=== PATIENT | female | born 1940 | race Caucasian/White ===

== ENCOUNTER 2016-11-24 21:29 | Emergency (ER) | payer OTHER ==
[~2016-11-24] VITALS: Ht 157.5 cm; Wt 84.6 kg
[~2016-11-24 21:29] MED LIST: ACET-1311 PO; ALBU1AER9 INH; CALCTAB20 PO; INSDGI SC; WARF-283 PO
[2016-11-24 21:43] VITALS: O2SAT 96; Ht 157.5 cm; Wt 84.6 kg
--- NOTE | 2016-11-24 21:48 | EMERGENCY ROOM VISIT NOTE ---
History Report prepared by Violeta: Rl Raygoza Under the Supervision of: Dr. Anthony Ocampo D.O. First contact with patient: 21:32 Chief Complaint: FALL Stated Complaint: FALL/HYPOTENSIVE History of Present Illness The patient is a 76 year old female who presents to the Emergency Room after a falling episode that occurred shortly prior to arrival. Per emergency medical service personnel, the patient was walking across a concrete floor in her home when she became weak and fell. The patient fell forward and impacted her face during the fall. The patient does not remember if she lost consciousness at any time. She is currently complaining of pain in her neck and back. She is also currently experiencing a headache. EMS state that the patient's blood sugar level was 256 upon their arrival. The patient lives in a private home with her . She is on Coumadin. Source of History: patient, EMS Onset: Shortly RN VISITING Position: head (Face) Quality: other (Falling episode) Associated Symptoms: + back pain, + headache, + neck pain Review of Systems See HPI for pertinent positives and negatives. A total of ten systems were reviewed and were otherwise negative. 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 (11) H/O vertigo (12) Heterozygous MTHFR mutation C677T (13) History of CVA (cerebrovascular accident) (14) History of DVT (deep vein thrombosis) (15) History of hyperkalemia (16) History of TIA (transient ischemic attack) (17) HTN (hypertension) (18) Hypothyroidism (19) Idiopathic pulmonary fibrosis (20) Malignant neoplasm of corpus uteri (21) Migraine (22) Moderate COPD (chronic obstructive pulmonary disease) (23) Paroxysmal a-fib (24) Tobacco abuse (25) Valvular disease Surgical Problems: (1) H/o bile tract procedure (2) H/O cardiac catheterization (3) H/O excision of lamina of cervical vertebra for decompression of spinal cord (4) H/O hernia repair (5) H/O total hysterectomy with bilateral salpingo-oophorectomy (BSO) (6) History of cholecystectomy (7) History of total hip replacement (8) S/P CABG (coronary artery bypass graft) Family History Cardiac disorder FATHER MOTHER Diabetes mellitus FATHER MOTHER BROTHER GRANDMOTHER FH: cancer Social History Smoking Status: Current Every Day Smoker Alcohol Use: none Drug Use: none Marital Status: Housing Status: lives with family Occupation Status: retired Current/Historical Medications Scheduled Albuterol Sulfate (Proair Respiclick), 2 PUFFS INH Q6 Aspirin (Aspirin Chewable), 81 MG PO DAILY Calcium Carbonate (Calcium Carbonate), 1 TAB PO DAILY Docusate Sodium (Colace), 1 CAP PO BID Furosemide (Lasix), 20 MG PO DAILY Glipizide (Glucotrol), 10 MG PO QAM Glipizide (Glipizide), 5 MG PO QDD Insulin Glargine (Lantus), 28 UNITS SC QPM Isosorbide Mononitrate Ext Rel (Imdur Ext Rel), 30 MG PO QAM Levothyroxine Sodium (Levothyroxine Sodium), 137 MCG PO DAILY Magnesium Oxide (Magnesium), 400 MG PO DAILY Oxygen (Oxygen), 2 LITERS NA HS Ranitidine Hcl (Zantac), 150 MG PO BID Sertraline (Zoloft), 50 MG PO DAILY Sotalol Hcl (Sotalol Hcl), 1 TAB PO QAM Trazodone Hcl (Trazodone), 50 MG PO HS Warfarin Sod (Jantoven), 4 MG PO DAILY Warfarin Sodium (Warfarin Sodium), 2 MG PO DAILY Scheduled PRN Ipratropium-Albuterol (Combivent Respimat), 1 PUFFS INH QID PRN for SOB/Wheezing Nitroglycerin (Nitrostat), 0.4 MG UT UD PRN for Chest Pain Ondansetron Hcl (Zofran), 4 MG PO Q6H PRN for Nausea or Vomiting Tramadol (Ultram), 1 TAB PO DAILY PRN for Pain Allergies Coded Allergies: SY Inhibitors (Verified Allergy, Severe, HYPERKALEMIA, 11/24/16) Codeine (Verified Allergy, Severe, HIVES / DIFICULTY BREATHING; TAKES PERCOCET W/O PROBLEM, 11/24/16) Penicillins (Verified Allergy, Intermediate, RASH, 11/24/16) Physical Exam Vital Signs Date Time Temp Pulse Resp B/P Pulse Ox O2 Delivery O2 Flow Rate FiO2 11/25/16 00:10 119 16 166/140 96 Room Air 11/24/16 22:39 118 25 97 11/24/16 22:34 118 21 98 11/24/16 22:29 118 27 96 11/24/16 22:24 118 22 97 11/24/16 22:19 118 27 98 11/24/16 22:16 141/114 11/24/16 22:14 118 29 97 11/24/16 22:09 117 26 96 11/24/16 22:04 116 20 96 11/24/16 22:02 /93 11/24/16 21:59 118 16 91 11/24/16 21:54 117 26 105/81 97 11/24/16 21:53 116 11/24/16 21:43 36.7 117 20 114/100 96 Nasal Cannula 4.0 11/24/16 21:43 96 Nasal Cannula 4.0 Physical Exam GENERAL: Awake, alert, well-appearing, in no distress HENT: There is obvious ecchymosis about the face, nose, and eyes. There is also right upper eye lid edema. Oropharynx unremarkable. EYES: Normal conjunctiva. Sclera non-icteric. NECK: No tenderness over the midline neck. Supple. No nuchal rigidity. FROM. No JVD. RESPIRATORY: Clear to auscultation. CARDIAC: Tachycardiac rate, normal rhythm. Extremities warm and well perfused. Pulses equal. ABDOMEN: Soft, non-distended. No tenderness to palpation. No rebound or guarding. No masses. RECTAL: Deferred. MUSCULOSKELETAL: Chest examination reveals no tenderness. The back is symmetrical on inspection without obvious abnormality. There is no CVA tenderness to palpation. No joint edema. LOWER EXTREMITIES: There is no tenderness to the extremities. Abrasions to the bilateral upper extremities. Calves are equal size bilaterally and non-tender. No discoloration. Pitting edema to the bilateral lower extremities. NEURO: Normal sensorium. No sensory or motor deficits noted. SKIN: No rash or jaundice noted. Medical Decision & Procedures ER Provider Diagnostic Interpretation: X ray results as stated below per my interpretation and radiologist interpretation. Other radiology results as stated below per my review and radiologist interpretation CHEST ONE VIEW PORTABLE CLINICAL HISTORY: Syncope. COMPARISON STUDY: Chest radiograph February 01, 2016. FINDINGS: There is a dual lead left subclavian pacemaker and median sternotomy wires. No pneumothorax is present. There are suspected small bilateral pleural effusions. Interstitial thickening is similar to prior exams. Cardiomegaly is unchanged. There is no lobar consolidation. IMPRESSION: 1. No significant change in interstitial thickening which likely reflects interstitial lung disease although mild superimposed edema would be difficult to exclude. 2. Suspected small bilateral pleural effusions. No pneumothorax. Electronically signed by: Dylon Cunningham M.D. 11/24/2016 10:24 PM Dictated Date/Time: 11/24/2016 10:[address] HEAD: Comparison: CT dated 02/01/2016. No intracranial hemorrhage, skull fracture, or other acute intracranial abnormality. Stable atrophy and chronic small vessel ischemic disease. Stable small infarct in the right cerebellar hemisphere. CT FACIAL: Possible small fracture of the nasal tip. Correlate clinically. Otherwise no evidence of facial bone fracture. Suspect mild right eyelid swelling. Orbits appear intact. CT C SPINE: No acute fracture or traumatic subluxation of the cervical spine. Multilevel degenerative changes of the cervical spine. Radiologist: Disha Villatoro MD. Laboratory Results 11/24/16 22:35 Red Blood Count 5.21, Mean Corpuscular Volume 88.1, Mean Corpuscular Hemoglobin 29.2, Mean Corpuscular Hemoglobin Concent 33.1, Mean Platelet Volume 9.8, Neutrophils (%) (Auto) 67.6, Lymphocytes (%) (Auto) 22.6, Monocytes (%) (Auto) 7.5, Eosinophils (%) (Auto) 1.5, Basophils (%) (Auto) 0.3, Neutrophils # (Auto) 4.42, Lymphocytes # (Auto) 1.48, Monocytes # (Auto) 0.49, Eosinophils # (Auto) 0.10, Basophils # (Auto) 0.02 11/24/16 22:35 Test 11/24/16 22:35 11/24/16 22:39 11/24/16 22:42 White Blood Count 6.54 K/uL (4.8-10.8) Red Blood Count 5.21 M/uL (4.2-5.4) Hemoglobin 15.2 g/dL (12.0-16.0) Hematocrit 45.9 % (37-47) Mean Corpuscular Volume 88.1 fL (80-100) Mean Corpuscular Hemoglobin 29.2 pg (25-34) Mean Corpuscular Hemoglobin Concent 33.1 g/dl (32-36) Platelet Count 190 K/uL (130-400) Mean Platelet Volume 9.8 fL (7.4-10.4) Neutrophils (%) (Auto) 67.6 % Lymphocytes (%) (Auto) 22.6 % Monocytes (%) (Auto) 7.5 % Eosinophils (%) (Auto) 1.5 % Basophils (%) (Auto) 0.3 % Neutrophils # (Auto) 4.42 K/uL (1.4-6.5) Lymphocytes # (Auto) 1.48 K/uL (1.2-3.4) Monocytes # (Auto) 0.49 K/uL (0.11-0.59) Eosinophils # (Auto) 0.10 K/uL (0-0.5) Basophils # (Auto) 0.02 K/uL (0-0.2) RDW Standard Deviation 51.2 fL (36.4-46.3) RDW Coefficient of Variation 16.0 % (11.5-14.5) Immature Granulocyte % (Auto) 0.5 % Immature Granulocyte # (Auto) 0.03 K/uL (0.00-0.02) Prothrombin Time 15.2 SECONDS (9.0-12.0) Prothromb Time International Ratio 1.4 (0.9-1.1) Anion Gap 8.0 mmol/L (3-11) Est Creatinine Clear Calc Drug Dose 45.3 ml/min Estimated GFR () 57.3 Estimated GFR (Non- 49.4 BUN/Creatinine Ratio 11.7 (10-20) Calcium Level 8.8 mg/dl (8.5-10.1) Total Bilirubin 1.0 mg/dl (0.2-1) Direct Bilirubin 0.4 mg/dl (0-0.2) Aspartate Amino Transf (AST/SGOT) 18 U/L (15-37) Alanine Aminotransferase (ALT/SGPT) 20 U/L (12-78) Alkaline Phosphatase 137 U/L (45-117) Total Protein 7.4 gm/dl (6.4-8.2) Albumin 3.0 gm/dl (3.4-5.0) Bedside Glucose 245 mg/dl (70-90) Bedside Troponin I 0.000 ng/ml (0-0.045) Laboratory results reviewed by me ECG Indication: weakness Rate (beats per minute): 117 Rhythm: atrial fibrillation (rapid) Findings: other (No ST elevation or depression, RAD present) ED Course 2134: The patient was evaluated in room B7. A complete history and physical exam was performed. 0040: I checked on the patient at this time. Heart rate is 110, she is neurologically intact. GCS is 15. I spoke to the family at bedside. The patient will be discharged home. Medical Decision Differential Diagnosis include: Syncope, near syncope, closed head injury, cervical spine injury, facial fracture, and cardiac dysrhythmia. Repeat examination of patient at 0045 hours the patient is resting in no distress with family bedside she is mildly tachycardic at 110. She does have a history of A. fib with rapid ventricular response. Patient's family states that she was walking to the bathroom with her walker in her right leg gave out. There was no syncope. Patient complained of face pain. Patient was alert and conscious throughout the entire evaluation according to the patient's daughter who is at bedside currently and I am asking her the history. I discussed the workup with the patient and the patient's family they would like to take her home. Patient was offered pain medicine she states that she would like to take Tylenol Impression Primary Impression: Fall Additional Impressions: Contusion of multiple sites Atrial flutter with rapid ventricular response Head injury Facial contusion Scribe Attestation The scribe's documentation has been prepared under my direction and personally reviewed by me in its entirety. I confirm that the note above accurately reflects all work, treatment, procedures, and medical decision making performed by me. Departure Information Dispostion Home / Self-Care Referrals Gio Braun D.O. (PCP) Patient Instructions Bruises Contusions, ED Head Injury Closed, ED Mechanical Fall, [facility] Additional Instructions Follow-up with primary care physician. Return for increased pain alteration in mental status or any concerns. Continue to take her home medications. Take Tylenol for your pain. Problem Qualifiers Primary Impression: Fall Encounter type: initial encounter Qualified Codes: W19.XXXA - Unspecified fall, initial encounter Additional Impressions: Head injury Encounter type: initial encounter Qualified Codes: S09.90XA - Unspecified injury of head, initial encounter Facial contusion Encounter type: initial encounter Qualified Codes: S00.83XA - Contusion of other part of head, initial encounter
--- NOTE | 2016-11-24 22:25 | DIAGNOSTIC IMAGING REPORT ---
CHEST ONE VIEW PORTABLE CLINICAL HISTORY: Syncope. COMPARISON STUDY: Chest radiograph February 01, 2016. FINDINGS: There is a dual lead left subclavian pacemaker and median sternotomy wires. No pneumothorax is present. There are suspected small bilateral pleural effusions. Interstitial thickening is similar to prior exams. Cardiomegaly is unchanged. There is no lobar consolidation. IMPRESSION: 1. No significant change in interstitial thickening which likely reflects interstitial lung disease although mild superimposed edema would be difficult to exclude. 2. Suspected small bilateral pleural effusions. No pneumothorax. Electronically signed by: Dylon Cunningham M.D. 11/24/2016 10:24 PM Dictated Date/Time: 11/24/2016 10:22 PM
[2016-11-24 22:55] LABS: BASO % 0.3 %; BASO ABS # 0.02 K/uL (0-0.2); COMPLETE YES; EOS % 1.5 %; HEMATOCRIT 45.9 % (37-47); IG% 0.5 %; LYMPH % 22.6 %; LYMPH ABS # 1.48 K/uL (1.2-3.4); MEAN CELL VOLUME 88.1 fL (80-100); MEAN CORPUSCULAR HEMOGLOBIN 29.2 pg (25-34); MEAN CORPUSCULAR HGB CONC 33.1 g/dl (32-36); MEAN PLATELET VOLUME 9.8 fL (7.4-10.4); MONO % 7.5 %; NEUT % 67.6 %; PLATELET COUNT 190 K/uL (130-400); RED BLOOD COUNT 5.21 M/uL (4.2-5.4); WHITE BLOOD COUNT 6.54 K/uL (4.8-10.8)
[2016-11-24 23:04] LABS: INR 1.4 (0.9-1.1); PROTHROMBIN TIME (PATIENT) 15.2 SECONDS (9.0-12.0)
[2016-11-24 23:17] LABS: BUN/CREATININE RATIO 11.7 (10-20); CALCIUM 8.8 mg/dl (8.5-10.1); CREATININE 1.1 mg/dl (0.60-1.20)
[2016-11-24] MEDS ORDERED: ALBU18002 INH (23:56)
[2016-11-24] MEDS ORDERED: WARF4TAB8 PO (23:56)
[2016-11-24] MEDS ORDERED: SERT50TA PO (23:56)
[2016-11-25] MEDS ORDERED: ACETAMINOPHEN 500 MG TAB PO STA (00:43)
[2016-11-25 01:00] VITALS: BP 166/140; PULSE 119; TEMP 36.7; O2SAT 96
--- NOTE | 2016-11-25 06:35 | DIAGNOSTIC IMAGING REPORT ---
CT OF THE HEAD WITHOUT CONTRAST CLINICAL HISTORY: Trauma. COMPARISON STUDY: Head CT February 01, 2016. CT DOSE: 1252.14 mGy.cm TECHNIQUE: Helical axial images of the head were obtained without IV contrast. Automated exposure control was utilized for the study. FINDINGS: No acute intracranial hemorrhage, midline shift or mass effect is present. Ventricular system is stable. Basilar cisterns are patent. There are no extra-axial collections. White matter hypodensity suggests small vessel disease. There are no findings to suggest acute dural sinus thrombosis or acute territorial infarct. There is an old infarct within the right cerebellar hemisphere. There is no calvarial fracture. There are minimal secretions within the left maxillary sinus. Mastoid air cells are clear. IMPRESSION: 1. No acute intracranial findings. 2. No calvarial fracture. Electronically signed by: Dylon Cunningham M.D. 11/25/2016 6:34 AM Dictated Date/Time: 11/25/2016 6:32 AM
--- NOTE | 2016-11-25 06:37 | DIAGNOSTIC IMAGING REPORT ---
CT OF THE CERVICAL SPINE WITHOUT CONTRAST CLINICAL HISTORY: Trauma. COMPARISON STUDY: No previous studies for comparison. TECHNIQUE: Helical axial images of the cervical spine were obtained without IV contrast. Sagittal and coronal reconstructions were viewed. FINDINGS: Alignment of the cervical spine is anatomic. There is no acute fracture. Moderate disc space narrowing and osteophytosis at C5-C6 is present. The craniocervical junction is intact. There is no prevertebral edema. IMPRESSION: No acute cervical spine fracture or subluxation. Electronically signed by: Dylon Cunningham M.D. 11/25/2016 6:36 AM Dictated Date/Time: 11/25/2016 6:34 AM
--- NOTE | 2016-11-25 07:42 | DIAGNOSTIC IMAGING REPORT ---
CT SCAN OF THE FACIAL BONES WITHOUT IV CONTRAST CLINICAL HISTORY: Trauma. COMPARISON STUDY: CT of the brain dated 11/24/2016. TECHNIQUE: High-resolution CT scan of the facial bones is performed. Images are reviewed in the axial, sagittal, and coronal planes. IV contrast was not administered for this examination. FINDINGS: The skeletal structures are osteopenic. There is no evidence of facial bone fracture. The bony orbits are intact and the orbital contents are within normal limits. The zygomatic arches, nasal bones, and pterygoid plates are preserved. The maxilla and mandible are intact. Degenerative changes noted at the temporomandibular joints. There are no layering blood products within the paranasal sinuses. Secretions are present within the left maxillary antrum. The remaining paranasal sinuses are clear, in the mastoid air cells are well pneumatized. The visualized calvarium and upper cervical spine are maintained. Partially imaged brain parenchyma is within normal limits noting age-related involutional change. There is advanced atherosclerotic calcification of the cavernous carotid and vertebral arteries. The patient is edentulous. IMPRESSION: There is no evidence of facial bone fracture. Electronically signed by: Galdino Navarrete M.D. 11/25/2016 7:40 AM Dictated Date/Time: 11/25/2016 7:37 AM
[2017-03-09] MEDS ORDERED: ZNT/150 PO (13:10)
[2017-03-09] MEDS ORDERED: GLIP10TA9 PO (13:10)
[2017-03-09] MEDS ORDERED: NTRGSL/4 UT (13:10)
[2017-03-09] MEDS ORDERED: DOCU-94 PO (14:28)
[2017-03-09] MEDS ORDERED: OXGN (14:31)
[2017-03-09] MEDS ORDERED: IPRA1AER2 INH (16:29)
[2017-03-09] MEDS ORDERED: TRAM-10 PO (17:05)
[2017-03-12] MEDS ORDERED: ULT50X PO (08:45)
[2017-03-12] MEDS ORDERED: NUTR-7 PO (08:45)
[2017-03-12] MEDS ORDERED: TRAZ50TA35 PO (08:45)
[2017-03-12] MEDS ORDERED: ECRCR EXT (08:45)
[2017-03-12] MEDS ORDERED: CPC PO (08:45)
[2017-03-12] MEDS ORDERED: SNTO30 EXT (08:45)
[2017-03-12] MEDS ORDERED: LCTX PO (08:45)
[2017-03-12] MEDS ORDERED: DXY100 PO (18:23)
[2017-03-17] MEDS ORDERED: INSDGIPEN SC (16:06)
[2017-03-17] MEDS ORDERED: DXY100 PO (16:13)
[2017-03-17] MEDS ORDERED: FURO-85 PO (16:21)
[2017-03-17] MEDS ORDERED: MAGN1TAB19 PO (16:22)
[2017-04-08] MEDS ORDERED: BTP80 PO (09:32)
[2017-04-08] MEDS ORDERED: INSDGIPEN SC (09:32)
[2017-04-08] MEDS ORDERED: MRLP17X PO (09:32)
[2017-04-08] MEDS ORDERED: SERT50TA PO (09:37)
[2017-04-08] MEDS ORDERED: FURO-85 PO (10:47)
== END 2016-11-25 01:50 | disposition home or self-care (01) ==
LOC: EDBD 21:29 → C.EDB 21:30
DX: S09.90XA Unspecified injury of head, initial encounter (principal); S00.83XA Contusion of other part of head, initial encounter; T14.8 Other injury of unspecified body region; W19.XXXA Unspecified fall, initial encounter; Y92.019 Unspecified place in single-family (private) house as the place of occurrence of the external cause; M54.2 Cervicalgia; I48.92 Unspecified atrial flutter; I48.91 Unspecified atrial fibrillation; I12.9 Hypertensive chronic kidney disease with stage 1 through stage 4 chronic kidney disease, or unspecified chronic kidney disease; N18.3 Chronic kidney disease, stage 3 (moderate); I25.10 Atherosclerotic heart disease of native coronary artery without angina pectoris; E78.5 Hyperlipidemia, unspecified; I50.30 Unspecified diastolic (congestive) heart failure; E03.9 Hypothyroidism, unspecified; E11.9 Type 2 diabetes mellitus without complications; K21.9 Gastro-esophageal reflux disease without esophagitis; J44.9 Chronic obstructive pulmonary disease, unspecified; G89.29 Other chronic pain; J84.10 Pulmonary fibrosis, unspecified; F32.9 Major depressive disorder, single episode, unspecified; F17.200 Nicotine dependence, unspecified, uncomplicated; Z86.73 Personal history of transient ischemic attack (TIA), and cerebral infarction without residual deficits; Z85.42 Personal history of malignant neoplasm of other parts of uterus; Z86.718 Personal history of other venous thrombosis and embolism; Z95.1 Presence of aortocoronary bypass graft; Z90.710 Acquired absence of both cervix and uterus; Z90.49 Acquired absence of other specified parts of digestive tract; Z96.649 Presence of unspecified artificial hip joint; Z79.01 Long term (current) use of anticoagulants; Z79.82 Long term (current) use of aspirin; Z79.4 Long term (current) use of insulin; Z79.899 Other long term (current) drug therapy; Z88.0 Allergy status to penicillin; Z88.5 Allergy status to narcotic agent; Z88.8 Allergy status to other drugs, medicaments and biological substances; Z83.3 Family history of diabetes mellitus; Z82.49 Family history of ischemic heart disease and other diseases of the circulatory system; Z80.9 Family history of malignant neoplasm, unspecified

== ENCOUNTER 2017-03-09 17:36 | Inpatient (IN) | payer OTHER ==
[~2017-03-09] VITALS: Ht 157.5 cm; Wt 81.2 kg
[~2017-03-09 17:36] MED LIST changes: -ACET-1311 PO; +ALBU18002 INH; -ALBU1AER9 INH; -CALCTAB20 PO; +DOCU-94 PO; +GLIP10TA9 PO; -INSDGI SC; +IPRA1AER2 INH; +NTRGSL/4 UT; +OXGN; +SERT50TA PO; +TRAM-10 PO; +WARF4TAB8 PO; +ZNT/150 PO
[2017-03-09] MEDS ORDERED: SODIUM CHLORIDE 0.9% 1000ML 1,000 ML IV STA ×3 (18:01→18:50)
[2017-03-09] MEDS ORDERED: AZTREONAM IV 2,000 MG in DEXTROSE 5% 100ML 100 ML IV STA (18:06)
[2017-03-09] MEDS ORDERED: VANCOMYCIN INJ 1,600 MG in SODIUM CHLORIDE 0.9% 500ML 500 ML IV STA (18:07)
[2017-03-09 18:29] LABS: URINE APPEARANCE CLEAR (CLEAR); URINE BILIRUBIN NEG (NEG); URINE COLOR DK YELLOW; URINE EPITHELIAL CELL AUTO >30 /lpf (0-5); URINE NITRITE NEG (NEG); URINE PH 5.5 (4.5-7.5); URINE SPECIFIC GRAVITY 1.019 (1.000-1.030); UROBILINOGEN NEG (NEG)
--- NOTE | 2017-03-09 18:32 | DIAGNOSTIC IMAGING REPORT ---
CHEST ONE VIEW PORTABLE CLINICAL HISTORY: Weakness. Hypoglycemia. COMPARISON STUDY: Chest radiograph November 24, 2016. FINDINGS: A dual lead left pacemaker is noted. There are median sternotomy wires. There is no pneumothorax. There may be a small right pleural effusion. An opacity within the lateral right midlung is new since prior exam. This could reflect pleural fluid or mild airspace disease. Interstitial thickening has slightly increased. There is no lobar consolidation. Mild cardiomegaly is unchanged. IMPRESSION: 1. Increase in interstitial thickening. This may reflect mild pulmonary edema or an infectious process superimposed upon interstitial lung disease. 2. Interval development of mild opacity within the lateral right midlung may reflect pleural fluid or mild airspace opacity. PA and lateral chest radiograph in one month is recommended to ensure resolution. 3. Suspected small right pleural effusion. Electronically signed by: Dylon Cunningham M.D. 03/09/2017 6:31 PM Dictated Date/Time: 03/09/2017 6:28 PM
[2017-03-09 18:36] LABS: MANUAL MICROSCOPIC REQUIRED? NO; REVIEW REQ? NO
[2017-03-09] MEDS ORDERED: VNTHFA/IN INH (18:37)
[2017-03-09] MEDS ORDERED: ZLF/100 PO (18:37)
[2017-03-09 19:00] LABS: BASO % 0.2 %; BASO ABS # 0.02 K/uL (0-0.2); COMPLETE YES; EOS % 0.4 %; HEMATOCRIT 47.8 % (37-47); IG% 0.3 %; LYMPH % 15.2 %; LYMPH ABS # 1.41 K/uL (1.2-3.4); MEAN CELL VOLUME 89.3 fL (80-100); MEAN CORPUSCULAR HEMOGLOBIN 29.3 pg (25-34); MEAN CORPUSCULAR HGB CONC 32.8 g/dl (32-36); MEAN PLATELET VOLUME 9.2 fL (7.4-10.4); MONO % 9.8 %; NEUT % 74.1 %; PLATELET COUNT 185 K/uL (130-400); RED BLOOD COUNT 5.35 M/uL (4.2-5.4); WHITE BLOOD COUNT 9.26 K/uL (4.8-10.8)
[2017-03-09 19:04] LABS: INR 2.8 (0.9-1.1); PARTIAL THROMBOPLASTIN RATIO 1.5; PROTHROMBIN TIME (PATIENT) 31.4 SECONDS (9.0-12.0)
[2017-03-09 19:07] LABS: BUN/CREATININE RATIO 14.9 (10-20); CALCIUM 9.5 mg/dl (8.5-10.1); CREATININE 1.4 mg/dl (0.60-1.20); MAGNESIUM 1.9 mg/dl (1.8-2.4)
--- NOTE | 2017-03-09 19:08 | DIAGNOSTIC IMAGING REPORT ---
CT OF THE HEAD WITHOUT CONTRAST CLINICAL HISTORY: Weakness. Hypoglycemia. COMPARISON STUDY: Head CT November 24, 2016. CT DOSE: 1203.96 mGy.cm TECHNIQUE: Helical axial images of the head were obtained without IV contrast. Automated exposure control was utilized for the study. FINDINGS: No acute intracranial hemorrhage, midline shift or mass effect is present. Mild ventricular dilatation is unchanged and likely due to atrophy. The basilar cisterns are patent. There are no extra-axial collections. Old infarct within the right cerebellar hemisphere is noted. Moderate white matter hypodensities suggest small vessel disease. There are no findings to suggest acute dural sinus thrombosis or acute territorial infarct. There are no significant calvarial abnormalities. There is mild mucosal thickening of the sinuses. IMPRESSION: No acute intracranial findings. Electronically signed by: Dylon Cunningham M.D. 03/09/2017 7:07 PM Dictated Date/Time: 03/09/2017 7:02 PM
[2017-03-09 19:27] LABS: CKMB/CK RATIO 2.2 (0-3.0); THYROID STIMULATING HORMONE 1.93 uIu/ml (0.300-4.500)
[2017-03-09] MEDS ORDERED: FURO-85 PO (20:11)
[2017-03-09] MEDS ORDERED: SOTA80TA PO (20:11)
[2017-03-09] MEDS ORDERED: ISOS30TA35 PO (20:11)
[2017-03-09] MEDS ORDERED: GLC5 PO (20:11)
[2017-03-09] MEDS ORDERED: LEVAQUIN 750MG / 150ML D5W IV STA (20:27)
[2017-03-09] MEDS ORDERED: INSULIN ASPART 100 UNITS/ML 3 ML PEN SC ONE (21:49)
[2017-03-09] MEDS ORDERED: GLUCOSE 40% GEL 15 GM TUBE PO PRN (22:00)
[2017-03-09] MEDS ORDERED: NITROGLYCERIN 0.4 MG SL PER TAB CHARGE SL PRN (22:00)
[2017-03-09] MEDS ORDERED: DEXTROSE 50% 50 ML SYR IV PRN (22:00)
[2017-03-09] MEDS ORDERED: GLUCAGON FOR INJ 1 MG VIAL SQ PRN (22:00)
[2017-03-09] MEDS ORDERED: GLUCOSE 10 TABS/TUBE PO PRN (22:00)
[2017-03-09] MEDS ORDERED: ONDANSETRON INJ 2 MG/ML 2 ML VIAL IV PRN (22:00)
[2017-03-09] MEDS ORDERED: HYDROmorphone INJ 0.5 MG/0.5 ML SYR IV PRN (22:00)
[2017-03-09] MEDS ORDERED: LEVO137T3 PO (22:09)
[2017-03-09] MEDS ORDERED: ASPCH81X PO (22:10)
[2017-03-09 22:24] VITALS: BP 114/84; PULSE 120; TEMP 36.5; O2SAT 94; BMI 31.9
--- NOTE | 2017-03-09 22:24 | DIAGNOSTIC IMAGING REPORT ---
CT OF THE RIGHT LOWER LEG WITHOUT CONTRAST CT DOSE: 331.70 mGy.cm CLINICAL HISTORY: Right [id number] swelling. Evaluate for abscess TECHNIQUE: Axial images of the right lower leg were obtained without IV contrast. Sagittal and coronal reconstructions were viewed. COMPARISON STUDY: Right knee radiographs July 17, 2015. FINDINGS: There is no acute fracture the right tibia or fibula. Alignment of the right knee and ankle is anatomic. There is moderate arthritis of the right knee with chondrocalcinosis. There is no right knee joint effusion. There is no evidence of osteomyelitis within the right tibia or fibula by CT. There is moderate subcutaneous edema of the right lower leg, greater posteriorly. There is no fluid collection to suggest an abscess on this unenhanced study. IMPRESSION: 1. No acute fracture of the right tibia or fibula. 2. Moderate subcutaneous edema of the right lower leg. This could simply represent subcutaneous edema or cellulitis. No fluid collection to suggest abscess. No evidence of osteomyelitis by CT. Electronically signed by: Dylon Cunningham M.D. 03/09/2017 10:23 PM Dictated Date/Time: 03/09/2017 10:15 PM
[2017-03-09] MEDS ORDERED: CLINDAMYCIN CONSULT ACTIVE PRN ×2 (22:30)
[2017-03-09] MEDS ORDERED: CEFEPIME CONSULT ACTIVE PRN ×2 (22:30)
[2017-03-09] MEDS ORDERED: CLINDAMYCIN IV 600 MG in DEXTROSE 5% 50ML 50 ML IV ONE (22:45)
[2017-03-09] MEDS ORDERED: SOTALOL HCL 80 MG TAB PO ONE (23:13)
[2017-03-09 23:51] VITALS: BP 88/52; PULSE 120; TEMP 36.5; O2SAT 93
[2017-03-09] MEDS ORDERED: ONDA4TAB46 PO (23:56)
[2017-03-09] MEDS ORDERED: TRAZ50TA35 PO (23:56)
[2017-03-09] MEDS ORDERED: CALC600T48 PO (23:56)
[2017-03-09] MEDS ORDERED: INSDGI SC (23:56)
[2017-03-09] MEDS ORDERED: MAGN1TAB41 PO (23:56)
[2017-03-10] VITALS (11 sets, daily range): BP systolic 78–110; BP diastolic 60–80; PULSE 110–118; TEMP 36.5–36.9; O2SAT 92–98; BMI 32.7
[2017-03-10] MEDS: CEFEPIME IV 2000 MG in DEXTROSE 5% 100ML IV SCH (00:44)
--- NOTE | 2017-03-10 01:01 | EMERGENCY ROOM VISIT NOTE ---
History Report prepared by Violeta: Suresh Luong Under the Supervision of: Dr. Pan Patterson M.D. First contact with patient: 17:42 Chief Complaint: HYPOGLYCEMIA Stated Complaint: HYPOGLYCEMIA History of Present Illness The patient is a 76 year old female who presents to the Emergency Room with complaints of constant weakness beginning last night. The patient's family states that they called EMS because the patient was unresponsive to them the entire day, and she did not get out of bed. They report the patient can typically ambulate on her own, but today she could not. The family notes that the patient does not use her oxygen at home like she should, but she takes her medication when she is supposed to. They state the patient was at the doctors two days ago, and they could not find a pulse without a stethoscope. The family reports the patient has a history of smoking. Nursing staff reports the patient took a tramadol last night, and she has not been out of bed since. They state the patient was unresponsive to the family, but when EMS got there she was alert and oriented. The nurse notes that the patient's blood sugar was 47 when EMS found her. They report she was given a 500ml bolus of D10 IV en route, and her blood glucose pascual to the high 200s. The patient states that she has back pain and a cough. Pt denies LOC, headache, fevers, chills, diaphoresis, visual changes, neck pain, chest pain, nausea, vomiting, abdominal pain, melena, hematochezia, urinary symptoms, numbness, lymphadenopathy, rash, or other complaints. Source of History: patient, family, nursing staff Onset: last night Position: other (global) Quality: other (weakness) Timing: constant Associated Symptoms: + cough, + back pain Note: Associated symptoms: Altered mental status Review of Systems See HPI for pertinent positives and negatives. A total of ten systems were reviewed and were otherwise negative. 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 (11) H/O vertigo (12) Heterozygous MTHFR mutation C677T (13) History of CVA (cerebrovascular accident) (14) History of DVT (deep vein thrombosis) (15) History of hyperkalemia (16) History of TIA (transient ischemic attack) (17) HTN (hypertension) (18) Hypothyroidism (19) Idiopathic pulmonary fibrosis (20) Malignant neoplasm of corpus uteri (21) Migraine (22) Moderate COPD (chronic obstructive pulmonary disease) (23) Paroxysmal a-fib (24) Sepsis (25) Tobacco abuse (26) Valvular disease Surgical Problems: (1) H/o bile tract procedure (2) H/O cardiac catheterization (3) H/O excision of lamina of cervical vertebra for decompression of spinal cord (4) H/O hernia repair (5) H/O total hysterectomy with bilateral salpingo-oophorectomy (BSO) (6) History of cholecystectomy (7) History of total hip replacement (8) S/P CABG (coronary artery bypass graft) Family History Cardiac disorder FATHER MOTHER Diabetes mellitus FATHER MOTHER BROTHER GRANDMOTHER FH: cancer Social History Smoking Status: Heavy Tobacco Smoker Alcohol Use: none Drug Use: none Marital Status: Housing Status: lives with family Occupation Status: retired Current/Historical Medications Scheduled Aspirin (Aspirin Chewable), 81 MG PO DAILY Calcium Carbonate (Calcium Carbonate), 1 TAB PO DAILY Docusate Sodium (Colace), 1 CAP PO BID Glipizide (Glucotrol), 10 MG PO QAM Glipizide (Glipizide), 5 MG PO QPM Home O2 Therapy (Oxygen), 2 LITERS NA HS Insulin Glargine (Lantus), 28 UNITS SC QPM Ipratropium-Albuterol (Combivent Respimat), 1 PUFFS INH QID Isosorbide Mononitrate Ext Rel (Imdur Ext Rel), 30 MG PO QAM Levothyroxine Sodium (Levothyroxine Sodium), 137 MCG PO DAILY Magnesium Oxide (Magnesium), 400 MG PO DAILY Ranitidine Hcl (Zantac), 150 MG PO BID Sertraline HCl (Sertraline HCl), 100 MG PO DAILY Sotalol Hcl (Sotalol Hcl), 1 TAB PO QAM Trazodone Hcl (Trazodone), 50 MG PO HS Warfarin Sod (Jantoven), 4 MG PO UD Scheduled PRN Albuterol Hfa (Ventolin Hfa), 2 PUFF INH Q6 PRN for SOB/Wheezing Furosemide (Lasix), 20 MG PO DAILY PRN for SWELLING Nitroglycerin (Nitrostat), 0.4 MG UT UD PRN for Chest Pain Ondansetron Hcl (Zofran), 4 MG PO Q6H PRN for Nausea or Vomiting Tramadol (Ultram), 1 TAB PO DAILY PRN for Pain Allergies Coded Allergies: SY Inhibitors (Verified Allergy, Severe, HYPERKALEMIA, 11/24/16) Codeine (Verified Allergy, Severe, HIVES / DIFICULTY BREATHING; TAKES PERCOCET W/O PROBLEM, 11/24/16) Penicillins (Verified Allergy, Intermediate, RASH, 11/24/16) Physical Exam Vital Signs Date Time Temp Pulse Resp B/P (MAP) Pulse Ox O2 Delivery O2 Flow Rate FiO2 03/09/17 20:51 120 19 03/09/17 20:46 120 18 03/09/17 20:41 119 22 03/09/17 20:36 120 27 03/09/17 20:31 19 122/94 03/09/17 20:26 25 03/09/17 20:21 27 03/09/17 20:16 16 03/09/17 20:11 26 03/09/17 20:06 27 03/09/17 20:01 26 /126 03/09/17 19:56 119 19 03/09/17 19:51 27 03/09/17 19:46 109 20 03/09/17 19:41 118 23 03/09/17 19:36 118 25 03/09/17 19:34 124/94 94 Room Air 03/09/17 18:36 121 20 03/09/17 18:12 92 Room Air 03/09/17 18:06 121 30 94 Room Air 03/09/17 18:02 36.5 122 20 122/80 91 Room Air 03/09/17 18:01 124/93 Physical Exam GENERAL: Awake, alert, uncomfortable-appearing, in no distress HENT: Normocephalic, atraumatic. Oropharynx unremarkable. Dry mucus membranes. EYES: Normal conjunctiva. Sclera non-icteric. NECK: Supple. No nuchal rigidity. FROM. No JVD. RESPIRATORY: Scattered rhonchi. CARDIAC: Tachycardic rate, normal rhythm. Extremities warm and well perfused. Pulses equal. ABDOMEN: Soft, non-distended. No tenderness to palpation. No rebound or guarding. No masses. RECTAL: Deferred. MUSCULOSKELETAL: Chest examination reveals no tenderness. The back is symmetrical on inspection without obvious abnormality. There is no CVA tenderness to palpation. No joint edema. LOWER EXTREMITIES: Calves are equal size bilaterally. 2+ edema. Ulcer to the right posterior lower leg, erythema noted, and tender to palpation. NEURO: Normal sensorium. No sensory or motor deficits noted. SKIN: No rash or jaundice noted. Medical Decision & Procedures ER Provider Diagnostic Interpretation: Radiology results as stated below per my review and radiologist interpretation: CHEST ONE VIEW PORTABLE CLINICAL HISTORY: Weakness. Hypoglycemia. COMPARISON STUDY: Chest radiograph November 24, 2016. FINDINGS: A dual lead left pacemaker is noted. There are median sternotomy wires. There is no pneumothorax. There may be a small right pleural effusion. An opacity within the lateral right midlung is new since prior exam. This could reflect pleural fluid or mild airspace disease. Interstitial thickening has slightly increased. There is no lobar consolidation. Mild cardiomegaly is unchanged. IMPRESSION: 1. Increase in interstitial thickening. This may reflect mild pulmonary edema or an infectious process superimposed upon interstitial lung disease. 2. Interval development of mild opacity within the lateral right midlung may reflect pleural fluid or mild airspace opacity. PA and lateral chest radiograph in one month is recommended to ensure resolution. 3. Suspected small right pleural effusion. Electronically signed by: Dylon Cunningham M.D. 03/09/2017 6:31 PM Dictated Date/Time: 03/09/2017 6:[address] OF THE HEAD WITHOUT CONTRAST CLINICAL HISTORY: Weakness. Hypoglycemia. COMPARISON STUDY: Head CT November 24, 2016. CT DOSE: 1203.96 mGy.cm TECHNIQUE: Helical axial images of the head were obtained without IV contrast. Automated exposure control was utilized for the study. FINDINGS: No acute intracranial hemorrhage, midline shift or mass effect is present. Mild ventricular dilatation is unchanged and likely due to atrophy. The basilar cisterns are patent. There are no extra-axial collections. Old infarct within the right cerebellar hemisphere is noted. Moderate white matter hypodensities suggest small vessel disease. There are no findings to suggest acute dural sinus thrombosis or acute territorial infarct. There are no significant calvarial abnormalities. There is mild mucosal thickening of the sinuses. IMPRESSION: No acute intracranial findings. Electronically signed by: Dylon Cunningham M.D. 03/09/2017 7:07 PM Dictated Date/Time: 03/09/2017 7:02 PM Laboratory Results 03/09/17 18:28 Red Blood Count 5.35, Mean Corpuscular Volume 89.3, Mean Corpuscular Hemoglobin 29.3, Mean Corpuscular Hemoglobin Concent 32.8, Mean Platelet Volume 9.2, Neutrophils (%) (Auto) 74.1, Lymphocytes (%) (Auto) 15.2, Monocytes (%) (Auto) 9.8, Eosinophils (%) (Auto) 0.4, Basophils (%) (Auto) 0.2, Neutrophils # (Auto) 6.85, Lymphocytes # (Auto) 1.41, Monocytes # (Auto) 0.91, Eosinophils # (Auto) 0.04, Basophils # (Auto) 0.02 03/09/17 18:28 Test 03/09/17 18:10 03/09/17 18:28 03/09/17 18:30 Urine Color DK YELLOW Urine Appearance CLEAR (CLEAR) Urine pH 5.5 (4.5-7.5) Urine Specific [place] 1.019 (1.000-1.030) Urine Protein 1+ (NEG) Urine Glucose (UA) NEG (NEG) Urine Ketones NEG (NEG) Urine Occult Blood NEG (NEG) Urine Nitrite NEG (NEG) Urine Bilirubin NEG (NEG) Urine Urobilinogen NEG (NEG) Urine Leukocyte Esterase TRACE (NEG) Urine WBC (Auto) 1-5 /hpf (0-5) Urine RBC (Auto) 0-4 /hpf (0-4) Urine Hyaline Casts (Auto) 1-5 /lpf (0-5) Urine Epithelial Cells (Auto) >30 /lpf (0-5) Urine Bacteria (Auto) 2+ (NEG) White Blood Count 9.26 K/uL (4.8-10.8) Red Blood Count 5.35 M/uL (4.2-5.4) Hemoglobin 15.7 g/dL (12.0-16.0) Hematocrit 47.8 % (37-47) Mean Corpuscular Volume 89.3 fL (80-100) Mean Corpuscular Hemoglobin 29.3 pg (25-34) Mean Corpuscular Hemoglobin Concent 32.8 g/dl (32-36) Platelet Count 185 K/uL (130-400) Mean Platelet Volume 9.2 fL (7.4-10.4) Neutrophils (%) (Auto) 74.1 % Lymphocytes (%) (Auto) 15.2 % Monocytes (%) (Auto) 9.8 % Eosinophils (%) (Auto) 0.4 % Basophils (%) (Auto) 0.2 % Neutrophils # (Auto) 6.85 K/uL (1.4-6.5) Lymphocytes # (Auto) 1.41 K/uL (1.2-3.4) Monocytes # (Auto) 0.91 K/uL (0.11-0.59) Eosinophils # (Auto) 0.04 K/uL (0-0.5) Basophils # (Auto) 0.02 K/uL (0-0.2) RDW Standard Deviation 59.7 fL (36.4-46.3) RDW Coefficient of Variation 18.3 % (11.5-14.5) Immature Granulocyte % (Auto) 0.3 % Immature Granulocyte # (Auto) 0.03 K/uL (0.00-0.02) Prothrombin Time 31.4 SECONDS (9.0-12.0) Prothromb Time International Ratio 2.8 (0.9-1.1) Activated Partial Thromboplast Time 38.9 SECONDS (21.0-31.0) Partial Thromboplastin Ratio 1.5 Anion Gap 8.0 mmol/L (3-11) Est Creatinine Clear Calc Drug Dose 34.5 ml/min Estimated GFR () 42.8 Estimated GFR (Non- 36.9 BUN/Creatinine Ratio 14.9 (10-20) Calcium Level 9.5 mg/dl (8.5-10.1) Magnesium Level 1.9 mg/dl (1.8-2.4) Total Bilirubin 2.1 mg/dl (0.2-1) Direct Bilirubin 1.2 mg/dl (0-0.2) Aspartate Amino Transf (AST/SGOT) 33 U/L (15-37) Alanine Aminotransferase (ALT/SGPT) 17 U/L (12-78) Alkaline Phosphatase 194 U/L (45-117) Total Creatine Kinase 158 U/L (26-192) Creatine Kinase MB 3.4 ng/ml (0.5-3.6) Creatine Kinase MB Ratio 2.2 (0-3.0) Total Protein 7.7 gm/dl (6.4-8.2) Albumin 2.9 gm/dl (3.4-5.0) Lipase 34 U/L (73-393) Thyroid Stimulating Hormone (TSH) 1.930 uIu/ml (0.300-4.500) Bedside Lactic Acid Venous 2.54 mmol/L (0.90-1.70) Laboratory results reviewed by me Medications Administered Medications (Trade) Dose Ordered Sig/Mike Route Start Time Stop Time Status Last Admin Dose Admin Sodium Chloride 1,000 ml @ 125 mls/hr Q8H STAT IV 03/09/17 18:01 03/09/17 22:33 DC 03/09/17 18:30 125 MLS/HR Sodium Chloride 1,000 ml @ 999 mls/hr Q1H1M STAT IV 03/09/17 18:01 03/09/17 19:01 DC 03/09/17 18:30 999 MLS/HR Aztreonam 2000 mg/ Dextrose 110 ml @ 100 mls/hr NOW STAT IV 03/09/17 18:06 03/09/17 19:11 DC 03/09/17 18:31 100 MLS/HR Vancomycin HCl 1600 mg/Sodium Chloride 532 ml @ 200 mls/hr ONE STAT IV 03/09/17 18:07 03/09/17 20:46 DC 03/09/17 18:30 200 MLS/HR Sodium Chloride 1,000 ml @ 999 mls/hr Q1H1M STAT IV 03/09/17 18:50 03/09/17 19:50 DC 03/09/17 18:54 999 MLS/HR Levofloxacin (Levaquin / D5W) 750 mg NOW STAT IV 03/09/17 20:27 03/09/17 20:28 DC 03/09/17 21:28 750 MG ECG Indication: altered mental status Rate (beats per minute): 121 Rhythm: sinus tachycardia Findings: 1st degree AV block, PAC, Q waves (Septal), ST elevation (non- specific), no acute ischemic change ED Course 1753: The patient was evaluated in room A11B. A complete history and physical exam was performed. 1801: Ordered Sodium Chloride 1000 ml @ 999 mls/hr IV, Sodium Chloride 1000 ml @ 125 mls/hr IV 1806: Ordered Aztreonam 2,000mg/Dextrose 110ml @ 100 mls/hr IV 1807: Vancomycin HCl 1,600mg/Sodium Chloride 532ml @ 200 mls/hr 1850: Ordered Sodium Chloride 1000 ml @ 999 mls/hr IV 1937: Upon reexamination, the patient was resting. I discussed the test results and treatment plan with her. I discussed the patient's case with Mac Mazariegos. The patient will be evaluated for further management. Medical Decision Medication Reconciliation: I attest that I have personally reviewed the patient' s current medication list Blood pressure screening: Patient was found to have an elevated blood pressure and was referred to their primary doctor for recheck and further treatment. Triage Nursing notes reviewed. The patient's presentation and history were concerning for altered mental status. EtiolOgies such as metabolic, infection, hypo/hyperglycemia, electrolyte abnormalities, cardiac sources, intracerebral event, toxicologic, neurologic, as well as others were entertained. The patient was evaluated. She was tachycardic. Her leg was concerning for an infected ulcer. The patient was hydrated with normal saline. The patient had blood, urine, and wound cultures performed. She was started on vancomycin and aztreonam. The patient's lactate was elevated concerning for sepsis. She was given additional fluid. She had an unremarkable CBC and chemistry panel. Urinalysis was concerning for possible infection. She did have slight elevation of bilirubin but otherwise LFTs were unremarkable. The patient's INR was therapeutic at 2.8. Her troponin was elevated concerning for coronary ischemia. ECG did not reveal any significant ST elevation. Imaging performed as above. IV Levaquin was added secondary to possible pneumonia. Consultation was made with internal medicine. The patient was evaluated in the Emergency Room for further treatment. Consults Time Called: 1940 Consulting Physician: Mac Mazariegos Returned Call: 1942 I discussed the patient's case with Mac Mazariegos. The patient will be evaluated for further management. Impression Primary Impression: Cellulitis of right leg Additional Impressions: Sepsis PNA (pneumonia) Elevated troponin Scribe Attestation The scribe's documentation has been prepared under my direction and personally reviewed by me in its entirety. I confirm that the note above accurately reflects all work, treatment, procedures, and medical decision making performed by me. Departure Information Dispostion Being Evaluated By Hospitalist Referrals Gio Braun D.O. (PCP) Patient Instructions [facility] Problem Qualifiers
--- NOTE | 2017-03-10 03:44 | History and Physical ---
History & Physical Date & Time of Service: Mar 10, 2017 at 03:44 Chief Complaint: decreased responsiveness as per family My daughter told me to come to the hospital as per patient Primary Care Physician: Gio Braun D.O. History of Present Illness Source: patient, family, clinic records, hospital records 2 weeks history of cough symptoms junky. Patient family noted coughing with meals. Witnessed coughing episode when patient was asked to drink water at the doctor' s office. Last 2 days patient noted to be weaker than usual. Too weak to get up from the bed. Denies chest pain or shortness of breath. Decreased responsiveness at home today. Blood sugar 40s. Patient given dextrose by EMS. Family noted a nasty-looking wound on the right posterior calf today. At the emergency room patient given Levaquin and Azactam and Vanco for sepsis. Past Medical/Surgical History Medical Problems: (1) CAD (coronary artery disease) Permanent Comment: s/p CABG 12/2009 Status: Chronic (2) Chronic back pain Status: Chronic (3) CKD (chronic kidney disease) stage 3, GFR 30-59 ml/min Status: Chronic (4) Depression Status: Chronic (5) Diastolic CHF, chronic Permanent Comment: echo 07/21/15- EF 50-55%, grade II diastolic dysfunction Status: Chronic (6) DM type 2 (diabetes mellitus, type 2) Status: Chronic (7) Dyslipidemia Status: Chronic (8) GERD (gastroesophageal reflux disease) Status: Chronic (9) H/O diabetes insipidus Status: Chronic (10) H/O vertigo Status: Chronic (11) Heterozygous MTHFR mutation [id number] Status: Chronic (12) History of CVA (cerebrovascular accident) Status: Chronic (13) History of DVT (deep vein thrombosis) Status: Chronic (14) History of hyperkalemia Permanent Comment: SY/ARB intolerance Status: Chronic (15) History of TIA (transient ischemic attack) Status: Chronic (16) HTN (hypertension) Status: Chronic (17) Hypothyroidism Status: Chronic (18) Idiopathic pulmonary fibrosis Status: Chronic (19) Malignant neoplasm of corpus uteri Status: Chronic (20) Migraine Status: Chronic (21) Moderate COPD (chronic obstructive pulmonary disease) Status: Chronic (22) Paroxysmal a-fib Status: Chronic (23) Tobacco abuse Status: Chronic (24) Valvular disease Permanent Comment: echo 07/21/15 Bicuspid aortic valve with moderate aortic stenosis and mild mitral regurg Status: Chronic Surgical Problems: (1) H/o bile tract procedure Status: Chronic (2) H/O cardiac catheterization Permanent Comment: July 2010- left subclavian stenosis with atretic ROMAN graft. The LAD however most significant lesion was less than 50%. The circumflex and right coronary arteries were severely diseased though there were widely patent grafts. Status: Chronic (3) H/O excision of lamina of cervical vertebra for decompression of spinal cord Status: Resolved (4) H/O hernia repair Status: Resolved (5) H/O total hysterectomy with bilateral salpingo-oophorectomy (BSO) Permanent Comment: 1967 secondary to malignancy Status: Resolved (6) History of cholecystectomy Permanent Comment: 1969 Status: Resolved (7) History of total hip replacement Permanent Comment: L Hip performed by Dr. 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) Immunizations History of Influenza Vaccine: Unknown Influenza Vaccine Date: Jul 20, 2009 History of Tetanus Vaccine?: Unknown Tetanus Immunization Date: Sep 19, 2004 History of Pneumococcal: Unknown Pneumococcal Date: February 07, 2008 History of Hepatitis B Vaccine: Unknown Multi-Drug Resistant Organisms History of MDRO: No Allergies Coded Allergies: SY Inhibitors (Verified Allergy, Severe, HYPERKALEMIA, 11/24/16) Codeine (Verified Allergy, Severe, HIVES / DIFICULTY BREATHING; TAKES PERCOCET W/O PROBLEM, 11/24/16) Penicillins (Verified Allergy, Intermediate, RASH, 11/24/16) Home Medications Scheduled Aspirin (Aspirin Chewable), 81 MG PO DAILY Calcium Carbonate (Calcium Carbonate), 1 TAB PO DAILY Docusate Sodium (Colace), 1 CAP PO BID Glipizide (Glucotrol), 10 MG PO QAM Glipizide (Glipizide), 5 MG PO QPM Home O2 Therapy (Oxygen), 2 LITERS NA HS Insulin Glargine (Lantus), 28 UNITS SC QPM Ipratropium-Albuterol (Combivent Respimat), 1 PUFFS INH QID Isosorbide Mononitrate Ext Rel (Imdur Ext Rel), 30 MG PO QAM Levothyroxine Sodium (Levothyroxine Sodium), 137 MCG PO DAILY Magnesium Oxide (Magnesium), 400 MG PO DAILY Ranitidine Hcl (Zantac), 150 MG PO BID Sertraline HCl (Sertraline HCl), 100 MG PO DAILY Sotalol Hcl (Sotalol Hcl), 1 TAB PO QAM Trazodone Hcl (Trazodone), 50 MG PO HS Warfarin Sod (Jantoven), 4 MG PO UD Scheduled PRN Albuterol Hfa (Ventolin Hfa), 2 PUFF INH Q6 PRN for SOB/Wheezing Furosemide (Lasix), 20 MG PO DAILY PRN for SWELLING Nitroglycerin (Nitrostat), 0.4 MG UT UD PRN for Chest Pain Ondansetron Hcl (Zofran), 4 MG PO Q6H PRN for Nausea or Vomiting Tramadol (Ultram), 1 TAB PO DAILY PRN for Pain Review of Systems Could not be reliably obtained Physical Exam Vital Signs Date Time Temp Pulse Resp B/P (MAP) Pulse Ox O2 Delivery O2 Flow Rate FiO2 03/10/17 00:23 115 104/80 (88) 03/10/17 00:00 Nasal Cannula 2.0 03/09/17 23:51 36.5 120 20 88/52 (64) 93 Nasal Cannula 2.0 03/09/17 22:24 36.5 120 23 114/84 94 Nasal Cannula 2.0 03/09/17 21:35 36.5 119 17 126/91 92 03/09/17 21:26 119 17 92 Room Air 03/09/17 21:01 126/91 03/09/17 20:56 119 22 03/09/17 20:51 120 19 03/09/17 20:46 120 18 03/09/17 20:41 119 22 03/09/17 20:36 120 27 03/09/17 20:31 19 122/94 03/09/17 20:26 25 03/09/17 20:21 27 03/09/17 20:16 16 03/09/17 20:11 26 03/09/17 20:06 27 03/09/17 20:01 26 /126 6/29/17 19:56 119 19 03/09/17 19:51 27 03/09/17 19:46 109 20 03/09/17 19:41 118 23 03/09/17 19:36 118 25 03/09/17 19:34 124/94 94 Room Air 03/09/17 18:36 121 20 03/09/17 18:12 92 Room Air 03/09/17 18:06 121 30 94 Room Air 03/09/17 18:02 36.5 122 20 122/80 91 Room Air 03/09/17 18:01 124/93 General Appearance: + pertinent finding (Wane, unkempt, no resp distress) Head: normocephalic Eyes: normal inspection Neck: + pertinent finding (short) Respiratory/Chest: + decreased breath sounds Cardiovascular: + tachycardia Abdomen/GI: soft Extremities/Musculoskelatal: + pertinent finding (tender swelling right lower leg with ulcerated dirty wound posterior cough) Neurologic/Psych: + pertinent finding (some disorientation but coherent hard of hearing, gait and stance not assessed) Diagnostics Laboratory Results Results Past 24 Hours Test 03/09/17 18:10 03/09/17 18:28 03/09/17 18:30 03/09/17 21:14 Range/Units Urine Color DK YELLOW Urine Appearance CLEAR CLEAR Urine pH 5.5 4.5-7.5 Urine Specific [place] 1.019 1.000-1.030 Urine Protein 1+ NEG Urine Glucose (UA) NEG NEG Urine Ketones NEG NEG Urine Occult Blood NEG NEG Urine Nitrite NEG NEG Urine Bilirubin NEG NEG Urine Urobilinogen NEG NEG Urine Leukocyte Esterase TRACE NEG Urine WBC (Auto) 1-5 0-5 /hpf Urine RBC (Auto) 0-4 0-4 /hpf Urine Hyaline Casts (Auto) 1-5 0-5 /lpf Urine Epithelial Cells (Auto) >30 0-5 /lpf Urine Bacteria (Auto) 2+ NEG White Blood Count 9.26 4.8-10.8 K/uL Red Blood Count 5.35 4.2-5.4 M/uL Hemoglobin 15.7 12.0-16.0 g/dL Hematocrit 47.8 37-47 % Mean Corpuscular Volume 89.3 80-100 fL Mean Corpuscular Hemoglobin 29.3 25-34 pg Mean Corpuscular Hemoglobin Concent 32.8 32-36 g/dl Platelet Count 185 130-400 K/uL Mean Platelet Volume 9.2 7.4-10.4 fL Neutrophils (%) (Auto) 74.1 % Lymphocytes (%) (Auto) 15.2 % Monocytes (%) (Auto) 9.8 % Eosinophils (%) (Auto) 0.4 % Basophils (%) (Auto) 0.2 % Neutrophils # (Auto) 6.85 1.4-6.5 K/uL Lymphocytes # (Auto) 1.41 1.2-3.4 K/uL Monocytes # (Auto) 0.91 0.11-0.59 K/uL Eosinophils # (Auto) 0.04 0-0.5 K/uL Basophils # (Auto) 0.02 0-0.2 K/uL RDW Standard Deviation 59.7 36.4-46.3 fL RDW Coefficient of Variation 18.3 11.5-14.5 % Immature Granulocyte % (Auto) 0.3 % Immature Granulocyte # (Auto) 0.03 0.00-0.02 K/uL Prothrombin Time 31.4 9.0-12.0 SECONDS Prothromb Time International Ratio 2.8 0.9-1.1 Activated Partial Thromboplast Time 38.9 21.0-31.0 SECONDS Partial Thromboplastin Ratio 1.5 Sodium Level 138 136-145 mmol/L Potassium Level 5.0 3.5-5.1 mmol/L Chloride Level 102 98-107 mmol/L Carbon Dioxide Level 28 21-32 mmol/L Anion Gap 8.0 3-11 mmol/L Blood Urea Nitrogen 21 7-18 mg/dl Creatinine 1.40 0.60-1.20 mg/dl Est Creatinine Clear Calc Drug Dose 34.5 ml/min Estimated GFR () 42.8 Estimated GFR (Non- 36.9 BUN/Creatinine Ratio 14.9 10-20 Random Glucose 106 70-99 mg/dl Calcium Level 9.5 8.5-10.1 mg/dl Magnesium Level 1.9 1.8-2.4 mg/dl Total Bilirubin 2.1 0.2-1 mg/dl Direct Bilirubin 1.2 0-0.2 mg/dl Aspartate Amino Transf (AST/SGOT) 33 15-37 U/L Alanine Aminotransferase (ALT/SGPT) 17 12-78 U/L Alkaline Phosphatase 194 45-117 U/L Total Creatine Kinase 158 26-192 U/L Creatine Kinase MB 3.4 0.5-3.6 ng/ml Creatine Kinase MB Ratio 2.2 0-3.0 Troponin I 0.212 0.352 0-0.045 ng/ml Total Protein 7.7 6.4-8.2 gm/dl Albumin 2.9 3.4-5.0 gm/dl Lipase 34 73-393 U/L Thyroid Stimulating Hormone (TSH) 1.930 0.300-4.500 uIu/ml Bedside Lactic Acid Venous 2.54 0.90-1.70 mmol/L Lactic Acid Level 1.8 0.4-2.0 mmol/L Test 03/09/17 22:12 Range/Units Bedside Glucose 73 70-90 mg/dl Microbiology Results 03/09/17 Blood Culture, Received Pending 03/09/17 Blood Culture, Received Pending 03/09/17 Urine Culture, Received Pending 03/09/17 Gram Stain, Received Pending 03/09/17 Wound Culture, Received Pending Diagnostic Radiology CT head no acute pathology other (infiltrate left) Impression Assessment and Plan AP Encephalopathy px family suspects beginning dementia Multifactorial : Sepsis Possible sources Aspiration pneumonia Cellulitis secondary to infected right lower extremity decubitus wound Hypoglycemia 2 to illness DM2 insulin requiring, suboptimal control as of recent outpx hemoglobin A1c CAD status post CABG Chronic diastolic heart failure, equivocal volume status troponinemia 2 to tachycardia, sepsis doubt ACS Sick sinus syndrome status PPM, patient tachycardic History of CVA Chronic respiratory failure 2 to COPD/ILD on home O2 pulmo status at baseline Ongoing tobacco abuse CRI, creatinine baseline Functionl disability PCU Cultures, Vanco, Cefepime, and Clindamycin de-escalate antibiotics pending C&S results availability Swallow eval aspiration precautions CT right lower extremity rule out abscess Wound care consult Facilitate Sotalol appropriate to hold basal insulin for now given hypoglycemia, ISS BG goal 140- 180 px due for hemoglobin A1c check PT OT eval Social service RE discharge planning DVT prophylaxis Coumadin INR goal 2-3 Full code Patient daughters requesting updates from providers. Miss Keyana Denton [phone]. Secondary contact Is Miss Samantha Millard [phone]. Advanced Directives Existing Living Will: No Existing Power of Gluing Machine Operator Automatic: No VTE Prophylaxis VTE Risk Assessment Done? Y/N: Yes Risk Level: Moderate
[2017-03-10] MEDS: CLINDAMYCIN IV 600 MG in DEXTROSE 5% 50ML 50 ML IV SCH ×2 (05:28→14:03)
[2017-03-10] MEDS: LEVOTHYROXINE 137 MCG TAB PO SCH (05:28)
[2017-03-10 05:50] LABS: BASO % 0.1 %; BASO ABS # 0.01 K/uL (0-0.2); COMPLETE YES; EOS % 1.1 %; HEMATOCRIT 41.8 % (37-47); IG% 0.1 %; LYMPH % 19.8 %; LYMPH ABS # 1.39 K/uL (1.2-3.4); MEAN CELL VOLUME 87.8 fL (80-100); MEAN CORPUSCULAR HEMOGLOBIN 28.6 pg (25-34); MEAN CORPUSCULAR HGB CONC 32.5 g/dl (32-36); MEAN PLATELET VOLUME 9.1 fL (7.4-10.4); MONO % 10.5 %; NEUT % 68.4 %; PLATELET COUNT 161 K/uL (130-400); RED BLOOD COUNT 4.76 M/uL (4.2-5.4); WHITE BLOOD COUNT 7.02 K/uL (4.8-10.8)
[2017-03-10 06:01] LABS: INR 3.1 (0.9-1.1); PROTHROMBIN TIME (PATIENT) 34.2 SECONDS (9.0-12.0)
[2017-03-10 06:10] LABS: ESTIMATED AVERAGE GLUCOSE 183 mg/dl; HA1C FLAG Normal (Normal)
[2017-03-10 06:49] LABS: BUN/CREATININE RATIO 16.8 (10-20); CALCIUM 8.6 mg/dl (8.5-10.1); CREATININE 1.2 mg/dl (0.60-1.20); POTASSIUM 4.1 mmol/L (3.5-5.1)
[2017-03-10] MEDS: INSULIN ASPART 100 UNITS/ML 3 ML PEN SC SCH ×4 (07:00→20:36)
[2017-03-10] MEDS: LACTOBACILLUS ACIDOPHILUS (FLORANEX) TAB PO SCH ×3 (07:48→17:01)
[2017-03-10] MEDS: DOCUSATE SODIUM 100 MG CAP PO SCH ×2 (07:49→21:42)
[2017-03-10] MEDS: ASPIRIN 81 MG ECTAB PO SCH (07:49)
[2017-03-10] MEDS: RANITIDINE HCL 150 MG TAB PO SCH ×2 (07:49→21:46)
[2017-03-10] MEDS: SERTRALINE HCL 100 MG TAB PO SCH (07:49)
[2017-03-10] MEDS: SOTALOL HCL 80 MG TAB PO SCH (07:50)
[2017-03-10] MEDS: ISOSORBIDE MONONITRATE 30 MG TABCR PO SCH (07:50)
[2017-03-10] MEDS: IPRATROPIUM BROMIDE HFA INHALER INH SCH ×4 (07:52→21:41)
[2017-03-10] MEDS: LEValbuterol HFA 15GM INHALER INH SCH ×4 (07:52→21:42)
[2017-03-10] MEDS ORDERED: VANCOMYCIN CONSULT ACTIVE PRN (09:00)
--- NOTE | 2017-03-10 12:11 | Pharmacy Progress Note ---
Pharmacy Antibiotic Consult Date of Service: Mar 10, 2017. Pharmacy Dosing Scope Pharmacy is consulted to initiate vancomycin, cefepime, and clindamycin IV dosing therapy, order appropriate labs and adjust drug dose/frequency. Subjective The patient is a 76 year old female admitted on Mar 09, 2017 at 20:51 with sepsis, possible sources: aspiration pnx and/or cellulitis secondary to infected RLE decubitus. Objective Height (Feet): 5 Height (Inches): 2.00 Weight (Kilograms): 81.200 Lab Results (24hrs): Test 03/09/17 18:10 03/09/17 18:28 03/09/17 18:30 03/09/17 21:14 Urine Color DK YELLOW Urine Appearance CLEAR (CLEAR) Urine pH 5.5 (4.5-7.5) Urine Specific [place] 1.019 (1.000-1.030) Urine Protein 1+ (NEG) Urine Glucose (UA) NEG (NEG) Urine Ketones NEG (NEG) Urine Occult Blood NEG (NEG) Urine Nitrite NEG (NEG) Urine Bilirubin NEG (NEG) Urine Urobilinogen NEG (NEG) Urine Leukocyte Esterase TRACE (NEG) Urine WBC (Auto) 1-5 /hpf (0-5) Urine RBC (Auto) 0-4 /hpf (0-4) Urine Hyaline Casts (Auto) 1-5 /lpf (0-5) Urine Epithelial Cells (Auto) >30 /lpf (0-5) Urine Bacteria (Auto) 2+ (NEG) White Blood Count 9.26 K/uL (4.8-10.8) Red Blood Count 5.35 M/uL (4.2-5.4) Hemoglobin 15.7 g/dL (12.0-16.0) Hematocrit 47.8 % (37-47) Mean Corpuscular Volume 89.3 fL (80-100) Mean Corpuscular Hemoglobin 29.3 pg (25-34) Mean Corpuscular Hemoglobin Concent 32.8 g/dl (32-36) Platelet Count 185 K/uL (130-400) Mean Platelet Volume 9.2 fL (7.4-10.4) Neutrophils (%) (Auto) 74.1 % Lymphocytes (%) (Auto) 15.2 % Monocytes (%) (Auto) 9.8 % Eosinophils (%) (Auto) 0.4 % Basophils (%) (Auto) 0.2 % Neutrophils # (Auto) 6.85 K/uL (1.4-6.5) Lymphocytes # (Auto) 1.41 K/uL (1.2-3.4) Monocytes # (Auto) 0.91 K/uL (0.11-0.59) Eosinophils # (Auto) 0.04 K/uL (0-0.5) Basophils # (Auto) 0.02 K/uL (0-0.2) RDW Standard Deviation 59.7 fL (36.4-46.3) RDW Coefficient of Variation 18.3 % (11.5-14.5) Immature Granulocyte % (Auto) 0.3 % Immature Granulocyte # (Auto) 0.03 K/uL (0.00-0.02) Prothrombin Time 31.4 SECONDS (9.0-12.0) Prothromb Time International Ratio 2.8 (0.9-1.1) Activated Partial Thromboplast Time 38.9 SECONDS (21.0-31.0) Partial Thromboplastin Ratio 1.5 Sodium Level 138 mmol/L (136-145) Potassium Level 5.0 mmol/L (3.5-5.1) Chloride Level 102 mmol/L (98-107) Carbon Dioxide Level 28 mmol/L (21-32) Anion Gap 8.0 mmol/L (3-11) Blood Urea Nitrogen 21 mg/dl (7-18) Creatinine 1.40 mg/dl (0.60-1.20) Est Creatinine Clear Calc Drug Dose 34.5 ml/min Estimated GFR () 42.8 Estimated GFR (Non- 36.9 BUN/Creatinine Ratio 14.9 (10-20) Random Glucose 106 mg/dl (70-99) Estimated Average Glucose 183 mg/dl Hemoglobin A1c 8.0 % (4.5-5.6) Calcium Level 9.5 mg/dl (8.5-10.1) Magnesium Level 1.9 mg/dl (1.8-2.4) Total Bilirubin 2.1 mg/dl (0.2-1) Direct Bilirubin 1.2 mg/dl (0-0.2) Aspartate Amino Transf (AST/SGOT) 33 U/L (15-37) Alanine Aminotransferase (ALT/SGPT) 17 U/L (12-78) Alkaline Phosphatase 194 U/L (45-117) Total Creatine Kinase 158 U/L (26-192) Creatine Kinase MB 3.4 ng/ml (0.5-3.6) Creatine Kinase MB Ratio 2.2 (0-3.0) Total Protein 7.7 gm/dl (6.4-8.2) Albumin 2.9 gm/dl (3.4-5.0) Lipase 34 U/L (73-393) Thyroid Stimulating Hormone (TSH) 1.930 uIu/ml (0.300-4.500) Bedside Lactic Acid Venous 2.54 mmol/L (0.90-1.70) Lactic Acid Level 1.8 mmol/L (0.4-2.0) Troponin I 0.352 ng/ml (0-0.045) Test 03/10/17 05:16 03/10/17 06:38 03/10/17 11:16 White Blood Count 7.02 K/uL (4.8-10.8) Red Blood Count 4.76 M/uL (4.2-5.4) Hemoglobin 13.6 g/dL (12.0-16.0) Hematocrit 41.8 % (37-47) Mean Corpuscular Volume 87.8 fL (80-100) Mean Corpuscular Hemoglobin 28.6 pg (25-34) Mean Corpuscular Hemoglobin Concent 32.5 g/dl (32-36) Platelet Count 161 K/uL (130-400) Mean Platelet Volume 9.1 fL (7.4-10.4) Neutrophils (%) (Auto) 68.4 % Lymphocytes (%) (Auto) 19.8 % Monocytes (%) (Auto) 10.5 % Eosinophils (%) (Auto) 1.1 % Basophils (%) (Auto) 0.1 % Neutrophils # (Auto) 4.79 K/uL (1.4-6.5) Lymphocytes # (Auto) 1.39 K/uL (1.2-3.4) Monocytes # (Auto) 0.74 K/uL (0.11-0.59) Eosinophils # (Auto) 0.08 K/uL (0-0.5) Basophils # (Auto) 0.01 K/uL (0-0.2) RDW Standard Deviation 58.6 fL (36.4-46.3) RDW Coefficient of Variation 18.3 % (11.5-14.5) Immature Granulocyte % (Auto) 0.1 % Immature Granulocyte # (Auto) 0.01 K/uL (0.00-0.02) Prothrombin Time 34.2 SECONDS (9.0-12.0) Prothromb Time International Ratio 3.1 (0.9-1.1) Sodium Level 138 mmol/L (136-145) Potassium Level 4.1 mmol/L (3.5-5.1) Chloride Level 107 mmol/L (98-107) Carbon Dioxide Level 22 mmol/L (21-32) Anion Gap 9.0 mmol/L (3-11) Blood Urea Nitrogen 20 mg/dl (7-18) Creatinine 1.20 mg/dl (0.60-1.20) Est Creatinine Clear Calc Drug Dose 40.6 ml/min Estimated GFR () 51.6 Estimated GFR (Non- 44.5 BUN/Creatinine Ratio 16.8 (10-20) Random Glucose 110 mg/dl (70-99) Calcium Level 8.6 mg/dl (8.5-10.1) Troponin I 0.754 ng/ml (0-0.045) Bedside Glucose 97 mg/dl (70-90) 118 mg/dl (70-90) Micro Results: BC's x 2 and urine cx are pending RLE ulcer growing gm pos cocci, sens to follow Assessment & Plan Vancomycin: pt with sepsis, possible sources: aspiration pnx and/or cellulitis secondary to infected RLE decubitus. Loading dose: 1600 mg IV X 1 dose (~20mg/kg) then: vancomycin 1100 mg IV every 24 hours (14mg/kg). Goal trough level estimate: between 15 - 20 mcg/mL. Peak and trough or random level has been ordered for: 03/12 prior to 1600 dose. Cefepime 2gm IV q 24h: CrCl 30 to 60 mL/minute: First dose is the same as in patients with normal renal function. For 2 g every 8 hours, reduce maintenance dose to 2 g every 24 hours. Clindamycin 600mg IV q 8h--no dose adj necessary for mild-mod renal impairment. Pharmacy will continue to follow and will adjust dose/frequency as necessary. Thank you
[2017-03-10] MEDS: EUCERIN CR 120 GM JAR EXT PRN (14:03)
--- NOTE | 2017-03-10 14:50 | DIAGNOSTIC IMAGING REPORT ---
BILATERAL LOWER EXTREMITY VENOUS DOPPLER HISTORY: Leg swelling. COMPARISON STUDY: None. FINDINGS: There is normal compressibility, flow, and augmentation within the bilateral lower extremity deep venous systems. IMPRESSION: No DVT within the right or left lower extremity. Electronically signed by: Lee Mckinnon M.D. 03/10/2017 2:48 PM Dictated Date/Time: 03/10/2017 2:48 PM
[2017-03-10] MEDS ORDERED: NURSING VERBAL MED ORDER ONE (15:45)
--- NOTE | 2017-03-10 16:07 | Medical Consult ---
Consultation Date of Consultation: Mar 10, 2017. Attending Physician: Sarah Jain M.D. History of Present Illness pt admitted with rle ulcer, states present for weeks. c/o pain, min drainage. wound culture with gpc. blood culture pending. afebrile. no cp, cough, sob, n/v /d, abd pain. remaining ros reviewed and are negative. no bleeding from wound. states she thirsty, otherwise no complaints. on multiple abx, tolerating well. Past Medical/Surgical History Medical Problems: (1) Cellulitis of right leg Status: Acute (2) Contusion of multiple sites Status: Acute (3) COPD exacerbation Status: Acute (4) Elevated troponin Status: Acute (5) Facial contusion Status: Acute (6) Fall Status: Acute (7) Head injury Status: Acute (8) Hypoglycemia Status: Acute (9) PNA (pneumonia) Status: Acute Family History Cardiac disorder FATHER MOTHER Diabetes mellitus FATHER MOTHER BROTHER GRANDMOTHER FH: cancer Social History Smoking Status: Heavy Tobacco Smoker Drug Use: none Marital Status: Housing Status: lives with family Occupation Status: retired Allergies Coded Allergies: SY Inhibitors (Verified Allergy, Severe, HYPERKALEMIA, 11/24/16) Codeine (Verified Allergy, Severe, HIVES / DIFICULTY BREATHING; TAKES PERCOCET W/O PROBLEM, 11/24/16) Penicillins (Verified Allergy, Intermediate, RASH, 11/24/16) Current Inpatient Medications Current Inpatient Medications Medications (Trade) Dose Ordered Sig/Mike Route Start Time Stop Time Status Last Admin Dose Admin Acetaminophen (Tylenol Tab) 650 mg Q4H PRN PO 03/09/17 22:00 04/08/17 21:59 Nitroglycerin (Nitrostat Tab) 0.4 mg UD PRN SL 03/09/17 22:00 04/08/17 21:59 Insulin Aspart (novoLOG ASPART) SLIDING SCALE If C... ACHS SC 03/10/17 07:00 04/09/17 06:59 Glucose (Glucose 40% Gel) 15-30 GRAMS 15 GRAMS... UD PRN PO 03/09/17 22:00 04/08/17 21:59 Glucose (Glucose Chew Tab) 4-8 Tablets 4 Tabl... UD PRN PO 03/09/17 22:00 04/08/17 21:59 Dextrose (Dextrose 50% 50ML Syringe) 25-50ML OF 50% DW IV FOR... UD PRN IV 03/09/17 22:00 04/08/17 21:59 Glucagon (Glucagon Inj) 1 mg UD PRN SQ 03/09/17 22:00 04/08/17 21:59 Aspirin (Ecotrin Tab) 81 mg DAILY PO 03/10/17 09:00 04/09/17 08:59 03/10/17 07:49 81 MG Docusate Sodium (coLACE CAP) 100 mg BID PO 03/10/17 09:00 04/09/17 08:59 03/10/17 07:49 100 MG Isosorbide Mononitrate (Imdur Ext Rel Tab) 30 mg QAM PO 03/10/17 09:00 04/09/17 08:59 Levothyroxine Sodium (Synthroid Tab) 137 mcg DAILYBB PO 03/10/17 06:00 04/09/17 05:59 03/10/17 05:28 137 MCG Ranitidine HCl (zANTac TAB) 150 mg BID PO 03/10/17 09:00 04/09/17 08:59 03/10/17 07:49 150 MG Sertraline HCl (Zoloft Tab) 100 mg DAILY PO 03/10/17 09:00 04/09/17 08:59 03/10/17 07:49 100 MG Sotalol HCl (Betapace Tab) 80 mg QAM PO 03/10/17 09:00 04/09/17 08:59 Trazodone HCl (Desyrel Tab) 50 mg HS PO 03/10/17 21:00 04/09/17 20:59 Vancomycin HCl (Consult) 1 ea UD PRN N/A 03/10/17 09:00 04/09/17 08:59 Lactobacillus Acidophilus (Floranex Tab) 4 tab TIDM PO 03/10/17 07:30 04/09/17 07:59 03/10/17 12:02 4 TAB Ondansetron HCl (Zofran Inj) 4 mg Q6H PRN IV 03/09/17 22:00 04/08/17 21:59 Tramadol HCl (Ultram Tab) 25 mg Q6H PRN PO 03/09/17 22:00 04/08/17 21:59 Cefepime HCl (Consult) 1 ea UD PRN N/A 03/09/17 22:30 04/08/17 22:29 Levalbuterol (Xopenex Hfa Inhaler) 2 puffs QID INH 03/10/17 09:00 04/09/17 08:59 03/10/17 12:03 2 PUFFS Ipratropium [place] (Atrovent Hfa Inhaler) 2 puffs QID INH 03/10/17 09:00 04/09/17 08:59 03/10/17 12:03 2 PUFFS Cefepime HCl 2000 mg/Dextrose 112.5 ml @ 225 mls/hr DAILY@0000 IV 03/10/17 00:00 03/17/17 00:00 03/10/17 00:44 225 MLS/HR Multi-Ingredient Ointment (Eucerin Unscented Cr) 1 appln BID PRN EXT 03/10/17 11:30 04/09/17 11:29 03/10/17 14:03 1 APPLN Enteral Nutritional Formula (Boost Glucose Control) 1 can QDD PO 03/10/17 16:45 04/09/17 16:44 Insulin Glargine (Lantus Solostar Pen) 20 units QPM SC 03/10/17 21:00 04/09/17 20:59 Collagenase (Santyl Oint) 1 appln DAILY EXT 03/11/17 09:00 04/10/17 08:59 Physical Exam Date Time Temp Pulse Resp B/P (MAP) Pulse Ox O2 Delivery O2 Flow Rate FiO2 03/10/17 15:44 36.5 110 24 110/73 (85) 95 Nasal Cannula 2.0 03/10/17 14:21 92 Room Air 03/10/17 12:00 Nasal Cannula 2.0 03/10/17 11:39 112 98 03/10/17 11:23 36.6 113 16 90/66 (74) 92 2.0 03/10/17 08:00 98/68 (78) 03/10/17 08:00 Nasal Cannula 2.0 03/10/17 07:31 36.9 112 18 78/60 (66) 94 Room Air 80/62 (68) 03/10/17 04:00 Nasal Cannula 2.0 03/10/17 04:00 36.6 118 20 108/64 (79) 93 Nasal Cannula 2.0 03/10/17 00:23 115 104/80 (88) 03/10/17 00:00 Nasal Cannula 2.0 03/09/17 23:51 36.5 120 20 88/52 (64) 93 Nasal Cannula 2.0 03/09/17 22:24 36.5 120 23 114/84 94 Nasal Cannula 2.0 03/09/17 21:35 36.5 119 17 126/91 92 03/09/17 21:26 119 17 92 Room Air 03/09/17 21:01 126/91 03/09/17 20:56 119 22 03/09/17 20:51 120 19 03/09/17 20:46 120 18 03/09/17 20:41 119 22 03/09/17 20:36 120 27 03/09/17 20:31 19 122/94 03/09/17 20:26 25 03/09/17 20:21 27 03/09/17 20:16 16 03/09/17 20:11 26 03/09/17 20:06 27 03/09/17 20:01 26 /126 03/09/17 19:56 119 19 03/09/17 19:51 27 03/09/17 19:46 109 20 03/09/17 19:41 118 23 03/09/17 19:36 118 25 03/09/17 19:34 124/94 94 Room Air 03/09/17 18:36 121 20 03/09/17 18:12 92 Room Air 03/09/17 18:06 121 30 94 Room Air 03/09/17 18:02 36.5 122 20 122/80 91 Room Air 03/09/17 18:01 124/93 General Appearance: WD/WN, no apparent distress Head: normocephalic, atraumatic Eyes: normal inspection, EOMI Neck: supple Respiratory/Chest: lungs clear, normal breath sounds, no respiratory distress, + decreased breath sounds Cardiovascular: regular rate, rhythm Abdomen/GI: non tender, soft Extremities/Musculoskelatal: + inflammation, + pedal edema, + swelling, + pertinent finding (rle lateral calf with ulceration, some drainage on dressing, + surrounding warmth and erythema) Skin: normal color Laboratory Results Item Value Date Time Gram Stain - Final Resulted 03/09/17 1810 Ulcer Leg Right Lower Last 24 Hours Test 03/09/17 18:10 03/09/17 18:28 03/09/17 18:30 03/09/17 21:14 Urine Color DK YELLOW Urine Appearance CLEAR Urine pH 5.5 Urine Specific [place] 1.019 Urine Protein 1+ Urine Glucose (UA) NEG Urine Ketones NEG Urine Occult Blood NEG Urine Nitrite NEG Urine Bilirubin NEG Urine Urobilinogen NEG Urine Leukocyte Esterase TRACE Urine WBC (Auto) 1-5 /hpf Urine RBC (Auto) 0-4 /hpf Urine Hyaline Casts (Auto) 1-5 /lpf Urine Epithelial Cells (Auto) >30 /lpf Urine Bacteria (Auto) 2+ White Blood Count 9.26 K/uL Red Blood Count 5.35 M/uL Hemoglobin 15.7 g/dL Hematocrit 47.8 % Mean Corpuscular Volume 89.3 fL Mean Corpuscular Hemoglobin 29.3 pg Mean Corpuscular Hemoglobin Concent 32.8 g/dl Platelet Count 185 K/uL Mean Platelet Volume 9.2 fL Neutrophils (%) (Auto) 74.1 % Lymphocytes (%) (Auto) 15.2 % Monocytes (%) (Auto) 9.8 % Eosinophils (%) (Auto) 0.4 % Basophils (%) (Auto) 0.2 % Neutrophils # (Auto) 6.85 K/uL Lymphocytes # (Auto) 1.41 K/uL Monocytes # (Auto) 0.91 K/uL Eosinophils # (Auto) 0.04 K/uL Basophils # (Auto) 0.02 K/uL RDW Standard Deviation 59.7 fL RDW Coefficient of Variation 18.3 % Immature Granulocyte % (Auto) 0.3 % Immature Granulocyte # (Auto) 0.03 K/uL Prothrombin Time 31.4 SECONDS Prothromb Time International Ratio 2.8 Activated Partial Thromboplast Time 38.9 SECONDS Partial Thromboplastin Ratio 1.5 Sodium Level 138 mmol/L Potassium Level 5.0 mmol/L Chloride Level 102 mmol/L Carbon Dioxide Level 28 mmol/L Anion Gap 8.0 mmol/L Blood Urea Nitrogen 21 mg/dl Creatinine 1.40 mg/dl Est Creatinine Clear Calc Drug Dose 34.5 ml/min Estimated GFR () 42.8 Estimated GFR (Non- 36.9 BUN/Creatinine Ratio 14.9 Random Glucose 106 mg/dl Estimated Average Glucose 183 mg/dl Hemoglobin A1c 8.0 % Calcium Level 9.5 mg/dl Magnesium Level 1.9 mg/dl Total Bilirubin 2.1 mg/dl Direct Bilirubin 1.2 mg/dl Aspartate Amino Transf (AST/SGOT) 33 U/L Alanine Aminotransferase (ALT/SGPT) 17 U/L Alkaline Phosphatase 194 U/L Total Creatine Kinase 158 U/L Creatine Kinase MB 3.4 ng/ml Creatine Kinase MB Ratio 2.2 Troponin I 0.212 ng/ml 0.352 ng/ml Total Protein 7.7 gm/dl Albumin 2.9 gm/dl Lipase 34 U/L Thyroid Stimulating Hormone (TSH) 1.930 uIu/ml Bedside Lactic Acid Venous 2.54 mmol/L Lactic Acid Level 1.8 mmol/L Test 03/09/17 22:12 03/10/17 05:16 03/10/17 06:38 03/10/17 11:16 Bedside Glucose 73 mg/dl 97 mg/dl 118 mg/dl White Blood Count 7.02 K/uL Red Blood Count 4.76 M/uL Hemoglobin 13.6 g/dL Hematocrit 41.8 % Mean Corpuscular Volume 87.8 fL Mean Corpuscular Hemoglobin 28.6 pg Mean Corpuscular Hemoglobin Concent 32.5 g/dl Platelet Count 161 K/uL Mean Platelet Volume 9.1 fL Neutrophils (%) (Auto) 68.4 % Lymphocytes (%) (Auto) 19.8 % Monocytes (%) (Auto) 10.5 % Eosinophils (%) (Auto) 1.1 % Basophils (%) (Auto) 0.1 % Neutrophils # (Auto) 4.79 K/uL Lymphocytes # (Auto) 1.39 K/uL Monocytes # (Auto) 0.74 K/uL Eosinophils # (Auto) 0.08 K/uL Basophils # (Auto) 0.01 K/uL RDW Standard Deviation 58.6 fL RDW Coefficient of Variation 18.3 % Immature Granulocyte % (Auto) 0.1 % Immature Granulocyte # (Auto) 0.01 K/uL Prothrombin Time 34.2 SECONDS Prothromb Time International Ratio 3.1 Sodium Level 138 mmol/L Potassium Level 4.1 mmol/L Chloride Level 107 mmol/L Carbon Dioxide Level 22 mmol/L Anion Gap 9.0 mmol/L Blood Urea Nitrogen 20 mg/dl Creatinine 1.20 mg/dl Est Creatinine Clear Calc Drug Dose 40.6 ml/min Estimated GFR () 51.6 Estimated GFR (Non- 44.5 BUN/Creatinine Ratio 16.8 Random Glucose 110 mg/dl Calcium Level 8.6 mg/dl Troponin I 0.754 ng/ml Assessment & Plan (1) Cellulitis Assessment & Plan: continue vanco, can stop cefepime, no gnr noted. final abx based on culture. local wound care. hopefully can change to po
[2017-03-10] MEDS: BOOST GLUCOSE CONTROL PO SCH (17:01)
--- NOTE | 2017-03-10 19:23 | Progress Note ---
Internal Med Progress Note Date of Service: Mar 10, 2017. Provider Documentation: SUBJECTIVE: pt sitting on chair denies of any pain or discomfort no fever or chills more awake and alert today does not remember how things evolved to lead her admission to hospital remembers being very tired past few days slept though most part of the days does not remember when she developed the wound on rt leg mentions that she has seen her family physician Dr Braun -referral was made for wound clinic got admitted prior to wound clinic appointment OBJECTIVE: Vital Signs-as noted below Exam: General-elderly female, no sign of distress Eyes-sclera non icteric Lungs-CTA Heart-regular S1/S2 Abdomen-soft, non tender Extremities-rt lower ext -ulcer on mid leg on posterior aspect , + tenderness , erythema + 2-3 bilat lower ext edema Neuro-AAO x3 , no focal deficit Lab data as noted below. ASSESSMENT & PLAN: CONFUSION /LETHARGY : due to metabolic encephalopathy due to Cellulitis secondary to infected right lower extremity decubitus wound /possible aspiration pneumonia mental status improved to baseline pt continued to have some elements of forgetfulness family family suspects beginning dementia has been having trouble remembering to taking meds , difficulty in account management never noticed she had lower ext wound /infection -till her recent clinic visit cont to observe fall precaution high risk for delirium /sun downing RT LOWER EXT INFECTED WOUND /CELLULITIS ; wound culture growing gram positive cocci on Vancomycin already appreciate input form Wound care Dr Allison consulted for possible wound debridement ID eval requested appreciate input ASPIRATION PNEUMONIA ; cxray shows rt lower lobe infiltrate concern for aspiration -high risk -confusion /lethargy /baseline dementia appreciate speech eval ordered for dental soft diet with aspiration precaution cont Cefepime for now repeat Cxray in AM TYPE 2 DM : DM2 insulin requiring, suboptimal control as of recent outpx hemoglobin A1c presented with hypoglycemia possible due to poor intake , infection cont insulin SSI Lantus dose reduced pharmacy consulted for glycemic control HX OF AFIB : INR elevated ~3 Coumadin on hold till INR ~2 cont Sotalol CAD status post CABG Chronic diastolic heart failure, equivocal volume status cont to monitor MILD ELEVATION OF TROPONIN : Possible due to sepsis /infection causing reactive tachycardia cont to monitor trend echo ordered Sick sinus syndrome status PPM, History of CVA cont Aspirin Chronic respiratory failure 2 to COPD/ILD on home O2 pulmo status at baseline CKD stage 3 : renal function stable AMBULATORY DYSFUNCTION ; deconditioning per family -pt remains in her bed most of the day minimum ambulation PT/OT eval requested may need SNF DVT PROPHYLAXIS INR elevated ~3 DISPOSITION PT/OT eval requested may need SNF when medically stable pt is agreeable Social service consulted for discharge planning Updated daughter Vital Signs: Date Time Temp Pulse Resp B/P (MAP) Pulse Ox O2 Delivery O2 Flow Rate FiO2 03/10/17 17:30 36.5 110 24 95 2.0 03/10/17 16:00 95 Room Air 03/10/17 15:44 36.5 110 24 110/73 (85) 95 Nasal Cannula 2.0 03/10/17 14:21 92 Room Air 03/10/17 12:00 Nasal Cannula 2.0 03/10/17 11:39 112 98 03/10/17 11:23 36.6 113 16 90/66 (74) 92 2.0 03/10/17 08:00 98/68 (78) 03/10/17 08:00 Nasal Cannula 2.0 03/10/17 07:31 36.9 112 18 78/60 (66) 94 Room Air 80/62 (68) 03/10/17 04:00 Nasal Cannula 2.0 03/10/17 04:00 36.6 118 20 108/64 (79) 93 Nasal Cannula 2.0 03/10/17 00:23 115 104/80 (88) 03/10/17 00:00 Nasal Cannula 2.0 03/09/17 23:51 36.5 120 20 88/52 (64) 93 Nasal Cannula 2.0 03/09/17 22:24 36.5 120 23 114/84 94 Nasal Cannula 2.0 03/09/17 21:35 36.5 119 17 126/91 92 03/09/17 21:26 119 17 92 Room Air 03/09/17 21:01 126/91 03/09/17 20:56 119 22 03/09/17 20:51 120 19 03/09/17 20:46 120 18 03/09/17 20:41 119 22 03/09/17 20:36 120 27 03/09/17 20:31 19 122/94 03/09/17 20:26 25 03/09/17 20:21 27 03/09/17 20:16 16 03/09/17 20:11 26 03/09/17 20:06 27 03/09/17 20:01 26 /126 03/09/17 19:56 119 19 03/09/17 19:51 27 03/09/17 19:46 109 20 03/09/17 19:41 118 23 03/09/17 19:36 118 25 03/09/17 19:34 124/94 94 Room Air Lab Results: Results Past 24 Hours Test 03/09/17 21:14 03/09/17 22:12 03/10/17 05:16 03/10/17 06:38 Range/Units Lactic Acid Level 1.8 0.4-2.0 mmol/L Troponin I 0.352 0.754 0-0.045 ng/ml Bedside Glucose 73 97 70-90 mg/dl White Blood Count 7.02 4.8-10.8 K/uL Red Blood Count 4.76 4.2-5.4 M/uL Hemoglobin 13.6 12.0-16.0 g/dL Hematocrit 41.8 37-47 % Mean Corpuscular Volume 87.8 80-100 fL Mean Corpuscular Hemoglobin 28.6 25-34 pg Mean Corpuscular Hemoglobin Concent 32.5 32-36 g/dl Platelet Count 161 130-400 K/uL Mean Platelet Volume 9.1 7.4-10.4 fL Neutrophils (%) (Auto) 68.4 % Lymphocytes (%) (Auto) 19.8 % Monocytes (%) (Auto) 10.5 % Eosinophils (%) (Auto) 1.1 % Basophils (%) (Auto) 0.1 % Neutrophils # (Auto) 4.79 1.4-6.5 K/uL Lymphocytes # (Auto) 1.39 1.2-3.4 K/uL Monocytes # (Auto) 0.74 0.11-0.59 K/uL Eosinophils # (Auto) 0.08 0-0.5 K/uL Basophils # (Auto) 0.01 0-0.2 K/uL RDW Standard Deviation 58.6 36.4-46.3 fL RDW Coefficient of Variation 18.3 11.5-14.5 % Immature Granulocyte % (Auto) 0.1 % Immature Granulocyte # (Auto) 0.01 0.00-0.02 K/uL Prothrombin Time 34.2 9.0-12.0 SECONDS Prothromb Time International Ratio 3.1 0.9-1.1 Sodium Level 138 136-145 mmol/L Potassium Level 4.1 3.5-5.1 mmol/L Chloride Level 107 98-107 mmol/L Carbon Dioxide Level 22 21-32 mmol/L Anion Gap 9.0 3-11 mmol/L Blood Urea Nitrogen 20 7-18 mg/dl Creatinine 1.20 0.60-1.20 mg/dl Est Creatinine Clear Calc Drug Dose 40.6 ml/min Estimated GFR () 51.6 Estimated GFR (Non- 44.5 BUN/Creatinine Ratio 16.8 10-20 Random Glucose 110 70-99 mg/dl Calcium Level 8.6 8.5-10.1 mg/dl Test 03/10/17 11:16 03/10/17 15:52 Range/Units Bedside Glucose 118 114 70-90 mg/dl
[2017-03-10] MEDS ORDERED: INSULIN GLARGINE SOLOSTAR 100 UNITS/ML 3 ML PEN SC SCH (21:00)
[2017-03-10] MEDS: TRAZODONE HCL 50 MG TAB PO SCH (21:42)
[2017-03-10] MEDS ORDERED: SODIUM CHLORIDE 0.9% 250ML 250 ML IV ONE (23:00)
[2017-03-11] MEDS: CEFEPIME IV 2000 MG in DEXTROSE 5% 100ML IV SCH ×2 (00:12→23:45)
[2017-03-11 00:29] VITALS: BP 82/64; PULSE 115; TEMP 36.5; O2SAT 94
[2017-03-11 00:35] LABS: BUN/CREATININE RATIO 17.8 (10-20); CALCIUM 8.4 mg/dl (8.5-10.1); CREATININE 1.4 mg/dl (0.60-1.20); MAGNESIUM 1.6 mg/dl (1.8-2.4)
[2017-03-11] MEDS ORDERED: SODIUM CHLORIDE 0.9% 1000ML 1,000 ML IV ONE ×2 (02:30→11:45)
[2017-03-11] MEDS ORDERED: MAGNESIUM SULFATE 1GM / D5W 1 GM in PREMIXED IN D5W 100 ML IV ONE (03:45)
[2017-03-11] MEDS: LEVOTHYROXINE 137 MCG TAB PO SCH (06:21)
[2017-03-11] MEDS: INSULIN ASPART 100 UNITS/ML 3 ML PEN SC SCH ×4 (06:30→20:26)
[2017-03-11 06:59] LABS: INR 3.3 (0.9-1.1); PROTHROMBIN TIME (PATIENT) 36.6 SECONDS (9.0-12.0)
--- NOTE | 2017-03-11 07:07 | DIAGNOSTIC IMAGING REPORT ---
CHEST ONE VIEW PORTABLE CLINICAL HISTORY: Pneumonia. Sepsis. COMPARISON STUDY: Chest radiograph March 09, 2017. FINDINGS: A dual lead left-sided pacemaker and median sternotomy wires are present. There is no pneumothorax. There is a small right pleural effusion. No lobar consolidation is present. Diffuse interstitial thickening persists. IMPRESSION: 1. No significant change in diffuse interstitial thickening. This favors pulmonary edema superimposed upon interstitial lung disease. However, an infectious process could appear similar. 2. Small right pleural effusion. Electronically signed by: Dylon Cunningham M.D. 03/11/2017 7:06 AM Dictated Date/Time: 03/11/2017 7:03 AM
[2017-03-11 07:31] LABS: BUN/CREATININE RATIO 15.9 (10-20); CALCIUM 8.8 mg/dl (8.5-10.1); CREATININE 1.5 mg/dl (0.60-1.20)
[2017-03-11 08:00] VITALS: BP 99/72; PULSE 119; TEMP 36.6; O2SAT 91
[2017-03-11] MEDS: EUCERIN CR 120 GM JAR EXT PRN (08:20)
[2017-03-11] MEDS: LACTOBACILLUS ACIDOPHILUS (FLORANEX) TAB PO SCH ×3 (08:22→16:58)
[2017-03-11] MEDS: IPRATROPIUM BROMIDE HFA INHALER INH SCH ×4 (08:23→20:24)
[2017-03-11] MEDS: COLLAGENASE OINT 30 GM TUBE EXT SCH (08:23)
[2017-03-11] MEDS: LEValbuterol HFA 15GM INHALER INH SCH ×4 (08:23→20:24)
[2017-03-11] MEDS: DOCUSATE SODIUM 100 MG CAP PO SCH ×2 (08:24→20:24)
[2017-03-11] MEDS: ISOSORBIDE MONONITRATE 30 MG TABCR PO SCH (08:26)
[2017-03-11] MEDS: ASPIRIN 81 MG ECTAB PO SCH (08:26)
[2017-03-11] MEDS: SOTALOL HCL 80 MG TAB PO SCH (08:26)
[2017-03-11] MEDS: SERTRALINE HCL 100 MG TAB PO SCH (08:27)
[2017-03-11] MEDS: RANITIDINE HCL 150 MG TAB PO SCH ×2 (08:27→20:25)
[2017-03-11 11:06] VITALS: BP 93/62; PULSE 121
[2017-03-11] MEDS ORDERED: NURSING VERBAL MED ORDER ONE ×2 (11:30→16:00)
[2017-03-11] MEDS ORDERED: NURSING DECISION MEDICATION ORDER SCH (11:30)
[2017-03-11] MEDS: ACETAMINOPHEN 325 MG TAB PO PRN (11:35)
[2017-03-11] MEDS ORDERED: SODIUM CHLORIDE 0.9% 1000ML 1,000 ML IV SCH (11:45)
[2017-03-11] MEDS ORDERED: PERFLUTREN LIPID MICROSPHERE (DEFINITY) IV ONE (14:38)
[2017-03-11 15:32] VITALS: BP 126/84; PULSE 107; TEMP 36.4; O2SAT 93
[2017-03-11] MEDS ORDERED: VANCOMYCIN INJ 1,100 MG in SODIUM CHLORIDE 0.9% 250ML 250 ML IV SCH (16:00)
[2017-03-11] MEDS: BOOST GLUCOSE CONTROL PO SCH (16:57)
--- NOTE | 2017-03-11 18:24 | Progress Note ---
Internal Med Progress Note Date of Service: Mar 11, 2017. Provider Documentation: SUBJECTIVE: complains of SOB orthopnea a bit more confused today OBJECTIVE: Vital Signs-as noted below Exam: General-elderly female, no sign of distress Eyes-sclera non icteric Lungs-CTA Heart-regular S1/S2 Abdomen-soft, non tender Extremities-rt lower ext -ulcer on mid leg on posterior aspect , + tenderness , erythema + 2-3 bilat lower ext edema Neuro-AAO x3 , no focal deficit Lab data as noted below. ASSESSMENT & PLAN: CONFUSION /LETHARGY : due to metabolic encephalopathy due to Cellulitis secondary to infected right lower extremity decubitus wound /possible aspiration pneumonia pt continued to have some elements of forgetfulness family family suspects beginning dementia has been having trouble remembering to taking meds , difficulty in account management never noticed she had lower ext wound /infection -till her recent clinic visit cont to observe fall precaution high risk for delirium /sun downing SOB/HYPOXIA: pt was given IV fluids for hypotension /infection IVF D/michelle earlier today lungs auscultation shows basilar rales ordered for stat Xray ' may need IV Lasix if Cxray shows pulmonary congestion RT LOWER EXT INFECTED WOUND /CELLULITIS ; wound culture growing gram positive cocci on Vancomycin already appreciate input form Wound care Dr Allison consulted for possible wound debridement ID eval requested appreciate input ASPIRATION PNEUMONIA ; cxray shows rt lower lobe infiltrate concern for aspiration -high risk -confusion /lethargy /baseline dementia appreciate speech eval ordered for dental soft diet with aspiration precaution cont Cefepime for now repeat Cxray in AM TYPE 2 DM : episodes for hypoglycemia noted Lantus dose reduced to 10 mg HS ( was on 20 U HS /out pt dose 28 UHS ) insulin SSI HB A1 c 8 pharmacy consulted for glycemic control LOW MG : replaced follow lab HX OF AFIB : INR elevated ~3 Coumadin on hold till INR ~2 cont Sotalol CAD status post CABG Chronic diastolic heart failure, equivocal volume status cont to monitor MILD ELEVATION OF TROPONIN : Possible due to sepsis /infection causing reactive tachycardia cont to monitor trend echo ordered Sick sinus syndrome status PPM, History of CVA cont Aspirin Chronic respiratory failure 2 to COPD/ILD on home O2 pulmo status at baseline CKD stage 3 : renal function stable AMBULATORY DYSFUNCTION ; deconditioning per family -pt remains in her bed most of the day minimum ambulation PT/OT eval requested may need SNF DVT PROPHYLAXIS INR elevated ~3 DISPOSITION PT/OT eval requested may need SNF when medically stable pt is agreeable Social service consulted for discharge planning Updated daughter Vital Signs: Date Time Temp Pulse Resp B/P (MAP) Pulse Ox O2 Delivery O2 Flow Rate FiO2 03/11/17 15:32 36.4 107 18 126/84 (98) 93 Room Air 03/11/17 11:06 121 93/62 (72) 03/11/17 09:54 Room Air 03/11/17 08:00 36.6 119 16 99/72 (81) 91 Room Air 03/11/17 00:29 36.5 115 16 82/64 (70) 94 Nasal Cannula 2.0 03/11/17 00:00 Nasal Cannula 2.0 03/10/17 23:02 118 79/60 (66) Lab Results: Results Past 24 Hours Test 03/10/17 20:07 03/11/17 00:03 03/11/17 06:36 03/11/17 11:22 Range/Units Bedside Glucose 138 213 70-90 mg/dl Sodium Level 132 134 136-145 mmol/L Potassium Level 4.0 4.0 3.5-5.1 mmol/L Chloride Level 103 102 98-107 mmol/L Carbon Dioxide Level 23 24 21-32 mmol/L Anion Gap 6.0 8.0 3-11 mmol/L Blood Urea Nitrogen 25 24 7-18 mg/dl Creatinine 1.40 1.50 0.60-1.20 mg/dl Est Creatinine Clear Calc Drug Dose 34.8 32.5 ml/min Estimated GFR () 42.8 39.4 Estimated GFR (Non- 36.9 34.0 BUN/Creatinine Ratio 17.8 15.9 10-20 Random Glucose 144 117 70-99 mg/dl Lactic Acid Level 1.5 0.4-2.0 mmol/L Calcium Level 8.4 8.8 8.5-10.1 mg/dl Magnesium Level 1.6 1.8-2.4 mg/dl Prothrombin Time 36.6 9.0-12.0 SECONDS Prothromb Time International Ratio 3.3 0.9-1.1 Test 03/11/17 16:15 03/11/17 16:54 Range/Units Bedside Glucose 55 79 70-90 mg/dl Microbiology Results 03/10/17 MRSA DNA Surveillance Screen - Final, Complete Specimen Negative for MRSA by DNA Probe
[2017-03-11] MEDS ORDERED: PHARMACY GLYCEMIC MGMT CONSULT SCH (18:27)
[2017-03-11] MEDS ORDERED: MAGNESIUM SULFATE 1GM / D5W 1 GM in PREMIXED IN D5W 100 ML IV SCH (18:30)
--- NOTE | 2017-03-11 19:08 | DIAGNOSTIC IMAGING REPORT ---
CHEST ONE VIEW PORTABLE CLINICAL HISTORY: SOB /CHF COMPARISON STUDY: Chest radiograph performed earlier today. FINDINGS: A small right pleural effusion is noted. No pneumothorax is identified. Diffuse interstitial thickening persists. Cardiomegaly is unchanged. There is a dual lead left subclavian pacemaker and median sternotomy wires. IMPRESSION: 1. No change in diffuse interstitial thickening which favors pulmonary edema superimposed upon interstitial lung disease. 2. Small right pleural effusion. Electronically signed by: Dylon Cunningham M.D. 03/11/2017 7:06 PM Dictated Date/Time: 03/11/2017 7:05 PM
--- NOTE | 2017-03-11 19:16 | Progress Note ---
Progress Note Date of Service Mar 11, 2017. Progress Note CXray noted : 1. No change in diffuse interstitial thickening which favors pulmonary edema superimposed upon interstitial lung disease. 2. Small right pleural effusion. I'/O's approx positive balance of 2L ordered for 20 mg IV Lasix now Valentino catheter to monitor vol status ; I's/O's repeat PRP in Am to monitor renal function
--- NOTE | 2017-03-11 19:34 | Pharmacy Progress Note ---
Glycemic Control Intl Consult Date of Service Mar 11, 2017. Scope Glycemic Pharmacist consulted by Dr Jain on 03/11/17 for glycemic control and to write orders per [facility] inpatient glycemic control protocol Objective Weight (Kilograms): 81.200 Accuchecks BSG (last 24hrs): Test 03/10/17 20:07 03/11/17 00:03 03/11/17 06:36 03/11/17 11:22 Bedside Glucose 138 mg/dl (70-90) 213 mg/dl (70-90) Random Glucose 144 mg/dl (70-99) 117 mg/dl (70-99) Test 03/11/17 16:15 03/11/17 16:54 Bedside Glucose 55 mg/dl (70-90) 79 mg/dl (70-90) Laboratory Data (last 24hrs) Test 03/11/17 00:03 03/11/17 06:36 Anion Gap 6.0 mmol/L 8.0 mmol/L BUN/Creatinine Ratio 17.8 15.9 Blood Urea Nitrogen 25 mg/dl 24 mg/dl Creatinine 1.40 mg/dl 1.50 mg/dl Potassium Level 4.0 mmol/L 4.0 mmol/L Sodium Level 132 mmol/L 134 mmol/L HbA1c Test 03/09/17 18:28 Hemoglobin A1c 8.0 % (4.5-5.6) H Recent Pertinent Medications Outpatient Anti-diabetic Regimen: * Lantus 28 units qpm, Glipizide 10 mg w/breakfast, 5 mg w/supper * A1c = 8.0 % 03/09/17 The patient is currently receiving: * Basal insulin: Lantus 20 units every pm * Correctional Insulin: Novolog Correction per scale ACHS Goal Range: Low 140 mg/dL - High 180 mg/dL Correction Factor: 50 mg/dL/unit * Prandial insulin: Per carb ratio of 1 unit per 20 grams CHO consumed Risk Factors for Insulin Resistance: * Steroids: no * Infection: wound infection,possible aspiration pneumonia- on cefepime, vancomycin * Pressors: no * IVF: Mag sulfate 1 Gmx 2 mixed in D5W * Recent Surgery: no * Diet: type 2 diabetic AHA dental soft, mostly poor po intake * Mechanical Ventilation: no Assessment & Plan ASSESSMENT: * ADA & AACE recommend a goal blood sugar range 140-180 mg/dl for the majority of critically ill & non-critically ill patients. However, more stringent targets may be selected in individual cases. Will continue goal range to decrease risk of hypoglycemia. * 76 yo type 2 diabetic with only fair glycemic control over past 3 months, possibly due to memory problems. BSG's have been low but spiked after a full breakfast (appetite is usually poor). Will continue conservative Novolog coverage, add Lantus with dose based on BSG, and reassess in am. PLAN FOR INPATIENT GLYCEMIC CONTROL: * Holding outpatient oral diabetes medications * Basal insulin with LANTUS hs: 5 units if BSG<140, 10 units if BSG 140-180, 15 units if BSG>180 * Correctional Insulin with NOVOLOG scale ACHS or Q6hrs while NPO * Goal Range: Low 140 mg/dL - High 180 mg/dL * Correction Factor: 50 mg/dL/unit * Nutritional / Prandial insulin per carb ratio of 1 unit per 20 grams CHO consumed Please note that the plan above was derived based on current level of insulin resistance and hospital stress. These recommendations are appropriate for inpatient admission only. Plan of care upon discharge will need to be reassessed to avoid potential outpatient hypo/hyperglycemia. Thank you.
[2017-03-11] MEDS ORDERED: FUROSEMIDE INJ 20 MG in SYRINGE 0 ML IV SCH (19:45)
[2017-03-11] MEDS: INSULIN GLARGINE SOLOSTAR 100 UNITS/ML 3 ML PEN SC SCH (20:27)
[2017-03-11] MEDS: TRAZODONE HCL 50 MG TAB PO SCH (20:27)
[2017-03-11 23:03] VITALS: BP 103/74; PULSE 117; TEMP 36.4; O2SAT 95
[2017-03-12] VITALS: O2SAT 95
[2017-03-12] MEDS ORDERED: INSULIN ASPART 100 UNITS/ML 3 ML PEN SC SCH (02:00)
[2017-03-12] MEDS ORDERED: COUGH DROP (SUGAR FREE) LOZ 24 LOZ/1 BOX ONE (04:25)
[2017-03-12] MEDS ORDERED: COUGH DROP (SUGAR FREE) LOZ 24 LOZ/1 BOX PO PRN ×3 (04:30→08:45)
[2017-03-12] MEDS ORDERED: NURSING DECISION MEDICATION ORDER SCH ×2 (05:00→13:00)
[2017-03-12] MEDS: LEVOTHYROXINE 137 MCG TAB PO SCH (06:03)
[2017-03-12] MEDS: INSULIN ASPART 100 UNITS/ML 3 ML PEN SC SCH ×4 (06:30→20:18)
[2017-03-12 06:59] LABS: INR 2.7 (0.9-1.1); PROTHROMBIN TIME (PATIENT) 30.4 SECONDS (9.0-12.0)
[2017-03-12 07:24] LABS: BUN/CREATININE RATIO 18.8 (10-20); CALCIUM 8.6 mg/dl (8.5-10.1); CREATININE 1.2 mg/dl (0.60-1.20); POTASSIUM 4.1 mmol/L (3.5-5.1)
[2017-03-12 08:01] VITALS: BP 126/88; PULSE 121; TEMP 36.5; O2SAT 98
[2017-03-12] MEDS: RANITIDINE HCL 150 MG TAB PO SCH ×2 (08:21→20:17)
[2017-03-12] MEDS: SERTRALINE HCL 100 MG TAB PO SCH (08:21)
[2017-03-12] MEDS: LACTOBACILLUS ACIDOPHILUS (FLORANEX) TAB PO SCH ×3 (08:21→16:57)
[2017-03-12] MEDS: DOCUSATE SODIUM 100 MG CAP PO SCH ×2 (08:21→20:16)
[2017-03-12] MEDS: ASPIRIN 81 MG ECTAB PO SCH (08:23)
[2017-03-12] MEDS: SOTALOL HCL 80 MG TAB PO SCH (08:23)
[2017-03-12] MEDS: ISOSORBIDE MONONITRATE 30 MG TABCR PO SCH (08:23)
[2017-03-12] MEDS: COLLAGENASE OINT 30 GM TUBE EXT SCH (08:24)
[2017-03-12] MEDS: IPRATROPIUM BROMIDE HFA INHALER INH SCH ×4 (08:24→20:14)
[2017-03-12] MEDS: LEValbuterol HFA 15GM INHALER INH SCH ×4 (08:25→20:15)
[2017-03-12] MEDS: TRAMADOL HCL 50 MG TAB PO PRN (08:29)
--- NOTE | 2017-03-12 08:31 | Progress Note ---
Internal Med Progress Note Date of Service: Mar 12, 2017. Provider Documentation: SUBJECTIVE: feels much better ; denies of SOB or orthopnea no cough decreased 02 to 2L ( pt's baseline ) finishing breakfast , more awake and alert today discussed the option for SNF for rehab possibly in next 1-2 days pt is agreeable OBJECTIVE: Vital Signs-as noted below Exam: General-elderly female, no sign of distress Eyes-sclera non icteric Lungs-diminished , no rale noted Heart-regular S1/S2 Abdomen-soft, non tender Extremities-rt lower ext -ulcer on mid leg on posterior aspect , + tenderness , erythema + 2-3 bilat lower ext edema Neuro-AAO x3 , no focal deficit Lab data as noted below. ASSESSMENT & PLAN: CONFUSION /LETHARGY : due to metabolic encephalopathy due to Cellulitis secondary to infected right lower extremity decubitus wound /possible aspiration pneumonia pt continued to have some elements of forgetfulness family family suspects beginning dementia has been having trouble remembering to taking meds , difficulty in account management never noticed she had lower ext wound /infection -till her recent clinic visit cont to observe fall precaution high risk for delirium /sun downing SOB/HYPOXIA/DECOMPENSATED CHF -DIASTOLIC DYSFUNCTION WITH MIXED VALVULAR DISEASE developed vol overload for IV fluid resuscitation given for infection / hypotension -IVF D/michelle lungs auscultation -basilar rales ; Cxray shows pulmonary congestion ECHO : 12/2015 : normal LV function , no wall motion abnormality EF 65% aortic valve moderately calcified and bicuspid fusion of the non coronary and left coronary cusps . Mild to moderate valvular aortic stenosis , There is moderate to severe tricuspid regurgitation , Rt ventricular systolic pressure elevated at 40-50 mm Hg pt ordered 20 mg IV Lasix -diuresed approx 1700 ml overnight feels much better ; no complain of SOB , orthopnea, Hypoxia improved 02 decreased to 2 L ( baseline ) ordered for repeat Cxray today RT LOWER EXT INFECTED WOUND /CELLULITIS ; wound culture growing gram positive cocci GRAM STAIN Final 03/10/17-0858 RESULT NO WBCs SEEN RARE GRAM POSITIVE COCCI SURFACE WOUND CULTURE Preliminary 03/11/17-1251 Organism 1 GRAM POSITIVE COCCI QUANITY FEW SENS SENSITIVITY TO FOLLOW +MIXWOUND PLUS LOW COUNTS OF PROBABLE SKIN DECLAN was on Vancomycin MRSA screen negative appreciate input form Wound care Dr Allison consulted for possible wound debridement ; pt was unable to tolerate bedside debridement plan to follow up on Monday03/13/17 pt will need continued wound care follow up as out patient cont local wound care /daily dressing changes as per recommendation from wound care ID eval requested appreciate input will D/c vancomycin start on PO Doxycycline -possible 10-14 days of treatment will D/w ID ASPIRATION PNEUMONIA ; cxray shows rt lower lobe infiltrate concern for aspiration -high risk -confusion /lethargy /baseline dementia appreciate speech eval ordered for dental soft diet with aspiration precaution D/C Cefepime PO Levaquin total 5 days course TYPE 2 DM : episodes for hypoglycemia noted Lantus dose reduced to 10 mg HS ( was on 20 U HS /out pt dose 28 UHS ) insulin SSI HB A1 c 8 pharmacy consulted for glycemic control LOW MG : replaced follow lab HX OF AFIB/A FLUTTER : underwent SARAH cardioversion on cont Sotalol ; chronic anticoagulation with Coumadin INR 2.7 Coumadin was on hold will order to resume today follow Daily PT/INR CAD status post CABG Chronic diastolic heart failure/mixed valvular heart disease ordered for diuretics for vol overload no complain of chest pain or SOB cont out pt cardiac meds MILD ELEVATION OF TROPONIN : Possible due to sepsis /infection causing reactive tachycardia /Decompensated CHF no evidence of ACS HX OF TACHYBRADY SYNDROME : s/p pacemaker placement History of CVA cont Aspirin IDIOPATHIC PULMONARY FIBROSIS /COPD Chronic respiratory failure 2 to COPD/ILD on home O2 developed worsening of SOB yesterday due to vol over load respiratory status much improved today on 2 L chronically CKD stage 3 : renal function stable AMBULATORY DYSFUNCTION ; deconditioning per family -pt remains in her bed most of the day significant difficulty with mobility at home; family reports frequent falls and poor memory does not use cane or walker as she should had several falls in a months required 2-3 person assistance to get up PT/OT eval requested appreciate input : Pt requires min 1persosn assistance for bed mobility and transfers, recommend SNF DVT PROPHYLAXIS INR therapeutic DISPOSITION PT/OT eval requested will need SNF pt is agreeable Social service consulted for discharge planning Vital Signs: Date Time Temp Pulse Resp B/P (MAP) Pulse Ox O2 Delivery O2 Flow Rate FiO2 03/12/17 08:01 36.5 121 20 126/88 (101) 98 Nasal Cannula 4.0 03/12/17 00:00 95 Nasal Cannula 4.0 03/11/17 23:03 36.4 117 20 103/74 (84) 95 Nasal Cannula 4.0 03/11/17 16:00 Nasal Cannula 2.0 03/11/17 15:32 36.4 107 18 126/84 (98) 93 Room Air 03/11/17 11:06 121 93/62 (72) 03/11/17 09:54 Room Air Lab Results: Results Past 24 Hours Test 03/11/17 11:22 03/11/17 16:15 03/11/17 16:54 03/11/17 20:19 Range/Units Bedside Glucose 213 55 79 74 70-90 mg/dl Test 03/11/17 23:38 03/12/17 00:05 03/12/17 02:19 03/12/17 06:24 Range/Units Bedside Glucose 67 88 130 70-90 mg/dl Prothrombin Time 30.4 9.0-12.0 SECONDS Prothromb Time International Ratio 2.7 0.9-1.1 Sodium Level 134 136-145 mmol/L Potassium Level 4.1 3.5-5.1 mmol/L Chloride Level 102 98-107 mmol/L Carbon Dioxide Level 26 21-32 mmol/L Anion Gap 6.0 3-11 mmol/L Blood Urea Nitrogen 23 7-18 mg/dl Creatinine 1.20 0.60-1.20 mg/dl Est Creatinine Clear Calc Drug Dose 40.6 ml/min Estimated GFR () 51.6 Estimated GFR (Non- 44.5 BUN/Creatinine Ratio 18.8 10-20 Random Glucose 117 70-99 mg/dl Calcium Level 8.6 8.5-10.1 mg/dl Test 03/12/17 07:31 03/12/17 08:31 Range/Units Bedside Glucose 104 70-90 mg/dl
[2017-03-12] MEDS ORDERED: CPC PO (08:45)
[2017-03-12] MEDS ORDERED: ECRCR EXT (08:45)
[2017-03-12] MEDS ORDERED: NUTR-7 PO (08:45)
[2017-03-12] MEDS ORDERED: ALBUTEROL HFA 8 GM INHALER INH PRN (08:45)
[2017-03-12] MEDS ORDERED: FUROSEMIDE 20 MG TAB PO PRN (08:45)
[2017-03-12] MEDS ORDERED: LCTX PO (08:45)
[2017-03-12] MEDS ORDERED: ULT50X PO (08:45)
[2017-03-12] MEDS ORDERED: ONDANSETRON 4 MG TAB PO PRN (08:45)
[2017-03-12] MEDS ORDERED: SNTO30 EXT (08:45)
[2017-03-12] MEDS ORDERED: TRAZ50TA35 PO (08:45)
[2017-03-12] MEDS ORDERED: NITROGLYCERIN 0.4 MG SL PER TAB CHARGE UT PRN (08:45)
--- NOTE | 2017-03-12 08:47 | Discharge Instructions ---
Discharge Instructions Date of Service Mar 12, 2017. Admission Reason for Admission: Sepsis Discharge Discharge Diagnosis / Problem: LOWER EXTREMITY CELLULITIS Discharge Goals Goal(s): Decrease discomfort, Improve disease control, Therapeutic intervention Activity Recommendations Activity Level: Assistance Required Therapies: Physical Therapy, Occupational Therapy Shower/Bathe: no limitations . Additional Information Patient informed of condition: Yes Advance Directives: No DNR: No Level of Care: Skilled Communicable Disease: No Prognosis: Stable Valentino Catheter: No Instructions / Follow-Up Instructions / Follow-Up NEED TO FOLLOW UP AT THE WOUND CLINIC FOR RT LOWER EXTREMITY INFECTION /WOUND Current Hospital Diet Patient's current hospital diet: Diabetes Type 2 Diet, AHA Diet (Heart Healthy) DIET RECOMMENDATION : 1. Moist Dental soft diet, thin liquids. 2. Aspiration precautions: Patient should be seated as upright as possible during and for 30 minutes after meal. Straws OK. Alternate solids and liquids. Take small bites and sips. Discharge Diet Recommended Diet: AHA Diet (Heart Healthy), Diabetes Type 2 Diet Diet Texture: Dental Soft (bite-sized) Pending Studies Studies pending at discharge: no Laboratory Results Hemoglobin A1c Test 03/09/17 18:28 Range/Units Estimated Average Glucose 183 mg/dl Hemoglobin A1c 8.0 H 4.5-5.6 % Medical Emergencies . Who to Call and When: Medical Emergencies: If at any time you feel your situation is an emergency, please call 911 immediately. . Non-Emergent Contact Non-Emergency issues call your: Primary Care Provider . . "Provider Documentation" section prepared by Sarah Jain. . Core Measure Problem Core Measures: None
--- NOTE | 2017-03-12 08:57 | Progress Note ---
Progress Note Date of Service Mar 12, 2017. Progress Note pt has been on Sotalol for Afib /Flutter interaction with Levaquin can cause prolong Qtc will D/c Levaquin -d/w Pharmacy cont with Doxycycline PO 100 mg BID
--- NOTE | 2017-03-12 09:45 | ECHOCARDIOGRAM REPORT ---
*NOTICE TO RECEIVING [employer] AGENCY This information is strictly Confidential and protected under [place] law. [place] law prohibits you from making any further disclosure of this information unless further disclosure is expressly permitted by the written consent of the person to whom it pertains or is authorized by law. A general authorization for the release of medical or other information is not sufficient for this purpose. Hospital accepts no responsibility if the information is made available to any other person, INCLUDING THE PATIENT. Interpretation Summary * Name: DAVID ESTEVES Study Date: 03/11/2017 02:01 PM BP: 82/64 mmHg * Patient Location: .[id number]\W253\S\2 HR: 117 * : 1940 (M/d/yyyy) Gender: Female Height: 62 in * Age: 76 yrs Ethnicity: CA Weight: 179 lb * Ordering Physician: Sarah Jain * Referring Physician: Self, Referred * Performed By: Werner Cunningham RDCS * * Reason For Study: Chest pain * BSA: 1.8 m2 * The study was technically limited. * -- Conclusions -- * The study was technically limited. * The left ventricular cavity is small. * There is severe concentric left ventricular hypertrophy. * Left ventricular systolic function is mildly reduced. * Ejection Fraction = 45-50%. * The right ventricle is mildly dilated. * The right ventricular systolic function is mild to moderately reduced. * The left atrium is moderately dilated. * The right atrium is moderately dilated. * There is severe calcific aortic valve stenosis. * There is mild mitral regurgitation. Procedure Details * A complete two-dimensional transthoracic echocardiogram was performed (2D, M-mode, Doppler and color flow Doppler). * The study was technically difficult. * There were technical limitations due to patient'sbody habitus * The study was technically difficult, but visualization was adequate with the administration of Definity ultrasound contrast. * A contrast injection of Definity was performed to improve assessment of LV function. * Contrast was injected into an intravenous site in the right arm. * One vial of Definity ultrasound contrast was diluted in normal saline to a total volume of 10 ml. A total of '6' ml of solution was administered during imaging. * Lot # [id number] of Definity utilized for procedure. * Expiration date 1jul18. * The attending nurse who injected the contrast agent was SHELLEY Johnson. Left Ventricle * The left ventricular cavity is small. * There is severe concentric left ventricular hypertrophy. * Left ventricular systolic function is mildly reduced. * Ejection Fraction = 45-50%. Right Ventricle * The right ventricle is mildly dilated. * There is a pacemaker lead in the right ventricle. * The right ventricular systolic function is mild to moderately reduced. Atria * The left atrium is moderately dilated. * The right atrium is moderately dilated. Mitral Valve * There is severe mitral annular calcification. * There is mild mitral regurgitation. Tricuspid Valve * The tricuspid valve is not well visualized. * Significant tricuspid regurgitation is absent. Aortic Valve * There is severe calcific aortic valve stenosis. Pulmonic Valve * The pulmonic valve is not well visualized. * Mild pulmonic valvular regurgitation. Great Vessels * The aortic root and proximal ascending aorta are normal sized. Pericardium/Pleural * There is no pericardial effusion. MMode 2D Measurements and Calculations IVSd 1.4 cm IVSs 1.6 cm LVIDd 3.4 cm LVIDs 2.7 cm LVPWd 1.4 cm LVPWs 1.6 cm IVS/LVPW 0.96 FS 20.6 % EDV(Teich) 48.3 ml ESV(Teich) 27.6 ml EF(Teich) 43.0 % EDV(cubed) 40.2 ml ESV(cubed) 20.2 ml EF(cubed) 49.9 % % IVS thick 12.5 % % LVPW thick 8.5 % LV mass(C)d 171.8 grams LV mass(C)dI 94.2 grams/m\S\2 LV mass(C)s 151.2 grams LV mass(C)sI 82.9 grams/m\S\2 SV(Teich) 20.8 ml SI(Teich) 11.4 ml/m\S\2 SV(cubed) 20.1 ml SI(cubed) 11.0 ml/m\S\2 Ao root diam 3.4 cm Ao root area 8.8 cm\S\2 ACS 1.4 cm LA dimension 4.4 cm asc Aorta Diam 4.2 cm LA/Ao 1.3 LVOT diam 2.0 cm LVOT area 3.2 cm\S\2 LVAd ap4 15.3 cm\S\2 LVLd ap4 6.1 cm EDV(MOD-sp4) 33.0 ml LVAs ap4 11.5 cm\S\2 LVLs ap4 5.7 cm ESV(MOD-sp4) 19.0 ml EF(MOD-sp4) 42.4 % LVAd ap2 20.2 cm\S\2 LVLd ap2 7.1 cm EDV(MOD-sp2) 49.0 ml LVAs ap2 13.1 cm\S\2 LVLs ap2 6.1 cm ESV(MOD-sp2) 24.0 ml EF(MOD-sp2) 51.0 % SV(MOD-sp4) 14.0 ml SI(MOD-sp4) 7.7 ml/m\S\2 SV(MOD-sp2) 25.0 ml SI(MOD-sp2) 13.7 ml/m\S\2 Doppler Measurements and Calculations MV E max yasmin 117.0 cm/sec MV dec time 0.14 sec Ao V2 max 146.6 cm/sec Ao max PG 8.6 mmHg Ao max PG (full) 7.7 mmHg Ao V2 mean 106.8 cm/sec Ao mean PG 5.2 mmHg Ao mean PG (full) 4.8 mmHg Ao V2 VTI 25.2 cm INGA(I,A) 1.2 cm\S\2 INGA(I,D) 1.2 cm\S\2 INGA(V,A) 1.0 cm\S\2 INGA(V,D) 1.0 cm\S\2 LV V1 max PG 0.91 mmHg LV V1 mean PG 0.40 mmHg LV V1 max 47.7 cm/sec LV V1 mean 28.2 cm/sec LV V1 VTI 9.7 cm SV(Ao) 222.2 ml SI(Ao) 121.9 ml/m\S\2 SV(LVOT) 31.1 ml SI(LVOT) 17.0 ml/m\S\2 PI end-d yasmin 192.2 cm/sec TR max yasmin 323.1 cm/sec
[2017-03-12] MEDS ORDERED: LEVOFLOXACIN 500 MG TAB PO SCH (11:00)
[2017-03-12] MEDS: DOXYCYCLINE HYCLATE 100 MG CAP PO SCH ×2 (11:27→20:16)
--- NOTE | 2017-03-12 11:33 | DIAGNOSTIC IMAGING REPORT ---
SINGLE VIEW CHEST CLINICAL HISTORY: Dyspnea. FINDINGS: An AP, portable, upright chest radiograph is compared to study dated 03/11/2017. Correlation is made with chest CT dated 09/23/2009. The examination is degraded by portable technique and patient rotation. The patient is status post midline sternotomy. A 2-lead cardiac pacemaker is unchanged in position and partially obscures the left mid chest. The heart is enlarged and there is atherosclerotic calcification of the thoracic aorta. There is pulmonary vascular congestion and interstitial edema. Chronic interstitial lung disease is again noted. Small pleural effusions are suspected. Bibasilar airspace opacities are observed. No pneumothorax is seen. The skeletal structures are osteopenic. The bony thorax is grossly intact. IMPRESSION: 1. Cardiomegaly and cardiac pacemaker with evidence of congestive failure and interstitial edema. This is similar appearance to yesterday, and is likely superimposed on chronic interstitial lung disease. 2. There are small pleural effusions with bibasilar airspace opacities. This likely represents atelectasis. Correlate clinically for evidence of superimposed pneumonia. Electronically signed by: Galdino Navarrete M.D. 03/12/2017 11:32 AM Dictated Date/Time: 03/12/2017 11:30 AM
[2017-03-12] MEDS ORDERED: LACTOBACILLUS ACIDOPHILUS (FLORANEX) TAB PO SCH (12:00)
[2017-03-12 12:19] VITALS: BP 123/89; PULSE 118
--- NOTE | 2017-03-12 13:13 | Pharmacy Progress Note ---
Glycemic: Assessment & Plan Date of Service Mar 12, 2017. Assessment & Plan The patient is currently receiving 1 unit of insulin per day over the past 24 hours BSGs ranging 55 - 213 mg/dl over the past 24hrs. Lantus held last night for hypoglycemia. Patient did receive 20 units of Lantus on 03/10, which must have caused the hypoglycemia. I will change Lantus parameters so that it is held if BSG < 140mg/dL to prevent any further hypoglycemia. * Basal insulin: Lantus: BSG < 140mg/dL - HOLD BSG 140-180mg/dL - 10 units BSG > 180mg/dL - 15 units * Correctional Insulin: Novolog Correction per scale ACHS Goal Range: Low 140 mg/dL - High 180 mg/dL Correction Factor: 50 mg/dL/unit * Prandial insulin: Per carb ratio of 1 unit per 20 grams CHO consumed Pharmacy will continue to monitor patient daily and write orders per [facility] inpatient glycemic control protocol. Thanks. DISCHARGE RECOMMENDATIONS: * Recommend Holding Lantus at this time, as patient has not required any Lantus the past 36 hours. Re-initiate at 10 units SQ daily in the morning once BSG is above 180mg/dL * Continue Glipizide 10mg with breakfast and 5mg with supper * Please note that the plan above was derived based on current level of insulin resistance and hospital stress. These recommendations are appropriate for inpatient admission only. Plan of care upon discharge will need to be reassessed to avoid potential outpatient hypo/hyperglycemia.
[2017-03-12] MEDS ORDERED: MICONAZOLE NITRATE POWDER 43 GM EXT PRN (13:30)
[2017-03-12] MEDS ORDERED: VANCOMYCIN TROUGH SCH (15:30)
[2017-03-12 15:45] VITALS: BP 98/69; PULSE 113; TEMP 36.4; O2SAT 95
[2017-03-12] MEDS: WARFARIN SOD 2 MG TAB PO SCH (16:54)
[2017-03-12] MEDS ORDERED: BOOST VANILLA PO SCH ×2 (17:00)
[2017-03-12] MEDS ORDERED: DXY100 PO (18:23)
[2017-03-12] MEDS: BOOST GLUCOSE CONTROL PO SCH (20:15)
[2017-03-12] MEDS: TRAZODONE HCL 50 MG TAB PO SCH (20:16)
[2017-03-12] MEDS: INSULIN GLARGINE SOLOSTAR 100 UNITS/ML 3 ML PEN SC SCH (20:21)
[2017-03-12 22:50] VITALS: BP 89/63; PULSE 110; TEMP 36.4; O2SAT 91
[2017-03-13 07:31] LABS: INR 2.1 (0.9-1.1)
[2017-03-13 07:36] LABS: BUN/CREATININE RATIO 17.6 (10-20); CALCIUM 8.5 mg/dl (8.5-10.1); CREATININE 1.1 mg/dl (0.60-1.20); POTASSIUM 4.2 mmol/L (3.5-5.1)
[2017-03-13 07:53] VITALS: BP 103/71; PULSE 114; TEMP 36.5; O2SAT 95
[2017-03-13] MEDS: INSULIN ASPART 100 UNITS/ML 3 ML PEN SC SCH ×4 (08:10→20:49)
[2017-03-13] MEDS: BOOST GLUCOSE CONTROL PO SCH ×2 (08:11→20:49)
[2017-03-13] MEDS: LACTOBACILLUS ACIDOPHILUS (FLORANEX) TAB PO SCH ×3 (08:12→16:46)
[2017-03-13] MEDS: ISOSORBIDE MONONITRATE 30 MG TABCR PO SCH (08:12)
[2017-03-13] MEDS: ASPIRIN 81 MG ECTAB PO SCH (08:12)
[2017-03-13] MEDS: SERTRALINE HCL 100 MG TAB PO SCH (08:12)
[2017-03-13] MEDS: DOCUSATE SODIUM 100 MG CAP PO SCH ×2 (08:12→20:48)
[2017-03-13] MEDS: DOXYCYCLINE HYCLATE 100 MG CAP PO SCH ×2 (08:13→20:48)
[2017-03-13] MEDS: RANITIDINE HCL 150 MG TAB PO SCH ×2 (08:13→20:48)
[2017-03-13] MEDS: SOTALOL HCL 80 MG TAB PO SCH (08:13)
[2017-03-13] MEDS: LEValbuterol HFA 15GM INHALER INH SCH ×4 (08:13→20:49)
[2017-03-13] MEDS: LEVOTHYROXINE 137 MCG TAB PO SCH (08:13)
[2017-03-13] MEDS: COLLAGENASE OINT 30 GM TUBE EXT SCH (08:14)
[2017-03-13] MEDS: IPRATROPIUM BROMIDE HFA INHALER INH SCH ×4 (08:14→20:49)
[2017-03-13 08:17] LABS: BASO % 0.3 %; BASO ABS # 0.02 K/uL (0-0.2); COMPLETE YES; EOS % 2.8 %; HEMATOCRIT 43.8 % (37-47); IG% 0.3 %; LYMPH % 20.1 %; LYMPH ABS # 1.28 K/uL (1.2-3.4); MEAN CELL VOLUME 89.4 fL (80-100); MEAN CORPUSCULAR HEMOGLOBIN 28.8 pg (25-34); MEAN CORPUSCULAR HGB CONC 32.2 g/dl (32-36); MEAN PLATELET VOLUME 9.5 fL (7.4-10.4); MONO % 9.9 %; NEUT % 66.6 %; PLATELET COUNT 158 K/uL (130-400); WHITE BLOOD COUNT 6.37 K/uL (4.8-10.8)
--- NOTE | 2017-03-13 10:03 | Progress Note ---
Subjective Date of Service: Mar 13, 2017. Subjective Pt evaluation today including: conversation w/ patient, physical exam, chart review, lab review pt changed to doxy over weekend, doing well. feeling better, states she is to go home today. no f/c. no pain in leg, much improved. wound culture with quintanilla sensitive E. faecalis, she has pcn allergy which causes rash. denies drainage from wound. wbc 6.3. all remaining ros reviewed and are negative. Problem List Medical Problems: (1) Cellulitis of right leg Status: Acute (2) Contusion of multiple sites Status: Acute (3) COPD exacerbation Status: Acute (4) Elevated troponin Status: Acute (5) Facial contusion Status: Acute (6) Fall Status: Acute (7) Head injury Status: Acute (8) Hypoglycemia Status: Acute (9) PNA (pneumonia) Status: Acute Objective Vital Signs Date Time Temp Pulse Resp B/P (MAP) Pulse Ox O2 Delivery O2 Flow Rate FiO2 03/13/17 07:53 36.5 114 18 103/71 (82) 95 Nasal Cannula 4.0 03/13/17 00:00 Nasal Cannula 4.0 03/12/17 22:50 36.4 110 18 89/63 (72) 91 Nasal Cannula 4.0 03/12/17 20:00 Nasal Cannula 4.0 03/12/17 15:45 36.4 113 17 98/69 (79) 95 Nasal Cannula 2.0 03/12/17 12:19 118 123/89 (100) Physical Exam General Appearance: WD/WN, no apparent distress Eyes: normal inspection, EOMI Neck: supple Respiratory/Chest: lungs clear, normal breath sounds, no respiratory distress Cardiovascular: regular rate, rhythm, no edema Abdomen: non tender, soft Extremities: non-tender, normal inspection, + pertinent finding (rle cellulitis significantly improved, no drainage, no erythema, no warmth) Neurologic/Psychiatric: alert, oriented x 3 Skin: normal color Laboratory Results Item Value Date Time Gram Stain - Final Complete 03/09/17 1810 Ulcer Leg Right Lower Blood Culture - Preliminary Resulted 03/09/17 1828 Blood NO GROWTH TO DATE. Blood Culture - Preliminary Resulted 03/09/17 1836 Blood NO GROWTH TO DATE. Last 24 Hours Test 03/12/17 11:36 03/12/17 16:31 03/12/17 19:44 03/13/17 06:37 Bedside Glucose 126 mg/dl 153 mg/dl 141 mg/dl White Blood Count 6.37 K/uL Red Blood Count 4.90 M/uL Hemoglobin 14.1 g/dL Hematocrit 43.8 % Mean Corpuscular Volume 89.4 fL Mean Corpuscular Hemoglobin 28.8 pg Mean Corpuscular Hemoglobin Concent 32.2 g/dl Platelet Count 158 K/uL Mean Platelet Volume 9.5 fL Neutrophils (%) (Auto) 66.6 % Lymphocytes (%) (Auto) 20.1 % Monocytes (%) (Auto) 9.9 % Eosinophils (%) (Auto) 2.8 % Basophils (%) (Auto) 0.3 % Neutrophils # (Auto) 4.24 K/uL Lymphocytes # (Auto) 1.28 K/uL Monocytes # (Auto) 0.63 K/uL Eosinophils # (Auto) 0.18 K/uL Basophils # (Auto) 0.02 K/uL RDW Standard Deviation 60.9 fL RDW Coefficient of Variation 18.8 % Immature Granulocyte % (Auto) 0.3 % Immature Granulocyte # (Auto) 0.02 K/uL Prothrombin Time 23.0 SECONDS Prothromb Time International Ratio 2.1 Sodium Level 135 mmol/L Potassium Level 4.2 mmol/L Chloride Level 102 mmol/L Carbon Dioxide Level 26 mmol/L Anion Gap 7.0 mmol/L Blood Urea Nitrogen 19 mg/dl Creatinine 1.10 mg/dl Est Creatinine Clear Calc Drug Dose 44.3 ml/min Estimated GFR () 57.3 Estimated GFR (Non- 49.4 BUN/Creatinine Ratio 17.6 Random Glucose 84 mg/dl Calcium Level 8.5 mg/dl Test 03/13/17 07:40 Bedside Glucose 85 mg/dl Assessment and Plan (1) Cellulitis Assessment & Plan: she has had significant improvement with doxy, can continue this due to pcn allergy. will need local wound care. would give 10 more days abx , can not take pcn.
[2017-03-13 11:51] VITALS: PULSE 114; O2SAT 95
--- NOTE | 2017-03-13 14:17 | Progress Note ---
Medicine Progress Note Date & Time of Visit: Mar 13, 2017 at 13:39. Subjective Pt was seen and examined Sitting in chair with no distress eating her breakfast Pt said that her breathing feels ok She denies any chest pain, palpitation, fever, chills, dizziness and sob Objective Last 8 Hrs Date Time Temp Pulse Resp B/P (MAP) Pulse Ox O2 Delivery O2 Flow Rate FiO2 03/13/17 11:51 114 95 03/13/17 08:20 Nasal Cannula 4.0 03/13/17 07:53 36.5 114 18 103/71 (82) 95 Nasal Cannula 4.0 Physical Exam: General- No acute distress Head- atraumatic Eyes- PERRL, EOMI ENT- oropharynx clear Neck- supple, no JVD Lungs- decrease breath sound Heart- regular rhythm Abdomen- normal bowel sounds, soft Extremities- no calf tenderness, rt lower ext -ulcer on mid leg on posterior aspect, + LE B/L edema Neuro- alert, oriented, PERRL, EOMI Skin- warm & dry Laboratory Results: Last 24 Hours Test 03/12/17 16:31 03/12/17 19:44 03/13/17 06:37 03/13/17 07:40 Bedside Glucose 153 mg/dl 141 mg/dl 85 mg/dl White Blood Count 6.37 K/uL Red Blood Count 4.90 M/uL Hemoglobin 14.1 g/dL Hematocrit 43.8 % Mean Corpuscular Volume 89.4 fL Mean Corpuscular Hemoglobin 28.8 pg Mean Corpuscular Hemoglobin Concent 32.2 g/dl Platelet Count 158 K/uL Mean Platelet Volume 9.5 fL Neutrophils (%) (Auto) 66.6 % Lymphocytes (%) (Auto) 20.1 % Monocytes (%) (Auto) 9.9 % Eosinophils (%) (Auto) 2.8 % Basophils (%) (Auto) 0.3 % Neutrophils # (Auto) 4.24 K/uL Lymphocytes # (Auto) 1.28 K/uL Monocytes # (Auto) 0.63 K/uL Eosinophils # (Auto) 0.18 K/uL Basophils # (Auto) 0.02 K/uL RDW Standard Deviation 60.9 fL RDW Coefficient of Variation 18.8 % Immature Granulocyte % (Auto) 0.3 % Immature Granulocyte # (Auto) 0.02 K/uL Prothrombin Time 23.0 SECONDS Prothromb Time International Ratio 2.1 Sodium Level 135 mmol/L Potassium Level 4.2 mmol/L Chloride Level 102 mmol/L Carbon Dioxide Level 26 mmol/L Anion Gap 7.0 mmol/L Blood Urea Nitrogen 19 mg/dl Creatinine 1.10 mg/dl Est Creatinine Clear Calc Drug Dose 44.3 ml/min Estimated GFR () 57.3 Estimated GFR (Non- 49.4 BUN/Creatinine Ratio 17.6 Random Glucose 84 mg/dl Calcium Level 8.5 mg/dl Test 03/13/17 11:33 Bedside Glucose 114 mg/dl Assessment & Plan CONFUSION /LETHARGY Due to metabolic encephalopathy due to Cellulitis secondary to infected right lower extremity decubitus wound /possible aspiration pneumonia family suspects beginning dementia because pt has been having trouble remember to take meds and to manage her account. never noticed she had lower ext wound /infection -till her recent clinic visit cont to observe fall precaution high risk for delirium /sun downing Clinically improved SOB/HYPOXIA/DECOMPENSATED CHF -DIASTOLIC DYSFUNCTION WITH MIXED VALVULAR DISEASE Due to volume overload during IV fluid resuscitation during admission lungs auscultation -basilar rales ; Cxray shows pulmonary congestion ECHO on 12/2015 normal LV function , no wall motion abnormality, EF 65% aortic valve moderately calcified and bicuspid fusion of the non coronary and left coronary cusps . Mild to moderate valvular aortic stenosis , There is moderate to severe tricuspid regurgitation , Rt ventricular systolic pressure elevated at 40-50 mm Hg Lasix was given and pt diuresed about 1700 Clinically improved Will reassess for more diuresis if needed RT LOWER EXT INFECTED WOUND /CELLULITIS ; wound culture growing gram positive cocci was on Vancomycin MRSA screen negative appreciate input form Wound care Dr Allison consulted for possible wound debridement ; pt was unable to tolerate bedside debridement plan to follow up on Monday03/13/17 pt will need continued wound care follow up as out patient cont local wound care /daily dressing changes as per recommendation from wound care ID on board and recommended to continue PO Doxycycline for 14 days of treatment ASPIRATION PNEUMONIA ; cxray shows rt lower lobe infiltrate concern for aspiration -high risk -confusion /lethargy /baseline dementia speech therapy consulted recommended for dental soft diet with aspiration precaution D/C Cefepime PO Levaquin total 5 days course TYPE 2 DM : episodes for hypoglycemia noted Lantus dose reduced to 10 mg HS ( was on 20 U HS /out pt dose 28 UHS ) insulin SSI HB A1 c 8 pharmacy consulted for glycemic control LOW MG : Stable HX OF AFIB/A FLUTTER : underwent SARAH cardioversion on cont Sotalol ; chronic anticoagulation with Coumadin INR 2.1 Coumadin was on hold will order to resume today follow Daily PT/INR CAD status post CABG Chronic diastolic heart failure/mixed valvular heart disease ordered for diuretics for vol overload no complain of chest pain or SOB cont out pt cardiac meds MILD ELEVATION OF TROPONIN : Possible due to sepsis /infection causing reactive tachycardia /Decompensated CHF no evidence of ACS HX OF TACHYBRADY SYNDROME : s/p pacemaker placement History of CVA cont Aspirin IDIOPATHIC PULMONARY FIBROSIS /COPD Chronic respiratory failure 2 to COPD/ILD on home O2 developed worsening of SOB yesterday due to vol over load respiratory status much improved today on 2 L chronically CKD stage 3 : renal function stable AMBULATORY DYSFUNCTION ; Worsening Frequent falls as per family in the last months High risk for fall Continue PT/OT eval Pt requires min 1persosn assistance for bed mobility and transfers, recommend SNF DVT PROPHYLAXIS INR therapeutic DISPOSITION PT/OT eval requested will need SNF Waiting for placement to discharge CODE STATUS FULL CODE Consultants: ID Wound Care Current Inpatient Medications: Current Inpatient Medications Medications (Trade) Dose Ordered Sig/Mike Route Start Time Stop Time Status Last Admin Dose Admin Acetaminophen (Tylenol Tab) 650 mg Q4H PRN PO 03/09/17 22:00 04/08/17 21:59 03/11/17 11:35 650 MG Insulin Aspart (novoLOG ASPART) SLIDING SCALE If C... ACHS SC 03/10/17 07:00 04/09/17 06:59 03/13/17 12:15 1 UNITS Glucose (Glucose 40% Gel) 15-30 GRAMS 15 GRAMS... UD PRN PO 03/09/17 22:00 04/08/17 21:59 Glucose (Glucose Chew Tab) 4-8 Tablets 4 Tabl... UD PRN PO 03/09/17 22:00 04/08/17 21:59 Dextrose (Dextrose 50% 50ML Syringe) 25-50ML OF 50% DW IV FOR... UD PRN IV 03/09/17 22:00 04/08/17 21:59 Glucagon (Glucagon Inj) 1 mg UD PRN SQ 03/09/17 22:00 04/08/17 21:59 Aspirin (Ecotrin Tab) 81 mg DAILY PO 03/10/17 09:00 04/09/17 08:59 03/13/17 08:12 81 MG Docusate Sodium (coLACE CAP) 100 mg BID PO 03/10/17 09:00 04/09/17 08:59 03/13/17 08:12 100 MG Isosorbide Mononitrate (Imdur Ext Rel Tab) 30 mg QAM PO 03/10/17 09:00 04/09/17 08:59 03/13/17 08:12 30 MG Levothyroxine Sodium (Synthroid Tab) 137 mcg DAILYBB PO 03/10/17 06:00 04/09/17 05:59 03/13/17 08:13 137 MCG Ranitidine HCl (zANTac TAB) 150 mg BID PO 03/10/17 09:00 04/09/17 08:59 03/13/17 08:13 150 MG Sertraline HCl (Zoloft Tab) 100 mg DAILY PO 03/10/17 09:00 04/09/17 08:59 03/13/17 08:12 100 MG Sotalol HCl (Betapace Tab) 80 mg QAM PO 03/10/17 09:00 04/09/17 08:59 03/13/17 08:13 80 MG Trazodone HCl (Desyrel Tab) 50 mg HS PO 03/10/17 21:00 04/09/17 20:59 03/12/17 20:16 50 MG Lactobacillus Acidophilus (Floranex Tab) 4 tab TIDM PO 03/10/17 07:30 04/09/17 07:59 03/13/17 12:10 4 TAB Ondansetron HCl (Zofran Inj) 4 mg Q6H PRN IV 03/09/17 22:00 04/08/17 21:59 Tramadol HCl (Ultram Tab) 25 mg Q6H PRN PO 03/09/17 22:00 04/08/17 21:59 03/12/17 08:29 25 MG Levalbuterol (Xopenex Hfa Inhaler) 2 puffs QID INH 03/10/17 09:00 04/09/17 08:59 03/13/17 12:11 2 PUFFS Ipratropium [place] (Atrovent Hfa Inhaler) 2 puffs QID INH 03/10/17 09:00 04/09/17 08:59 03/13/17 12:11 2 PUFFS Multi-Ingredient Ointment (Eucerin Unscented Cr) 1 appln BID PRN EXT 03/10/17 11:30 04/09/17 11:29 03/11/17 08:20 1 APPLN Collagenase (Santyl Oint) 1 appln DAILY EXT 03/11/17 09:00 04/10/17 08:59 03/13/17 08:14 1 APPLN Miscellaneous Information (Consult Glycemic Management Pharmacy) 1 ea UD N/A 03/11/17 18:27 04/10/17 18:26 Insulin Glargine (Lantus Solostar Pen) PER PROTOCOL QPM SC 03/11/17 21:00 04/09/17 20:59 03/12/17 20:21 10 UNITS Menthol (Nice Maximus) 1 maximus PRN PRN PO 03/12/17 05:00 04/11/17 04:59 Doxycycline Hyclate (Vibramycin Cap) 100 mg BID PO 03/12/17 09:00 03/22/17 08:59 03/13/17 08:13 100 MG Albuterol (Ventolin Hfa Inhaler) 2 puffs Q6 PRN INH 03/12/17 08:45 04/11/17 08:44 Furosemide (Lasix Tab) 20 mg DAILY PRN PO 03/12/17 08:45 04/11/17 08:44 03/12/17 11:28 20 MG Nitroglycerin (Nitrostat Tab) 0.4 mg UD PRN UT 03/12/17 08:45 04/11/17 08:44 Ondansetron HCl (Zofran Tab) 4 mg Q6H PRN PO 03/12/17 08:45 04/11/17 08:44 03/12/17 11:28 4 MG Warfarin Sodium (Coumadin Tab) 2 mg DAILY@1600 PO 03/12/17 16:00 04/11/17 15:59 03/12/17 16:54 2 MG Miconazole Nitrate (Desenex Powder) 1 appln UD PRN EXT 03/12/17 13:30 04/11/17 13:29 Enteral Nutritional Formula (Boost Glucose Control) 1 can BID PO 03/12/17 21:00 04/11/17 20:59
[2017-03-13 15:37] VITALS: BP 107/74; PULSE 111; TEMP 36.7; O2SAT 96
[2017-03-13] MEDS: WARFARIN SOD 2 MG TAB PO SCH (16:46)
[2017-03-13] MEDS: TRAZODONE HCL 50 MG TAB PO SCH (20:48)
[2017-03-13] MEDS: INSULIN GLARGINE SOLOSTAR 100 UNITS/ML 3 ML PEN SC SCH (21:07)
[2017-03-13] MEDS: ACETAMINOPHEN 325 MG TAB PO PRN (21:10)
[2017-03-13 23:39] VITALS: BP 105/75; PULSE 113; TEMP 36.9; O2SAT 98
[2017-03-14 00:35] VITALS: PULSE 112
[2017-03-14] MEDS: LEVOTHYROXINE 137 MCG TAB PO SCH (05:38)
[2017-03-14] MEDS: INSULIN ASPART 100 UNITS/ML 3 ML PEN SC SCH ×4 (06:30→20:36)
[2017-03-14 06:48] LABS: INR 2.1 (0.9-1.1); PROTHROMBIN TIME (PATIENT) 22.8 SECONDS (9.0-12.0)
[2017-03-14 06:53] LABS: BUN/CREATININE RATIO 18.4 (10-20); CALCIUM 8.9 mg/dl (8.5-10.1); CREATININE 1.1 mg/dl (0.60-1.20); POTASSIUM 4.7 mmol/L (3.5-5.1)
[2017-03-14 07:08] VITALS: BP 105/72; PULSE 114; TEMP 37; O2SAT 92
[2017-03-14] MEDS: BOOST GLUCOSE CONTROL PO SCH ×2 (08:03→20:36)
[2017-03-14] MEDS: COLLAGENASE OINT 30 GM TUBE EXT SCH (08:09)
[2017-03-14] MEDS: LACTOBACILLUS ACIDOPHILUS (FLORANEX) TAB PO SCH ×3 (08:09→16:26)
[2017-03-14] MEDS: DOXYCYCLINE HYCLATE 100 MG CAP PO SCH ×2 (08:10→20:35)
[2017-03-14] MEDS: LEValbuterol HFA 15GM INHALER INH SCH ×4 (08:10→20:35)
[2017-03-14] MEDS: SERTRALINE HCL 100 MG TAB PO SCH (08:10)
[2017-03-14] MEDS: DOCUSATE SODIUM 100 MG CAP PO SCH ×2 (08:10→20:35)
[2017-03-14] MEDS: ASPIRIN 81 MG ECTAB PO SCH (08:10)
[2017-03-14] MEDS: RANITIDINE HCL 150 MG TAB PO SCH ×2 (08:10→20:35)
[2017-03-14] MEDS: ISOSORBIDE MONONITRATE 30 MG TABCR PO SCH (08:10)
[2017-03-14] MEDS: IPRATROPIUM BROMIDE HFA INHALER INH SCH ×4 (08:10→20:35)
[2017-03-14] MEDS: SOTALOL HCL 80 MG TAB PO SCH (08:10)
[2017-03-14] MEDS ORDERED: FUROSEMIDE INJ 20 MG in SYRINGE 0 ML IV ONE (12:45)
[2017-03-14] MEDS ORDERED: GUAIFENESIN 200 MG TAB PO ONE (15:18)
--- NOTE | 2017-03-14 15:37 | Progress Note ---
Medicine Progress Note Date & Time of Visit: Mar 14, 2017 at 15:26. Subjective Pt was seen and examined Sitting in chair with no distress Pt said that she feels fine she said that her breathing is ok she denies any chest pain, palpitation and dizziness Objective Last 8 Hrs Date Time Temp Pulse Resp B/P (MAP) Pulse Ox O2 Delivery O2 Flow Rate FiO2 03/14/17 08:00 Nasal Cannula 4.0 Physical Exam: General- No acute distress Head- atraumatic Eyes- PERRL, EOMI ENT- oropharynx clear Neck- supple, no JVD Lungs- decrease breath sound Heart- regular rhythm Abdomen- normal bowel sounds, soft Extremities- no calf tenderness, rt lower ext -ulcer on mid leg on posterior aspect, + LE B/L edema Neuro- alert, oriented, PERRL, EOMI Skin- warm & dry Laboratory Results: Last 24 Hours Test 03/13/17 16:39 03/13/17 19:54 03/13/17 20:46 03/14/17 05:45 Bedside Glucose 107 mg/dl 184 mg/dl 159 mg/dl Prothrombin Time 22.8 SECONDS Prothromb Time International Ratio 2.1 Sodium Level 135 mmol/L Potassium Level 4.7 mmol/L Chloride Level 101 mmol/L Carbon Dioxide Level 29 mmol/L Anion Gap 5.0 mmol/L Blood Urea Nitrogen 20 mg/dl Creatinine 1.10 mg/dl Est Creatinine Clear Calc Drug Dose 44.3 ml/min Estimated GFR () 57.3 Estimated GFR (Non- 49.4 BUN/Creatinine Ratio 18.4 Random Glucose 75 mg/dl Calcium Level 8.9 mg/dl Test 03/14/17 07:17 03/14/17 11:08 Bedside Glucose 74 mg/dl 152 mg/dl Assessment & Plan CONFUSION /LETHARGY Due to metabolic encephalopathy due to Cellulitis secondary to infected right lower extremity decubitus wound /possible aspiration pneumonia family suspects beginning dementia because pt has been having trouble remember to take meds and to manage her account. never noticed she had lower ext wound /infection -till her recent clinic visit cont to observe fall precaution high risk for delirium /sun downing Clinically improved stable SOB/HYPOXIA/DECOMPENSATED CHF -DIASTOLIC/MILD SYSTOLIC DYSFUNCTION WITH MIXED VALVULAR DISEASE Due to volume overload during IV fluid resuscitation during admission lungs auscultation -basilar rales ; Cxray shows pulmonary congestion ECHO on 12/2015 normal LV function , no wall motion abnormality, EF 65% aortic valve moderately calcified and bicuspid fusion of the non coronary and left coronary cusps . Mild to moderate valvular aortic stenosis , There is moderate to severe tricuspid regurgitation , Rt ventricular systolic pressure elevated at 40-50 mm Hg Lasix was given and pt diuresed about 1700 ECHO on 03/27 * The left ventricular cavity is small. * There is severe concentric left ventricular hypertrophy. * Left ventricular systolic function is mildly reduced. * Ejection Fraction = 45-50%. * The right ventricle is mildly dilated. * The right ventricular systolic function is mild to moderately reduced. * The left atrium is moderately dilated. * The right atrium is moderately dilated. * There is severe calcific aortic valve stenosis. * There is mild mitral regurgitation. Clinically improved lasix was given today Will continue diuresis monitor BMP Pt has been to any follow up appointment with her cardiology Advised pt to follow up with cardiology. RT LOWER EXT INFECTED WOUND /CELLULITIS ; wound culture growing gram positive cocci was on Vancomycin MRSA screen negative appreciate input form Wound care Dr Allison consulted for possible wound debridement ; pt was unable to tolerate bedside debridement plan to follow up on Monday03/13/17 pt will need continued wound care follow up as out patient cont local wound care /daily dressing changes as per recommendation from wound care ID on board and recommended to continue PO Doxycycline for 14 days of treatment ASPIRATION PNEUMONIA ; cxray shows rt lower lobe infiltrate concern for aspiration -high risk -confusion /lethargy /baseline dementia speech therapy consulted recommended for dental soft diet with aspiration precaution D/C Cefepime PO Levaquin total 5 days course TYPE 2 DM : episodes for hypoglycemia noted Lantus dose reduced to 10 mg HS ( was on 20 U HS /out pt dose 28 UHS ) insulin SSI HB A1 c 8 pharmacy consulted for glycemic control LOW MAGNESIUM LEVEL Stable HX OF AFIB/A FLUTTER : underwent SARAH cardioversion on cont Sotalol ; chronic anticoagulation with Coumadin INR 2.1 Continue Coumadin follow Daily PT/INR CAD status post CABG Chronic diastolic heart failure/mixed valvular heart disease ordered for diuretics for vol overload no complain of chest pain or SOB cont out pt cardiac meds MILD ELEVATION OF TROPONIN : Possible due to sepsis /infection causing reactive tachycardia /Decompensated CHF no evidence of ACS HX OF TACHYBRADY SYNDROME s/p pacemaker placement HR has been elevated if HR does not improve, will consult cardiology History of CVA cont Aspirin IDIOPATHIC PULMONARY FIBROSIS /COPD Chronic respiratory failure 2 to COPD/ILD on home O2 developed worsening of SOB yesterday due to vol over load respiratory status much improved today on 2 L chronically CKD stage 3 : renal function stable AMBULATORY DYSFUNCTION ; Worsening Frequent falls as per family in the last months High risk for fall Continue PT/OT eval Pt requires min 1persosn assistance for bed mobility and transfers, recommend SNF DVT PROPHYLAXIS INR therapeutic DISPOSITION PT/OT eval requested will need SNF Waiting for placement to discharge CODE STATUS FULL CODE Consultants: ID Wound Care Current Inpatient Medications: Current Inpatient Medications Medications (Trade) Dose Ordered Sig/Mike Route Start Time Stop Time Status Last Admin Dose Admin Acetaminophen (Tylenol Tab) 650 mg Q4H PRN PO 03/09/17 22:00 04/08/17 21:59 03/13/17 21:10 650 MG Insulin Aspart (novoLOG ASPART) SLIDING SCALE If C... ACHS SC 03/10/17 07:00 04/09/17 06:59 03/14/17 12:00 1 UNITS Glucose (Glucose 40% Gel) 15-30 GRAMS 15 GRAMS... UD PRN PO 03/09/17 22:00 04/08/17 21:59 Glucose (Glucose Chew Tab) 4-8 Tablets 4 Tabl... UD PRN PO 03/09/17 22:00 04/08/17 21:59 Dextrose (Dextrose 50% 50ML Syringe) 25-50ML OF 50% DW IV FOR... UD PRN IV 03/09/17 22:00 04/08/17 21:59 Glucagon (Glucagon Inj) 1 mg UD PRN SQ 03/09/17 22:00 04/08/17 21:59 Aspirin (Ecotrin Tab) 81 mg DAILY PO 03/10/17 09:00 04/09/17 08:59 03/14/17 08:10 81 MG Docusate Sodium (coLACE CAP) 100 mg BID PO 03/10/17 09:00 04/09/17 08:59 03/14/17 08:10 100 MG Isosorbide Mononitrate (Imdur Ext Rel Tab) 30 mg QAM PO 03/10/17 09:00 04/09/17 08:59 03/14/17 08:10 30 MG Levothyroxine Sodium (Synthroid Tab) 137 mcg DAILYBB PO 03/10/17 06:00 04/09/17 05:59 03/14/17 05:38 137 MCG Ranitidine HCl (zANTac TAB) 150 mg BID PO 03/10/17 09:00 04/09/17 08:59 03/14/17 08:10 150 MG Sertraline HCl (Zoloft Tab) 100 mg DAILY PO 03/10/17 09:00 04/09/17 08:59 03/14/17 08:10 100 MG Sotalol HCl (Betapace Tab) 80 mg QAM PO 03/10/17 09:00 04/09/17 08:59 03/14/17 08:10 80 MG Trazodone HCl (Desyrel Tab) 50 mg HS PO 03/10/17 21:00 04/09/17 20:59 03/13/17 20:48 50 MG Lactobacillus Acidophilus (Floranex Tab) 4 tab TIDM PO 03/10/17 07:30 04/09/17 07:59 03/14/17 11:59 4 TAB Ondansetron HCl (Zofran Inj) 4 mg Q6H PRN IV 03/09/17 22:00 04/08/17 21:59 Tramadol HCl (Ultram Tab) 25 mg Q6H PRN PO 03/09/17 22:00 04/08/17 21:59 03/12/17 08:29 25 MG Levalbuterol (Xopenex Hfa Inhaler) 2 puffs QID INH 03/10/17 09:00 04/09/17 08:59 03/14/17 13:39 2 PUFFS Ipratropium [place] (Atrovent Hfa Inhaler) 2 puffs QID INH 03/10/17 09:00 04/09/17 08:59 03/14/17 13:00 2 PUFFS Multi-Ingredient Ointment (Eucerin Unscented Cr) 1 appln BID PRN EXT 03/10/17 11:30 04/09/17 11:29 03/11/17 08:20 1 APPLN Collagenase (Santyl Oint) 1 appln DAILY EXT 03/11/17 09:00 04/10/17 08:59 03/14/17 08:09 1 APPLN Miscellaneous Information (Consult Glycemic Management Pharmacy) 1 ea UD N/A 03/11/17 18:27 04/10/17 18:26 Insulin Glargine (Lantus Solostar Pen) PER PROTOCOL QPM SC 03/11/17 21:00 04/09/17 20:59 03/13/17 21:07 10 UNITS Menthol (Nice Maximus) 1 maximus PRN PRN PO 03/12/17 05:00 04/11/17 04:59 Doxycycline Hyclate (Vibramycin Cap) 100 mg BID PO 03/12/17 09:00 03/22/17 08:59 03/14/17 08:10 100 MG Albuterol (Ventolin Hfa Inhaler) 2 puffs Q6 PRN INH 03/12/17 08:45 04/11/17 08:44 Furosemide (Lasix Tab) 20 mg DAILY PRN PO 03/12/17 08:45 04/11/17 08:44 03/12/17 11:28 20 MG Nitroglycerin (Nitrostat Tab) 0.4 mg UD PRN UT 03/12/17 08:45 04/11/17 08:44 Ondansetron HCl (Zofran Tab) 4 mg Q6H PRN PO 03/12/17 08:45 04/11/17 08:44 03/12/17 11:28 4 MG Warfarin Sodium (Coumadin Tab) 2 mg DAILY@1600 PO 03/12/17 16:00 04/11/17 15:59 03/13/17 16:46 2 MG Miconazole Nitrate (Desenex Powder) 1 appln UD PRN EXT 03/12/17 13:30 04/11/17 13:29 Enteral Nutritional Formula (Boost Glucose Control) 1 can BID PO 03/12/17 21:00 04/11/17 20:59 Guaifenesin (Organidin Nr Tab) 200 mg Q8 PO 03/14/17 22:00 04/13/17 21:59
[2017-03-14] MEDS: WARFARIN SOD 2 MG TAB PO SCH (16:25)
[2017-03-14] MEDS ORDERED: NURSING VERBAL MED ORDER STA (17:10)
[2017-03-14] MEDS ORDERED: CALCIUM CARBONATE 500 MG CHEWABLE PO ONE (17:30)
[2017-03-14] MEDS: GUAIFENESIN 200 MG TAB PO SCH (20:35)
[2017-03-14] MEDS: TRAZODONE HCL 50 MG TAB PO SCH (20:35)
[2017-03-14] MEDS: INSULIN GLARGINE SOLOSTAR 100 UNITS/ML 3 ML PEN SC SCH (20:36)
[2017-03-14 23:33] VITALS: BP 108/76; PULSE 90; TEMP 36.7; O2SAT 96
[2017-03-15] MEDS: LEVOTHYROXINE 137 MCG TAB PO SCH (06:20)
[2017-03-15] MEDS: GUAIFENESIN 200 MG TAB PO SCH ×3 (06:20→21:39)
[2017-03-15 06:53] LABS: HEMATOCRIT 45.2 % (37-47); MEAN CELL VOLUME 88.8 fL (80-100); MEAN CORPUSCULAR HEMOGLOBIN 27.3 pg (25-34); MEAN CORPUSCULAR HGB CONC 30.8 g/dl (32-36); MEAN PLATELET VOLUME 9.6 fL (7.4-10.4); PLATELET COUNT 165 K/uL (130-400); RED BLOOD COUNT 5.09 M/uL (4.2-5.4); WHITE BLOOD COUNT 6.92 K/uL (4.8-10.8)
[2017-03-15 07:10] LABS: INR 2.1 (0.9-1.1)
[2017-03-15 07:17] VITALS: BP 116/78; PULSE 114; TEMP 36.4; O2SAT 93
[2017-03-15 07:25] LABS: CALCIUM 8.9 mg/dl (8.5-10.1); CREATININE 0.98 mg/dl (0.60-1.20); MAGNESIUM 1.4 mg/dl (1.8-2.4); POTASSIUM 4.2 mmol/L (3.5-5.1)
[2017-03-15] MEDS: MAGNESIUM SULFATE 1GM / D5W 1 GM in PREMIXED IN D5W 100 ML IV SCH ×2 (08:17→09:18)
[2017-03-15] MEDS: LACTOBACILLUS ACIDOPHILUS (FLORANEX) TAB PO SCH ×3 (08:17→17:16)
[2017-03-15] MEDS: SERTRALINE HCL 100 MG TAB PO SCH (08:18)
[2017-03-15] MEDS: ASPIRIN 81 MG ECTAB PO SCH (08:18)
[2017-03-15] MEDS: DOCUSATE SODIUM 100 MG CAP PO SCH ×2 (08:18→20:42)
[2017-03-15] MEDS: SOTALOL HCL 80 MG TAB PO SCH (08:18)
[2017-03-15] MEDS: BOOST GLUCOSE CONTROL PO SCH ×2 (08:18→20:49)
[2017-03-15] MEDS: RANITIDINE HCL 150 MG TAB PO SCH ×2 (08:18→20:42)
[2017-03-15] MEDS: ISOSORBIDE MONONITRATE 30 MG TABCR PO SCH (08:18)
[2017-03-15] MEDS: DOXYCYCLINE HYCLATE 100 MG CAP PO SCH ×2 (08:18→20:41)
[2017-03-15] MEDS: LEValbuterol HFA 15GM INHALER INH SCH ×4 (08:19→20:39)
[2017-03-15] MEDS: IPRATROPIUM BROMIDE HFA INHALER INH SCH ×4 (08:19→20:40)
[2017-03-15] MEDS: COLLAGENASE OINT 30 GM TUBE EXT SCH (08:19)
[2017-03-15] MEDS: INSULIN ASPART 100 UNITS/ML 3 ML PEN SC SCH ×4 (09:17→20:49)
[2017-03-15] MEDS ORDERED: INSULIN GLARGINE SOLOSTAR 100 UNITS/ML 3 ML PEN SC SCH (13:00)
[2017-03-15] MEDS ORDERED: FUROSEMIDE 20 MG TAB PO ONE (13:00)
--- NOTE | 2017-03-15 14:57 | Progress Note ---
Medicine Progress Note Date & Time of Visit: Mar 15, 2017 at 14:54. Subjective Pt was seen and examined Sitting in bed with no distress Pt said that her cough is better she said that she does not have any breathing issues she continue to require 4 L NC Denies any chest pain, palpitation, dizziness Objective Last 8 Hrs Date Time Temp Pulse Resp B/P (MAP) Pulse Ox O2 Delivery O2 Flow Rate FiO2 03/15/17 08:20 Nasal Cannula 4.0 03/15/17 07:17 36.4 114 16 116/78 (91) 93 Nasal Cannula 4.0 Physical Exam: General- No acute distress Head- atraumatic Eyes- PERRL, EOMI ENT- oropharynx clear Neck- supple, no JVD Lungs- decrease breath sound Heart- regular rhythm Abdomen- normal bowel sounds, soft Extremities- no calf tenderness, rt lower ext -ulcer on mid leg on posterior aspect, + LE B/L edema Neuro- alert, oriented, PERRL, EOMI Skin- warm & dry Laboratory Results: Last 24 Hours Test 03/14/17 16:33 03/14/17 20:21 03/15/17 06:41 03/15/17 07:01 Bedside Glucose 152 mg/dl 132 mg/dl 97 mg/dl White Blood Count 6.92 K/uL Red Blood Count 5.09 M/uL Hemoglobin 13.9 g/dL Hematocrit 45.2 % Mean Corpuscular Volume 88.8 fL Mean Corpuscular Hemoglobin 27.3 pg Mean Corpuscular Hemoglobin Concent 30.8 g/dl RDW Standard Deviation 59.6 fL RDW Coefficient of Variation 18.7 % Platelet Count 165 K/uL Mean Platelet Volume 9.6 fL Prothrombin Time 23.0 SECONDS Prothromb Time International Ratio 2.1 Sodium Level 135 mmol/L Potassium Level 4.2 mmol/L Chloride Level 101 mmol/L Carbon Dioxide Level 29 mmol/L Anion Gap 5.0 mmol/L Blood Urea Nitrogen 21 mg/dl Creatinine 0.98 mg/dl Est Creatinine Clear Calc Drug Dose 49.7 ml/min Estimated GFR () 65.9 Estimated GFR (Non- 56.8 BUN/Creatinine Ratio 21.0 Random Glucose 96 mg/dl Calcium Level 8.9 mg/dl Magnesium Level 1.4 mg/dl Test 03/15/17 11:09 Bedside Glucose 215 mg/dl Assessment & Plan CONFUSION /LETHARGY Due to metabolic encephalopathy due to Cellulitis secondary to infected right lower extremity decubitus wound /possible aspiration pneumonia family suspects beginning dementia because pt has been having trouble remember to take meds and to manage her account. never noticed she had lower ext wound /infection -till her recent clinic visit cont to observe fall precaution high risk for delirium /sun downing Clinically improved stable SOB/HYPOXIA/DECOMPENSATED CHF -DIASTOLIC/MILD SYSTOLIC DYSFUNCTION WITH MIXED VALVULAR DISEASE Due to volume overload during IV fluid resuscitation during admission lungs auscultation -basilar rales ; Cxray shows pulmonary congestion ECHO on 12/2015 normal LV function , no wall motion abnormality, EF 65% aortic valve moderately calcified and bicuspid fusion of the non coronary and left coronary cusps . Mild to moderate valvular aortic stenosis , There is moderate to severe tricuspid regurgitation , Rt ventricular systolic pressure elevated at 40-50 mm Hg Lasix was given and pt diuresed about 1700 ECHO on 03/27 * The left ventricular cavity is small. * There is severe concentric left ventricular hypertrophy. * Left ventricular systolic function is mildly reduced. * Ejection Fraction = 45-50%. * The right ventricle is mildly dilated. * The right ventricular systolic function is mild to moderately reduced. * The left atrium is moderately dilated. * The right atrium is moderately dilated. * There is severe calcific aortic valve stenosis. * There is mild mitral regurgitation. Clinically improved Continue lasix Will continue diuresis monitor BMP Pt has been to any follow up appointment with her cardiology Advised pt to follow up with cardiology. RT LOWER EXT INFECTED WOUND /CELLULITIS ; wound culture growing gram positive cocci was on Vancomycin MRSA screen negative appreciate input form Wound care Dr Allison consulted for possible wound debridement ; pt was unable to tolerate bedside debridement plan to follow up on Monday03/13/17 pt will need continued wound care follow up as out patient cont local wound care /daily dressing changes as per recommendation from wound care ID on board and recommended to continue PO Doxycycline for 14 days of treatment ASPIRATION PNEUMONIA ; cxray shows rt lower lobe infiltrate concern for aspiration -high risk -confusion /lethargy /baseline dementia speech therapy consulted recommended for dental soft diet with aspiration precaution D/C Cefepime PO Levaquin total 5 days course TYPE 2 DM : episodes for hypoglycemia noted Lantus dose reduced to 10 mg HS ( was on 20 U HS /out pt dose 28 UHS ) insulin SSI HB A1 c 8 pharmacy consulted for glycemic control LOW MAGNESIUM LEVEL Mg today 1.4 Mg replaced continue monitor mg level HX OF AFIB/A FLUTTER : underwent SARAH cardioversion on cont Sotalol ; chronic anticoagulation with Coumadin INR 2.1 Continue Coumadin follow Daily PT/INR CAD status post CABG Chronic diastolic heart failure/mixed valvular heart disease ordered for diuretics for vol overload no complain of chest pain or SOB cont out pt cardiac meds MILD ELEVATION OF TROPONIN : Possible due to sepsis /infection causing reactive tachycardia /Decompensated CHF no evidence of ACS HX OF TACHYBRADY SYNDROME s/p pacemaker placement HR has been elevated if HR does not improve, will consult cardiology History of CVA cont Aspirin IDIOPATHIC PULMONARY FIBROSIS /COPD Chronic respiratory failure 2 to COPD/ILD on home O2 developed worsening of SOB yesterday due to vol over load respiratory status much improved today Continue oxygen supplement CKD stage 3 : renal function stable AMBULATORY DYSFUNCTION ; Worsening Frequent falls as per family in the last months High risk for fall Continue PT/OT eval Pt requires min 1persosn assistance for bed mobility and transfers, recommend SNF DVT PROPHYLAXIS INR therapeutic DISPOSITION PT/OT eval requested will need SNF Waiting for placement to discharge CODE STATUS FULL CODE Consultants: ID Wound Care Current Inpatient Medications: Current Inpatient Medications Medications (Trade) Dose Ordered Sig/Mike Route Start Time Stop Time Status Last Admin Dose Admin Acetaminophen (Tylenol Tab) 650 mg Q4H PRN PO 03/09/17 22:00 04/08/17 21:59 03/13/17 21:10 650 MG Insulin Aspart (novoLOG ASPART) SLIDING SCALE If C... ACHS SC 03/10/17 07:00 04/09/17 06:59 03/15/17 12:58 2 UNITS Glucose (Glucose 40% Gel) 15-30 GRAMS 15 GRAMS... UD PRN PO 03/09/17 22:00 04/08/17 21:59 Glucose (Glucose Chew Tab) 4-8 Tablets 4 Tabl... UD PRN PO 03/09/17 22:00 04/08/17 21:59 Dextrose (Dextrose 50% 50ML Syringe) 25-50ML OF 50% DW IV FOR... UD PRN IV 03/09/17 22:00 04/08/17 21:59 Glucagon (Glucagon Inj) 1 mg UD PRN SQ 03/09/17 22:00 04/08/17 21:59 Aspirin (Ecotrin Tab) 81 mg DAILY PO 03/10/17 09:00 04/09/17 08:59 03/15/17 08:18 81 MG Docusate Sodium (coLACE CAP) 100 mg BID PO 03/10/17 09:00 04/09/17 08:59 03/15/17 08:18 100 MG Isosorbide Mononitrate (Imdur Ext Rel Tab) 30 mg QAM PO 03/10/17 09:00 04/09/17 08:59 03/15/17 08:18 30 MG Levothyroxine Sodium (Synthroid Tab) 137 mcg DAILYBB PO 03/10/17 06:00 04/09/17 05:59 03/15/17 06:20 137 MCG Ranitidine HCl (zANTac TAB) 150 mg BID PO 03/10/17 09:00 04/09/17 08:59 03/15/17 08:18 150 MG Sertraline HCl (Zoloft Tab) 100 mg DAILY PO 03/10/17 09:00 04/09/17 08:59 03/15/17 08:18 100 MG Sotalol HCl (Betapace Tab) 80 mg QAM PO 03/10/17 09:00 04/09/17 08:59 03/15/17 08:18 80 MG Trazodone HCl (Desyrel Tab) 50 mg HS PO 03/10/17 21:00 04/09/17 20:59 03/14/17 20:35 50 MG Lactobacillus Acidophilus (Floranex Tab) 4 tab TIDM PO 03/10/17 07:30 04/09/17 07:59 03/15/17 12:54 4 TAB Ondansetron HCl (Zofran Inj) 4 mg Q6H PRN IV 03/09/17 22:00 04/08/17 21:59 03/14/17 16:28 4 MG Tramadol HCl (Ultram Tab) 25 mg Q6H PRN PO 03/09/17 22:00 04/08/17 21:59 03/12/17 08:29 25 MG Levalbuterol (Xopenex Hfa Inhaler) 2 puffs QID INH 03/10/17 09:00 04/09/17 08:59 7/5/17 12:55 2 PUFFS Ipratropium [place] (Atrovent Hfa Inhaler) 2 puffs QID INH 03/10/17 09:00 04/09/17 08:59 03/15/17 12:55 2 PUFFS Multi-Ingredient Ointment (Eucerin Unscented Cr) 1 appln BID PRN EXT 03/10/17 11:30 04/09/17 11:29 03/11/17 08:20 1 APPLN Collagenase (Santyl Oint) 1 appln DAILY EXT 03/11/17 09:00 04/10/17 08:59 03/15/17 08:19 1 APPLN Miscellaneous Information (Consult Glycemic Management Pharmacy) 1 ea UD N/A 03/11/17 18:27 04/10/17 18:26 Menthol (Nice Maximus) 1 maximus PRN PRN PO 03/12/17 05:00 04/11/17 04:59 Doxycycline Hyclate (Vibramycin Cap) 100 mg BID PO 03/12/17 09:00 03/22/17 08:59 03/15/17 08:18 100 MG Albuterol (Ventolin Hfa Inhaler) 2 puffs Q6 PRN INH 03/12/17 08:45 04/11/17 08:44 Furosemide (Lasix Tab) 20 mg DAILY PRN PO 03/12/17 08:45 04/11/17 08:44 03/12/17 11:28 20 MG Nitroglycerin (Nitrostat Tab) 0.4 mg UD PRN UT 03/12/17 08:45 04/11/17 08:44 Ondansetron HCl (Zofran Tab) 4 mg Q6H PRN PO 03/12/17 08:45 04/11/17 08:44 03/12/17 11:28 4 MG Warfarin Sodium (Coumadin Tab) 2 mg DAILY@1600 PO 03/12/17 16:00 04/11/17 15:59 03/14/17 16:25 2 MG Miconazole Nitrate (Desenex Powder) 1 appln UD PRN EXT 03/12/17 13:30 04/11/17 13:29 Enteral Nutritional Formula (Boost Glucose Control) 1 can BID PO 03/12/17 21:00 04/11/17 20:59 Guaifenesin (Organidin Nr Tab) 200 mg Q8 PO 03/14/17 22:00 04/13/17 21:59 03/15/17 14:18 200 MG Insulin Glargine (Lantus Solostar Pen) 10 units QPM SC 03/15/17 13:00 04/14/17 12:59 03/15/17 12:58 10 UNITS
[2017-03-15 15:32] VITALS: BP 111/76; PULSE 113; TEMP 36.4; O2SAT 97
[2017-03-15] MEDS: WARFARIN SOD 2 MG TAB PO SCH (16:40)
[2017-03-15] MEDS: TRAZODONE HCL 50 MG TAB PO SCH (20:43)
[2017-03-15 23:27] VITALS: BP 116/65; PULSE 106; TEMP 36.3; O2SAT 94
[2017-03-16] MEDS: LEVOTHYROXINE 137 MCG TAB PO SCH (05:40)
[2017-03-16] MEDS: GUAIFENESIN 200 MG TAB PO SCH ×3 (05:40→21:06)
[2017-03-16 06:40] LABS: BASO % 0.3 %; BASO ABS # 0.02 K/uL (0-0.2); COMPLETE YES; EOS % 3.3 %; IG% 0.2 %; LYMPH % 25.8 %; LYMPH ABS # 1.66 K/uL (1.2-3.4); MEAN CORPUSCULAR HEMOGLOBIN 28.5 pg (25-34); MEAN CORPUSCULAR HGB CONC 32.4 g/dl (32-36); MEAN PLATELET VOLUME 9.6 fL (7.4-10.4); MONO % 9.6 %; NEUT % 60.8 %; PLATELET COUNT 167 K/uL (130-400); RED BLOOD COUNT 4.66 M/uL (4.2-5.4); WHITE BLOOD COUNT 6.43 K/uL (4.8-10.8)
[2017-03-16 06:50] LABS: PROTHROMBIN TIME (PATIENT) 22.3 SECONDS (9.0-12.0)
[2017-03-16 07:10] LABS: BUN/CREATININE RATIO 24.3 (10-20); CALCIUM 8.7 mg/dl (8.5-10.1); CREATININE 0.91 mg/dl (0.60-1.20); MAGNESIUM 1.6 mg/dl (1.8-2.4)
[2017-03-16 07:21] VITALS: BP 123/82; PULSE 115; TEMP 36.2; O2SAT 95
--- NOTE | 2017-03-16 07:23 | DIAGNOSTIC IMAGING REPORT ---
CHEST ONE VIEW PORTABLE HISTORY: 76-year-old female presents with sepsis follow-up. COMPARISON: Portable chest radiograph 03/12/2017. TECHNIQUE: Upright AP view of the chest. FINDINGS: Patient is slightly rotated to the right. Pectoral pacer is present with leads overlying the right atrial appendage and right ventricle. Cardiac silhouette is again enlarged. Prior median sternotomy. There is mild pleural-parenchymal scarring of the right lung apex without evidence of pneumothorax. Small right greater than left pleural effusions are present with unchanged pulmonary vascular congestion and interstitial coarsening. There is slightly improved aeration and improvement of the previously described alveolar opacities of the lung bases. Partially imaged hardware involves the lumbar spine. Bones appear to be diffusely demineralized. IMPRESSION: Cardiomegaly with persistent CHF pattern and small right greater than left pleural effusions. There is mildly improved aeration of the lung bases. Electronically signed by: iDonte Ramirez 03/16/2017 7:21 AM Dictated Date/Time: 03/16/2017 7:17 AM
[2017-03-16] MEDS ORDERED: NURSING VERBAL MED ORDER ONE ×3 (08:00→17:45)
[2017-03-16] MEDS: INSULIN ASPART 100 UNITS/ML 3 ML PEN SC SCH ×4 (08:31→20:33)
[2017-03-16] MEDS: SOTALOL HCL 80 MG TAB PO SCH (08:34)
[2017-03-16] MEDS: ISOSORBIDE MONONITRATE 30 MG TABCR PO SCH (08:34)
[2017-03-16] MEDS: DOCUSATE SODIUM 100 MG CAP PO SCH ×2 (08:34→20:18)
[2017-03-16] MEDS: FUROSEMIDE 20 MG TAB PO SCH ×2 (08:34→09:00)
[2017-03-16] MEDS: RANITIDINE HCL 150 MG TAB PO SCH ×2 (08:34→20:18)
[2017-03-16] MEDS: ASPIRIN 81 MG ECTAB PO SCH (08:34)
[2017-03-16] MEDS: SERTRALINE HCL 100 MG TAB PO SCH (08:34)
--- NOTE | 2017-03-16 08:34 | Wound Clinic H&P ---
History & Physical Wound Clinic Date of Service: Mar 10, 2017. Complaint: Wound left lower extremity Primary Care Physician: Gio Braun D.O. History of Present Illness Patient was admitted to rule out any Medical Center for evaluation of sepsis. It was noted by her daughter that she had a wound on her left lower extremity. Patient is unable to give me any accurate history as to the origin of this wound. Patient denies any pain in the area this time. Patient is unable to give any other significant history. Medical History (1) Atrial flutter with rapid ventricular response (2) Elevated troponin (3) Cellulitis of right leg (4) PNA (pneumonia) (5) Cellulitis (6) Sepsis (7) CAD (coronary artery disease) (8) Paroxysmal a-fib (9) Idiopathic pulmonary fibrosis (10) HTN (hypertension) (11) Dyslipidemia (12) DM type 2 (diabetes mellitus, type 2) (13) CKD (chronic kidney disease) stage 3, GFR 30-59 ml/min (14) History of hyperkalemia (15) History of TIA (transient ischemic attack) (16) History of CVA (cerebrovascular accident) (17) History of DVT (deep vein thrombosis) (18) GERD (gastroesophageal reflux disease) (19) Hypothyroidism (20) Chronic back pain (21) Depression (22) Diastolic CHF, chronic (23) Moderate COPD (chronic obstructive pulmonary disease) (24) Malignant neoplasm of corpus uteri (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 (26) H/O vertigo (27) Tobacco abuse (28) History of total hip replacement (29) H/O total hysterectomy with bilateral salpingo-oophorectomy (BSO) (30) History of cholecystectomy (31) H/O hernia repair Surgical History Hx Abdominal Surgery: No Hx Cardiac Surgery: No Hx Urinary Tract Surgery: No Hx Orthopedic: No Social History Occupation: retired, 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) Smoking Status: Current Every Day Smoker Alcohol Use: none Current Medications Scheduled Aspirin (Aspirin Chewable), 81 MG PO DAILY Calcium Carbonate (Calcium Carbonate), 1 TAB PO DAILY Collagenase (Santyl), 1 APPLN EXT DAILY Docusate Sodium (Colace), 1 CAP PO BID Doxycycline Hyclate (Doxycycline Hyclate), 100 MG PO BID Glipizide (Glucotrol), 10 MG PO QAM Glipizide (Glipizide), 5 MG PO QPM Home O2 Therapy (Oxygen), 2 LITERS NA HS Insulin Glargine (Lantus), 28 UNITS SC QPM Ipratropium-Albuterol (Combivent Respimat), 1 PUFFS INH QID Isosorbide Mononitrate Ext Rel (Imdur Ext Rel), 30 MG PO QAM Lactobacillus Acidophilus (Floranex), 4 TAB PO TIDM Levothyroxine Sodium (Levothyroxine Sodium), 137 MCG PO DAILY Magnesium Oxide (Magnesium), 400 MG PO DAILY Nutritional Supplements (Boost), 1 CAN PO BIDM Ranitidine Hcl (Zantac), 150 MG PO BID Sertraline HCl (Sertraline HCl), 100 MG PO DAILY Sotalol Hcl (Sotalol Hcl), 1 TAB PO QAM Trazodone Hcl (Trazodone), 50 MG PO HS Warfarin Sod (Jantoven), 4 MG PO UD Scheduled PRN Albuterol Hfa (Ventolin Hfa), 2 PUFF INH Q6 PRN for SOB/Wheezing Eucerin (Hydrocerin), 1 APPLN EXT BID PRN for nursing decison Furosemide (Lasix), 20 MG PO DAILY PRN for SWELLING Menthol (Ricola), 1 FRANCES PO PRN PRN for SORE THROAT Nitroglycerin (Nitrostat), 0.4 MG UT UD PRN for Chest Pain Ondansetron Hcl (Zofran), 4 MG PO Q6H PRN for Nausea or Vomiting Tramadol (Ultram), 1 TAB PO DAILY PRN for Pain Tramadol HCl (Tramadol HCl), 25 MG PO Q6H PRN for Pain Allergies Coded Allergies: Codeine (Verified Allergy, Severe, HIVES / DIFICULTY BREATHING; TAKES PERCOCET W/O PROBLEM, 11/24/16) Penicillins (Verified Allergy, Intermediate, RASH, 11/24/16) SY Inhibitors (Verified Adverse Reaction, Unknown, HYPERKALEMIA, 03/10/17) Review of Systems Patient unable to give any appropriate answers regarding review of systems. Physical Exam Vital Signs: Last Vital Signs Documentation Date Time Temp Pulse Resp B/P (MAP) Pulse Ox O2 Delivery O2 Flow Rate FiO2 36.2 115 16 123/82 (96) 95 Nasal Cannula 4.0 General: The patient is lying in bed in no distress. Alert, cooperative but slow to respond. HEENT: Pupils equal and reactive to light. Sclera clear, EOM intact. Neck: Supple, No JVD noted Chest: CTA in all dejesus. No deformity Heart: Irregular S3, S4, thrills, rubs or heaves Extremities: Positive traumatic wound to the right lower extremity measuring 4.5 x 2.1 x 0.1 cm. There is a central eschar present. The erythema is noted. No active drainage or odor present. Skin: No rashes, papules, vesicles, excoriations Assessment 1.: traumatic wound right lower extremity 2.: cellulitis Plan The wound site didn't require debridement. Not tolerate mechanical debridement. The site will be dressed with Santyl and gauze changed to a daily basis. Patient will continue to be monitored during her hospitalization and followed in the outpatient clinic upon discharge.
[2017-03-16] MEDS: DOXYCYCLINE HYCLATE 100 MG CAP PO SCH ×2 (08:35→20:18)
[2017-03-16] MEDS: COLLAGENASE OINT 30 GM TUBE EXT SCH (08:35)
[2017-03-16] MEDS: LEValbuterol HFA 15GM INHALER INH SCH ×4 (08:35→20:18)
[2017-03-16] MEDS: BOOST GLUCOSE CONTROL PO SCH (08:35)
[2017-03-16] MEDS: IPRATROPIUM BROMIDE HFA INHALER INH SCH ×4 (08:35→20:18)
[2017-03-16] MEDS: LACTOBACILLUS ACIDOPHILUS (FLORANEX) TAB PO SCH ×3 (08:35→17:12)
[2017-03-16] MEDS ORDERED: FUROSEMIDE INJ 20 MG in SYRINGE 0 ML IV ONE (09:00)
[2017-03-16] MEDS: POLYETHYLENE (MIRALAX) 17 GM PACK PO SCH (09:53)
[2017-03-16] MEDS: MAGNESIUM SULFATE 1GM / D5W 1 GM in PREMIXED IN D5W 100 ML IV SCH ×2 (09:53→11:03)
[2017-03-16] MEDS ORDERED: BOOST GLUCOSE CONTROL PO SCH (11:00)
--- NOTE | 2017-03-16 11:04 | Pharmacy Progress Note ---
Glycemic: Assessment & Plan Date of Service Mar 16, 2017. Assessment & Plan The patient is currently receiving ~10-15 units of insulin per day. BSGs ranging 73-215 mg/dl over the past 24hrs. Slight decrease in Lantus dose, based on fasting BSG 73 this am. * Basal insulin: Lantus 8 units every 24 hours * Correctional Insulin: Novolog Correction per scale ACHS Goal Range: Low 140 mg/dL - High 180 mg/dL Correction Factor: 50 mg/dL/unit * Prandial insulin: Per carb ratio of 1 unit per 20 grams CHO consumed Pharmacy will continue to monitor patient daily and write orders per [facility] inpatient glycemic control protocol. Thanks. * Please note that the plan above was derived based on current level of insulin resistance and hospital stress. These recommendations are appropriate for inpatient admission only. Plan of care upon discharge will need to be reassessed to avoid potential outpatient hypo/hyperglycemia.
[2017-03-16 15:00] VITALS: BP 87/69; PULSE 113; TEMP 36.8; O2SAT 95
[2017-03-16] MEDS: WARFARIN SOD 2 MG TAB PO SCH (15:43)
[2017-03-16 16:00] VITALS: Ht 157.5 cm; Wt 81.2 kg
[2017-03-16 17:03] VITALS: BP 87/69; PULSE 113; TEMP 36.8; O2SAT 95
[2017-03-16 17:21] VITALS: BP 101/74; PULSE 114
--- NOTE | 2017-03-16 17:34 | Progress Note ---
Medicine Progress Note Date & Time of Visit: Mar 16, 2017 at 17:24. Subjective Pt was seen and examined Sitting in chair with no distress this morning Pt said that her breathing is getting better she denies any chest pain this morning Nurse just call and said that she is complaining of chest discomfort Pt said that the chest discomfort feels like her acid symptoms Objective Last 8 Hrs Date Time Temp Pulse Resp B/P (MAP) Pulse Ox O2 Delivery O2 Flow Rate FiO2 03/16/17 17:03 36.8 113 18 87/69 (75) 95 Nasal Cannula 2.0 03/16/17 16:00 Nasal Cannula 4.0 03/16/17 15:00 36.8 113 18 87/69 (75) 95 Nasal Cannula 2.0 Physical Exam: General- No acute distress Head- atraumatic Eyes- PERRL, EOMI ENT- oropharynx clear Neck- supple, no JVD Lungs- decrease breath sound Heart- regular rhythm Abdomen- normal bowel sounds, soft Extremities- no calf tenderness, rt lower ext -ulcer on mid leg on posterior aspect, + LE B/L edema Neuro- alert, oriented, PERRL, EOMI Skin- warm & dry Laboratory Results: Last 24 Hours Test 03/15/17 20:13 03/16/17 05:40 03/16/17 07:31 03/16/17 07:49 Bedside Glucose 105 mg/dl 63 mg/dl 73 mg/dl White Blood Count 6.43 K/uL Red Blood Count 4.66 M/uL Hemoglobin 13.3 g/dL Hematocrit 41.0 % Mean Corpuscular Volume 88.0 fL Mean Corpuscular Hemoglobin 28.5 pg Mean Corpuscular Hemoglobin Concent 32.4 g/dl Platelet Count 167 K/uL Mean Platelet Volume 9.6 fL Neutrophils (%) (Auto) 60.8 % Lymphocytes (%) (Auto) 25.8 % Monocytes (%) (Auto) 9.6 % Eosinophils (%) (Auto) 3.3 % Basophils (%) (Auto) 0.3 % Neutrophils # (Auto) 3.91 K/uL Lymphocytes # (Auto) 1.66 K/uL Monocytes # (Auto) 0.62 K/uL Eosinophils # (Auto) 0.21 K/uL Basophils # (Auto) 0.02 K/uL RDW Standard Deviation 59.3 fL RDW Coefficient of Variation 18.5 % Immature Granulocyte % (Auto) 0.2 % Immature Granulocyte # (Auto) 0.01 K/uL Prothrombin Time 22.3 SECONDS Prothromb Time International Ratio 2.0 Sodium Level 135 mmol/L Potassium Level 4.0 mmol/L Chloride Level 100 mmol/L Carbon Dioxide Level 28 mmol/L Anion Gap 7.0 mmol/L Blood Urea Nitrogen 22 mg/dl Creatinine 0.91 mg/dl Est Creatinine Clear Calc Drug Dose 53.5 ml/min Estimated GFR () 72.0 Estimated GFR (Non- 62.2 BUN/Creatinine Ratio 24.3 Random Glucose 62 mg/dl Calcium Level 8.7 mg/dl Magnesium Level 1.6 mg/dl Test 03/16/17 11:17 03/16/17 15:59 03/16/17 17:18 Bedside Glucose 114 mg/dl 144 mg/dl Assessment & Plan CHEST DISCOMFORT Possible related to GERD Will get EKG Check troponin Continue monitor in tele CONFUSION /LETHARGY Due to metabolic encephalopathy due to Cellulitis secondary to infected right lower extremity decubitus wound /possible aspiration pneumonia family suspects beginning dementia because pt has been having trouble remember to take meds and to manage her account. 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 Mild to moderate valvular aortic stenosis , There is moderate to severe tricuspid regurgitation , Rt ventricular systolic pressure elevated at 40-50 mm Hg Lasix was given and pt diuresed about 1700 ECHO on 03/27 * The left ventricular cavity is small. * There is severe concentric left ventricular hypertrophy. * Left ventricular systolic function is mildly reduced. * Ejection Fraction = 45-50%. * The right ventricle is mildly dilated. * The right ventricular systolic function is mild to moderately reduced. * The left atrium is moderately dilated. * The right atrium is moderately dilated. * There is severe calcific aortic valve stenosis. * There is mild mitral regurgitation. Clinically improved received 40 mg lasix today repeat chest XRay showed Cardiomegaly with persistent CHF pattern and small right greater than left pleural effusions Will continue diuresis monitor BMP Pt has not been to any follow up appointment with her cardiology Cardiology was notify and will see pt as an outpatient Advised pt to follow up with cardiology. RT LOWER EXT INFECTED WOUND /CELLULITIS ; wound culture growing gram positive cocci was on Vancomycin MRSA screen negative appreciate input form Wound care Dr Allison consulted for possible wound debridement ; pt was unable to tolerate bedside debridement plan to follow up on Monday03/13/17 pt will need continued wound care follow up as out patient cont local wound care /daily dressing changes as per recommendation from wound care ID on board and recommended to continue PO Doxycycline for 14 days of treatment Continue daily wound care ASPIRATION PNEUMONIA ; cxray shows rt lower lobe infiltrate concern for aspiration -high risk -confusion /lethargy /baseline dementia speech therapy consulted recommended for dental soft diet with aspiration precaution D/C Cefepime PO Levaquin total 5 days course nasal cannula decreased to 2L stable TYPE 2 DM episodes of hypoglycemia noted Lantus dose reduced to 8 units HS ( was on 20 Unit HS /out pt dose 28 UHS ) insulin SSI HB A1 c 8 pharmacy consulted for glycemic control LOW MAGNESIUM LEVEL Mg today 1.6 Mg replaced continue monitor mg level HX OF AFIB/A FLUTTER : underwent SARAH cardioversion on cont Sotalol ; chronic anticoagulation with Coumadin INR 2 Continue Coumadin follow Daily PT/INR CAD status post CABG Chronic diastolic heart failure/mixed valvular heart disease ordered for diuretics for vol overload no complain of chest pain or SOB cont out pt cardiac meds MILD ELEVATION OF TROPONIN : Possible due to sepsis /infection causing reactive tachycardia /Decompensated CHF no evidence of ACS HX OF TACHYBRADY SYNDROME s/p pacemaker placement HR has been elevated if HR does not improve, will consult cardiology Stable History of CVA cont Aspirin IDIOPATHIC PULMONARY FIBROSIS /COPD Chronic respiratory failure 2 to COPD/ILD on home O2 developed worsening of SOB yesterday due to vol over load respiratory status much improved today Continue oxygen supplement CKD stage 3 : renal function stable Continue monitor BMP AMBULATORY DYSFUNCTION ; Worsening Frequent falls as per family in the last months High risk for fall Continue PT/OT eval Pt requires min 1persosn assistance for bed mobility and transfers, recommend SNF waiting for bed to transfer to [facility] DVT PROPHYLAXIS INR therapeutic DISPOSITION PT/OT eval requested will need SNF Waiting for placement to discharge CODE STATUS FULL CODE Consultants: ID Wound Care Current Inpatient Medications: Current Inpatient Medications Medications (Trade) Dose Ordered Sig/Mike Route Start Time Stop Time Status Last Admin Dose Admin Acetaminophen (Tylenol Tab) 650 mg Q4H PRN PO 03/09/17 22:00 04/08/17 21:59 03/13/17 21:10 650 MG Insulin Aspart (novoLOG ASPART) SLIDING SCALE If C... ACHS SC 03/10/17 07:00 04/09/17 06:59 03/16/17 17:10 1 UNITS Glucose (Glucose 40% Gel) 15-30 GRAMS 15 GRAMS... UD PRN PO 03/09/17 22:00 04/08/17 21:59 Glucose (Glucose Chew Tab) 4-8 Tablets 4 Tabl... UD PRN PO 03/09/17 22:00 04/08/17 21:59 Dextrose (Dextrose 50% 50ML Syringe) 25-50ML OF 50% DW IV FOR... UD PRN IV 03/09/17 22:00 04/08/17 21:59 Glucagon (Glucagon Inj) 1 mg UD PRN SQ 03/09/17 22:00 04/08/17 21:59 Aspirin (Ecotrin Tab) 81 mg DAILY PO 03/10/17 09:00 04/09/17 08:59 03/16/17 08:34 81 MG Docusate Sodium (coLACE CAP) 100 mg BID PO 03/10/17 09:00 04/09/17 08:59 03/16/17 08:34 100 MG Isosorbide Mononitrate (Imdur Ext Rel Tab) 30 mg QAM PO 03/10/17 09:00 04/09/17 08:59 03/16/17 08:34 30 MG Levothyroxine Sodium (Synthroid Tab) 137 mcg DAILYBB PO 03/10/17 06:00 04/09/17 05:59 03/16/17 05:40 137 MCG Ranitidine HCl (zANTac TAB) 150 mg BID PO 03/10/17 09:00 04/09/17 08:59 03/16/17 08:34 150 MG Sertraline HCl (Zoloft Tab) 100 mg DAILY PO 03/10/17 09:00 04/09/17 08:59 03/16/17 08:34 100 MG Sotalol HCl (Betapace Tab) 80 mg QAM PO 03/10/17 09:00 04/09/17 08:59 03/16/17 08:34 80 MG Trazodone HCl (Desyrel Tab) 50 mg HS PO 03/10/17 21:00 04/09/17 20:59 03/15/17 20:43 50 MG Lactobacillus Acidophilus (Floranex Tab) 4 tab TIDM PO 03/10/17 07:30 04/09/17 07:59 03/16/17 17:12 4 TAB Ondansetron HCl (Zofran Inj) 4 mg Q6H PRN IV 03/09/17 22:00 04/08/17 21:59 03/14/17 16:28 4 MG Tramadol HCl (Ultram Tab) 25 mg Q6H PRN PO 03/09/17 22:00 04/08/17 21:59 03/12/17 08:29 25 MG Levalbuterol (Xopenex Hfa Inhaler) 2 puffs QID INH 03/10/17 09:00 04/09/17 08:59 03/16/17 17:10 2 PUFFS Ipratropium [place] (Atrovent Hfa Inhaler) 2 puffs QID INH 03/10/17 09:00 04/09/17 08:59 03/16/17 17:11 2 PUFFS Multi-Ingredient Ointment (Eucerin Unscented Cr) 1 appln BID PRN EXT 03/10/17 11:30 04/09/17 11:29 03/11/17 08:20 1 APPLN Collagenase (Santyl Oint) 1 appln DAILY EXT 03/11/17 09:00 04/10/17 08:59 03/16/17 08:35 1 APPLN Miscellaneous Information (Consult Glycemic Management Pharmacy) 1 ea UD N/A 03/11/17 18:27 04/10/17 18:26 Menthol (Nice Maximus) 1 maximus PRN PRN PO 03/12/17 05:00 04/11/17 04:59 Doxycycline Hyclate (Vibramycin Cap) 100 mg BID PO 03/12/17 09:00 03/22/17 08:59 03/16/17 08:35 100 MG Albuterol (Ventolin Hfa Inhaler) 2 puffs Q6 PRN INH 03/12/17 08:45 04/11/17 08:44 Nitroglycerin (Nitrostat Tab) 0.4 mg UD PRN UT 03/12/17 08:45 04/11/17 08:44 Ondansetron HCl (Zofran Tab) 4 mg Q6H PRN PO 03/12/17 08:45 04/11/17 08:44 03/12/17 11:28 4 MG Warfarin Sodium (Coumadin Tab) 2 mg DAILY@1600 PO 03/12/17 16:00 04/11/17 15:59 03/16/17 15:43 2 MG Miconazole Nitrate (Desenex Powder) 1 appln UD PRN EXT 03/12/17 13:30 04/11/17 13:29 Guaifenesin (Organidin Nr Tab) 200 mg Q8 PO 03/14/17 22:00 04/13/17 21:59 03/16/17 14:10 200 MG Furosemide (Lasix Tab) 20 mg DAILY PO 03/16/17 08:00 04/11/17 08:44 03/16/17 08:34 20 MG Polyethylene (Miralax Powder Packet) 17 gm QAM PO 03/16/17 09:00 04/15/17 08:59 03/16/17 09:53 17 GM Insulin Glargine (Lantus Solostar Pen) 8 units QPM SC 03/16/17 21:00 04/15/17 20:59 Miscellaneous Information (Nursing Verbal Med Order) 1 ea ONE ONCE N/A 03/16/17 17:15 03/16/17 17:16 UNV
[2017-03-16] MEDS ORDERED: ALUMINUM/MAGNESIUM SUSP 30 ML UDC PO PRN (18:00)
[2017-03-16] MEDS: TRAZODONE HCL 50 MG TAB PO SCH (20:18)
[2017-03-16] MEDS ORDERED: INSULIN GLARGINE SOLOSTAR 100 UNITS/ML 3 ML PEN SC SCH (21:00)
[2017-03-16 23:25] VITALS: BP 102/71; PULSE 111; TEMP 36.6; O2SAT 95
[2017-03-17] VITALS: O2SAT 95
[2017-03-17] MEDS: GUAIFENESIN 200 MG TAB PO SCH ×2 (05:58→14:26)
[2017-03-17] MEDS: LEVOTHYROXINE 137 MCG TAB PO SCH (05:58)
[2017-03-17] MEDS: INSULIN ASPART 100 UNITS/ML 3 ML PEN SC SCH ×2 (06:30→11:00)
[2017-03-17 07:06] LABS: INR 2.1 (0.9-1.1); PROTHROMBIN TIME (PATIENT) 22.7 SECONDS (9.0-12.0)
[2017-03-17 07:34] LABS: CALCIUM 9.1 mg/dl (8.5-10.1); CREATININE 1.1 mg/dl (0.60-1.20); MAGNESIUM 1.6 mg/dl (1.8-2.4); POTASSIUM 4.1 mmol/L (3.5-5.1)
[2017-03-17 07:39] VITALS: BP 108/75; PULSE 105; TEMP 36.5; O2SAT 95
[2017-03-17 08:00] VITALS: O2SAT 95
[2017-03-17] MEDS: MAGNESIUM SULFATE 1GM / D5W 1 GM in PREMIXED IN D5W 100 ML IV SCH ×2 (08:22→09:51)
[2017-03-17] MEDS: COLLAGENASE OINT 30 GM TUBE EXT SCH (08:23)
[2017-03-17] MEDS: LACTOBACILLUS ACIDOPHILUS (FLORANEX) TAB PO SCH ×2 (08:24→12:26)
[2017-03-17] MEDS: LEValbuterol HFA 15GM INHALER INH SCH ×2 (08:24→12:26)
[2017-03-17] MEDS: IPRATROPIUM BROMIDE HFA INHALER INH SCH ×2 (08:24→12:26)
[2017-03-17] MEDS: RANITIDINE HCL 150 MG TAB PO SCH (08:27)
[2017-03-17] MEDS: SERTRALINE HCL 100 MG TAB PO SCH (08:27)
[2017-03-17] MEDS: FUROSEMIDE 20 MG TAB PO SCH (08:27)
[2017-03-17] MEDS: SOTALOL HCL 80 MG TAB PO SCH (08:27)
[2017-03-17] MEDS: DOXYCYCLINE HYCLATE 100 MG CAP PO SCH (08:27)
[2017-03-17] MEDS: POLYETHYLENE (MIRALAX) 17 GM PACK PO SCH (08:28)
[2017-03-17] MEDS: DOCUSATE SODIUM 100 MG CAP PO SCH (08:28)
[2017-03-17] MEDS: ISOSORBIDE MONONITRATE 30 MG TABCR PO SCH (08:28)
[2017-03-17] MEDS: ASPIRIN 81 MG ECTAB PO SCH (08:28)
[2017-03-17] MEDS: TRAMADOL HCL 50 MG TAB PO PRN (14:30)
[2017-03-17 15:01] VITALS: BP 95/67; PULSE 90; TEMP 36.7; O2SAT 95
--- NOTE | 2017-03-17 15:59 | Progress Note ---
Medicine Progress Note Date & Time of Visit: Mar 17, 2017 at 15:51. Subjective Pt was seen and examined Sitting in chair comfortable with no distress Pt said that she feels much better today she said that she had a good night denies any chest pain, palpitation, dizziness Her breathing feels much better denies any chest pain, palpitation, dizziness, fever, and chills Objective Last 8 Hrs Date Time Temp Pulse Resp B/P (MAP) Pulse Ox O2 Delivery O2 Flow Rate FiO2 03/17/17 15:01 36.7 90 20 95/67 (76) 95 03/17/17 08:00 95 Nasal Cannula 4.0 Physical Exam: General- No acute distress Head- atraumatic Eyes- PERRL, EOMI ENT- oropharynx clear Neck- supple, no JVD Lungs- decrease breath sound Heart- regular rhythm Abdomen- normal bowel sounds, soft Extremities- no calf tenderness, rt lower ext -ulcer on mid leg on posterior aspect, + LE B/L edema Neuro- alert, oriented, PERRL, EOMI Skin- warm & dry Laboratory Results: Last 24 Hours Test 03/16/17 15:59 03/16/17 17:29 03/16/17 20:07 03/17/17 06:24 Bedside Glucose 144 mg/dl 130 mg/dl Troponin I 0.022 ng/ml Prothrombin Time 22.7 SECONDS Prothromb Time International Ratio 2.1 Sodium Level 135 mmol/L Potassium Level 4.1 mmol/L Chloride Level 98 mmol/L Carbon Dioxide Level 32 mmol/L Anion Gap 5.0 mmol/L Blood Urea Nitrogen 26 mg/dl Creatinine 1.10 mg/dl Est Creatinine Clear Calc Drug Dose 44.3 ml/min Estimated GFR () 57.3 Estimated GFR (Non- 49.4 BUN/Creatinine Ratio 24.0 Random Glucose 78 mg/dl Calcium Level 9.1 mg/dl Magnesium Level 1.6 mg/dl Test 03/17/17 07:31 03/17/17 11:10 Bedside Glucose 91 mg/dl 141 mg/dl Assessment & Plan CHEST DISCOMFORT Possible related to GERD EKG done yesterday showed no ischemic changes Trop was negative Continue monitor in tele resolved CONFUSION /LETHARGY Due to metabolic encephalopathy due to Cellulitis secondary to infected right lower extremity decubitus wound /possible aspiration pneumonia family suspects beginning dementia because pt has been having trouble remember to take meds and to manage her account. 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 Mild to moderate valvular aortic stenosis , There is moderate to severe tricuspid regurgitation , Rt ventricular systolic pressure elevated at 40-50 mm Hg Lasix was given and pt diuresed about 1700 ECHO on 03/27 * The left ventricular cavity is small. * There is severe concentric left ventricular hypertrophy. * Left ventricular systolic function is mildly reduced. * Ejection Fraction = 45-50%. * The right ventricle is mildly dilated. * The right ventricular systolic function is mild to moderately reduced. * The left atrium is moderately dilated. * The right atrium is moderately dilated. * There is severe calcific aortic valve stenosis. * There is mild mitral regurgitation. Clinically improved received 40 mg lasix today repeat chest XRay showed Cardiomegaly with persistent CHF pattern and small right greater than left pleural effusions Will continue diuresis monitor BMP Pt has not been to any follow up appointment with her cardiology Cardiology was notify and will see pt as an outpatient Advised pt to follow up with cardiology. stable RT LOWER EXT INFECTED WOUND /CELLULITIS ; wound culture growing gram positive cocci was on Vancomycin MRSA screen negative appreciate input form Wound care Dr Allison consulted for possible wound debridement ; pt was unable to tolerate bedside debridement pt will need continued wound care follow up as out patient cont local wound care /daily dressing changes as per recommendation from wound care ID on board and recommended to continue PO Doxycycline for 14 days of treatment Continue daily wound care Follow up with wound care clinic as an outpatient ASPIRATION PNEUMONIA cxray shows rt lower lobe infiltrate concern for aspiration -high risk -confusion /lethargy /baseline dementia speech therapy consulted recommended for dental soft diet with aspiration precaution D/C Cefepime PO Levaquin total 5 days course nasal cannula decreased to 2L stable TYPE 2 DM episodes of hypoglycemia noted Lantus dose reduced to 8 units HS ( was on 20 Unit HS /out pt dose 28 UHS ) insulin SSI HB A1 c 8 pharmacy consulted for glycemic control LOW MAGNESIUM LEVEL Mg today 1.6 Mg replaced continue monitor mg level will discharge on mg supplement HX OF AFIB/A FLUTTER : underwent SARAH cardioversion on cont Sotalol ; chronic anticoagulation with Coumadin INR 2.1 Continue Coumadin follow Daily PT/INR CAD status post CABG Chronic diastolic heart failure/mixed valvular heart disease ordered for diuretics for vol overload no complain of chest pain or SOB cont out pt cardiac meds Stable MILD ELEVATION OF TROPONIN : Possible due to sepsis /infection causing reactive tachycardia /Decompensated CHF no evidence of ACS resolved HX OF TACHYBRADY SYNDROME s/p pacemaker placement HR has been elevated HR improved Stable History of CVA cont Aspirin IDIOPATHIC PULMONARY FIBROSIS /COPD Chronic respiratory failure 2 to COPD/ILD on home O2 developed worsening of SOB yesterday due to vol over load respiratory status much improved today Continue oxygen supplement CKD stage 3 renal function stable Continue monitor BMP AMBULATORY DYSFUNCTION ; Worsening Frequent falls as per family in the last months High risk for fall Continue PT/OT eval Pt requires min 1persosn assistance for bed mobility and transfers, recommend SNF Will transfer to [facility] today DVT PROPHYLAXIS INR therapeutic (on coumadin) DISPOSITION Continue PT/OT Discharge to [facility] today CODE STATUS FULL CODE Consultants: ID Wound Care Current Inpatient Medications: Current Inpatient Medications Medications (Trade) Dose Ordered Sig/Mike Route Start Time Stop Time Status Last Admin Dose Admin Acetaminophen (Tylenol Tab) 650 mg Q4H PRN PO 03/09/17 22:00 04/08/17 21:59 03/13/17 21:10 650 MG Insulin Aspart (novoLOG ASPART) SLIDING SCALE If C... ACHS SC 03/10/17 07:00 04/09/17 06:59 03/16/17 17:10 1 UNITS Glucose (Glucose 40% Gel) 15-30 GRAMS 15 GRAMS... UD PRN PO 03/09/17 22:00 04/08/17 21:59 Glucose (Glucose Chew Tab) 4-8 Tablets 4 Tabl... UD PRN PO 03/09/17 22:00 04/08/17 21:59 Dextrose (Dextrose 50% 50ML Syringe) 25-50ML OF 50% DW IV FOR... UD PRN IV 03/09/17 22:00 04/08/17 21:59 Glucagon (Glucagon Inj) 1 mg UD PRN SQ 03/09/17 22:00 04/08/17 21:59 Aspirin (Ecotrin Tab) 81 mg DAILY PO 03/10/17 09:00 04/09/17 08:59 03/17/17 08:28 81 MG Docusate Sodium (coLACE CAP) 100 mg BID PO 03/10/17 09:00 04/09/17 08:59 03/17/17 08:28 100 MG Isosorbide Mononitrate (Imdur Ext Rel Tab) 30 mg QAM PO 03/10/17 09:00 04/09/17 08:59 03/17/17 08:28 30 MG Levothyroxine Sodium (Synthroid Tab) 137 mcg DAILYBB PO 03/10/17 06:00 04/09/17 05:59 03/17/17 05:58 137 MCG Ranitidine HCl (zANTac TAB) 150 mg BID PO 03/10/17 09:00 04/09/17 08:59 03/17/17 08:27 150 MG Sertraline HCl (Zoloft Tab) 100 mg DAILY PO 03/10/17 09:00 04/09/17 08:59 03/17/17 08:27 100 MG Sotalol HCl (Betapace Tab) 80 mg QAM PO 03/10/17 09:00 04/09/17 08:59 03/17/17 08:27 80 MG Trazodone HCl (Desyrel Tab) 50 mg HS PO 03/10/17 21:00 04/09/17 20:59 03/16/17 20:18 50 MG Lactobacillus Acidophilus (Floranex Tab) 4 tab TIDM PO 03/10/17 07:30 04/09/17 07:59 03/17/17 12:26 4 TAB Ondansetron HCl (Zofran Inj) 4 mg Q6H PRN IV 03/09/17 22:00 04/08/17 21:59 03/14/17 16:28 4 MG Tramadol HCl (Ultram Tab) 25 mg Q6H PRN PO 03/09/17 22:00 04/08/17 21:59 03/17/17 14:30 25 MG Levalbuterol (Xopenex Hfa Inhaler) 2 puffs QID INH 03/10/17 09:00 04/09/17 08:59 03/17/17 12:26 2 PUFFS Ipratropium [place] (Atrovent Hfa Inhaler) 2 puffs QID INH 03/10/17 09:00 04/09/17 08:59 03/17/17 12:26 2 PUFFS Multi-Ingredient Ointment (Eucerin Unscented Cr) 1 appln BID PRN EXT 03/10/17 11:30 04/09/17 11:29 03/11/17 08:20 1 APPLN Collagenase (Santyl Oint) 1 appln DAILY EXT 03/11/17 09:00 04/10/17 08:59 03/17/17 08:23 1 APPLN Miscellaneous Information (Consult Glycemic Management Pharmacy) 1 ea UD N/A 03/11/17 18:27 04/10/17 18:26 Menthol (Nice Maximus) 1 maximus PRN PRN PO 03/12/17 05:00 04/11/17 04:59 Doxycycline Hyclate (Vibramycin Cap) 100 mg BID PO 03/12/17 09:00 03/22/17 08:59 03/17/17 08:27 100 MG Albuterol (Ventolin Hfa Inhaler) 2 puffs Q6 PRN INH 03/12/17 08:45 04/11/17 08:44 Nitroglycerin (Nitrostat Tab) 0.4 mg UD PRN UT 03/12/17 08:45 04/11/17 08:44 Ondansetron HCl (Zofran Tab) 4 mg Q6H PRN PO 03/12/17 08:45 04/11/17 08:44 03/12/17 11:28 4 MG Warfarin Sodium (Coumadin Tab) 2 mg DAILY@1600 PO 03/12/17 16:00 04/11/17 15:59 03/16/17 15:43 2 MG Miconazole Nitrate (Desenex Powder) 1 appln UD PRN EXT 03/12/17 13:30 04/11/17 13:29 Guaifenesin (Organidin Nr Tab) 200 mg Q8 PO 03/14/17 22:00 04/13/17 21:59 03/17/17 14:26 200 MG Furosemide (Lasix Tab) 20 mg DAILY PO 03/16/17 08:00 04/11/17 08:44 03/17/17 08:27 20 MG Polyethylene (Miralax Powder Packet) 17 gm QAM PO 03/16/17 09:00 04/15/17 08:59 03/17/17 08:28 17 GM Insulin Glargine (Lantus Solostar Pen) 8 units QPM SC 03/16/17 21:00 04/15/17 20:59 03/16/17 21:20 8 UNITS Al Hydroxide/Mg Hydroxide (Maalox Susp) 30 ml Q4H PRN PO 03/16/17 18:00 04/15/17 17:59
[2017-03-17] MEDS ORDERED: INSDGIPEN SC (16:06)
[2017-03-17] MEDS ORDERED: DXY100 PO (16:13)
[2017-03-17] MEDS ORDERED: FURO-85 PO (16:21)
[2017-03-17] MEDS ORDERED: MAGN1TAB19 PO (16:22)
[2017-03-17 16:27] VITALS: BP 95/67; PULSE 90; TEMP 36.7; O2SAT 95
[2017-03-17] MEDS: WARFARIN SOD 2 MG TAB PO SCH (16:39)
--- NOTE | 2017-03-19 18:26 | Discharge Summary ---
Discharge Summary Date of Service Mar 19, 2017. 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 Hypoglycemia. COMPARISON STUDY: Head CT November 24, 2016. CT DOSE: 1203.96 mGy.cm TECHNIQUE: Helical axial images of the head were obtained without IV contrast. Automated exposure control was utilized for the study. FINDINGS: No acute intracranial hemorrhage, midline shift or mass effect is present. Mild ventricular dilatation is unchanged and likely due to atrophy. The basilar cisterns are patent. There are no extra-axial collections. Old infarct within the right cerebellar hemisphere is noted. Moderate white matter hypodensities suggest small vessel disease. There are no findings to suggest acute dural sinus thrombosis or acute territorial infarct. There are no significant calvarial abnormalities. There is mild mucosal thickening of the sinuses. IMPRESSION: No acute intracranial findings. Electronically signed by: Dylon Cunningham M.D. 03/09/2017 7:07 PM Dictated Date/Time: 03/09/2017 7:02 PM CHEST ONE VIEW PORTABLE CLINICAL HISTORY: Weakness. Hypoglycemia. COMPARISON STUDY: Chest radiograph November 24, 2016. FINDINGS: A dual lead left pacemaker is noted. There are median sternotomy wires. There is no pneumothorax. There may be a small right pleural effusion. An opacity within the lateral right midlung is new since prior exam. This could reflect pleural fluid or mild airspace disease. Interstitial thickening has slightly increased. There is no lobar consolidation. Mild cardiomegaly is unchanged. IMPRESSION: 1. Increase in interstitial thickening. This may reflect mild pulmonary edema or an infectious process superimposed upon interstitial lung disease. 2. Interval development of mild opacity within the lateral right midlung may reflect pleural fluid or mild airspace opacity. PA and lateral chest radiograph in one month is recommended to ensure resolution. 3. Suspected small right pleural effusion. Electronically signed by: Dylon Cunningham M.D. 03/09/2017 6:31 PM Dictated Date/Time: 03/09/2017 6:[address] OF THE RIGHT LOWER LEG WITHOUT CONTRAST CT DOSE: 331.70 mGy.cm CLINICAL HISTORY: Right [id number] swelling. Evaluate for abscess TECHNIQUE: Axial images of the right lower leg were obtained without IV contrast. Sagittal and coronal reconstructions were viewed. COMPARISON STUDY: Right knee radiographs July 17, 2015. FINDINGS: There is no acute fracture the right tibia or fibula. Alignment of the right knee and ankle is anatomic. There is moderate arthritis of the right knee with chondrocalcinosis. There is no right knee joint effusion. There is no evidence of osteomyelitis within the right tibia or fibula by CT. There is moderate subcutaneous edema of the right lower leg, greater posteriorly. There is no fluid collection to suggest an abscess on this unenhanced study. IMPRESSION: 1. No acute fracture of the right tibia or fibula. 2. Moderate subcutaneous edema of the right lower leg. This could simply represent subcutaneous edema or cellulitis. No fluid collection to suggest abscess. No evidence of osteomyelitis by CT. Electronically signed by: Dylon Cunningham M.D. 03/09/2017 10:23 PM Dictated Date/Time: 03/09/2017 10:15 PM BILATERAL LOWER EXTREMITY VENOUS DOPPLER HISTORY: Leg swelling. COMPARISON STUDY: None. FINDINGS: There is normal compressibility, flow, and augmentation within the bilateral lower extremity deep venous systems. IMPRESSION: No DVT within the right or left lower extremity. Electronically signed by: Lee Mckinnon M.D. 03/10/2017 2:48 PM Dictated Date/Time: 03/10/2017 2:48 PM CHEST ONE VIEW PORTABLE HISTORY: 76-year-old female presents with sepsis follow-up. COMPARISON: Portable chest radiograph 03/12/2017. TECHNIQUE: Upright AP view of the chest. FINDINGS: Patient is slightly rotated to the right. Pectoral pacer is present with leads overlying the right atrial appendage and right ventricle. Cardiac silhouette is again enlarged. Prior median sternotomy. There is mild pleural-parenchymal scarring of the right lung apex without evidence of pneumothorax. Small right greater than left pleural effusions are present with unchanged pulmonary vascular congestion and interstitial coarsening. There is slightly improved aeration and improvement of the previously described alveolar opacities of the lung bases. Partially imaged hardware involves the lumbar spine. Bones appear to be diffusely demineralized. IMPRESSION: Cardiomegaly with persistent CHF pattern and small right greater than left pleural effusions. There is mildly improved aeration of the lung bases. Electronically signed by: Dionte Ramirez 03/16/2017 7:21 AM Dictated Date/Time: 03/16/2017 7:17 AM Consultations: ID Wound Care Medication Reconciliation New Medications: Magnesium Oxide (Mg Supplement (Magnesium Oxide) 400 Mg Tab 400 MG PO BID for 15 Days, #30 TAB Collagenase (Santyl) 250 Unit/Gm Oin 1 APPLN EXT DAILY for 30 Days Doxycycline Hyclate (Doxycycline Hyclate) 100 Mg Cap 100 MG PO BID for 5 Days, #10 CAP Eucerin (Hydrocerin) 360 Appln/120 Gm Cr 1 APPLN EXT BID PRN for nursing decison for 30 Days, #30 Insulin Glargine (Lantus Solostar) 100 Unit/Ml Inj 6 UNITS SC QPM for 30 Days Lactobacillus Acidophilus (Floranex) 1 Tab Tab 4 TAB PO TIDM for 30 Days, TAB Menthol (Ricola) 24 Maximus/1 Box Lozg 1 MAXIMUS PO PRN PRN for SORE THROAT, #30 Nutritional Supplements (Boost) 1 Liq Liq 1 CAN PO BIDM for 30 Days Tramadol HCl (Tramadol HCl) 50 Mg Tab 25 MG PO Q6H PRN for Pain, #30 TAB Changed Medications: Furosemide (Lasix) 20 Mg Tab 20 MG PO DAILY for 30 Days, #30 TAB (Changed from: Removed Reason) 5 days a week. (Mon/Mon/Mon/Mon/) Continued Medications: Albuterol Hfa (Ventolin Hfa) 200 Puffs/67531 Mcg Aers 2 PUFF INH Q6 PRN for SOB/Wheezing, #54 Aspirin (Aspirin Chewable) 81 Mg Chew 81 MG PO DAILY, TAB Calcium Carbonate (Calcium Carbonate) 600 Mg Tab 1 TAB PO DAILY Docusate Sodium (Colace) 100 Mg Cap 1 CAP PO BID for 30 Days, #60 CAP Home O2 Therapy (Oxygen) Gas 2 LITERS NA HS HS and with any daytime sleeping Ipratropium-Albuterol (Combivent Respimat) 1 Aer Aer 1 PUFFS INH QID, INH Isosorbide Mononitrate Ext Rel (Imdur Ext Rel) 30 Mg Tabcr 30 MG PO QAM, #30 Levothyroxine Sodium (Levothyroxine Sodium) 137 Mcg Tab 137 MCG PO DAILY, TAB Magnesium Oxide (Magnesium) 400 Mg Tab 400 MG PO DAILY Nitroglycerin (Nitrostat) 0.4 Mg Tab 0.4 MG UT UD PRN for Chest Pain, BTL PLACE ONE TABLET UNDER THE TONGUE EVERY 5 MINUTES FOR UP TO 3 DOSES IF NEEDED FOR CHEST PAIN. Ondansetron Hcl (Zofran) 4 Mg Tab 4 MG PO Q6H PRN for Nausea or Vomiting, TAB Ranitidine Hcl (Zantac) 150 Mg Tab 150 MG PO BID, TAB Sertraline HCl (Sertraline HCl) 100 Mg Tab 100 MG PO DAILY, #30 Sotalol Hcl (Sotalol Hcl) 80 Mg Tab 1 TAB PO QAM for 30 Days, #30 TAB 5 Refills Trazodone Hcl (Trazodone) 50 Mg Tab 50 MG PO HS for 30 Days, #30 TAB (This prescription has been renewed) Warfarin Sod (Jantoven) 4 Mg Tab 4 MG PO UD, TAB UD BY ANTI-COAGULATION CLINIC Discontinued Medications: Glipizide (Glucotrol) 10 Mg Tab 10 MG PO QAM, TAB 10 mg in a.m. and 5 mg with supper. Glipizide (Glipizide) 5 Mg Tab 5 MG PO QPM, #10 Insulin Glargine (Lantus) 100 Unit/Ml Inj 28 UNITS SC QPM, VIAL Tramadol (Ultram) 50 Mg Tab 1 TAB PO DAILY PRN for Pain for 30 Days, #30 TAB Admission Information HPI (per Admitting provider): 2 weeks history of cough symptoms junky. Patient family noted coughing with meals. Witnessed coughing episode when patient was asked to drink water at the doctor' s office. Last 2 days patient noted to be weaker than usual. Too weak to get up from the bed. Denies chest pain or shortness of breath. Decreased responsiveness at home today. Blood sugar 40s. Patient given dextrose by EMS. Family noted a nasty-looking wound on the right posterior calf today. At the emergency room patient given Levaquin and Azactam and Vanco for sepsis. Physical Exam (per Admitting): General Appearance: + pertinent finding (Wane, unkempt, no resp distress) Head: normocephalic Eyes: normal inspection Neck: + pertinent finding (short) Respiratory/Chest: + decreased breath sounds Cardiovascular: + tachycardia Abdomen/GI: soft Extremities/Musculoskelatal: + pertinent finding (tender swelling right lower leg with ulcerated dirty wound posterior cough) Neurologic/Psych: + pertinent finding (some disorientation but coherent hard of hearing, gait and stance not assessed) Hospital Course CHEST DISCOMFORT Possible related to GERD EKG done yesterday showed no ischemic changes Trop was negative Continue monitor in tele resolved CONFUSION /LETHARGY Due to metabolic encephalopathy due to Cellulitis secondary to infected right lower extremity decubitus wound /possible aspiration pneumonia family suspects beginning dementia because pt has been having trouble remember to take meds and to manage her account. 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 Mild to moderate valvular aortic stenosis , There is moderate to severe tricuspid regurgitation , Rt ventricular systolic pressure elevated at 40-50 mm Hg Lasix was given and pt diuresed about 1700 ECHO on 03/27 * The left ventricular cavity is small. * There is severe concentric left ventricular hypertrophy. * Left ventricular systolic function is mildly reduced. * Ejection Fraction = 45-50%. * The right ventricle is mildly dilated. * The right ventricular systolic function is mild to moderately reduced. * The left atrium is moderately dilated. * The right atrium is moderately dilated. * There is severe calcific aortic valve stenosis. * There is mild mitral regurgitation. Clinically improved received 40 mg lasix today repeat chest XRay showed Cardiomegaly with persistent CHF pattern and small right greater than left pleural effusions Will continue diuresis monitor BMP Pt has not been to any follow up appointment with her cardiology Cardiology was notify and will see pt as an outpatient Advised pt to follow up with cardiology. stable RT LOWER EXT INFECTED WOUND /CELLULITIS ; wound culture growing gram positive cocci was on Vancomycin MRSA screen negative appreciate input form Wound care Dr Allison consulted for possible wound debridement ; pt was unable to tolerate bedside debridement pt will need continued wound care follow up as out patient cont local wound care /daily dressing changes as per recommendation from wound care ID on board and recommended to continue PO Doxycycline for 14 days of treatment Continue daily wound care Follow up with wound care clinic as an outpatient ASPIRATION PNEUMONIA cxray shows rt lower lobe infiltrate concern for aspiration -high risk -confusion /lethargy /baseline dementia speech therapy consulted recommended for dental soft diet with aspiration precaution D/C Cefepime PO Levaquin total 5 days course nasal cannula decreased to 2L stable TYPE 2 DM episodes of hypoglycemia noted Lantus dose reduced to 8 units HS ( was on 20 Unit HS /out pt dose 28 [facility] ) insulin SSI HB A1 c 8 pharmacy consulted for glycemic control LOW MAGNESIUM LEVEL Mg today 1.6 Mg replaced continue monitor mg level will discharge on mg supplement HX OF AFIB/A FLUTTER : underwent SARAH cardioversion on cont Sotalol ; chronic anticoagulation with Coumadin INR 2.1 Continue Coumadin follow Daily PT/INR CAD status post CABG Chronic diastolic heart failure/mixed valvular heart disease ordered for diuretics for vol overload no complain of chest pain or SOB cont out pt cardiac meds Stable MILD ELEVATION OF TROPONIN : Possible due to sepsis /infection causing reactive tachycardia /Decompensated CHF no evidence of ACS resolved HX OF TACHYBRADY SYNDROME s/p pacemaker placement HR has been elevated HR improved Stable History of CVA cont Aspirin IDIOPATHIC PULMONARY FIBROSIS /COPD Chronic respiratory failure 2 to COPD/ILD on home O2 developed worsening of SOB yesterday due to vol over load respiratory status much improved today Continue oxygen supplement CKD stage 3 renal function stable Continue monitor BMP AMBULATORY DYSFUNCTION ; Worsening Frequent falls as per family in the last months High risk for fall Continue PT/OT eval Pt requires min 1persosn assistance for bed mobility and transfers, recommend SNF Will transfer to [facility] today DVT PROPHYLAXIS INR therapeutic (on coumadin) DISPOSITION Continue PT/OT Discharge to [facility] today CODE STATUS FULL CODE Total time spent on discharge = 35 minutes This includes examination of the patient, discharge planning, medication reconciliation, and communication with other providers. Discharge Instructions Discharge Instructions Date of Service Mar 12, 2017. Admission Reason for Admission: Sepsis Discharge Discharge Diagnosis / Problem: LOWER EXTREMITY CELLULITIS Discharge Goals Goal(s): Decrease discomfort, Improve disease control, Therapeutic intervention Activity Recommendations Activity Level: Assistance Required Therapies: Physical Therapy, Occupational Therapy Shower/Bathe: no limitations . Additional Information Patient informed of condition: Yes Advance Directives: No DNR: No Level of Care: Skilled Communicable Disease: No Prognosis: Stable Valentino Catheter: No Instructions / Follow-Up Instructions / Follow-Up NEED TO FOLLOW UP AT THE WOUND CLINIC FOR RT LOWER EXTREMITY INFECTION /WOUND Current Hospital Diet Patient's current hospital diet: Diabetes Type 2 Diet, AHA Diet (Heart Healthy) DIET RECOMMENDATION : 1. Moist Dental soft diet, thin liquids. 2. Aspiration precautions: Patient should be seated as upright as possible during and for 30 minutes after meal. Straws OK. Alternate solids and liquids. Take small bites and sips. Discharge Diet Recommended Diet: AHA Diet (Heart Healthy), Diabetes Type 2 Diet Diet Texture: Dental Soft (bite-sized) Pending Studies Studies pending at discharge: no Laboratory Results Hemoglobin A1c Test 03/09/17 18:28 Range/Units Estimated Average Glucose 183 mg/dl Hemoglobin A1c 8.0 H 4.5-5.6 % Medical Emergencies . Who to Call and When: Medical Emergencies: If at any time you feel your situation is an emergency, please call 911 immediately. . Non-Emergent Contact Non-Emergency issues call your: Primary Care Provider . . "Provider Documentation" section prepared by Sarah Jain. . Core Measure Problem Core Measures: None Addendum: Ann Dover M.D. on 03/17/17 @ 16:28 Discharge Inst - Addendum Addendum Provider: Addendum Notes were documented by provider Ann Dover. Follow up with your physician once discharge from rehab Call to schedule an appointment with your cardiology Follow up with wound care clinic Daily dressing wound care Check magnesium and BMP within 1 week Continue physical therapy Continue oxygen with 2L nasal cannula Monitor blood sugar Lantus decreased to 6 units, your physician will titrate the insulin Additional Copies To Gio Braun D.O.
== END 2017-03-17 16:56 | DRG 871 ==
LOC: EDBD 17:36 → C.EDA 17:41 → C.2T 20:51 → ENRESERV 21:18 → C.MS2W 03-10 15:37 → ENRESERV 03-10 16:03
PROVIDERS: ADMIT Hospitalist; ATTEND Internal Medicine
DX: A41.9 Sepsis, unspecified organism (principal); G93.41 Metabolic encephalopathy; J69.0 Pneumonitis due to inhalation of food and vomit; I50.33 Acute on chronic diastolic (congestive) heart failure; L03.116 Cellulitis of left lower limb; I48.92 Unspecified atrial flutter; J96.10 Chronic respiratory failure, unspecified whether with hypoxia or hypercapnia; I13.0 Hypertensive heart and chronic kidney disease with heart failure and stage 1 through stage 4 chronic kidney disease, or unspecified chronic kidney disease; J84.9 Interstitial pulmonary disease, unspecified; I48.0 Paroxysmal atrial fibrillation; H91.90 Unspecified hearing loss, unspecified ear; K21.9 Gastro-esophageal reflux disease without esophagitis; E11.649 Type 2 diabetes mellitus with hypoglycemia without coma; E11.622 Type 2 diabetes mellitus with other skin ulcer; I25.10 Atherosclerotic heart disease of native coronary artery without angina pectoris; G89.29 Other chronic pain; N18.3 Chronic kidney disease, stage 3 (moderate); F32.9 Major depressive disorder, single episode, unspecified; E11.22 Type 2 diabetes mellitus with diabetic chronic kidney disease; E78.5 Hyperlipidemia, unspecified; E03.9 Hypothyroidism, unspecified; R26.9 Unspecified abnormalities of gait and mobility; G43.909 Migraine, unspecified, not intractable, without status migrainosus; J44.9 Chronic obstructive pulmonary disease, unspecified; F17.210 Nicotine dependence, cigarettes, uncomplicated; I08.3 Combined rheumatic disorders of mitral, aortic and tricuspid valves; R09.02 Hypoxemia; Z87.01 Personal history of pneumonia (recurrent); Z86.718 Personal history of other venous thrombosis and embolism; Z86.73 Personal history of transient ischemic attack (TIA), and cerebral infarction without residual deficits; Z90.49 Acquired absence of other specified parts of digestive tract; Z79.01 Long term (current) use of anticoagulants; Z82.49 Family history of ischemic heart disease and other diseases of the circulatory system; Z83.3 Family history of diabetes mellitus; Z80.9 Family history of malignant neoplasm, unspecified; Z88.8 Allergy status to other drugs, medicaments and biological substances; Z88.5 Allergy status to narcotic agent; Z88.0 Allergy status to penicillin; Z79.82 Long term (current) use of aspirin; Z79.899 Other long term (current) drug therapy; Z90.710 Acquired absence of both cervix and uterus; Z95.1 Presence of aortocoronary bypass graft; Z79.4 Long term (current) use of insulin; Z95.0 Presence of cardiac pacemaker; Z99.81 Dependence on supplemental oxygen; Z85.42 Personal history of malignant neoplasm of other parts of uterus; Z90.722 Acquired absence of ovaries, bilateral; Z90.79 Acquired absence of other genital organ(s)

== ENCOUNTER 2017-04-04 16:05 | Inpatient (IN) | payer OTHER ==
[~2017-04-04] VITALS: Ht 157.5 cm; Wt 77.6 kg
[~2017-04-04 16:05] MED LIST changes: -ALBU18002 INH; +ASPCH81X PO; +CALC600T48 PO; +CPC PO; +DXY100 PO; +ECRCR EXT; +FURO-85 PO; -GLIP10TA9 PO; +INSDGIPEN SC; +ISOS30TA35 PO; +LCTX PO; +LEVO137T3 PO; +MAGN1TAB41 PO; +NUTR-7 PO; +ONDA4TAB46 PO; -SERT50TA PO; +SNTO30 EXT; +SOTA80TA PO; -TRAM-10 PO; +TRAZ50TA35 PO; +ULT50X PO; +VNTHFA/IN INH; -WARF-283 PO; +ZLF/100 PO
--- NOTE | 2017-04-04 16:34 | EMERGENCY ROOM VISIT NOTE ---
History Report prepared by Violeta: Sukhjinder Azar Under the Supervision of: Dr. Mayte Gaston M.D. First contact with patient: 16:19 Chief Complaint: LETHARGIC Stated Complaint: CONFUSION, CARDIAC ASSESSMENT History of Present Illness The patient is a 76 year old female who presents to the Emergency Room for concerns about lethargy. As per transfer notes, the patient has been confused. She reports a fall occurring 4 days ago. She reports a normal fluid intake. The patient denies abdominal pain, or any other complaints. She reports bilateral lower extremity swelling occurring for the past 6 months and denies any changes. As per patient records, she was discharged from the [facility] on March 19 after receiving treatment for CHF, hypoxia, lower extremity swelling, aspiration pneumonia, low magnesium, and elevated troponin. HPI is limited secondary to confusion. Source of History: patient History Limited By: other (confusion) Position: other (global) Quality: other (lethargy) Associated Symptoms: No abdominal pain Review of Systems ROS is limited secondary to confusion. 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 (16) History of CVA (cerebrovascular accident) (17) History of DVT (deep vein thrombosis) (18) History of hyperkalemia (19) History of TIA (transient ischemic attack) (20) HTN (hypertension) (21) Hypothyroidism (22) Idiopathic pulmonary fibrosis (23) Malignant neoplasm of corpus uteri (24) Migraine (25) Moderate COPD (chronic obstructive pulmonary disease) (26) Paroxysmal a-fib (27) Sepsis (28) Systolic CHF (29) Tobacco abuse (30) Valvular disease Surgical Problems: (1) H/o bile tract procedure (2) H/O cardiac catheterization (3) H/O excision of lamina of cervical vertebra for decompression of spinal cord (4) H/O hernia repair (5) H/O total hysterectomy with bilateral salpingo-oophorectomy (BSO) (6) History of cholecystectomy (7) History of total hip replacement (8) S/P CABG (coronary artery bypass graft) Family History Cardiac disorder FATHER MOTHER Diabetes mellitus FATHER MOTHER BROTHER GRANDMOTHER FH: cancer Social History Smoking Status: Former Smoker Alcohol Use: none Drug Use: none Marital Status: Housing Status: lives with family Occupation Status: retired, other Current/Historical Medications Scheduled Aspirin (Aspirin Chewable), 81 MG PO DAILY Calcium Carbonate-Cholecalcife (Caltrate 600+D), 1 TAB PO DAILY Collagenase (Santyl), 1 APPLN TOP DAILY Docusate Sodium (Colace), 1 CAP PO BID Home O2 Therapy (Oxygen), 2 LITERS NA HS Insulin Glargine (Lantus Solostar), 6 UNITS SC QPM Ipratropium-Albuterol (Combivent Respimat), 1 PUFFS INH QID Isosorbide Mononitrate Ext Rel (Imdur Ext Rel), 30 MG PO QAM Lactobacillus Acidophilus (Floranex), 4 TAB PO TIDM Levothyroxine Sodium (Levothyroxine Sodium), 137 MCG PO DAILY Magnesium Oxide (Magnesium), 400 MG PO BID Nutritional Supplements (Boost), 1 CAN PO BIDM Ranitidine Hcl (Zantac), 150 MG PO BID Sertraline HCl (Sertraline HCl), 100 MG PO DAILY Sotalol Hcl (Sotalol Hcl), 1 TAB PO QAM Trazodone Hcl (Trazodone), 50 MG PO HS Warfarin Sod (Jantoven), 1 MG PO 2XWK Warfarin Sod (Jantoven), 2 MG PO 5XWK Scheduled PRN Albuterol Hfa (Ventolin Hfa), 2 PUFF INH Q6 PRN for SOB/Wheezing Eucerin (Hydrocerin), 1 APPLN EXT BID PRN for nursing decison Furosemide (Lasix), 20 MG PO DAILY PRN for fluid accumulation/weight gain Menthol (Ricola), 1 FRANCES PO PRN PRN for SORE THROAT Nitroglycerin (Nitrostat), 0.4 MG UT UD PRN for Chest Pain Ondansetron Hcl (Zofran), 4 MG PO Q6H PRN for Nausea or Vomiting Tramadol HCl (Tramadol HCl), 25 MG PO Q6H PRN for Pain Allergies Coded Allergies: Codeine (Verified Allergy, Severe, HIVES / DIFICULTY BREATHING; TAKES PERCOCET W/O PROBLEM, 11/24/16) Penicillins (Verified Allergy, Intermediate, RASH, 11/24/16) SY Inhibitors (Verified Adverse Reaction, Unknown, HYPERKALEMIA, 03/10/17) Physical Exam Vital Signs Date Time Temp Pulse Resp B/P (MAP) Pulse Ox O2 Delivery O2 Flow Rate FiO2 04/04/17 18:46 105 18 106/76 96 Nasal Cannula 4.0 04/04/17 17:39 105 14 114/82 94 Nasal Cannula 4.0 04/04/17 16:51 106 16 117/95 98 Nasal Cannula 4.0 04/04/17 16:30 105 04/04/17 16:24 36.8 105 15 117/81 88 Room Air Physical Exam Vital signs reviewed. General: Elderly, chronically ill-appearing, pale, in no significant distress. HEENT: No scleral icterus, PERRLA, neck supple. Atraumatic. Cardiovascular: Slightly tachycardic rate and regular rhythm, no extra sounds. Pulmonary: Crackles at the bases bilaterally, normal work of breathing. Abdomen: Soft, nontender, nondistended, positive bowel sounds. Musculoskeletal: Generally atraumatic. Right greater than left lower extremity edema. Neurologic: Patient is awake and answering most questions with simple answers. Full strength in all 4 extremities. Cranial nerves 2 through 12 grossly intact. Skin: Warm, dry, no rash Medical Decision & Procedures ER Provider Diagnostic Interpretation: X-ray results as stated below per interpretation by me and the radiologist: SINGLE VIEW CHEST CLINICAL HISTORY: Change in mental status. CHF. FINDINGS: An AP, portable, upright chest radiograph is compared to study dated 03/16/2017. Correlation is made with chest CT dated 09/23/2009. The examination is degraded by portable technique and patient rotation. The patient is status post midline sternotomy. A 2-lead cardiac pacemaker is unchanged in position and partially obscures the left mid chest. The heart is enlarged and there is atherosclerotic calcification of the thoracic aorta. There is pulmonary vascular congestion. Bilateral airspace opacities are identified. Chronic interstitial lung disease is again noted. Small pleural effusions are noted. No pneumothorax is seen. The skeletal structures are osteopenic. The bony thorax is grossly intact. IMPRESSION: 1. Cardiomegaly and cardiac pacemaker with evidence of congestive failure. 2. Bilateral airspace opacities are identified and are typical in appearance for interstitial edema. Correlate clinically for evidence of superimposed pneumonia which cannot be excluded. 3. Small pleural effusions are identified. Electronically signed by: Galdino Navarrete M.D. 04/04/2017 4:50 PM Dictated Date/Time: 04/04/2017 4:[address] results as stated below per my review and radiologist interpretation: HEAD WITHOUT CONTRAST (CT) CLINICAL HISTORY: 76 years-old Female presenting with AMS. TECHNIQUE: Multidetector CT imaging of the head was performed without the use of intravenous contrast. IV contrast: None. A dose lowering technique was used consistent with the principles of ALARA (as low as reasonably achievable). COMPARISON: 03/09/2017. CT DOSE (mGy.cm): The estimated cumulative dose is 614.27 mGy.cm. FINDINGS: Service Station Helper topogram: Unremarkable. Ventricular and sulcal prominence proportional to the degree of parenchymal volume loss, likely age-related. Periventricular white matter hypoattenuation similar in extent to prior exam, likely chronic small vessel ischemic change. Focal hypoattenuation at the paramedian right cerebellar lobe superiorly likely old infarct, unchanged. No mass effect or midline shift. No hemorrhage or acute territorial infarct. No extra-axial fluid collection. Sclerosis of the luong of the maxillary sinuses likely from chronic inflammation. No sinus opacification at this time. Calvarium intact. IMPRESSION: 1. No acute intracranial pathology. Electronically signed by: Sp Reynoso M.D. 04/04/2017 5:17 PM Dictated Date/Time: 04/04/2017 5:13 PM Laboratory Results Test 04/04/17 15:45 04/04/17 16:49 04/04/17 17:35 04/04/17 17:40 Total Bilirubin 1.2 mg/dl (0.2-1) Direct Bilirubin 0.5 mg/dl (0-0.2) Aspartate Amino Transf (AST/SGOT) 21 U/L (15-37) Alanine Aminotransferase (ALT/SGPT) 11 U/L (12-78) Alkaline Phosphatase 147 U/L (45-117) Total Creatine Kinase 26 U/L (26-192) Creatine Kinase MB 0.8 ng/ml (0.5-3.6) Creatine Kinase MB Ratio 3.1 (0-3.0) Total Protein 7.6 gm/dl (6.4-8.2) Albumin 2.5 gm/dl (3.4-5.0) Urine Color DK YELLOW Urine Appearance CLOUDY (CLEAR) Urine pH 6.0 (4.5-7.5) Urine Specific [place] 1.026 (1.000-1.030) Urine Protein 1+ (NEG) Urine Glucose (UA) NEG (NEG) Urine Ketones NEG (NEG) Urine Occult Blood 3+ (NEG) Urine Nitrite NEG (NEG) Urine Bilirubin NEG (NEG) Urine Urobilinogen NEG (NEG) Urine Leukocyte Esterase LARGE (NEG) Urine WBC (Auto) >30 /hpf (0-5) Urine RBC (Auto) >30 /hpf (0-4) Urine Hyaline Casts (Auto) 1-5 /lpf (0-5) Urine Epithelial Cells (Auto) 5-10 /lpf (0-5) Urine Bacteria (Auto) NEG (NEG) Urine Yeast (Auto) BUDDING (NONE PRSENT) Bedside Troponin I < 0.030 ng/ml (0-0.045) PF-Hcg-B-Type Natriuretic Peptide 5005 pg/ml (0-900) Bedside Lactic Acid Venous 1.43 mmol/L (0.90-1.70) Date/Time Source Procedure Growth Status 04/04/17 16:49 Urine,Catheterized Urine Culture - Final Amy Albicans Complete Laboratory results per my review. Medications Administered Medications (Trade) Dose Ordered Sig/Mike Route Start Time Stop Time Status Last Admin Dose Admin Ceftriaxone Sodium (Rocephin Inj) 1 gm NOW STAT IV 04/04/17 18:07 04/04/17 18:08 DC 04/04/17 18:18 1 GM ECG Indication: altered mental status Rate (beats per minute): 105 Rhythm: sinus tachycardia Findings: 1st degree AV block, LBBB (incomplete), no acute ischemic change, other (rightward axis; nonspecific T wave abnormalities, possible previous anterior infarct) ED Course 1618: Past medical records reviewed. The patient was evaluated in room B11B. A complete history and physical examination was performed. 1806: Rocephin Inj 1 gm IV 1816: Upon reevaluation, the patient is resting comfortably. I discussed laboratory and radiographic results with her. She verbalized agreement of the treatment plan. I spoke with Dr. Toure of the [facility] Hospitalist Service. The patient will be evaluated for further management and care. Medical Decision Differential diagnosis: Etiologies such as metabolic, infection, hypoglycemia, electrolyte abnormalities , cardiac sources, intracerebral event, toxicologic, neurologic, as well as others were entertained. This patient was evaluated and appeared to be in no distress. IV access was obtained and laboratory work was drawn. The patient was placed on the personnel monitor. Patient is found to have an altered mental status. Laboratory work shows some subtle abnormalities but no clear cause for her altered mentation. CT scan of the head was performed and is negative for acute intracranial pathology. Chest x-ray is reveals interstitial edema. Patient's respiratory status is stable. She was given 1 g of IV ceftriaxone for presumed UTI. Cultures are pending. She will be evaluated by the hospitalist service for admission and further management. Medication Reconcilliation Current Medication List: was personally reviewed by me Blood Pressure Screening Patient's blood pressure: Normal blood pressure Consults Time Called: 1811 Consulting Physician: Dr. Toure of the [facility] Returned Call: [address] Toure of the [facility]. Impression Primary Impression: UTI (urinary tract infection) Additional Impression: Altered mental status Scribe Attestation The scribe's documentation has been prepared under my direction and personally reviewed by me in its entirety. I confirm that the note above accurately reflects all work, treatment, procedures, and medical decision making performed by me. Departure Information Dispostion Being Evaluated By Hospitalist Prescriptions Furosemide (LASIX) 20 Mg Tab 20 MG PO DAILY Y for fluid accumulation/weight gain for 30 Days, #30 TAB Prov: Guerda Martell PA-C 04/04/17 Referrals Gio Braun D.O. (PCP) Patient Instructions My [facility] Problem Qualifiers
[2017-04-04 16:36] LABS: BASO % 0.3 %; BASO ABS # 0.02 K/uL (0-0.2); COMPLETE YES; EOS % 3.8 %; HEMATOCRIT 42.7 % (37-47); IG% 0.4 %; LYMPH % 26.5 %; LYMPH ABS # 1.88 K/uL (1.2-3.4); MEAN CELL VOLUME 90.5 fL (80-100); MEAN CORPUSCULAR HEMOGLOBIN 29.2 pg (25-34); MEAN CORPUSCULAR HGB CONC 32.3 g/dl (32-36); MONO % 9.6 %; NEUT % 59.4 %; PLATELET COUNT 180 K/uL (130-400); RED BLOOD COUNT 4.72 M/uL (4.2-5.4); WHITE BLOOD COUNT 7.09 K/uL (4.8-10.8)
--- NOTE | 2017-04-04 16:51 | DIAGNOSTIC IMAGING REPORT ---
SINGLE VIEW CHEST CLINICAL HISTORY: Change in mental status. CHF. FINDINGS: An AP, portable, upright chest radiograph is compared to study dated 03/16/2017. Correlation is made with chest CT dated 09/23/2009. The examination is degraded by portable technique and patient rotation. The patient is status post midline sternotomy. A 2-lead cardiac pacemaker is unchanged in position and partially obscures the left mid chest. The heart is enlarged and there is atherosclerotic calcification of the thoracic aorta. There is pulmonary vascular congestion. Bilateral airspace opacities are identified. Chronic interstitial lung disease is again noted. Small pleural effusions are noted. No pneumothorax is seen. The skeletal structures are osteopenic. The bony thorax is grossly intact. IMPRESSION: 1. Cardiomegaly and cardiac pacemaker with evidence of congestive failure. 2. Bilateral airspace opacities are identified and are typical in appearance for interstitial edema. Correlate clinically for evidence of superimposed pneumonia which cannot be excluded. 3. Small pleural effusions are identified. Electronically signed by: Galdino Navarrete M.D. 04/04/2017 4:50 PM Dictated Date/Time: 04/04/2017 4:48 PM
[2017-04-04 17:04] LABS: BUN/CREATININE RATIO 14.3 (10-20); CALCIUM 9.2 mg/dl (8.5-10.1); CREATININE 1.4 mg/dl (0.60-1.20); MAGNESIUM 1.7 mg/dl (1.8-2.4); POTASSIUM 4.4 mmol/L (3.5-5.1)
[2017-04-04 17:09] LABS: CKMB/CK RATIO 3.1 (0-3.0)
[2017-04-04 17:17] LABS: URINE APPEARANCE CLOUDY (CLEAR); URINE COLOR DK YELLOW; URINE NITRITE NEG (NEG); URINE SPECIFIC GRAVITY 1.026 (1.000-1.030); UROBILINOGEN NEG (NEG); ZZURINE CULT IF INDIC CATH YES
--- NOTE | 2017-04-04 17:19 | DIAGNOSTIC IMAGING REPORT ---
HEAD WITHOUT CONTRAST (CT) CLINICAL HISTORY: 76 years-old Female presenting with AMS. TECHNIQUE: Multidetector CT imaging of the head was performed without the use of intravenous contrast. IV contrast: None. A dose lowering technique was used consistent with the principles of ALARA (as low as reasonably achievable). COMPARISON: 03/09/2017. CT DOSE (mGy.cm): The estimated cumulative dose is 614.27 mGy.cm. FINDINGS: Buckle Sewer Machine topogram: Unremarkable. Ventricular and sulcal prominence proportional to the degree of parenchymal volume loss, likely age-related. Periventricular white matter hypoattenuation similar in extent to prior exam, likely chronic small vessel ischemic change. Focal hypoattenuation at the paramedian right cerebellar lobe superiorly likely old infarct, unchanged. No mass effect or midline shift. No hemorrhage or acute territorial infarct. No extra-axial fluid collection. Sclerosis of the luong of the maxillary sinuses likely from chronic inflammation. No sinus opacification at this time. Calvarium intact. IMPRESSION: 1. No acute intracranial pathology. Electronically signed by: Sp Reynoso M.D. 04/04/2017 5:17 PM Dictated Date/Time: 04/04/2017 5:13 PM
[2017-04-04 17:30] LABS: MANUAL MICROSCOPIC REQUIRED? NO; REVIEW REQ? YES
[2017-04-04 17:31] LABS: URINE BILIRUBIN NEG (NEG)
[2017-04-04] MEDS ORDERED: WARF1TAB6 PO (17:46)
[2017-04-04] MEDS ORDERED: WARF2TAB8 PO (17:46)
[2017-04-04] MEDS ORDERED: SNTO30 TOP (17:54)
[2017-04-04] MEDS ORDERED: CALC-354 PO (17:54)
[2017-04-04 17:55] LABS: POINT OF CARE PRO-BNP 5005 pg/ml (0-900); POINT OF CARE TROPONIN I < 0.030 ng/ml (0-0.045)
[2017-04-04 18:07] LABS: INR 1.6 (0.9-1.1); PARTIAL THROMBOPLASTIN RATIO 1.3; PROTHROMBIN TIME (PATIENT) 17.4 SECONDS (9.0-12.0)
[2017-04-04] MEDS ORDERED: CEFTRIAXONE SOD INJ 1 GM ADDVIAL IV STA (18:07)
[2017-04-04] MEDS ORDERED: GLUCOSE 40% GEL 15 GM TUBE PO PRN (18:30)
[2017-04-04] MEDS ORDERED: TRAMADOL HCL 50 MG TAB PO PRN (18:30)
[2017-04-04] MEDS ORDERED: ONDANSETRON INJ 2 MG/ML 2 ML VIAL IV PRN (18:30)
[2017-04-04] MEDS ORDERED: GLUCOSE 10 TABS/TUBE PO PRN (18:30)
[2017-04-04] MEDS ORDERED: MAGNESIUM HYDROXIDE SUSP 30 ML UDC PO PRN (18:30)
[2017-04-04] MEDS ORDERED: EUCERIN CR 120 GM JAR EXT PRN (18:30)
[2017-04-04] MEDS ORDERED: ACETAMINOPHEN 325 MG TAB PO PRN (18:30)
[2017-04-04] MEDS ORDERED: ALBUTEROL HFA 8 GM INHALER INH PRN (18:30)
[2017-04-04] MEDS ORDERED: DEXTROSE 50% 50 ML SYR IV PRN (18:30)
[2017-04-04] MEDS ORDERED: COUGH DROP (SUGAR FREE) LOZ 24 LOZ/1 BOX PO PRN (18:30)
[2017-04-04] MEDS ORDERED: GLUCAGON FOR INJ 1 MG VIAL SQ PRN (18:30)
[2017-04-04] MEDS ORDERED: NITROGLYCERIN 0.4 MG SL PER TAB CHARGE UT PRN (18:30)
[2017-04-04] MEDS ORDERED: ONDANSETRON 4 MG TAB PO PRN (18:30)
[2017-04-04] MEDS ORDERED: POLYETHYLENE (MIRALAX) 17 GM PACK PO PRN (18:45)
[2017-04-04 18:46] VITALS: O2SAT 96
[2017-04-04] MEDS ORDERED: METOPROLOL TARTRATE 1 MG/ML VIAL IV PRN (19:15)
[2017-04-04] MEDS ORDERED: FURO-85 PO (19:30)
--- NOTE | 2017-04-04 19:52 | Progress Note ---
Progress Note Date of Service Apr 04, 2017. Progress Note Patient was seen and evaluated with PRETTY Martell. Patient was sent from Cardiology office for CHF exacerbation, Atrial flutter with RVR. Per patient's family she has been more lethargic, a bit confused, worsening of SOB/leg edema. Per patient, denies any complaints at this point\ EXAM Gen- AAOX2, no distress Neck- No JVD Lungs- AEBE decreased, crackles present bilaterally Heart- A flutter with rapid rate, systolic murmur + Abdomen- Soft, non tender, non distended, BS present Ext- B/L pedal edema present ASSESSMENT AND PLAN: ACUTE ON CHRONIC CHF EXACERBATION, SYSTOLIC -Sent from cardiology office for the same -IV lasix 40 mg BID, Fluid restriction, I/Os and Daily weights -Work up- CXR- reviewed shows CHF, BNP 5k, Troponin 1st- neg, Trend , Echo- 03/27- EF 45-50%, Mild MR, Severe , Pacemaker interrogation results per today's office notes- Non sustained v tach, Persistent A flutter -Cardiology consult placed ATRIAL FLUTTER WITH RVR HR in 100s now -Asymptomatic -Continue with Sotalol 80 mg daily -Add IV Lopressor 2.5 Q 6 hours PRN for HR > 110 -Anticoagulation: Coumadin with INR 1.6, Heparin SQ till INR therapeutic -Cardiology consult placed. MILD METABOLIC ENCEPHALOPATHY Likely secondary to above/UTI -Monitor response to rx UTI Hx of recent foleys catheter insertion. -UA +VE -IV Rocephin in ER. Continue with IV Rocephine -Urine c/s ordered. HX OF RECENT ASPIRATION PNEUMONIA During last admission this month -Rxed with antibiotics x 7 days -Speech evaluation during last admission- dental soft diet with aspiration precautions HX OF CELLULITIS/WOUND RIGHT LEG -Rxed with antibiotic course and f/up with wound care outpatient - during last admission -Wound healing well and no signs of cellulitis this admission DVT PROPHYLAXIS Heparin SQ till INR therapeutic (on coumadin) FULL CODE per family DISPOSITION Admit to telemetry Discussed with daughter by bedside and updated her
[2017-04-04 20:57] VITALS: BMI 32.3
[2017-04-04] MEDS: INSULIN ASPART 100 UNITS/ML 3 ML PEN SC SCH (21:00)
[2017-04-04] MEDS ORDERED: WARFARIN SOD 2 MG TAB PO SCH (21:00)
[2017-04-04] MEDS ORDERED: FUROSEMIDE INJ 40 MG in SYRINGE 0 ML IV ONE (21:00)
--- NOTE | 2017-04-04 21:12 | History and Physical ---
History & Physical Date & Time of Service: Apr 04, 2017 at 19:33 Chief Complaint: Confusion, Cardiac Assessment Primary Care Physician: Gio Braun D.O. History of Present Illness Source: family, clinic records, hospital records This is a 76 y/o female with PMH of CAD s/p CABG, severe , atrial flutter on sotalol and anticoagulation, tachy kathya syndrome s/p pacemaker, chronic systolic CHF, EF 45%-50% on echo 03/2017, severe , left subclavian stenosis, COPD, idiopathic pulmonary fibrosis, HTN, HL, DM 2, CKD III, and other problems below who was sent to the ED from [facility] after cardiology visit w/ Marilee Dukes PA-C for altered mental status, persistent atrial flutter with RVR, acute on chronic systolic CHF. Hx unobtainable from patient due to mental status. Patient was recently hospitalized at [facility] from Mar 09-March 17 for confusion/ lethargy due to metabolic encephalopathy from infection, SOB, hypoxia, decompensated CHF, RLE infected wound/ cellulitis, aspiration pneumonia, hypomagnesemia, mild troponin elevation. She was treated with vancomycin for RLE infected wound (WC 03/09/17 grew enterococcus faecalis), Dr. Allison attempted debridement but patient could not tolerate. ID recommended PO doxycycline for 14 days of treatment. She was treated with cefepime then PO Levaquin for aspiration pneumonia. Speech therapy recommended dental soft diet w/ aspiration precaution. She was discharged to [facility] on Mar 17. Daughter states she has persistent SOB since recent hospitalization. She had been on nocturnal O2 2L but was changed to continuous. Cough is resolved. No fevers or chills. No further aspiration episodes per her daughter. Has increased bilateral LE edema from baseline. Daughter also reports increasing confusion and lethargy. Has visual hallucinations since recent hospitalization. Has Valentino catheter and daughter notes cloudy urine. Was seen today by Mari Castano PA-C for generalized declinein function. Noted to require 2 person assist w/ ADL and ambulation. Noted to have resting tachycardia with rates in 110s and BP's in low 90s/60s. On 03/31/17 could not stay standing while transferring w/ assistance and had to be lowered to the floor. No significant injury. For the tachycardia, plan was to start Toprol XL 12.5mg daily and cardiology was contacted. Then pt was seen today by Marilee Dukes PA-C as an acute add-on. Pacemaker was interrogated today showing persistent atrial flutter RVR since OctNovember 2016 and non sustained VT was noted. Was sent to ER with recommendation for admission and consideration of alternative antiarrhythmic therapy. Pt states she feels fine currently. Past Medical/Surgical History Medical Problems: (1) Aortic stenosis Permanent Comment: severe per echo 03/2017 Status: Chronic (2) CAD (coronary artery disease) Permanent Comment: s/p CABG 12/2009 Status: Chronic (3) Chronic back pain Status: Chronic (4) CKD (chronic kidney disease) stage 3, GFR 30-59 ml/min Status: Chronic (5) Depression Status: Chronic (6) DM type 2 (diabetes mellitus, type 2) Status: Chronic (7) Dyslipidemia Status: Chronic (8) GERD (gastroesophageal reflux disease) Status: Chronic (9) H/O diabetes insipidus Status: Chronic (10) H/O vertigo Status: Chronic (11) Heterozygous MTHFR mutation [id number] Status: Chronic (12) History of CVA (cerebrovascular accident) Status: Chronic (13) History of DVT (deep vein thrombosis) Status: Chronic (14) History of hyperkalemia Permanent Comment: SY/ARB intolerance Status: Chronic (15) History of TIA (transient ischemic attack) Status: Chronic (16) HTN (hypertension) Status: Chronic (17) Hypothyroidism Status: Chronic (18) Idiopathic pulmonary fibrosis Status: Chronic (19) Malignant neoplasm of corpus uteri Status: Chronic (20) Migraine Status: Chronic (21) Moderate COPD (chronic obstructive pulmonary disease) Status: Chronic (22) Paroxysmal a-fib Status: Chronic (23) Systolic CHF Permanent Comment: EF 45-50% on echo 03/12/17 Status: Chronic (24) Tobacco abuse Status: Chronic (25) Valvular disease Permanent Comment: echo 07/21/15 Bicuspid aortic valve with moderate aortic stenosis and mild mitral regurg Status: Chronic Surgical Problems: (1) H/o bile tract procedure Status: Chronic (2) H/O cardiac catheterization Permanent Comment: July 2010- left subclavian stenosis with atretic ROMAN graft. The LAD however most significant lesion was less than 50%. The circumflex and right coronary arteries were severely diseased though there were widely patent grafts. Status: Chronic (3) H/O excision of lamina of cervical vertebra for decompression of spinal cord Status: Resolved (4) H/O hernia repair Status: Resolved (5) H/O total hysterectomy with bilateral salpingo-oophorectomy (BSO) Permanent Comment: 1967 secondary to malignancy Status: Resolved (6) History of cholecystectomy Permanent Comment: 1969 Status: Resolved (7) History of total hip replacement Permanent Comment: L Hip performed by Dr. Jaffe 2009 Status: Resolved (8) S/P CABG (coronary artery bypass graft) Permanent Comment: 12/2009 Status: Resolved Family History Cardiac disorder FATHER MOTHER Diabetes mellitus FATHER MOTHER BROTHER GRANDMOTHER FH: cancer Social History Smoking Status: Former Smoker Alcohol Use: none Drug Use: none Marital Status: Housing status: penitentiary ([facility]) Occupational Status: retired, other Immunizations History of Influenza Vaccine: Unknown Influenza Vaccine Date: Jul 20, 2009 History of Tetanus Vaccine?: Unknown Tetanus Immunization Date: Sep 19, 2004 History of Pneumococcal: Unknown Pneumococcal Date: February 07, 2008 History of Hepatitis B Vaccine: Unknown Multi-Drug Resistant Organisms History of MDRO: No Allergies Coded Allergies: Codeine (Verified Allergy, Severe, HIVES / DIFICULTY BREATHING; TAKES PERCOCET W/O PROBLEM, 11/24/16) Penicillins (Verified Allergy, Intermediate, RASH, 11/24/16) SY Inhibitors (Verified Adverse Reaction, Unknown, HYPERKALEMIA, 03/10/17) Home Medications Scheduled Aspirin (Aspirin Chewable), 81 MG PO DAILY Calcium Carbonate-Cholecalcife (Caltrate 600+D), 1 TAB PO DAILY Collagenase (Santyl), 1 APPLN TOP DAILY Docusate Sodium (Colace), 1 CAP PO BID Home O2 Therapy (Oxygen), 2 LITERS NA HS Insulin Glargine (Lantus Solostar), 6 UNITS SC QPM Ipratropium-Albuterol (Combivent Respimat), 1 PUFFS INH QID Isosorbide Mononitrate Ext Rel (Imdur Ext Rel), 30 MG PO QAM Lactobacillus Acidophilus (Floranex), 4 TAB PO TIDM Levothyroxine Sodium (Levothyroxine Sodium), 137 MCG PO DAILY Magnesium Oxide (Magnesium), 400 MG PO BID Nutritional Supplements (Boost), 1 CAN PO BIDM Ranitidine Hcl (Zantac), 150 MG PO BID Sertraline HCl (Sertraline HCl), 100 MG PO DAILY Sotalol Hcl (Sotalol Hcl), 1 TAB PO QAM Trazodone Hcl (Trazodone), 50 MG PO HS Warfarin Sod (Jantoven), 1 MG PO 2XWK Warfarin Sod (Jantoven), 2 MG PO 5XWK Scheduled PRN Albuterol Hfa (Ventolin Hfa), 2 PUFF INH Q6 PRN for SOB/Wheezing Eucerin (Hydrocerin), 1 APPLN EXT BID PRN for nursing decison Furosemide (Lasix), 20 MG PO DAILY PRN for fluid accumulation/weight gain Menthol (Ricola), 1 FRANCES PO PRN PRN for SORE THROAT Nitroglycerin (Nitrostat), 0.4 MG UT UD PRN for Chest Pain Ondansetron Hcl (Zofran), 4 MG PO Q6H PRN for Nausea or Vomiting Tramadol HCl (Tramadol HCl), 25 MG PO Q6H PRN for Pain Review of Systems Not able to obtain reliable ROS from the patient, however she denies ROBERTO, chest pain, weakness, numbness. Daughter reports ongoing RLE wound. Daughter denies any complaints of fever, chills, URI symptoms, cough, chest pain, abdominal pain , decreased appetite, N/V/D. Physical Exam Vital Signs Date Time Temp Pulse Resp B/P (MAP) Pulse Ox O2 Delivery O2 Flow Rate FiO2 04/04/17 17:39 105 14 114/82 94 Nasal Cannula 4.0 04/04/17 16:51 106 16 117/95 98 Nasal Cannula 4.0 04/04/17 16:30 105 04/04/17 16:24 36.8 105 15 117/81 88 Room Air General Appearance: WD/WN, no apparent distress, + pertinent finding (family at bedside) Head: normocephalic, atraumatic Eyes: normal inspection, PERRL, EOMI ENT: hearing grossly normal, pharynx normal Neck: supple, no JVD, trachea midline Respiratory/Chest: no respiratory distress, no accessory muscle use, + decreased breath sounds, + crackles (bilateral bases) Cardiovascular: + tachycardia (atrial flutter rate 100s), + systolic murmur Abdomen/GI: normal bowel sounds, non tender, soft Extremities/Musculoskelatal: no calf tenderness, + pertinent finding (trace bilateral LE edema) Neurologic/Psych: alert, normal mood/affect, + pertinent finding (oriented to place, recognizes but unable to state his name, disoriented to date. retail marketing specialist strength 5/5 bilaterally.) Skin: normal color, warm/dry, + pertinent finding (small superficial wound right posterior calf, small amount of serous drainage on dressing. no surrounding erythema or tenderness. scattered ecchymosis.) Diagnostics Laboratory Results Results Past 24 Hours Test 04/04/17 15:45 04/04/17 16:49 04/04/17 17:33 04/04/17 17:35 Range/Units White Blood Count 7.09 4.8-10.8 K/uL Red Blood Count 4.72 4.2-5.4 M/uL Hemoglobin 13.8 12.0-16.0 g/dL Hematocrit 42.7 37-47 % Mean Corpuscular Volume 90.5 80-100 fL Mean Corpuscular Hemoglobin 29.2 25-34 pg Mean Corpuscular Hemoglobin Concent 32.3 32-36 g/dl Platelet Count 180 130-400 K/uL Mean Platelet Volume 10.0 7.4-10.4 fL Neutrophils (%) (Auto) 59.4 % Lymphocytes (%) (Auto) 26.5 % Monocytes (%) (Auto) 9.6 % Eosinophils (%) (Auto) 3.8 % Basophils (%) (Auto) 0.3 % Neutrophils # (Auto) 4.21 1.4-6.5 K/uL Lymphocytes # (Auto) 1.88 1.2-3.4 K/uL Monocytes # (Auto) 0.68 0.11-0.59 K/uL Eosinophils # (Auto) 0.27 0-0.5 K/uL Basophils # (Auto) 0.02 0-0.2 K/uL RDW Standard Deviation 64.2 36.4-46.3 fL RDW Coefficient of Variation 19.8 11.5-14.5 % Immature Granulocyte % (Auto) 0.4 % Immature Granulocyte # (Auto) 0.03 0.00-0.02 K/uL Sodium Level 132 136-145 mmol/L Potassium Level 4.4 3.5-5.1 mmol/L Chloride Level 97 98-107 mmol/L Carbon Dioxide Level 28 21-32 mmol/L Anion Gap 7.0 3-11 mmol/L Blood Urea Nitrogen 20 7-18 mg/dl Creatinine 1.40 0.60-1.20 mg/dl Est Creatinine Clear Calc Drug Dose 34.6 ml/min Estimated GFR () 42.8 Estimated GFR (Non- 36.9 BUN/Creatinine Ratio 14.3 10-20 Random Glucose 147 70-99 mg/dl Calcium Level 9.2 8.5-10.1 mg/dl Magnesium Level 1.7 1.8-2.4 mg/dl Total Bilirubin 1.2 0.2-1 mg/dl Direct Bilirubin 0.5 0-0.2 mg/dl Aspartate Amino Transf (AST/SGOT) 21 15-37 U/L Alanine Aminotransferase (ALT/SGPT) 11 12-78 U/L Alkaline Phosphatase 147 45-117 U/L Total Creatine Kinase 26 26-192 U/L Creatine Kinase MB 0.8 0.5-3.6 ng/ml Creatine Kinase MB Ratio 3.1 0-3.0 Total Protein 7.6 6.4-8.2 gm/dl Albumin 2.5 3.4-5.0 gm/dl Urine Color DK YELLOW Urine Appearance CLOUDY CLEAR Urine pH 6.0 4.5-7.5 Urine Specific [place] 1.026 1.000-1.030 Urine Protein 1+ NEG Urine Glucose (UA) NEG NEG Urine Ketones NEG NEG Urine Occult Blood 3+ NEG Urine Nitrite NEG NEG Urine Bilirubin NEG NEG Urine Urobilinogen NEG NEG Urine Leukocyte Esterase LARGE NEG Urine WBC (Auto) >30 0-5 /hpf Urine RBC (Auto) >30 0-4 /hpf Urine Hyaline Casts (Auto) 1-5 0-5 /lpf Urine Epithelial Cells (Auto) 5-10 0-5 /lpf Urine Bacteria (Auto) NEG NEG Urine Yeast (Auto) BUDDING NONE PRSENT Prothrombin Time 17.4 9.0-12.0 SECONDS Prothromb Time International Ratio 1.6 0.9-1.1 Activated Partial Thromboplast Time 33.1 21.0-31.0 SECONDS Partial Thromboplastin Ratio 1.3 Bedside Troponin I < 0.030 0-0.045 ng/ml [id number] Natriuretic Peptide 5005 0-900 pg/ml Test 04/04/17 17:40 Range/Units Bedside Lactic Acid Venous 1.43 0.90-1.70 mmol/L Microbiology Results 04/04/17 Blood Culture, Received Pending 04/04/17 Blood Culture, Received Pending 04/04/17 Urine Culture, Received Pending Diagnostic Radiology HEAD WITHOUT CONTRAST (CT)- per radiology IMPRESSION: 1. No acute intracranial pathology. SINGLE VIEW CHEST- per radiology. also reviewed by me. IMPRESSION: 1. Cardiomegaly and cardiac pacemaker with evidence of congestive failure. 2. Bilateral airspace opacities are identified and are typical in appearance for interstitial edema. Correlate clinically for evidence of superimposed pneumonia which cannot be excluded. 3. Small pleural effusions are identified. EKG atrial flutter, rate 105 bpm, incomplete LBBB, no ST change Impression Assessment and Plan ACUTE ON CHRONIC SYSTOLIC CHF Sent from cardiology office Presents w/ worsening SOB, bilateral LE edema CXR- congestive failure findings, interstitial edema, small bilat pleural effusions; Pro-BNP 5K; initial troponin negative Prior echo 03/12/17- The study was technically limited. The left ventricular cavity is small. There is severe concentric left ventricular hypertrophy. Left ventricular systolic function is mildly reduced. Ejection Fraction = 45-50%. The right ventricle is mildly dilated. The right ventricular systolic function is mild to moderately reduced. The left atrium is moderately dilated. The right atrium is moderately dilated. There is severe calcific aortic valve stenosis. There is mild mitral regurgitation IV Lasix 40 mg BID Fluid restriction Monitor daily weight, I/O's Consult cardiology ATRIAL FLUTTER WITH RVR In atrial flutter rate 100s Pacemaker interrogated in clinic today- persistent atrial flutter RVR since November 2016 and non sustained VT was noted Continue sotalol 80 mg daily IV Lopressor 2.5 mg PRN HR >110 On Coumadin- INR subtherapeutic at 1.6- will give Heparin SQ until INR therapeutic Consult cardiology METABOLIC ENCEPHALOPATHY Secondary to UTI CT head negative URINARY TRACT INFECTION Has Valentino catheter UA appears infected Given dose of empiric IV Rocephin Continue IV Rocephin Follow urine culture HYPOMAGNESEMIA IV replacement Continue PO supplement CKD STAGE III Creat is 1.4, baseline approximately 1.2-1.3 Monitor renal function while on IV Lasix CAD Denies chest pain Trop negative; no ST changes on EKG Continue aspirin, Imdur DM TYPE 2 Continue home Lantus NovoLog sliding scale COPD/ IDIOPATHIC PULM FIBROSIS Not in exacerbation Has chronic respiratory failure on 2L NC continuous at SNF; was hypoxic on RA in ER but now saturating well on 4 liters NC Continue supplemental O2 RECENT ASPIRATION PNEUMONIA- resolved Continue dental soft diet with aspiration precautions RECENT RLE CELLULITIS- resolved No signs of cellulitis surrounding RLE wound DVT PROPHYLAXIS Coumadin (INR subtherapeutic); subQ heparin until INR therapeutic CODE STATUS Full code per my discussion with daughter Keyana (SATURNINO) and Martin at bedside DISPOSITION Admit to telemetry Resides at [facility] Discharge planning, PT, OT evaluations requested Patient seen in collaboration with Dr. Quynh Toure. Please see her addendum. VTE Prophylaxis VTE Risk Assessment Done? Y/N: Yes Risk Level: Moderate Given or contraindicated: Warfarin (Coumadin)
[2017-04-04] MEDS: MAGNESIUM SULFATE 1GM / D5W 1 GM in PREMIXED IN D5W 100 ML IV SCH ×2 (21:53→22:19)
[2017-04-04] MEDS: TRAZODONE HCL 50 MG TAB PO SCH (21:54)
[2017-04-04] MEDS: MAGNESIUM OXIDE 400 MG TAB PO SCH (21:55)
[2017-04-04] MEDS: DOCUSATE SODIUM 100 MG CAP PO SCH (21:55)
[2017-04-04] MEDS: RANITIDINE HCL 150 MG TAB PO SCH (21:56)
[2017-04-04] MEDS: INSULIN GLARGINE SOLOSTAR 100 UNITS/ML 3 ML PEN SC SCH (22:02)
[2017-04-04] MEDS: HEPARIN SOD 5000 UNIT/0.5 ML CARP SQ SCH (22:03)
[2017-04-04 22:17] VITALS: BP 118/83; PULSE 106; TEMP 36.5; O2SAT 95
[2017-04-05] VITALS (10 sets, daily range): BP systolic 77–113; BP diastolic 53–78; PULSE 101–107; TEMP 36.3–36.6; O2SAT 92–98
[2017-04-05] MEDS: HEPARIN SOD 5000 UNIT/0.5 ML CARP SQ SCH (05:53)
[2017-04-05] MEDS: LEVOTHYROXINE 137 MCG TAB PO SCH (06:05)
[2017-04-05 06:55] LABS: INR 1.5 (0.9-1.1); PROTHROMBIN TIME (PATIENT) 16.2 SECONDS (9.0-12.0)
[2017-04-05 07:01] LABS: HEMATOCRIT 43.8 % (37-47); MEAN CELL VOLUME 90.3 fL (80-100); MEAN CORPUSCULAR HEMOGLOBIN 28.9 pg (25-34); PLATELET COUNT 161 K/uL (130-400); RED BLOOD COUNT 4.85 M/uL (4.2-5.4); WHITE BLOOD COUNT 5.82 K/uL (4.8-10.8)
[2017-04-05 07:19] LABS: BLOOD UREA NITROGEN 20 mg/dl (7-18); BUN/CREATININE RATIO 15.1 (10-20); CALCIUM 9.2 mg/dl (8.5-10.1); CARBON DIOXIDE 33 mmol/L (21-32); CHLORIDE 97 mmol/L (98-107); GLUCOSE 81 mg/dl (70-99); POTASSIUM 3.6 mmol/L (3.5-5.1); SODIUM 137 mmol/L (136-145)
[2017-04-05] MEDS: BOOST VANILLA PO SCH ×6 (08:00→17:47)
[2017-04-05] MEDS: LACTOBACILLUS ACIDOPHILUS (FLORANEX) TAB PO SCH ×4 (08:00→17:42)
[2017-04-05] MEDS: CALCIUM 600MG + VIT D 400 IU TAB PO SCH ×2 (08:15→08:36)
[2017-04-05] MEDS: INSULIN ASPART 100 UNITS/ML 3 ML PEN SC SCH ×4 (08:15→21:00)
[2017-04-05] MEDS: DOCUSATE SODIUM 100 MG CAP PO SCH ×3 (08:16→21:21)
[2017-04-05] MEDS: RANITIDINE HCL 150 MG TAB PO SCH ×2 (08:16→08:34)
[2017-04-05] MEDS: COLLAGENASE OINT 30 GM TUBE EXT SCH (08:18)
[2017-04-05] MEDS: SERTRALINE HCL 100 MG TAB PO SCH (08:35)
[2017-04-05] MEDS: ASPIRIN 81 MG ECTAB PO SCH (08:35)
[2017-04-05] MEDS: MAGNESIUM OXIDE 400 MG TAB PO SCH ×2 (08:36→21:22)
[2017-04-05] MEDS ORDERED: ISOSORBIDE MONONITRATE 30 MG TABCR PO SCH (09:00)
[2017-04-05] MEDS ORDERED: CEFTRIAXONE SOD INJ 1 GM ADDVIAL IV SCH (09:00)
[2017-04-05] MEDS ORDERED: FUROSEMIDE 20 MG TAB PO SCH (09:00)
[2017-04-05] MEDS ORDERED: SOTALOL HCL 80 MG TAB PO SCH (09:00)
[2017-04-05] MEDS ORDERED: FUROSEMIDE INJ 40 MG in SYRINGE 0 ML IV SCH (09:00)
--- NOTE | 2017-04-05 09:25 | Clinical Documentation Query ---
CLINICAL DOCUMENTATION QUERY Dr. RAZO, In your clinical opinion is this patient being managed for: ( ) UTI due to chronic trevizo catheter ( ) Other explanation of clinical findings (Please Explain) ( ) Unable to determine (Please Define) ( ) Need to Discuss ( x ) Not Agree The medical record reflects the following clinical findings, treatment, and risk factors. DOES NOT HAVE CHRNOIC TREVIZO HAD TREVIZO IN LAST ADMISSSION WAS DISCONTINUED PRIOR TO DISCHARGE Clinical Indicators: 76 yo female presenting with acute on chronic CHF, A flutter and UTI. Noted to have a chronic trevizo catheter. Treatment: IV rocephin, urine cx pending Risk Factors: age, chronic trevizo catheter, DM Please clarify and document your clinical opinion in the progress notes and discharge summary. Terms such as "probable", "suspected", "likely", "questionable", "possible", or "still to be ruled out" are acceptable. IF IN AGREEMENT, YOU MUST DOCUMENT ABOVE DIAGNOSTIC STATEMENT IN DAILY PROGRESS NOTES AND DISCHARGE SUMMARY. This document is not part of the patient's record. Thank You, Kayla Styles RN [phone]
--- NOTE | 2017-04-05 10:47 | Cardiology Consultation ---
Cardiology Consultation Date of Consultation: Apr 05, 2017 Requesting Physician: Mesfin Attending Career Technical Counselor: Alec (See Robles PA-C) History of Present Illness History of Present Illness: Mrs. Lisa Hammer is a complex 76 year old female who is being seen at the request of Dr. Toure. Reasons for consultation include heart failure and atrial fibrillation. Mrs. Hammer notes feeling poorly for quite some time, since November 2016. Records reviewed including ER evaluation in November with EKG at that time revealing atrial flutter with a rapid ventricular response. Chart review reveals that she was admitted to [facility] in February/March 2017 with lethargy/ weakness, diagnoses of metabolic encephalopathy due to right lower extremity wound/cellulitis and possible pneumonia. Echo revealed interval decline in systolic function, EF 45%, with progressive valvular disease - severe aortic stenosis. She was eventually discharged to [facility] where she has continued to feel poorly, progressively with ambulatory dysfunction most recently requiring two person assist. She notes not saying much, "I don't want to say the wrong thing." She feels tired, washed out, dyspnea, orthopneic. No chest pain. No overt palpitations. No fevers or chills. No bleeding issues. She has not been seen by Cardiology since July 2016. (See Robles PA-C) Past Medical/Surgical History Problem List: Past Medical/Surgical History: CAD s/p CABG for multivessel disease in December of 2009. Patient received a ROMAN graft to the LAD, a SVG to the obtuse marginal, SVG to the posterior descending artery. Repeat diagnostic cardiac catheterization in July 2010 demonstrated left subclavian stenosis with atretic ROMAN graft. The LAD however most significant lesion was less than 50%. The circumflex and right coronary arteries were severely diseased though there were widely patent grafts. Aortic valve stenosis Mild reduction in LV systolic function by 03/2017 resting echocardiogram at [facility] Paroxysmal atrial fibrillation and flutter, prescribed renally dosed sotalol and chronic anticoagulation therapy. 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 oxygen dependent chronic obstructive lung disease and idiopathic pulmonary fibrosis Hypertension Dyslipidemia Type II diabetes mellitus with retinopathy Renal insufficiency, CKD stage III History of hyperkalemia, intolerance to ACEI/A2RB Transient ischemic attack, CVA History of DVT Heterozygous MTHFR mutation [id number] Peripheral vascular disease, left subclavian stenosis Reflux esophagitis Hypothyroidism Chronic back pain. Depression. Migraines. Vertigo Multiple hernia repairs. Total hip replacement. Malignant neoplasm of corpus uteri Total hysterectomy with bilateral salpingo-oophorectomy Hysterectomy. Cholecystectomy. Cervical spine surgery Family History: 1. Mother with diabetes, vaginal cancer, heart disease. 2. Father with heart disease, diabetes. 3. Two brothers with diabetes. 4. One brother has cancer. 5. Paternal grandmother with diabetes. 6. Grandchild has history of atrial fibrillation. Social History: Reformed smoker. No alcohol. No illegal drug use. . (See Robles PA-C) Family History Cardiac disorder FATHER MOTHER Diabetes mellitus FATHER MOTHER BROTHER GRANDMOTHER FH: cancer (See Robles PA-C) Cardiac disorder FATHER MOTHER Diabetes mellitus FATHER MOTHER BROTHER GRANDMOTHER FH: cancer (Salvatore Michael M.D.) Social History Smoking Status: Former Smoker Alcohol Use: none Drug Use: none Marital Status: Housing Status: retirement ([facility]) Occupation: retired, other (See Robles PA-C) Review Of Systems Complete Review of Systems was difficult or unable to be obtained. See above. + Chronic headaches. + Cough. no hemoptysis. No fever. No rigors. No syncope. No rash. Chronic myalgias/arthralgias. (See Robles PA-C) Allergies Coded Allergies: Codeine (Verified Allergy, Severe, HIVES / DIFICULTY BREATHING; TAKES PERCOCET W/O PROBLEM, 11/24/16) Penicillins (Verified Allergy, Intermediate, RASH, 11/24/16) SY Inhibitors (Verified Adverse Reaction, Unknown, HYPERKALEMIA, 03/10/17) Medications Reported Home Medications Medications Dose Route/Sig Max Daily Dose Days Date Category Dose Instructions Lasix (Furosemide) 20 Mg Tab 20 Mg PO DAILY PRN 30 04/04/17 Rx Caltrate 600+D (Calcium Carbonate-Cholecalcife) 1 Tab Tab 1 Tab PO DAILY 04/04/17 Reported Santyl (Collagenase) 250 Unit/Gm Oin 1 Appln TOP DAILY 04/04/17 Reported RIGHT CALF WOUND Jantoven (Warfarin Sodium) 2 Mg Tab 2 Mg PO 5XWK 04/04/17 Reported MONDAY, MONDAY, MONDAY, MONDAY, MONDAY Jantoven (Warfarin Sodium) 1 Mg Tab 1 Mg PO 2XWK 04/04/17 Reported TUESDAYS & SATURDAYS Lantus Solostar (Insulin Glargine) 100 Unit/Ml Inj 6 Units SC QPM 30 03/17/17 Rx Hydrocerin (Multi-Ingredient Ointment) 360 Appln/120 Gm Cr 1 Appln EXT BID PRN 30 03/12/17 Rx Floranex (Lactobacillus Acidophilus) 1 Tab Tab 4 Tab PO TIDM 30 03/12/17 Rx Ricola (Menthol) 24 Maximus/1 Box Lozg 1 Maximus PO PRN PRN 03/12/17 Rx Boost (Nutritional Supplements) 1 Liq Liq 1 Can PO BIDM 30 03/12/17 Rx Tramadol HCl 50 Mg Tab 25 Mg PO Q6H PRN 03/12/17 Rx Trazodone (Trazodone HCl) 50 Mg Tab 50 Mg PO HS 30 03/12/17 Rx Sertraline HCl 100 Mg Tab 100 Mg PO DAILY 03/09/17 Reported Ventolin Hfa (Albuterol) 200 Puffs/04878 Mcg Aers 2 Puff INH Q6 PRN 03/09/17 Reported Zofran (Ondansetron HCl) 4 Mg Tab 4 Mg PO Q6H PRN 11/24/16 Reported Magnesium (Magnesium Oxide) 400 Mg Tab 400 Mg PO BID 11/24/16 Reported Imdur Ext Rel (Isosorbide Mononitrate) 30 Mg Tabcr 30 Mg PO QAM 02/01/16 Reported Sotalol Hcl 80 Mg Tab 1 Tab PO QAM 30 02/01/16 Reported Combivent Respimat (Ipratropium-Albuterol) 1 Aer Aer 1 Puffs INH QID 01/04/16 Reported Oxygen Gas 2 Liters NA HS 01/04/16 Reported HS and with any daytime sleeping Colace (Docusate Sodium) 100 Mg Cap 1 Cap PO BID 30 01/04/16 Reported Aspirin Chewable (Aspirin) 81 Mg Chew 81 Mg PO DAILY 07/17/15 Reported Levothyroxine Sodium 137 Mcg Tab 137 Mcg PO DAILY 07/17/15 Reported Zantac (Ranitidine Hcl) 150 Mg Tab 150 Mg PO BID 06/07/13 Reported Nitrostat (Nitroglycerin) 0.4 Mg Tab 0.4 Mg UT UD PRN 06/07/[address] ONE TABLET UNDER THE TONGUE EVERY 5 MINUTES FOR UP TO 3 DOSES IF NEEDED FOR CHEST PAIN. (See Robles PA-C) Physical Exam Vital Signs (Last 8hrs): Last 8 Hrs Date Time Temp Pulse Resp B/P (MAP) Pulse Ox O2 Delivery O2 Flow Rate FiO2 04/05/17 07:40 Nasal Cannula 4.0 04/05/17 07:24 36.3 107 16 104/70 (81) 92 Nasal Cannula 4.0 04/05/17 04:03 36.6 102 20 92/70 (77) 96 4.0 04/05/17 04:00 Nasal Cannula 4.0 General Appearance: Alert and Oriented to person and place but not to time. Mildly tachypneic. NAD. Head: Normocephalic Atraumatic. Eyes: PER, EOMI, conjunctiva and sclera clear Neck: Supple. Bilateral carotid bruits. + JVD. Respiratory: Considerably diminished at the based with rales/crackles 1/[address] up bilaterally. No wheezing. Cardiovascular: Regular at 110 bpm. Soft systolic murmur. No diastolic murmur. No rub. Abdomen: +BS. Soft. Nontender. Extremities: 1+ edema, No clubbing. no cyanosis. Dressing to the distal right posterior leg. Absent distal pulses bilaterally. Neuro: No focal deficits. Psychiatric: Flat affect. (See Robles PA-C) Data Last 24 Hours Test 04/04/17 15:45 04/04/17 16:49 04/04/17 17:33 04/04/17 17:35 White Blood Count 7.09 K/uL Red Blood Count 4.72 M/uL Hemoglobin 13.8 g/dL Hematocrit 42.7 % Mean Corpuscular Volume 90.5 fL Mean Corpuscular Hemoglobin 29.2 pg Mean Corpuscular Hemoglobin Concent 32.3 g/dl Platelet Count 180 K/uL Mean Platelet Volume 10.0 fL Neutrophils (%) (Auto) 59.4 % Lymphocytes (%) (Auto) 26.5 % Monocytes (%) (Auto) 9.6 % Eosinophils (%) (Auto) 3.8 % Basophils (%) (Auto) 0.3 % Neutrophils # (Auto) 4.21 K/uL Lymphocytes # (Auto) 1.88 K/uL Monocytes # (Auto) 0.68 K/uL Eosinophils # (Auto) 0.27 K/uL Basophils # (Auto) 0.02 K/uL RDW Standard Deviation 64.2 fL RDW Coefficient of Variation 19.8 % Immature Granulocyte % (Auto) 0.4 % Immature Granulocyte # (Auto) 0.03 K/uL Sodium Level 132 mmol/L Potassium Level 4.4 mmol/L Chloride Level 97 mmol/L Carbon Dioxide Level 28 mmol/L Anion Gap 7.0 mmol/L Blood Urea Nitrogen 20 mg/dl Creatinine 1.40 mg/dl Est Creatinine Clear Calc Drug Dose 34.6 ml/min Estimated GFR () 42.8 Estimated GFR (Non- 36.9 BUN/Creatinine Ratio 14.3 Random Glucose 147 mg/dl Calcium Level 9.2 mg/dl Magnesium Level 1.7 mg/dl Total Bilirubin 1.2 mg/dl Direct Bilirubin 0.5 mg/dl Aspartate Amino Transf (AST/SGOT) 21 U/L Alanine Aminotransferase (ALT/SGPT) 11 U/L Alkaline Phosphatase 147 U/L Total Creatine Kinase 26 U/L Creatine Kinase MB 0.8 ng/ml Creatine Kinase MB Ratio 3.1 Total Protein 7.6 gm/dl Albumin 2.5 gm/dl Urine Color DK YELLOW Urine Appearance CLOUDY Urine pH 6.0 Urine Specific [place] 1.026 Urine Protein 1+ Urine Glucose (UA) NEG Urine Ketones NEG Urine Occult Blood 3+ Urine Nitrite NEG Urine Bilirubin NEG Urine Urobilinogen NEG Urine Leukocyte Esterase LARGE Urine WBC (Auto) >30 /hpf Urine RBC (Auto) >30 /hpf Urine Hyaline Casts (Auto) 1-5 /lpf Urine Epithelial Cells (Auto) 5-10 /lpf Urine Bacteria (Auto) NEG Urine Yeast (Auto) BUDDING Prothrombin Time 17.4 SECONDS Prothromb Time International Ratio 1.6 Activated Partial Thromboplast Time 33.1 SECONDS Partial Thromboplastin Ratio 1.3 Bedside Troponin I < 0.030 ng/ml OB-Wpl-H-Type Natriuretic Peptide 5005 pg/ml Test 04/04/17 17:40 04/04/17 20:56 04/05/17 01:47 04/05/17 06:29 Bedside Lactic Acid Venous 1.43 mmol/L Bedside Glucose 94 mg/dl Troponin I < 0.015 ng/ml < 0.015 ng/ml White Blood Count 5.82 K/uL Red Blood Count 4.85 M/uL Hemoglobin 14.0 g/dL Hematocrit 43.8 % Mean Corpuscular Volume 90.3 fL Mean Corpuscular Hemoglobin 28.9 pg Mean Corpuscular Hemoglobin Concent 32.0 g/dl Platelet Count 161 K/uL Prothrombin Time 16.2 SECONDS Prothromb Time International Ratio 1.5 Sodium Level 137 mmol/L Potassium Level 3.6 mmol/L Chloride Level 97 mmol/L Carbon Dioxide Level 33 mmol/L Anion Gap 7.0 mmol/L Blood Urea Nitrogen 20 mg/dl Creatinine 1.30 mg/dl Est Creatinine Clear Calc Drug Dose 36.4 ml/min Estimated GFR () 46.8 Estimated GFR (Non- 40.4 BUN/Creatinine Ratio 15.1 Random Glucose 81 mg/dl Calcium Level 9.2 mg/dl Test 04/05/17 07:31 Bedside Glucose 82 mg/dl Pacemaker interrogation in April 04, 2017 demonstrated persistent atrial flutter with a rapid ventricular response since October 2016, correlating temporally with decline in patient activity. Admission EKG with probable 2:1 atrial flutter, nonspecific intra-ventricular conduction delay. QTC 496 ms. Telemetry: Probable atrial flutter with 2:1 conduction, ventricular rate 100 to 110 bpm. No ventricular arrhythmias. Admission CXR revealed cardiomegaly with evidence of congestive failure, bilateral airspace opacities felt to be typical in appearance for interstitial edema, and small pleural effusions as per Dr. Navarrete. Head CT in the ER showed no acute intracranial pathology as per Dr. Reynoso. CrCL is 45.85 mL/min (76 y/o female with serum creatinine of 1.3, weight of 76, 5 kg (See Robles PA-C) Assessment & Plan Complex 76 year old female admitted with symptomatic persistent atrial flutter with a rapid ventricular response dating back to November 2016, occurring in the setting of valvular heart disease as well as coronary artery disease, resultant acute on chronic systolic and diastolic congestive heart failure, interval decline in left ventricular systolic function as well as mental status change, lethargy Management options of the persistent atrial flutter are considerably limited given her coronary disease, reduced systolic function, renal dysfunction, and significant pulmonary disease-pulmonary fibrosis. RECOMMENDATIONS/PLAN: Resting echocardiography to reassess degree of aortic stenosis and systolic function Continue IV diuresis. Maintain electrolytes Discontinue DVT prophylaxis subcutaneous heparin Initiate/utilize weight based heparin, without bolus, until INR therapeutic Sotalol 80 mg every twelve hours for now NPO after midnight for possible SARAH guided cardioversion Daily EKG's. BP to be obtained on the right upper extremity only (left subclavian stenosis) Further recommendations pending the above, evaluation by Dr. Michael, and her ongoing hospitalization. (See Robles PA-C) Patient seen and personally examined. Clinical decline noted over past several months with recent respiratory decline due to congestive heart failure-- responding to treatment. Atrial flutter with poor rate control is present and is contributing in at least part. Will review echo, plan as above. Salvatore Michael MD (Salvatore Michael,MPaulette.)
[2017-04-05] MEDS ORDERED: HEPARIN IV LOW DOSE NO BOLUS SCH (11:12)
[2017-04-05 11:42] LABS: BASO % 0.2 %; BASO ABS # 0.01 K/uL (0-0.2); EOS % 5.7 %; HEMATOCRIT 43.7 % (37-47); IG% 0.3 %; LYMPH % 27.6 %; LYMPH ABS # 1.64 K/uL (1.2-3.4); MEAN CELL VOLUME 91.4 fL (80-100); MEAN CORPUSCULAR HEMOGLOBIN 30.3 pg (25-34); MEAN PLATELET VOLUME 9.4 fL (7.4-10.4); MONO % 9.1 %; NEUT % 57.1 %; PLATELET COUNT 164 K/uL (130-400); RED BLOOD COUNT 4.78 M/uL (4.2-5.4); WHITE BLOOD COUNT 5.94 K/uL (4.8-10.8)
[2017-04-05] MEDS: HEPARIN 25000 UNIT/ D5W 500 ML (PHARMACY PREPARED) IV PRN ×4 (11:44→15:02)
[2017-04-05] MEDS ORDERED: POTASSIUM CHLORIDE 20 MEQ TABCR PO ONE (11:45)
[2017-04-05 11:48] LABS: COMPLETE YES; MEAN CORPUSCULAR HGB CONC 33.2 g/dl (32-36)
[2017-04-05 11:51] LABS: INR 1.4 (0.9-1.1); PARTIAL THROMBOPLASTIN RATIO 1.3; PROTHROMBIN TIME (PATIENT) 15.4 SECONDS (9.0-12.0)
--- NOTE | 2017-04-05 12:12 | Progress Note ---
Internal Med Progress Note Date of Service: Apr 05, 2017. Provider Documentation: SUBJECTIVE: pt found sitting on chair denies of any symptom of SOB or dizzy spell on 02 4 L via nasal canula SBP low on rt arm check -SBP in 80's pt says does not feel dizzy or lightheaded OBJECTIVE: Vital Signs-as noted below Exam: General-elderly female , no sign of distress Eyes-sclera non icteric ENT-NAD Neck-no JVD noted Lungs-coarse crackles at base Heart-regular , no JVD , + 2 bilateral pitting edema Abdomen-soft, non tender Extremities-multiple skin tears in lower ext Neuro-baseline dementia with forgetfulness ,no focal deficit noted Lab data as noted below. ASSESSMENT & PLAN: ACUTE ON CHRONIC CHF EXACERBATION, SYSTOLIC -clinically improved pt mentions breathing much better since yesterday -ordered for diuretics : IV lasix 40 mg BID, Fluid restriction, I/Os and Daily weights - , Echo- 03/27/17- EF 45-50%, Mild MR, Severe , Pacemaker interrogation results per office notes- Non sustained v tach, Persistent A flutter -Cardiology consult appreciated HYPOTENSION : BP in 80's with out symptoms will hold Lasix and Imdur for now re evaluate case d/w cardiology ATRIAL FLUTTER WITH RVR -pt denies of any symptom -on Sotalol 80 mg daily - IV Lopressor 2.5 Q 6 hours PRN for HR > 110 -Anticoagulation: Coumadin with INR 1.6, IV heparin bridge therapy till INR therapeutic -Cardiology following plan for SARAH cardioversion in AM ordered for NPO past midnight METABOLIC ENCEPHALOPATHY/CONFUSION : mental status gradually improving Likely secondary to above/UTI -Monitor response to rx UTI -UA +VE urine culture -amy albicans pt does not have any urinary symptom will avoid Diflucan -concern for prolong Qtc , as pt already on Sotalol HX OF RECENT ASPIRATION PNEUMONIA During last admission this month -Rxed with antibiotics x 7 days -Speech evaluation during last admission- dental soft diet with aspiration precautions-continued HX OF CELLULITIS/WOUND RIGHT LEG -Rxed with antibiotic course and f/up with wound care outpatient - during last admission -Wound healing well and no signs of cellulitis this admission DVT PROPHYLAXIS IV Heparin INR therapeutic (on Coumadin) FULL CODE DISPOSITION to be determined will need PT/OT eval prior to discharge DVT PROPHYLAXIS [] DISPOSITION [] Vital Signs: Date Time Temp Pulse Resp B/P (MAP) Pulse Ox O2 Delivery O2 Flow Rate FiO2 04/05/17 11:33 36.3 107 16 83/57 (66) 98 Nasal Cannula 4.0 04/05/17 11:19 105 81/58 (66) 04/05/17 07:40 Nasal Cannula 4.0 04/05/17 07:24 36.3 107 16 104/70 (81) 92 Nasal Cannula 4.0 04/05/17 04:03 36.6 102 20 92/70 (77) 96 4.0 04/05/17 04:00 Nasal Cannula 4.0 04/05/17 00:34 36.5 101 20 113/78 (90) 94 Nasal Cannula 4.0 04/05/17 00:00 Nasal Cannula 4.0 04/04/17 22:17 36.5 106 20 118/83 (95) 95 Nasal Cannula 4.0 04/04/17 20:57 Room Air 04/04/17 18:46 105 18 106/76 96 Nasal Cannula 4.0 04/04/17 17:39 105 14 114/82 94 Nasal Cannula 4.0 04/04/17 16:51 106 16 117/95 98 Nasal Cannula 4.0 04/04/17 16:30 105 04/04/17 16:24 36.8 105 15 117/81 88 Room Air Lab Results: Results Past 24 Hours Test 04/04/17 15:45 04/04/17 16:49 04/04/17 17:33 04/04/17 17:35 Range/Units White Blood Count 7.09 4.8-10.8 K/uL Red Blood Count 4.72 4.2-5.4 M/uL Hemoglobin 13.8 12.0-16.0 g/dL Hematocrit 42.7 37-47 % Mean Corpuscular Volume 90.5 80-100 fL Mean Corpuscular Hemoglobin 29.2 25-34 pg Mean Corpuscular Hemoglobin Concent 32.3 32-36 g/dl Platelet Count 180 130-400 K/uL Mean Platelet Volume 10.0 7.4-10.4 fL Neutrophils (%) (Auto) 59.4 % Lymphocytes (%) (Auto) 26.5 % Monocytes (%) (Auto) 9.6 % Eosinophils (%) (Auto) 3.8 % Basophils (%) (Auto) 0.3 % Neutrophils # (Auto) 4.21 1.4-6.5 K/uL Lymphocytes # (Auto) 1.88 1.2-3.4 K/uL Monocytes # (Auto) 0.68 0.11-0.59 K/uL Eosinophils # (Auto) 0.27 0-0.5 K/uL Basophils # (Auto) 0.02 0-0.2 K/uL RDW Standard Deviation 64.2 36.4-46.3 fL RDW Coefficient of Variation 19.8 11.5-14.5 % Immature Granulocyte % (Auto) 0.4 % Immature Granulocyte # (Auto) 0.03 0.00-0.02 K/uL Sodium Level 132 136-145 mmol/L Potassium Level 4.4 3.5-5.1 mmol/L Chloride Level 97 98-107 mmol/L Carbon Dioxide Level 28 21-32 mmol/L Anion Gap 7.0 3-11 mmol/L Blood Urea Nitrogen 20 7-18 mg/dl Creatinine 1.40 0.60-1.20 mg/dl Est Creatinine Clear Calc Drug Dose 34.6 ml/min Estimated GFR () 42.8 Estimated GFR (Non- 36.9 BUN/Creatinine Ratio 14.3 10-20 Random Glucose 147 70-99 mg/dl Calcium Level 9.2 8.5-10.1 mg/dl Magnesium Level 1.7 1.8-2.4 mg/dl Total Bilirubin 1.2 0.2-1 mg/dl Direct Bilirubin 0.5 0-0.2 mg/dl Aspartate Amino Transf (AST/SGOT) 21 15-37 U/L Alanine Aminotransferase (ALT/SGPT) 11 12-78 U/L Alkaline Phosphatase 147 45-117 U/L Total Creatine Kinase 26 26-192 U/L Creatine Kinase MB 0.8 0.5-3.6 ng/ml Creatine Kinase MB Ratio 3.1 0-3.0 Total Protein 7.6 6.4-8.2 gm/dl Albumin 2.5 3.4-5.0 gm/dl Urine Color DK YELLOW Urine Appearance CLOUDY CLEAR Urine pH 6.0 4.5-7.5 Urine Specific [place] 1.026 1.000-1.030 Urine Protein 1+ NEG Urine Glucose (UA) NEG NEG Urine Ketones NEG NEG Urine Occult Blood 3+ NEG Urine Nitrite NEG NEG Urine Bilirubin NEG NEG Urine Urobilinogen NEG NEG Urine Leukocyte Esterase LARGE NEG Urine WBC (Auto) >30 0-5 /hpf Urine RBC (Auto) >30 0-4 /hpf Urine Hyaline Casts (Auto) 1-5 0-5 /lpf Urine Epithelial Cells (Auto) 5-10 0-5 /lpf Urine Bacteria (Auto) NEG NEG Urine Yeast (Auto) BUDDING NONE PRSENT Prothrombin Time 17.4 9.0-12.0 SECONDS Prothromb Time International Ratio 1.6 0.9-1.1 Activated Partial Thromboplast Time 33.1 21.0-31.0 SECONDS Partial Thromboplastin Ratio 1.3 Bedside Troponin I < 0.030 0-0.045 ng/ml CX-Jsv-[id number]-Type Natriuretic Peptide 5005 0-900 pg/ml Test 04/04/17 17:40 04/04/17 20:56 04/05/17 01:47 04/05/17 06:29 Range/Units Bedside Lactic Acid Venous 1.43 0.90-1.70 mmol/L Bedside Glucose 94 70-90 mg/dl Troponin I < 0.015 < 0.015 0-0.045 ng/ml White Blood Count 5.82 4.8-10.8 K/uL Red Blood Count 4.85 4.2-5.4 M/uL Hemoglobin 14.0 12.0-16.0 g/dL Hematocrit 43.8 37-47 % Mean Corpuscular Volume 90.3 80-100 fL Mean Corpuscular Hemoglobin 28.9 25-34 pg Mean Corpuscular Hemoglobin Concent 32.0 32-36 g/dl Platelet Count 161 130-400 K/uL Prothrombin Time 16.2 9.0-12.0 SECONDS Prothromb Time International Ratio 1.5 0.9-1.1 Sodium Level 137 136-145 mmol/L Potassium Level 3.6 3.5-5.1 mmol/L Chloride Level 97 98-107 mmol/L Carbon Dioxide Level 33 21-32 mmol/L Anion Gap 7.0 3-11 mmol/L Blood Urea Nitrogen 20 7-18 mg/dl Creatinine 1.30 0.60-1.20 mg/dl Est Creatinine Clear Calc Drug Dose 36.4 ml/min Estimated GFR () 46.8 Estimated GFR (Non- 40.4 BUN/Creatinine Ratio 15.1 10-20 Random Glucose 81 70-99 mg/dl Calcium Level 9.2 8.5-10.1 mg/dl Test 04/05/17 07:31 04/05/17 11:26 04/05/17 11:34 Range/Units Bedside Glucose 82 92 70-90 mg/dl White Blood Count 5.94 4.8-10.8 K/uL Red Blood Count 4.78 4.2-5.4 M/uL Hemoglobin 14.5 12.0-16.0 g/dL Hematocrit 43.7 37-47 % Mean Corpuscular Volume 91.4 80-100 fL Mean Corpuscular Hemoglobin 30.3 25-34 pg Mean Corpuscular Hemoglobin Concent 33.2 32-36 g/dl Platelet Count 164 130-400 K/uL Mean Platelet Volume 9.4 7.4-10.4 fL Neutrophils (%) (Auto) 57.1 % Lymphocytes (%) (Auto) 27.6 % Monocytes (%) (Auto) 9.1 % Eosinophils (%) (Auto) 5.7 % Basophils (%) (Auto) 0.2 % Neutrophils # (Auto) 3.39 1.4-6.5 K/uL Lymphocytes # (Auto) 1.64 1.2-3.4 K/uL Monocytes # (Auto) 0.54 0.11-0.59 K/uL Eosinophils # (Auto) 0.34 0-0.5 K/uL Basophils # (Auto) 0.01 0-0.2 K/uL RDW Standard Deviation 65.4 36.4-46.3 fL RDW Coefficient of Variation 19.8 11.5-14.5 % Immature Granulocyte % (Auto) 0.3 % Immature Granulocyte # (Auto) 0.02 0.00-0.02 K/uL Prothrombin Time 15.4 9.0-12.0 SECONDS Prothromb Time International Ratio 1.4 0.9-1.1 Activated Partial Thromboplast Time 34.3 21.0-31.0 SECONDS Partial Thromboplastin Ratio 1.3 Magnesium Level 2.1 1.8-2.4 mg/dl Thyroid Stimulating Hormone (TSH) 5.340 0.300-4.500 uIu/ml Microbiology Results 7/25/17 Blood Culture, Received Pending 04/04/17 Blood Culture, Received Pending 04/04/17 Urine Culture - Preliminary, Resulted Amy Albicans
[2017-04-05 12:18] LABS: MAGNESIUM 2.1 mg/dl (1.8-2.4); THYROID STIMULATING HORMONE 5.34 uIu/ml (0.300-4.500)
[2017-04-05] MEDS ORDERED: PERFLUTREN LIPID MICROSPHERE (DEFINITY) IV ONE (13:25)
[2017-04-05] MEDS: WARFARIN SOD 2 MG TAB PO SCH (17:44)
[2017-04-05] MEDS ORDERED: CEFTRIAXONE SOD INJ 1000 MG in DEXTROSE 5% 50ML IV SCH (18:00)
[2017-04-05 18:18] LABS: PARTIAL THROMBOPLASTIN RATIO 2.4
[2017-04-05] MEDS: TRAZODONE HCL 50 MG TAB PO SCH (21:22)
[2017-04-05] MEDS: INSULIN GLARGINE SOLOSTAR 100 UNITS/ML 3 ML PEN SC SCH (21:26)
[2017-04-05] MEDS: SOTALOL HCL 80 MG TAB PO SCH (22:07)
[2017-04-06 00:05] VITALS: BP 102/68; PULSE 97; TEMP 36.6; O2SAT 92
[2017-04-06] MEDS: LEVOTHYROXINE 137 MCG TAB PO SCH ×2 (06:10→06:13)
[2017-04-06 06:18] LABS: MEAN CELL VOLUME 91.7 fL (80-100); MEAN CORPUSCULAR HEMOGLOBIN 29.8 pg (25-34); MEAN CORPUSCULAR HGB CONC 32.5 g/dl (32-36); MEAN PLATELET VOLUME 9.6 fL (7.4-10.4); PLATELET COUNT 157 K/uL (130-400); WHITE BLOOD COUNT 5.92 K/uL (4.8-10.8)
[2017-04-06 06:31] LABS: INR 1.5 (0.9-1.1); PARTIAL THROMBOPLASTIN RATIO 2.4; PROTHROMBIN TIME (PATIENT) 15.9 SECONDS (9.0-12.0)
[2017-04-06 07:35] VITALS: BP 94/67; PULSE 106; TEMP 36.3; O2SAT 91
[2017-04-06] MEDS: BOOST VANILLA PO SCH ×4 (08:00→16:40)
[2017-04-06] MEDS: LACTOBACILLUS ACIDOPHILUS (FLORANEX) TAB PO SCH ×3 (08:00→16:35)
[2017-04-06] MEDS: INSULIN ASPART 100 UNITS/ML 3 ML PEN SC SCH ×4 (08:06→20:44)
[2017-04-06] MEDS: SOTALOL HCL 80 MG TAB PO SCH ×2 (08:06→21:26)
[2017-04-06] MEDS: DOCUSATE SODIUM 100 MG CAP PO SCH ×2 (08:07→21:00)
[2017-04-06] MEDS: RANITIDINE HCL 150 MG TAB PO SCH ×2 (08:07→21:15)
[2017-04-06] MEDS: MAGNESIUM OXIDE 400 MG TAB PO SCH ×2 (08:07→21:27)
[2017-04-06] MEDS: ASPIRIN 81 MG ECTAB PO SCH (08:07)
[2017-04-06] MEDS: CALCIUM 600MG + VIT D 400 IU TAB PO SCH (08:07)
[2017-04-06] MEDS: SERTRALINE HCL 100 MG TAB PO SCH (08:07)
[2017-04-06] MEDS: COLLAGENASE OINT 30 GM TUBE EXT SCH (08:26)
[2017-04-06] MEDS ORDERED: ISOSORBIDE MONONITRATE 30 MG TABCR PO SCH (09:00)
[2017-04-06 10:40] VITALS: Ht 157.5 cm; Wt 77.6 kg
[2017-04-06] MEDS ORDERED: DIGOXIN 0.25 MG TAB PO ONE (10:45)
--- NOTE | 2017-04-06 11:28 | CARDIOLOGY PROGRESS NOTE ---
DATE: 04/06/2017 DATE: 04/06/2017. The patient seen and examined. Chart, medications, telemetry reviewed. SUBJECTIVE: The patient says she feels improved this morning. Does remain mildly lethargic. Notes no chest pains. Notes no tachypalpitations. He has had no fevers or chills overnight. Has manifested nearly 4 liter diuresis. Does note breathing is easier. OBJECTIVE: VITAL SIGNS: Heart rate is 105 with patient in atypical flutter. Blood pressure is 103/71. NECK: Thick. There is no distinct jugular venous distention. LUNGS: Reveal crackles basilar. CARDIOVASCULAR EXAMINATION: Regular, tachycardic. There is no S3 gallop. There is a grade 2-3/6 systolic murmur. There is no diastolic murmur. ABDOMEN: Soft, nontender. EXTREMITIES: Without cyanosis or clubbing. Edema has improved. LABORATORY DATA: EKG this morning reveals atypical flutter, rate 106. QT is mildly prolonged at 510. White cell count is 5.9, hemoglobin is 14.3. Electrolytes pending. TSH is elevated at 5.3. IMPRESSION: Complex 76-year-old female with recent clinical decline with in part notable new onset atrial flutter with elevated ventricular response rate since October. She is clinically improved with signs and symptoms of initial heart failure markedly changed after 4 liter diuresis. RECOMMENDATIONS: Given minor lethargy and generalized improvement will plan on holding SARAH guided cardioversion for now. We will keep n.p.o. after midnight in the interim. We will reduce sertraline to 50 mg per day, discontinue trazodone, add digoxin at 2 doses for heart rate and rhythm control. Continue oral and IV anticoagulation. We will follow patient as clinical course progresses.
--- NOTE | 2017-04-06 13:12 | ECHOCARDIOGRAM REPORT ---
*NOTICE TO RECEIVING [employer]ENCY This information is strictly Confidential and protected under [place] law. [place] law prohibits you from making any further disclosure of this information unless further disclosure is expressly permitted by the written consent of the person to whom it pertains or is authorized by law. A general authorization for the release of medical or other information is not sufficient for this purpose. Hospital accepts no responsibility if the information is made available to any other person, INCLUDING THE PATIENT. Interpretation Summary * Name: DAVID ESTEVES Study Date: 04/05/2017 12:43 PM BP: 81/58 mmHg * Patient Location: [facility]\S\N283\S\2 HR: 105 * : 1940 (M/d/yyyy) Gender: Female Height: 62 in * Age: 76 yrs Ethnicity: CA Weight: 168 lb * Ordering Physician: See Robles * Referring Physician: Mari Castano * Performed By: Margarita Hayes RDCS * * Reason For Study: CHF * BSA: 1.8 m2 * -- Conclusions -- * The left ventricle is normal in size. * There is normal left ventricular wall thickness. * Left ventricular systolic function is normal. * The left ventricular wall motion is normal. * Ejection Fraction = 65-70%. * There is severe calcification of the aortic valve leaflets * Doppler and 2D imaging are discordant. Moderate Moderate to severe aortic stenosis is suspected. * There is trace mitral regurgitation. * There is mild tricuspid regurgitation. * Doppler findings do not suggest pulmonary hypertension. * The inferior vena cava is moderately dilated. Procedure Details * A complete two-dimensional transthoracic echocardiogram was performed (2D, M-mode, Doppler and color flow Doppler). * A contrast injection of Definity was performed to improve assessment of LV function. * Contrast was injected into an intravenous site in the left arm. * One vial of Definity ultrasound contrast was diluted in normal saline to a total volume of 10 ml. A total of '2' ml of solution was administered during imaging. * Lot # [id number] of Definity utilized for procedure. * Expiration date APR 28. * The attending nurse who injected the contrast agent was Zehra Diaz RN. Left Ventricle * The left ventricle is normal in size. * There is normal left ventricular wall thickness. * Ejection Fraction = 65-70%. * Left ventricular systolic function is normal. * The left ventricular wall motion is normal. Right Ventricle * The right ventricle is normal in size and function. * There is a pacemaker lead in the right ventricle. Atria * The left atrium is severely dilated. * The right atrium is moderately dilated. * No ASD detected; PFO is not assessed. Mitral Valve * There is severe mitral annular calcification. * There is no mitral valve stenosis. * There is trace mitral regurgitation. Tricuspid Valve * The tricuspid valve anatomy is normal. * There is no tricuspid stenosis. * There is mild tricuspid regurgitation. * Doppler findings do not suggest pulmonary hypertension. Aortic Valve * The aortic valve is bicuspid. * There is severe calcification of the aortic valve leaflets * Doppler and 2D imaging are discordant. Moderate Moderate to severe aortic stenosis is suspected. * No aortic regurgitation is present. Pulmonic Valve * The pulmonic valve is not well visualized. * Mild pulmonic valvular regurgitation. Great Vessels * The aortic root is normal size. Pericardium/Pleural * There is no pericardial effusion. Great Vessels * The inferior vena cava is moderately dilated. MMode 2D Measurements and Calculations IVSd 0.98 cm LVIDd 3.4 cm LVIDs 2.2 cm LVPWd 0.78 cm IVS/LVPW 1.2 FS 36.4 % EDV(Teich) 48.6 ml ESV(Teich) 15.9 ml EF(Teich) 67.3 % EDV(cubed) 40.5 ml ESV(cubed) 10.4 ml EF(cubed) 74.3 % LV mass(C)d 83.5 grams LV mass(C)dI 47.1 grams/m\S\2 CO(Teich) 3.4 l/min CI(Teich) 1.9 l/min/m\S\2 SV(Teich) 32.7 ml SI(Teich) 18.4 ml/m\S\2 CO(cubed) 3.1 l/min CI(cubed) 1.8 l/min/m\S\2 SV(cubed) 30.1 ml SI(cubed) 16.9 ml/m\S\2 Ao root diam 3.2 cm Ao root area 8.2 cm\S\2 ACS 0.56 cm LA dimension 3.7 cm asc Aorta Diam 4.2 cm LA/Ao 1.1 LVOT diam 2.0 cm LVOT area 3.2 cm\S\2 LVAd ap4 17.6 cm\S\2 LVLd ap4 6.6 cm EDV(MOD-sp4) 39.2 ml LVAs ap4 8.3 cm\S\2 LVLs ap4 5.1 cm ESV(MOD-sp4) 12.1 ml EF(MOD-sp4) 69.1 % LVAd ap2 20.5 cm\S\2 LVLd ap2 5.9 cm EDV(MOD-sp2) 60.7 ml LVAs ap2 10.8 cm\S\2 LVLs ap2 5.2 cm ESV(MOD-sp2) 19.2 ml EF(MOD-sp2) 68.4 % CO(MOD-sp4) 2.8 l/min CI(MOD-sp4) 1.6 l/min/m\S\2 SV(MOD-sp4) 27.1 ml SI(MOD-sp4) 15.3 ml/m\S\2 CO(MOD-sp2) 4.3 l/min CI(MOD-sp2) 2.4 l/min/m\S\2 SV(MOD-sp2) 41.5 ml SI(MOD-sp2) 23.4 ml/m\S\2 Doppler Measurements and Calculations MV E max yasmin 88.3 cm/sec MV dec time 0.15 sec Ao V2 max 139.5 cm/sec Ao max PG 7.8 mmHg Ao max PG (full) 7.0 mmHg Ao V2 mean 107.4 cm/sec Ao mean PG 5.1 mmHg Ao V2 VTI 22.9 cm INGA(V,A) 1.0 cm\S\2 INGA(V,D) 1.0 cm\S\2 LV V1 max PG 0.80 mmHg LV V1 max 44.6 cm/sec SV(Ao) 187.6 ml SI(Ao) 105.7 ml/m\S\2 PA V2 max 59.1 cm/sec PA max PG 1.4 mmHg PA acc slope 349.0 cm/sec\S\2 PA acc time 0.11 sec PI max yasmin 204.6 cm/sec PI max PG 16.7 mmHg PI dec slope 291.6 cm/sec\S\2 PI P1/2t 205.5 msec TR max yasmin 218.2 cm/sec PA pr(Accel) 31.5 mmHg
[2017-04-06 14:34] VITALS: PULSE 105; O2SAT 93
--- NOTE | 2017-04-06 14:52 | Progress Note ---
Internal Med Progress Note Date of Service: Apr 06, 2017. Provider Documentation: SUBJECTIVE: more awake and alert today smiling , conversing with family members present at bedside no complain of SOB asked to D/c the Valentino -pt is very willing to get rid of the Valentino OBJECTIVE: Vital Signs-as noted below Exam: General-elderly female , no sign of distress Eyes-sclera non icteric ENT-NAD Neck-no JVD noted Lungs-mild crackles at base Heart-regular , no JVD , + 2 bilateral pitting edema Abdomen-soft, non tender Extremities-multiple skin tears in lower ext Neuro-,no focal deficit noted more awake and alert today ; has baseline dementia with forgetfulness Lab data as noted below. ASSESSMENT & PLAN: ACUTE ON CHRONIC CHF EXACERBATION, SYSTOLIC -clinically improved had adequate diuresis Lasix has been kept on hold for hypotension Hypoxia , SOB much better , mental status improved to baseline ECHO : * The left ventricle is normal in size. * There is normal left ventricular wall thickness. * Left ventricular systolic function is normal. * The left ventricular wall motion is normal. * Ejection Fraction = 65-70%. * There is severe calcification of the aortic valve leaflets * Doppler and 2D imaging are discordant. Moderate Moderate to severe aortic stenosis is suspected. * There is trace mitral regurgitation. * There is mild tricuspid regurgitation. * Doppler findings do not suggest pulmonary hypertension. * The inferior vena cava is moderately dilated. Pacemaker interrogation results per office notes- Non sustained v tach, Persistent A flutter -Cardiology consult appreciated HYPOTENSION : BP remains stable in low 90-100 Lasix and Imdur on hold for now re evaluate case d/w cardiology ATRIAL FLUTTER WITH RVR -pt denies of any symptom -on Sotalol 80 mg daily - ordered Digoxin for HR control -cont Anticoagulation: Coumadin IV heparin bridge therapy till INR therapeutic -Cardiology following METABOLIC ENCEPHALOPATHY/CONFUSION : mental status improved to baseline Likely secondary to decompensated CHF - UTI -UA +VE urine culture -emanuel albicans pt does not have any urinary symptom will avoid Diflucan -concern for prolong Qtc , as pt already on Sotalol ordered to D/c Valentino HX OF RECENT ASPIRATION PNEUMONIA During last admission this month -Rxed with antibiotics x 7 days -Speech evaluation during last admission- dental soft diet with aspiration precautions-continued HX OF CELLULITIS/WOUND RIGHT LEG -Rxed with antibiotic course and f/up with wound care outpatient - during last admission -Wound healing well and no signs of cellulitis this admission wound care consulted for further eval DVT PROPHYLAXIS IV Heparin till INR therapeutic (on Coumadin) FULL CODE DISPOSITION to be determined will need PT/OT eval prior to discharge possible return back to [facility] for continued rehab Vital Signs: Date Time Temp Pulse Resp B/P (MAP) Pulse Ox O2 Delivery O2 Flow Rate FiO2 04/06/17 14:34 105 93 Room Air 04/06/17 12:30 Nasal Cannula 4.0 04/06/17 12:28 104 04/06/17 08:30 Nasal Cannula 4.0 04/06/17 07:35 36.3 106 18 94/67 (76) 91 Nasal Cannula 4.0 04/06/17 04:00 Nasal Cannula 4.0 04/06/17 01:14 Nasal Cannula 4.0 04/06/17 00:05 36.6 97 20 102/68 (79) 92 2.0 04/06/17 00:00 Nasal Cannula 4.0 04/05/17 20:09 36.3 105 16 103/71 (82) 93 Nasal Cannula 3.0 04/05/17 20:00 Nasal Cannula 4.0 04/05/17 16:00 Nasal Cannula 4.0 04/05/17 15:26 36.3 103 18 101/72 (82) 97 Lab Results: Results Past 24 Hours Test 04/05/17 16:47 04/05/17 17:49 04/05/17 20:39 04/06/17 05:47 Range/Units Bedside Glucose 104 149 70-90 mg/dl Activated Partial Thromboplast Time 62.9 63.6 21.0-31.0 SECONDS Partial Thromboplastin Ratio 2.4 2.4 White Blood Count 5.92 4.8-10.8 K/uL Red Blood Count 4.80 4.2-5.4 M/uL Hemoglobin 14.3 12.0-16.0 g/dL Hematocrit 44.0 37-47 % Mean Corpuscular Volume 91.7 80-100 fL Mean Corpuscular Hemoglobin 29.8 25-34 pg Mean Corpuscular Hemoglobin Concent 32.5 32-36 g/dl RDW Standard Deviation 66.4 36.4-46.3 fL RDW Coefficient of Variation 20.1 11.5-14.5 % Platelet Count 157 130-400 K/uL Mean Platelet Volume 9.6 7.4-10.4 fL Prothrombin Time 15.9 9.0-12.0 SECONDS Prothromb Time International Ratio 1.5 0.9-1.1 Test 04/06/17 07:40 04/06/17 08:18 04/06/17 12:02 Range/Units Bedside Glucose 63 77 88 70-90 mg/dl
[2017-04-06 15:55] VITALS: BP_SYST 93; BP_SYST 94; BP_DIAS 67; BP_DIAS 69; PULSE 105; PULSE 90; TEMP 36.3; TEMP 36.4; O2SAT 92; O2SAT 93
[2017-04-06] MEDS ORDERED: DIGOXIN 0.25 MG TAB PO SCH (16:00)
[2017-04-06] MEDS: WARFARIN SOD 2 MG TAB PO SCH (16:33)
[2017-04-06 19:28] VITALS: BP 95/70; PULSE 106; O2SAT 90
[2017-04-06] MEDS: INSULIN GLARGINE SOLOSTAR 100 UNITS/ML 3 ML PEN SC SCH (21:00)
[2017-04-06 21:38] VITALS: O2SAT 97
[2017-04-06] MEDS: HEPARIN 25000 UNIT/ D5W 500 ML (PHARMACY PREPARED) IV PRN ×2 (22:30)
[2017-04-07] VITALS (13 sets, daily range): BP systolic 70–128; BP diastolic 40–93; PULSE 59–111; TEMP 36.3–36.9; O2SAT 90–98
[2017-04-07] MEDS: LEVOTHYROXINE 137 MCG TAB PO SCH (05:21)
[2017-04-07 06:16] LABS: INR 1.5 (0.9-1.1); PARTIAL THROMBOPLASTIN RATIO 1.8; PROTHROMBIN TIME (PATIENT) 16.4 SECONDS (9.0-12.0)
[2017-04-07] MEDS ORDERED: NURSING VERBAL MED ORDER ONE (06:30)
[2017-04-07] MEDS: HEPARIN 25000 UNIT/ D5W 500 ML (PHARMACY PREPARED) IV PRN ×2 (06:37)
[2017-04-07] MEDS ORDERED: HEPARIN IV BOLUS 2,000 UNIT in SYRINGE 0 ML IV ONE (06:45)
[2017-04-07] MEDS ORDERED: HEPARIN 25000 UNIT/ D5W 500 ML (PHARMACY PREPARED) IV PRN ×2 (06:45)
[2017-04-07 06:51] LABS: BUN/CREATININE RATIO 15.9 (10-20); CALCIUM 9.2 mg/dl (8.5-10.1); CREATININE 1.3 mg/dl (0.60-1.20); POTASSIUM 4.3 mmol/L (3.5-5.1)
[2017-04-07] MEDS: CALCIUM 600MG + VIT D 400 IU TAB PO SCH (07:33)
[2017-04-07] MEDS: LACTOBACILLUS ACIDOPHILUS (FLORANEX) TAB PO SCH ×3 (07:33→17:17)
[2017-04-07] MEDS: BOOST VANILLA PO SCH ×4 (07:33→16:45)
[2017-04-07] MEDS: MAGNESIUM OXIDE 400 MG TAB PO SCH ×2 (07:33→20:47)
[2017-04-07] MEDS: RANITIDINE HCL 150 MG TAB PO SCH ×2 (07:33→20:46)
[2017-04-07] MEDS: DOCUSATE SODIUM 100 MG CAP PO SCH ×2 (07:33→20:46)
[2017-04-07] MEDS: SOTALOL HCL 80 MG TAB PO SCH ×2 (07:55→20:47)
[2017-04-07] MEDS: INSULIN ASPART 100 UNITS/ML 3 ML PEN SC SCH ×4 (07:55→20:49)
[2017-04-07] MEDS: ASPIRIN 81 MG ECTAB PO SCH (07:55)
[2017-04-07] MEDS: COLLAGENASE OINT 30 GM TUBE EXT SCH (07:56)
--- NOTE | 2017-04-07 10:41 | Progress Note ---
Internal Med Progress Note Date of Service: Apr 07, 2017. Provider Documentation: SUBJECTIVE: alert and awake today sitting up on chair able to answer questions appropriately denies of any SOB or FRASER Valentino D/michelle yesterday , no issue in voiding scheduled or Cardioversion today OBJECTIVE: Vital Signs-as noted below Exam: General-elderly female , no sign of distress , awake and alert Eyes-sclera non icteric ENT-NAD Neck-no JVD noted Lungs-better auscultation today , no rales or wheeze noted Heart-regular , no JVD , + 1 bilateral pitting edema ( improved form prior ) Abdomen-soft, non tender Extremities-multiple skin tears in lower ext Neuro-,no focal deficit noted awake and alert Lab data as noted below. ASSESSMENT & PLAN: ACUTE ON CHRONIC CHF EXACERBATION, SYSTOLIC -clinically improved had adequate diuresis Lasix has been kept on hold for hypotension Hypoxia , SOB much better , mental status improved to baseline ECHO : * The left ventricle is normal in size. * There is normal left ventricular wall thickness. * Left ventricular systolic function is normal. * The left ventricular wall motion is normal. * Ejection Fraction = 65-70%. * There is severe calcification of the aortic valve leaflets * Doppler and 2D imaging are discordant. Moderate Moderate to severe aortic stenosis is suspected. * There is trace mitral regurgitation. * There is mild tricuspid regurgitation. * Doppler findings do not suggest pulmonary hypertension. * The inferior vena cava is moderately dilated. Pacemaker interrogation results per office notes- Non sustained v tach, Persistent A flutter -Cardiology consult appreciated HYPOTENSION : BP remains stable in low 90-100 Lasix and Imdur on hold for now re evaluate case d/w cardiology ATRIAL FLUTTER WITH RVR -pt denies of any symptom -on Sotalol 80 mg BID given Digoxin for HR control -cont Anticoagulation: Coumadin IV heparin bridge therapy till INR therapeutic -Cardiology following -scheduled for SARAH cardioversion today METABOLIC ENCEPHALOPATHY/CONFUSION : mental status improved to baseline Likely secondary to decompensated CHF /medication induced Trazodone D/michelle due to prolong Qtc -/Zolof dose reduced - UTI -UA +VE urine culture -emanuel albicans pt does not have any urinary symptom will avoid Diflucan -concern for prolong Qtc , as pt already on Sotalol ordered to D/c Valentino ; pt voiding without any problem HX OF RECENT ASPIRATION PNEUMONIA During last admission this month -Rxed with antibiotics x 7 days -Speech evaluation during last admission- dental soft diet with aspiration precautions-continued HX OF CELLULITIS/WOUND RIGHT LEG -Rxed with antibiotic course and f/up with wound care outpatient - during last admission -Wound healing well and no signs of cellulitis this admission wound care consulted for further eval DVT PROPHYLAXIS IV Heparin till INR therapeutic (on Coumadin) FULL CODE DISPOSITION PT/OT eval requested possible return back to [facility] for continued rehab Vital Signs: Date Time Temp Pulse Resp B/P (MAP) Pulse Ox O2 Delivery O2 Flow Rate FiO2 04/07/17 08:00 Room Air 04/07/17 08:00 Room Air 04/07/17 07:12 36.7 74 20 117/85 (96) 96 04/07/17 04:00 Nasal Cannula 2.0 04/07/17 04:00 36.6 111 18 106/74 (85) 90 04/07/17 00:00 Nasal Cannula 2.0 04/07/17 00:00 36.7 106 18 100/73 (82) 96 2.0 04/06/17 21:38 97 Nasal Cannula 2.0 04/06/17 20:00 Room Air 04/06/17 19:28 106 16 95/70 (78) 90 Room Air 04/06/17 16:34 107 04/06/17 16:00 Room Air 04/06/17 15:55 36.4 90 16 93/69 (77) 92 Room Air 04/06/17 15:55 36.3 105 18 94/67 (76) 93 Room Air 4.0 04/06/17 14:34 105 93 Room Air 04/06/17 12:30 Nasal Cannula 4.0 04/06/17 12:28 104 Lab Results: Results Past 24 Hours Test 04/06/17 12:02 04/06/17 16:34 04/06/17 20:26 04/07/17 05:34 Range/Units Bedside Glucose 88 128 182 70-90 mg/dl Prothrombin Time 16.4 9.0-12.0 SECONDS Prothromb Time International Ratio 1.5 0.9-1.1 Activated Partial Thromboplast Time 46.0 21.0-31.0 SECONDS Partial Thromboplastin Ratio 1.8 Sodium Level 134 136-145 mmol/L Potassium Level 4.3 3.5-5.1 mmol/L Chloride Level 95 98-107 mmol/L Carbon Dioxide Level 32 21-32 mmol/L Anion Gap 7.0 3-11 mmol/L Blood Urea Nitrogen 21 7-18 mg/dl Creatinine 1.30 0.60-1.20 mg/dl Est Creatinine Clear Calc Drug Dose 36.6 ml/min Estimated GFR () 46.8 Estimated GFR (Non- 40.4 BUN/Creatinine Ratio 15.9 10-20 Random Glucose 91 70-99 mg/dl Calcium Level 9.2 8.5-10.1 mg/dl Test 04/07/17 07:38 Range/Units Bedside Glucose 92 70-90 mg/dl
--- NOTE | 2017-04-07 10:53 | CARDIOLOGY PROGRESS NOTE ---
DATE: 04/07/2017 DATE: 04/07/2017 The patient seen and examined. Chart, medications, telemetry reviewed. SUBJECTIVE: The patient appears much brighter this morning. Denies any chest pains. Notes no dizziness or lightheadedness. Breathing is much easier. Weight is down 2.5 kilograms since admission. She is sitting out of bedside. Telemetry continues to demonstrate atrial flutter with elevated ventricular response rate. Rate 110. OBJECTIVE: VITAL SIGNS: Heart rate 110. Blood pressure is 117/85. NECK: Thick. There is no jugular venous distention. LUNGS: Reveal fine crackles basilar. CARDIOVASCULAR EXAMINATION: Irregular, irregular. There is a grade 2-3/6 systolic murmur. There is no S3 gallop. ABDOMEN: Soft, less distention. EXTREMITIES: Without cyanosis or clubbing. There is no peripheral edema with improved lower extremity edema in comparison to prior examinations. INR today is 1.5 but the patient is anticoagulated with IV heparin. DATA: EKG this morning reveals atrial flutter with elevated ventricular response rate, [address] flattening in inferolateral leads. IMPRESSION: A 76-year-old female with complex history of underlying ischemic heart disease, paroxysmal atrial fibrillation/flutter with presentation with sustained atrial flutter of several months' duration with associated cardiac decompensation and mixed systolic diastolic heart failure. The patient's heart failure is clinically improved, though she remains in atrial flutter with poor rate control. Discussed findings in detail. Will recommend the patient undergo SARAH guided cardioversion this morning or later today. She remains n.p.o. after midnight. Arrangements were made to proceed.
[2017-04-07] MEDS ORDERED: KETAMINE HCL INJ 50 MG/ML 10 ML VIAL ONE (11:53)
--- NOTE | 2017-04-07 12:43 | Cardiology Procedure Brief Nt ---
Preliminary Cardiology Note Procedure Date Apr 07, 2017. Pre-Procedure Diagnosis Atrial flutter with rapid ventricular response Post-Procedure Diagnosis Successful synchronized electrical cardioversion Procedure(s) Performed SARAH guided synchroized electrical cardioversion Milk Deliverer Alec Double Surface Operator(s) None Estimated Blood Loss None Preliminary Findings Successful synchronized electrical cardioversion was performed after initial SARAH evaluation using 150J biphasic countershock Recommendations Medical management Fluids (cc crystalloids) 200 Specimens None Anesthesia Per Consult Complication(s) None Disposition PCU
[2017-04-07] MEDS ORDERED: PHENYLEPHRINE 100MCG/ML 5ML SYR ONE (12:54)
[2017-04-07] MEDS ORDERED: PROPOFOL IV EMULSION 10 MG/ML 20 ML VIAL IV ONE (12:54)
[2017-04-07] MEDS ORDERED: LIDOCAINE HCL 2% 2 ML VIAL (20MG/ML) ONE (12:54)
--- NOTE | 2017-04-07 13:48 | CARDIOVERSION ---
DATE OF OPERATION: 04/07/2017 SYNCHRONIZED ELECTRICAL CARDIOVERSION REFERRING: Dr. Salvatore Michael and See Robles. BRIEF HISTORY: The patient is a 76-year-old female with history of past paroxysmal atrial flutter on chronic antiarrhythmic therapy with sotalol, history of coronary artery disease status post coronary bypass grafting, calcific aortic valve stenosis. The patient was admitted with decompensated diastolic heart failure in the setting of atrial flutter with rapid ventricular response, weakness and fatigue. Pacemaker interrogation found the patient to be in atrial flutter for several months in duration like the insighting cause of elevated heart rate response. She was adjusted with medical therapies until congestive heart failure cleared and then patient referred for TE guided synchronized electrical cardioversion given suboptimal INR on presentation. PROCEDURE: After the procedure and risks were explained to the patient informed consent was obtained. The patient was sedated via anesthesia with continuous heart rate, blood pressure and oxygen saturation as well as end tidal CO2 monitoring. Transesophageal echocardiography was performed without contraindications of synchronized electrical cardioversion identified and the patient underwent synchronized cardioversion using 150 joule biphasic single counter shock with successful conversion to AV sequential pacing and resolve of atrial flutter. Post procedure patient aroused having tolerated well. EKG post procedure reveals atrial paced rhythm with long WV interval, nonspecific ST segment changes and QT corrected at 373, rate 77. RECOMMENDATIONS: Continued medical therapies. I attest to the content of the Intraoperative Record and any orders documented therein. Any exception s are noted below.
--- NOTE | 2017-04-07 15:21 | TEE ---
*NOTICE TO RECEIVING [employer]IAN AGENCY This information is strictly Confidential and protected under [place] law. [place] law prohibits you from making any further disclosure of this information unless further disclosure is expressly permitted by the written consent of the person to whom it pertains or is authorized by law. A general authorization for the release of medical or other information is not sufficient for this purpose. Hospital accepts no responsibility if the information is made available to any other person, INCLUDING THE PATIENT. Interpretation Summary * Name: DAVID ESTEVES Study Date: 04/07/2017 12:02 PM BP: 120/67 mmHg * Patient Location: [facility]\S\N283\S\2 HR: 102 * : 1940 (M/d/yyyy) Gender: Female Height: 62 in * Age: 76 yrs Ethnicity: [place] Weight: 171 lb * Ordering Physician: Salvatore Michael * Referring Physician: Mari Castano * Performed By: Romana Nicole RCS * * Reason For Study: A-Flutter, Eval for CSOE * BSA: 1.8 m2 * No contraindications to cardioversion are present. * -- Conclusions -- * The left ventricle is normal in size. * There is moderate concentric left ventricular hypertrophy. * Ejection Fraction = 65-70%. * The aortic valve is tricuspid. The leaflet thickness if normal. There is no aortic stenosis, and no significant insufficiency. * The aortic valve leaflets are heavily calcified and restricted in mobility. * Aortic valve area by planimetry is 1.0 cm2 reflecting borderline severe aortic stenosis * There is moderate mitral regurgitation. Procedure Details * SARAH Probe #1 utilized for procedure. * The study was performed in Cardiac Catheterization Lab. * Time out was conducted by the physician, nurse, and senior technologist with positive identification of patient and procedure. * Informed consent for Transesophageal Echocardiogram was obtained prior to the procedure. * An intravenous line was placed. A topical anesthetic agent was used for oropharangeal anesthesia. A bite block was inserted. * Sedation performed by the anesthesia department. * The patient's vital signs, including blood pressure, heart rate, pulse oximetry and cardiac rhythm were monitored throughout the procedure . * A multifrequency, multiplane transesopheageal echocardiographic endoscope was inserted and manipulated in the standard fashion to achieve multiplane views. * The transesophageal probe was passed without difficulty. * Probe insertion time 1220. Probe removal time 1231. * Limited views were obtained. * The patient tolerated the procedure well without evidence of orophangeal or esophageal trauma. * A 2D transesophageal echocardiogram was performed. * A 2D transesophageal echocardiogram with color flow Doppler was performed. * A 2D transesophageal echocardiogram with Doppler and color flow Doppler was performed. Left Ventricle * The left ventricle is normal in size. * There is moderate concentric left ventricular hypertrophy. * Ejection Fraction = 65-70%. * The left ventricular wall motion is normal. Atria * The left atrium is severely dilated. * No thrombus is detected in the left atrial appendage. * The right atrium is mildly dilated. * Patent foramen ovale * Doppler suggests left to right interatrial shunt. Mitral Valve * There is moderate mitral regurgitation. Tricuspid Valve * The tricuspid valve anatomy is normal. Aortic Valve * The aortic valve is tricuspid. The leaflet thickness if normal. There is no aortic stenosis, and no significant insufficiency. * The aortic valve leaflets are heavily calcified and restricted in mobility. * Aortic valve area by planimetry is 1.0 cm2 reflecting borderline severe aortic stenosis * Trace aortic regurgitation. Pulmonic Valve * The pulmonic valve is not well seen, but is grossly normal. Great Vessels * The aortic root is normal size. * Borderline dilated ascending aorta.
[2017-04-07 16:59] LABS: PARTIAL THROMBOPLASTIN RATIO > 11.0
[2017-04-07] MEDS: WARFARIN SOD 2 MG TAB PO SCH (17:16)
[2017-04-07 17:54] LABS: PARTIAL THROMBOPLASTIN RATIO 1.9
[2017-04-07] MEDS: INSULIN GLARGINE SOLOSTAR 100 UNITS/ML 3 ML PEN SC SCH (20:50)
[2017-04-08 04:14] VITALS: BP 101/57; PULSE 64; TEMP 36.6; O2SAT 93
[2017-04-08] MEDS: LEVOTHYROXINE 137 MCG TAB PO SCH (05:48)
[2017-04-08] MEDS: INSULIN ASPART 100 UNITS/ML 3 ML PEN SC SCH (07:00)
[2017-04-08] MEDS: DOCUSATE SODIUM 100 MG CAP PO SCH (07:13)
[2017-04-08 07:30] VITALS: PULSE 62; O2SAT 84
[2017-04-08 07:39] VITALS: BP 104/57; PULSE 60; TEMP 36.5; O2SAT 84; O2SAT 91
[2017-04-08] MEDS: ASPIRIN 81 MG ECTAB PO SCH (07:42)
[2017-04-08] MEDS: SOTALOL HCL 80 MG TAB PO SCH (07:43)
[2017-04-08] MEDS: MAGNESIUM OXIDE 400 MG TAB PO SCH (07:43)
[2017-04-08] MEDS: RANITIDINE HCL 150 MG TAB PO SCH (07:43)
[2017-04-08] MEDS: LACTOBACILLUS ACIDOPHILUS (FLORANEX) TAB PO SCH (07:43)
[2017-04-08] MEDS: COLLAGENASE OINT 30 GM TUBE EXT SCH (07:44)
[2017-04-08 07:45] LABS: HEMATOCRIT 44.4 % (37-47); MEAN CORPUSCULAR HEMOGLOBIN 30.3 pg (25-34); MEAN CORPUSCULAR HGB CONC 33.3 g/dl (32-36); MEAN PLATELET VOLUME 9.8 fL (7.4-10.4); PLATELET COUNT 174 K/uL (130-400); RED BLOOD COUNT 4.88 M/uL (4.2-5.4); WHITE BLOOD COUNT 5.96 K/uL (4.8-10.8)
[2017-04-08] MEDS: CALCIUM 600MG + VIT D 400 IU TAB PO SCH (07:46)
[2017-04-08 08:04] LABS: INR 1.6 (0.9-1.1); PARTIAL THROMBOPLASTIN RATIO 3.3; PROTHROMBIN TIME (PATIENT) 17.2 SECONDS (9.0-12.0)
[2017-04-08] MEDS: BOOST VANILLA PO SCH ×2 (08:05)
[2017-04-08 08:10] LABS: BUN/CREATININE RATIO 14.8 (10-20); CREATININE 1.3 mg/dl (0.60-1.20); POTASSIUM 4.2 mmol/L (3.5-5.1)
[2017-04-08 08:23] VITALS: O2SAT 82; O2SAT 94
--- NOTE | 2017-04-08 09:25 | Progress Note ---
Internal Med Progress Note Date of Service: Apr 08, 2017. Provider Documentation: SUBJECTIVE: feels fine , very pleasant , awake and alert no complain of SOB or chest discomfort remains in sinus with rate controlled OBJECTIVE: Vital Signs-as noted below Exam: General-elderly female , no sign of distress , awake and alert Eyes-sclera non icteric ENT-NAD Neck-no JVD noted Lungs-, no rales or wheeze noted Heart-regular , no JVD , + 1 bilateral pitting edema ( improved form prior ) Abdomen-soft, non tender Extremities-multiple skin tears in lower ext Neuro-,no focal deficit noted awake and alert , answering questions appropriately Lab data as noted below. ASSESSMENT & PLAN: ACUTE ON CHRONIC CHF EXACERBATION, SYSTOLIC -clinically improved ; compensated with stable volume status Hypoxia , SOB -resolved ECHO : * The left ventricle is normal in size. * There is normal left ventricular wall thickness. * Left ventricular systolic function is normal. * The left ventricular wall motion is normal. * Ejection Fraction = 65-70%. * There is severe calcification of the aortic valve leaflets * Doppler and 2D imaging are discordant. Moderate Moderate to severe aortic stenosis is suspected. * There is trace mitral regurgitation. * There is mild tricuspid regurgitation. * Doppler findings do not suggest pulmonary hypertension. * The inferior vena cava is moderately dilated. Pacemaker interrogation results per office notes- Non sustained v tach, Persistent A flutter -Cardiology consult appreciated s/p SARAH cardioversion HR remains in sinus /rate controlled HYPOTENSION -RESOLVED BP remains stable in low 90-100 Lasix and Imdur will be resumed ATRIAL FLUTTER WITH RVR S/P Cardioversion in sinus with rate controlled rhythm -pt denies of any symptom -on Sotalol 80 mg BID -cont Anticoagulation: Coumadin IV heparin bridge therapy till INR therapeutic -Cardiology following METABOLIC ENCEPHALOPATHY/CONFUSION : resolved mental status improved to baseline Likely secondary to decompensated CHF /medication induced Trazodone D/michelle due to prolong Qtc -/Zolof dose reduced -will Trazodone for sedative effect and side effect for Qtc prolongation UTI -UA +VE urine culture -emanuel albicans pt does not have any urinary symptom will avoid Diflucan -concern for prolong Qtc , as pt already on Sotalol D/c Valentino ; pt voiding without any problem HX OF RECENT ASPIRATION PNEUMONIA During last admission this month -Rxed with antibiotics x 7 days -Speech evaluation during last admission- dental soft diet with aspiration precautions-continued HX OF CELLULITIS/WOUND RIGHT LEG -Rxed with antibiotic course and f/up with wound care outpatient - during last admission -Wound healing well and no signs of cellulitis this admission wound care consulted appreciate input DVT PROPHYLAXIS IV Heparin /Coumadin FULL CODE DISPOSITION PT/OT eval appreciated pt evaluated by Cardiology stable to return back to [facility] today Vital Signs: Date Time Temp Pulse Resp B/P (MAP) Pulse Ox O2 Delivery O2 Flow Rate FiO2 04/08/17 08:23 94 Nasal Cannula 1.0 04/08/17 08:20 Room Air 04/08/17 07:39 36.5 60 19 104/57 (73) 84 Room Air 04/08/17 07:30 62 04/08/17 04:39 Room Air 04/08/17 04:14 36.6 64 20 101/57 (72) 93 Room Air 04/08/17 00:00 Room Air 04/07/17 23:59 36.5 66 22 93/58 (70) 93 Room Air 04/07/17 20:00 Room Air 04/07/17 19:13 36.9 61 19 91/64 (73) 97 Room Air 04/07/17 16:00 Room Air 04/07/17 15:35 36.3 65 17 100/63 (75) 90 Room Air 04/07/17 14:10 61 16 93/64 (74) 93 Room Air 04/07/17 11:41 36.5 59 16 120/79 (93) 98 Room Air Lab Results: Results Past 24 Hours Test 04/07/17 11:29 04/07/17 15:52 04/07/17 16:14 04/07/17 17:26 Range/Units Bedside Glucose 84 90 70-90 mg/dl Activated Partial Thromboplast Time > 300.0 49.4 21.0-31.0 SECONDS Partial Thromboplastin Ratio > 11.0 1.9 Test 04/07/17 20:01 04/08/17 06:50 04/08/17 07:33 Range/Units Bedside Glucose 185 95 70-90 mg/dl White Blood Count 5.96 4.8-10.8 K/uL Red Blood Count 4.88 4.2-5.4 M/uL Hemoglobin 14.8 12.0-16.0 g/dL Hematocrit 44.4 37-47 % Mean Corpuscular Volume 91.0 80-100 fL Mean Corpuscular Hemoglobin 30.3 25-34 pg Mean Corpuscular Hemoglobin Concent 33.3 32-36 g/dl RDW Standard Deviation 66.0 36.4-46.3 fL RDW Coefficient of Variation 20.0 11.5-14.5 % Platelet Count 174 130-400 K/uL Mean Platelet Volume 9.8 7.4-10.4 fL Prothrombin Time 17.2 9.0-12.0 SECONDS Prothromb Time International Ratio 1.6 0.9-1.1 Activated Partial Thromboplast Time 84.7 21.0-31.0 SECONDS Partial Thromboplastin Ratio 3.3 Sodium Level 132 136-145 mmol/L Potassium Level 4.2 3.5-5.1 mmol/L Chloride Level 96 98-107 mmol/L Carbon Dioxide Level 31 21-32 mmol/L Anion Gap 5.0 3-11 mmol/L Blood Urea Nitrogen 19 7-18 mg/dl Creatinine 1.30 0.60-1.20 mg/dl Est Creatinine Clear Calc Drug Dose 36.6 ml/min Estimated GFR () 46.8 Estimated GFR (Non- 40.4 BUN/Creatinine Ratio 14.8 10-20 Random Glucose 113 70-99 mg/dl Calcium Level 9.0 8.5-10.1 mg/dl
[2017-04-08] MEDS ORDERED: MRLP17X PO (09:32)
[2017-04-08] MEDS ORDERED: BTP80 PO (09:32)
[2017-04-08] MEDS ORDERED: INSDGIPEN SC (09:32)
--- NOTE | 2017-04-08 09:36 | Discharge Instructions ---
Discharge Instructions Date of Service Apr 08, 2017. Admission Reason for Admission: Altered Mental Status, Chf Exacerbation Discharge Discharge Diagnosis / Problem: AFLUTTER /RVR /ACUTE CHF Discharge Goals Goal(s): Decrease discomfort, Improve disease control, Therapeutic intervention Activity Recommendations Activity Level: Assistance Required Therapies: Physical Therapy Lifting Limitations: none Shower/Bathe: no limitations . Additional Information Patient informed of condition: Yes Advance Directives: No DNR: No Level of Care: Skilled Communicable Disease: No Prognosis: Stable Valentino Catheter: No Instructions / Follow-Up Instructions / Follow-Up CONTINUE TO FOLLOW UP WITH PHYSICIAN AT [facility] PT/INR CHECK IN 2 DAYS ( GOAL INR 2-3 ) THEN CONTINUE TO FOLLOW UP INR PER PROTOCOL CARDIOLOGY FOLLOW UP PER PROTOCOL Current Hospital Diet Patient's current hospital diet: Diabetes Type 2 Diet, Low Sodium Diet (2gm Na) , AHA Diet (Heart Healthy) Discharge Diet Recommended Diet: AHA Diet (Heart Healthy), Diabetes Type 2 Diet Diet Texture: Dental Soft (bite-sized) Pending Studies Studies pending at discharge: yes List of pending studies: PT/INR CHECK IN 2 DAYS ; THEN CONTINUE PER PROTOCOL Laboratory Results Hemoglobin A1c Test 03/09/17 18:28 Range/Units Estimated Average Glucose 183 mg/dl Hemoglobin A1c 8.0 H 4.5-5.6 % Medical Emergencies . Who to Call and When: Medical Emergencies: If at any time you feel your situation is an emergency, please call 911 immediately. . Non-Emergent Contact Non-Emergency issues call your: Primary Care Provider . . "Provider Documentation" section prepared by Sarah Jain. . Core Measure Problem Core Measures: None
[2017-04-08] MEDS ORDERED: SERT50TA PO (09:37)
--- NOTE | 2017-04-08 10:45 | Discharge Summary ---
Discharge Summary Date of Service Apr 08, 2017. Discharge Summary Admission Date: Apr 04, 2017 at 19:32 Discharge Date: Apr 08, 2017 Discharge Disposition: long term facility Principal Diagnosis: AFLUTTER /RVR /ACUTE CHF Procedures: SARAH GUIDED CARDIOVERSION Consultations: [facility] Medication Reconciliation New Medications: Sertraline (Zoloft) 50 Mg Tab 1 TAB PO DAILY for 30 Days, #30 TAB 2 Refills Insulin Glargine (Lantus Solostar) 100 Unit/Ml Inj 5 UNITS SC QPM for 30 Days Polyethylene (Miralax) 17 Gm Pow 17 GM PO DAILY PRN for Constipation for 30 Days Sotalol HCl (Sotalol HCl) 80 Mg Tab 80 MG PO BID for 30 Days, #60 TAB Continued Medications: Albuterol Hfa (Ventolin Hfa) 200 Puffs/00107 Mcg Aers 2 PUFF INH Q6 PRN for SOB/Wheezing, #54 Aspirin (Aspirin Chewable) 81 Mg Chew 81 MG PO DAILY, TAB Calcium Carbonate-Cholecalcife (Caltrate 600+D) 1 Tab Tab 1 TAB PO DAILY Collagenase (Santyl) 250 Unit/Gm Oin 1 APPLN TOP DAILY RIGHT CALF WOUND Docusate Sodium (Colace) 100 Mg Cap 1 CAP PO BID for 30 Days, #60 CAP Eucerin (Hydrocerin) 360 Appln/120 Gm Cr 1 APPLN EXT BID PRN for nursing decison for 30 Days, #30 Furosemide (Lasix) 20 Mg Tab 20 MG PO DAILY for 30 Days, #30 TAB (This prescription has been renewed) Home O2 Therapy (Oxygen) Gas 2 LITERS NA HS HS and with any daytime sleeping Ipratropium-Albuterol (Combivent Respimat) 1 Aer Aer 1 PUFFS INH QID, INH Isosorbide Mononitrate Ext Rel (Imdur Ext Rel) 30 Mg Tabcr 30 MG PO QAM, #30 Lactobacillus Acidophilus (Floranex) 1 Tab Tab 4 TAB PO TIDM for 30 Days, TAB Levothyroxine Sodium (Levothyroxine Sodium) 137 Mcg Tab 137 MCG PO DAILY, TAB Magnesium Oxide (Magnesium) 400 Mg Tab 400 MG PO BID Menthol (Ricola) 24 Maximus/1 Box Lozg 1 MAXIMUS PO PRN PRN for SORE THROAT, #30 Nitroglycerin (Nitrostat) 0.4 Mg Tab 0.4 MG UT UD PRN for Chest Pain, BTL PLACE ONE TABLET UNDER THE TONGUE EVERY 5 MINUTES FOR UP TO 3 DOSES IF NEEDED FOR CHEST PAIN. Nutritional Supplements (Boost) 1 Liq Liq 1 CAN PO BIDM for 30 Days Ondansetron Hcl (Zofran) 4 Mg Tab 4 MG PO Q6H PRN for Nausea or Vomiting, TAB Ranitidine Hcl (Zantac) 150 Mg Tab 150 MG PO BID, TAB Warfarin Sod (Jantoven) 1 Mg Tab 1 MG PO 2XWK, TAB TUESDAYS & SATURDAYS Warfarin Sod (Jantoven) 2 Mg Tab 2 MG PO 5XWK, TAB MONDAY, MONDAY, MONDAY, MONDAY, MONDAY Discontinued Medications: Insulin Glargine (Lantus Solostar) 100 Unit/Ml Inj 6 UNITS SC QPM for 30 Days Sertraline HCl (Sertraline HCl) 100 Mg Tab 100 MG PO DAILY, #30 Sotalol Hcl (Sotalol Hcl) 80 Mg Tab 1 TAB PO QAM for 30 Days, #30 TAB 5 Refills Tramadol HCl (Tramadol HCl) 50 Mg Tab 25 MG PO Q6H PRN for Pain, #30 TAB Trazodone Hcl (Trazodone) 50 Mg Tab 50 MG PO HS for 30 Days, #30 TAB Admission Information HPI (per Admitting provider): This is a 76 y/o female with PMH of CAD s/p CABG, severe , atrial flutter on sotalol and anticoagulation, tachy kathya syndrome s/p pacemaker, chronic systolic CHF, EF 45%-50% on echo 03/2017, severe , left subclavian stenosis, COPD, idiopathic pulmonary fibrosis, HTN, HL, DM 2, CKD III, and other problems below who was sent to the ED from [facility] after cardiology visit w/ Marilee Dukes PA-C for altered mental status, persistent atrial flutter with RVR, acute on chronic systolic CHF. Hx unobtainable from patient due to mental status. Patient was recently hospitalized at [facility] from Mar 09-March 17 for confusion/ lethargy due to metabolic encephalopathy from infection, SOB, hypoxia, decompensated CHF, RLE infected wound/ cellulitis, aspiration pneumonia, hypomagnesemia, mild troponin elevation. She was treated with vancomycin for RLE infected wound (WC 03/09/17 grew enterococcus faecalis), Dr. Allison attempted debridement but patient could not tolerate. ID recommended PO doxycycline for 14 days of treatment. She was treated with cefepime then PO Levaquin for aspiration pneumonia. Speech therapy recommended dental soft diet w/ aspiration precaution. She was discharged to [facility] on Mar 17. Daughter states she has persistent SOB since recent hospitalization. She had been on nocturnal O2 2L but was changed to continuous. Cough is resolved. No fevers or chills. No further aspiration episodes per her daughter. Has increased bilateral LE edema from baseline. Daughter also reports increasing confusion and lethargy. Has visual hallucinations since recent hospitalization. Has Valentino catheter and daughter notes cloudy urine. Was seen today by Mari Castano PA-C for generalized declinein function. Noted to require 2 person assist w/ ADL and ambulation. Noted to have resting tachycardia with rates in 110s and BP's in low 90s/60s. On 03/31/17 could not stay standing while transferring w/ assistance and had to be lowered to the floor. No significant injury. For the tachycardia, plan was to start Toprol XL 12.5mg daily and cardiology was contacted. Then pt was seen today by Marilee Dukes PA-C as an acute add-on. Pacemaker was interrogated today showing persistent atrial flutter RVR since OctNovember 2016 and non sustained VT was noted. Was sent to ER with recommendation for admission and consideration of alternative antiarrhythmic therapy. Pt states she feels fine currently. Physical Exam (per Admitting): General Appearance: WD/WN, no apparent distress, + pertinent finding ( family at bedside) Head: normocephalic, atraumatic Eyes: normal inspection, PERRL, EOMI ENT: hearing grossly normal, pharynx normal Neck: supple, no JVD, trachea midline Respiratory/Chest: no respiratory distress, no accessory muscle use, + decreased breath sounds, + crackles (bilateral bases) Cardiovascular: + tachycardia (atrial flutter rate 100s), + systolic murmur Abdomen/GI: normal bowel sounds, non tender, soft Extremities/Musculoskelatal: no calf tenderness, + pertinent finding (trace bilateral LE edema) Neurologic/Psych: alert, normal mood/affect, + pertinent finding (oriented to place, recognizes but unable to state his name, disoriented to date. 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 no surrounding erythema or tenderness. scattered ecchymosis.) Hospital Course ACUTE ON CHRONIC CHF EXACERBATION, SYSTOLIC -clinically improved ; compensated with stable volume status Hypoxia , SOB -resolved ECHO : * The left ventricle is normal in size. * There is normal left ventricular wall thickness. * Left ventricular systolic function is normal. * The left ventricular wall motion is normal. * Ejection Fraction = 65-70%. * There is severe calcification of the aortic valve leaflets * Doppler and 2D imaging are discordant. Moderate Moderate to severe aortic stenosis is suspected. * There is trace mitral regurgitation. * There is mild tricuspid regurgitation. * Doppler findings do not suggest pulmonary hypertension. * The inferior vena cava is moderately dilated. Pacemaker interrogation results per office notes- Non sustained v tach, Persistent A flutter -Cardiology consult appreciated s/p SARAH cardioversion HR remains in sinus /rate controlled HYPOTENSION -RESOLVED BP remains stable in low 90-100 Lasix and Imdur will be resumed ATRIAL FLUTTER WITH RVR S/P Cardioversion in sinus with rate controlled rhythm -pt denies of any symptom -on Sotalol 80 mg BID -cont Anticoagulation: Coumadin IV heparin bridge therapy till INR therapeutic -Cardiology following METABOLIC ENCEPHALOPATHY/CONFUSION : resolved mental status improved to baseline Likely secondary to decompensated CHF /medication induced Trazodone D/michelle due to prolong Qtc -/Zolof dose reduced -will Trazodone for sedative effect and side effect for Qtc prolongation UTI -UA +VE urine culture -emanuel albicans pt does not have any urinary symptom will avoid Diflucan -concern for prolong Qtc , as pt already on Sotalol D/c Valentino ; pt voiding without any problem HX OF RECENT ASPIRATION PNEUMONIA During last admission this month -Rxed with antibiotics x 7 days -Speech evaluation during last admission- dental soft diet with aspiration precautions-continued HX OF CELLULITIS/WOUND RIGHT LEG -Rxed with antibiotic course and f/up with wound care outpatient - during last admission -Wound healing well and no signs of cellulitis this admission wound care consulted appreciate input DVT PROPHYLAXIS IV Heparin /Coumadin FULL CODE DISPOSITION PT/OT eval appreciated pt evaluated by Cardiology stable to return back to [facility] today Total time spent on discharge = 35 MINS This includes examination of the patient, discharge planning, medication reconciliation, and communication with other providers. Discharge Instructions Discharge Instructions Date of Service Apr 08, 2017. Admission Reason for Admission: Altered Mental Status, Chf Exacerbation Discharge Discharge Diagnosis / Problem: AFLUTTER /RVR /ACUTE CHF Discharge Goals Goal(s): Decrease discomfort, Improve disease control, Therapeutic intervention Activity Recommendations Activity Level: Assistance Required Therapies: Physical Therapy Lifting Limitations: none Shower/Bathe: no limitations . Additional Information Patient informed of condition: Yes Advance Directives: No DNR: No Level of Care: Skilled Communicable Disease: No Prognosis: Stable Valentino Catheter: No Instructions / Follow-Up Instructions / Follow-Up CONTINUE TO FOLLOW UP WITH PHYSICIAN AT [facility] PT/INR CHECK IN 2 DAYS ( GOAL INR 2-3 ) THEN CONTINUE TO FOLLOW UP INR PER PROTOCOL CARDIOLOGY FOLLOW UP PER PROTOCOL Current Hospital Diet Patient's current hospital diet: Diabetes Type 2 Diet, Low Sodium Diet (2gm Na) , AHA Diet (Heart Healthy) Discharge Diet Recommended Diet: AHA Diet (Heart Healthy), Diabetes Type 2 Diet Diet Texture: Dental Soft (bite-sized) Pending Studies Studies pending at discharge: yes List of pending studies: PT/INR CHECK IN 2 DAYS ; THEN CONTINUE PER PROTOCOL Laboratory Results Hemoglobin A1c Test 03/09/17 18:28 Range/Units Estimated Average Glucose 183 mg/dl Hemoglobin A1c 8.0 H 4.5-5.6 % Medical Emergencies . Who to Call and When: Medical Emergencies: If at any time you feel your situation is an emergency, please call 911 immediately. . Non-Emergent Contact Non-Emergency issues call your: Primary Care Provider . . "Provider Documentation" section prepared by Sarah Jain. . Core Measure Problem Core Measures: None
[2017-04-08] MEDS ORDERED: FURO-85 PO (10:47)
--- NOTE | 2017-04-08 10:57 | Cardiology Follow-Up ---
Subjective Subjective Date of Service: Apr 08, 2017. Pt evaluation today including: conversation w/ patient, physical exam, chart review, lab review, review of studies, review of inpatient medication list Additional Details: Pt seen and examined, very anxious for discharge. Denies cp, sob, palpitations, lightheadedness or dizziness. Tele reviewed: sinus rhythm without arrhythmia or significant ectopy Problem List Medical Problems: (1) Altered mental status Status: Acute (2) Cellulitis of right leg Status: Acute (3) Contusion of multiple sites Status: Acute (4) COPD exacerbation Status: Acute (5) Elevated troponin Status: Acute (6) Facial contusion Status: Acute (7) Fall Status: Acute (8) Head injury Status: Acute (9) Hypoglycemia Status: Acute (10) PNA (pneumonia) Status: Acute (11) UTI (urinary tract infection) Status: Acute Review of Systems Constitutional: + weakness Respiratory: No see HPI, No cough, No sputum, No wheezing, No shortness of breath, No dyspnea on exertion, No dyspnea at rest, No hemoptysis, No problem reported Cardiac: No see HPI, No chest pain, No orthopnea, No PND, No edema, No claudication, No palpitations, No problem reported Neurologic: + weakness Objective Vital Signs Last Vital Signs Documentation Date Time Temp Pulse Resp B/P (MAP) Pulse Ox O2 Delivery O2 Flow Rate FiO2 04/08/17 08:23 94 Nasal Cannula 1.0 04/08/17 07:39 36.5 60 19 104/57 (73) Physical Exam: General Appearance: WD/WN, no apparent distress Eyes: bilateral eyes normal inspection, bilateral eyes PERRL, bilateral eyes EOMI ENT: normal ENT inspection, hearing grossly normal, pharynx normal Neck: supple, no adenopathy, thyroid normal, no JVD, no carotid bruits, trachea midline Respiratory/Chest: lungs clear, normal breath sounds, no respiratory distress Cardiovascular: regular rate, rhythm, no edema, no JVD, + systolic murmur, + gallop/S4 Abdomen: normal bowel sounds, non tender, soft, no organomegaly, no pulsatile mass Extremities: normal inspection, no pedal edema, no calf tenderness, + pertinent finding Neurologic/Psychiatric: seafood service team member II-XII nml as tested, no motor/sensory deficits, alert, normal mood/affect, oriented x 3 Skin: normal color, warm/dry, no rash Lymphatic: no adenopathy Assessment and Plan 1. atrial flutter s/p successful SARAH guided cardioversion has remained in sinus tolerating bid sotalol on coumadin anxious for discharge, ok to d/c to home from cardiac standpoint will need continued follow up with [facility] clinic as outpatient cont sotalol cardiology f/u with See Robles PA-C or Dr. Michael in 1 month
[2017-04-08 11:21] VITALS: BP 112/69; PULSE 66; TEMP 36.6; O2SAT 94
[2017-04-08 11:47] VITALS: BP 104/57; PULSE 60; TEMP 36.5; O2SAT 94
--- NOTE | 2017-04-11 13:42 | Anesthesiology Progress Note ---
Anesthesia Post Op Note Date & Time Apr 11, 2017 at 13:42 Vital Signs Pain Intensity: 0.0 Notes Mental Status: alert / awake / arousable, participated in evaluation Pt Amnestic to Procedure: Yes Nausea / Vomiting: adequately controlled Pain: adequately controlled Airway Patency, RR, SpO2: stable & adequate BP & HR: stable & adequate Hydration State: stable & adequate Anesthetic Complications: no major complications apparent
== END 2017-04-08 12:23 | DRG 291 ==
LOC: EDBD 16:05 → C.EDB 16:11 → ENRESERV 18:47 → CANRESERV 18:47 → C.MED 19:32 → EDBEDREQSVC 20:02 → ENRESERV 20:03 → C.2T 04-07 13:45
PROVIDERS: ADMIT Internal Medicine; ATTEND Hospitalist
PROC: 5A2204Z Restoration of Cardiac Rhythm, Single (ICD-10-PCS; principal; 2017-04-07 11:59)
DX: I13.0 Hypertensive heart and chronic kidney disease with heart failure and stage 1 through stage 4 chronic kidney disease, or unspecified chronic kidney disease (principal); I50.23 Acute on chronic systolic (congestive) heart failure; G93.41 Metabolic encephalopathy; I48.92 Unspecified atrial flutter; E72.12 Methylenetetrahydrofolate reductase deficiency; B37.49 Other urogenital candidiasis; I35.0 Nonrheumatic aortic (valve) stenosis; I48.0 Paroxysmal atrial fibrillation; I25.10 Atherosclerotic heart disease of native coronary artery without angina pectoris; N18.3 Chronic kidney disease, stage 3 (moderate); E11.319 Type 2 diabetes mellitus with unspecified diabetic retinopathy without macular edema; E78.5 Hyperlipidemia, unspecified; Z86.73 Personal history of transient ischemic attack (TIA), and cerebral infarction without residual deficits; Z86.718 Personal history of other venous thrombosis and embolism; E03.9 Hypothyroidism, unspecified; Z95.1 Presence of aortocoronary bypass graft; Z95.0 Presence of cardiac pacemaker; E83.42 Hypomagnesemia; E11.649 Type 2 diabetes mellitus with hypoglycemia without coma; Z79.01 Long term (current) use of anticoagulants

== ENCOUNTER 2017-05-24 08:37 | Inpatient (IN) | payer OTHER ==
[2017-05-24] VITALS (10 sets, daily range): BP systolic 81–115; BP diastolic 48–63; PULSE 64–73; TEMP 35.8–36.4; O2SAT 90–98; BMI 34.9
[~2017-05-24] VITALS: Ht 157.5 cm; Wt 80.1 kg
[~2017-05-24 08:37] MED LIST changes: +BTP80 PO; +CALC-354 PO; -CALC600T48 PO; -DXY100 PO; +MRLP17X PO; +SERT50TA PO; -SNTO30 EXT; +SNTO30 TOP; -SOTA80TA PO; -TRAZ50TA35 PO; -ULT50X PO; +WARF1TAB6 PO; +WARF2TAB8 PO; -WARF4TAB8 PO; -ZLF/100 PO
[2017-05-24 09:32] LABS: BASO % 0.3 %; BASO ABS # 0.02 K/uL (0-0.2); COMPLETE YES; EOS % 2.3 %; HEMATOCRIT 30.7 % (37-47); IG% 0.3 %; LYMPH % 28.5 %; LYMPH ABS # 2.07 K/uL (1.2-3.4); MEAN CELL VOLUME 88.5 fL (80-100); MEAN CORPUSCULAR HEMOGLOBIN 28.2 pg (25-34); MEAN CORPUSCULAR HGB CONC 31.9 g/dl (32-36); MEAN PLATELET VOLUME 9.3 fL (7.4-10.4); MONO % 13.6 %; PLATELET COUNT 261 K/uL (130-400); RED BLOOD COUNT 3.47 M/uL (4.2-5.4); WHITE BLOOD COUNT 7.26 K/uL (4.8-10.8)
[2017-05-24 09:35] LABS: INR 3.5 (0.9-1.1); PARTIAL THROMBOPLASTIN RATIO 1.6; PROTHROMBIN TIME (PATIENT) 39.5 SECONDS (9.0-12.0)
[2017-05-24] MEDS ORDERED: NVLG SQ (09:39)
[2017-05-24 09:41] LABS: ALT/SGPT 11 U/L (12-78); BLOOD UREA NITROGEN 45 mg/dl (7-18); BUN/CREATININE RATIO 23.4 (10-20); CALCIUM 9.6 mg/dl (8.5-10.1); CARBON DIOXIDE 24 mmol/L (21-32); CHLORIDE 97 mmol/L (98-107); GLUCOSE 176 mg/dl (70-99); MAGNESIUM 2.5 mg/dl (1.8-2.4); POTASSIUM 4.5 mmol/L (3.5-5.1); SODIUM 132 mmol/L (136-145)
[2017-05-24] MEDS ORDERED: SOTA80TA8 PO (09:41)
--- NOTE | 2017-05-24 09:45 | DIAGNOSTIC IMAGING REPORT ---
CHEST ONE VIEW PORTABLE CLINICAL HISTORY: EVALUATE ALTERED MENTAL STATUS/WEAKNESS COMPARISON STUDY: 04/04/2017 FINDINGS: The heart is enlarged. There are postsurgical changes of a midline sternotomy. There is a left subclavian dual-chamber central venous pacemaker. There is diffuse an essential thickening, likely representing interstitial edema superimposed on chronic lung disease. There is a more focal airspace opacity at the base the right upper lobe.[ IMPRESSION: Cardiomegaly and suspected interstitial edema superimposed on chronic lung disease. More focal airspace opacity at the base the right upper lobe. Clinical and radiographic follow-up is recommended. Electronically signed by: Kenton Geiger M.D. 05/24/2017 9:43 AM Dictated Date/Time: 05/24/2017 9:42 AM
[2017-05-24] MEDS ORDERED: WARF4TAB PO (09:46)
[2017-05-24 09:49] LABS: ALKALINE PHOSPHATASE 135 U/L (45-117); AST/SGOT 24 U/L (15-37)
[2017-05-24] MEDS ORDERED: LACT1TAB4 PO (09:49)
[2017-05-24] MEDS ORDERED: FRS/40 PO (09:52)
[2017-05-24] MEDS ORDERED: FURO-85 PO (09:54)
[2017-05-24] MEDS ORDERED: INSDGI SC (09:56)
[2017-05-24] MEDS ORDERED: SOTA80TA PO (10:01)
[2017-05-24] MEDS: IPRATROPIUM BROMIDE/ALBUTEROL respimat INH INH SCH ×2 (10:22→21:00)
[2017-05-24] MEDS ORDERED: PHYTONADIONE INJ 5 MG in SODIUM CHLORIDE 0.9% 50ML 50 ML IV ONE (12:15)
--- NOTE | 2017-05-24 12:30 | EMERGENCY ROOM VISIT NOTE ---
History Report prepared by Violeta: Leonie Goodwin Under the Supervision of: Denver OleaO. First contact with patient: 09:01 Chief Complaint: ILLNESS Stated Complaint: AMS/LOW SPO2 History of Present Illness The patient is a 77 year old female who presents to the Emergency Room with persistent hypoxia that was found this morning. Per nursing notes, the patient arrives via ALS from [facility]. Nursing notes report that the patient was found to have an oxygen saturation of 68% on room air. The patient denies any shortness of breath or chest pain. The patient's states that the patient has been at [facility] for the past two months for rehabilitation. He reports that the patient has a history of congestive heart failure and dementia. The patient's reports that the patient's daughter was called this morning and told that the patient was most likely in heart failure. Per the patient's daughter, the staff at [facility] called her this morning stating that the patient was in heart failure and they did not feel comfortable keeping the patient here. Per nursing staff the patient was found to be altered today by staff at [facility]. The patient's states that that the patient is typically on supplemental nasal cannula oxygen. Source of History: patient, family (daughter), spouse/significant other ( ), nursing staff Onset: this morning Position: other (global) Symptom Intensity: 68% Quality: other (hypoxia) Timing: other (persistent) Associated Symptoms: No chest pain, No SOB Review of Systems See HPI for pertinent positives & negatives. A total of 10 systems reviewed and were otherwise negative. 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 (16) History of CVA (cerebrovascular accident) (17) History of DVT (deep vein thrombosis) (18) History of hyperkalemia (19) History of TIA (transient ischemic attack) (20) HTN (hypertension) (21) Hypothyroidism (22) Idiopathic pulmonary fibrosis (23) Malignant neoplasm of corpus uteri (24) Migraine (25) Moderate COPD (chronic obstructive pulmonary disease) (26) Paroxysmal a-fib (27) Sepsis (28) Systolic CHF (29) Tobacco abuse (30) Valvular disease Surgical Problems: (1) H/o bile tract procedure (2) H/O cardiac catheterization (3) H/O excision of lamina of cervical vertebra for decompression of spinal cord (4) H/O hernia repair (5) H/O total hysterectomy with bilateral salpingo-oophorectomy (BSO) (6) History of cholecystectomy (7) History of total hip replacement (8) S/P CABG (coronary artery bypass graft) Family History Cardiac disorder FATHER MOTHER Diabetes mellitus FATHER MOTHER BROTHER GRANDMOTHER FH: cancer Social History Smoking Status: Former Smoker Alcohol Use: none Drug Use: none Marital Status: Housing Status: lives with family Occupation Status: retired, other Current/Historical Medications Scheduled Aspirin (Aspirin Chewable), 81 MG PO DAILY Calcium Carbonate-Cholecalcife (Caltrate 600+D), 1 TAB PO DAILY Collagenase (Santyl), 1 APPLN TOP DAILY Docusate Sodium (Colace), 1 CAP PO BID Furosemide (Lasix), 40 MG PO Q2D Furosemide (Lasix), 60 MG PO Q2D Home O2 Therapy (Oxygen), 2 LITERS NA HS Insulin Aspart (Novolog), 0 SQ TIDM Insulin Glargine (Lantus), 5 SC QPM Ipratropium-Albuterol (Combivent Respimat), 1 PUFFS INH QID Isosorbide Mononitrate Ext Rel (Imdur Ext Rel), 30 MG PO QAM Lactobacillus (Floranex), 4 TABS PO TIDM Levothyroxine Sodium (Levothyroxine Sodium), 137 MCG PO QAM Magnesium Oxide (Magnesium), 400 MG PO BID Nutritional Supplements (Boost), 1 CAN PO BIDM Ranitidine Hcl (Zantac), 150 MG PO BID Sotalol Hcl (Sotalol Hcl), 1 TAB PO BID Warfarin Sod (Jantoven), 2 MG PO 5XWK Warfarin Sodium (Coumadin), 4 MG PO UD Scheduled PRN Albuterol Hfa (Ventolin Hfa), 2 PUFF INH Q6 PRN for SOB/Wheezing Eucerin (Hydrocerin), 1 APPLN EXT BID PRN for nursing decison Menthol (Ricola), 1 FRANCES PO PRN PRN for SORE THROAT Nitroglycerin (Nitrostat), 0.4 MG UT UD PRN for Chest Pain Ondansetron Hcl (Zofran), 4 MG PO Q6H PRN for Nausea or Vomiting Polyethylene (Miralax), 17 GM PO DAILY PRN for Constipation Allergies Coded Allergies: Codeine (Verified Allergy, Severe, HIVES / DIFICULTY BREATHING; TAKES PERCOCET W/O PROBLEM, 05/24/17) Penicillins (Verified Allergy, Intermediate, RASH, 05/24/17) SY Inhibitors (Verified Adverse Reaction, Unknown, HYPERKALEMIA, 05/24/17) Physical Exam Vital Signs Date Time Temp Pulse Resp B/P (MAP) Pulse Ox O2 Delivery O2 Flow Rate FiO2 05/24/17 11:35 77 15 94 05/24/17 11:32 99/61 05/24/17 11:05 70 15 96 05/24/17 11:03 72 18 114/65 98 Nasal Cannula 3.0 05/24/17 09:36 36.3 05/24/17 09:31 64 16 105/56 95 Nasal Cannula 3.0 05/24/17 08:55 36.3 69 20 104/50 88 Room Air 05/24/17 08:48 68 Physical Exam CONSTITUTIONAL/VITAL SIGNS: Reviewed / noted above. GENERAL: Non-toxic in appearance. INTEGUMENTARY: Warm, dry, and [place]. HEAD: Normocephalic. EYES: without scleral icterus or trauma. ENT/OROPHARYNX: clear and moist. LYMPHADENOPATHY/NECK: Is supple without lymphadenopathy or meningismus. RESPIRATORY: Minimal basilar crackles. CARDIOVASCULAR: Regular rate and rhythm. GI/ABDOMEN: Soft and nontender. No organomegaly or pulsatile mass. No rebound or guarding. Normal bowel sounds. EXTREMITIES: Warm and well perfused. BACK: No CVA tenderness. Rectal: Gross blood noted on exam. NEUROLOGICAL: Intact without focal deficits. PSYCHIATRIC: normal affect. MUSCULOSKELETAL: Normally developed with good muscle tone. Medical Decision & Procedures ER Provider Diagnostic Interpretation: X ray results and stated below per my interpretation and radiology interpretation. CHEST ONE VIEW PORTABLE CLINICAL HISTORY: EVALUATE ALTERED MENTAL STATUS/WEAKNESS COMPARISON STUDY: 04/04/2017 FINDINGS: The heart is enlarged. There are postsurgical changes of a midline sternotomy. There is a left subclavian dual-chamber central venous pacemaker. There is diffuse an essential thickening, likely representing interstitial edema superimposed on chronic lung disease. There is a more focal airspace opacity at the base the right upper lobe.[ IMPRESSION: Cardiomegaly and suspected interstitial edema superimposed on chronic lung disease. More focal airspace opacity at the base the right upper lobe. Clinical and radiographic follow-up is recommended. Electronically signed by: Kenton Geiger M.D. 05/24/2017 9:43 AM Dictated Date/Time: 05/24/2017 9:42 AM Laboratory Results 05/24/17 08:45 Red Blood Count 3.47, Mean Corpuscular Volume 88.5, Mean Corpuscular Hemoglobin 28.2, Mean Corpuscular Hemoglobin Concent 31.9, Mean Platelet Volume 9.3, Neutrophils (%) (Auto) 55.0, Lymphocytes (%) (Auto) 28.5, Monocytes (%) (Auto) 13.6, Eosinophils (%) (Auto) 2.3, Basophils (%) (Auto) 0.3, Neutrophils # (Auto ) 3.99, Lymphocytes # (Auto) 2.07, Monocytes # (Auto) 0.99, Eosinophils # (Auto ) 0.17, Basophils # (Auto) 0.02 05/24/17 08:45 Test 05/24/17 08:45 White Blood Count 7.26 K/uL (4.8-10.8) Red Blood Count 3.47 M/uL (4.2-5.4) Hemoglobin 9.8 g/dL (12.0-16.0) Hematocrit 30.7 % (37-47) Mean Corpuscular Volume 88.5 fL (80-100) Mean Corpuscular Hemoglobin 28.2 pg (25-34) Mean Corpuscular Hemoglobin Concent 31.9 g/dl (32-36) Platelet Count 261 K/uL (130-400) Mean Platelet Volume 9.3 fL (7.4-10.4) Neutrophils (%) (Auto) 55.0 % Lymphocytes (%) (Auto) 28.5 % Monocytes (%) (Auto) 13.6 % Eosinophils (%) (Auto) 2.3 % Basophils (%) (Auto) 0.3 % Neutrophils # (Auto) 3.99 K/uL (1.4-6.5) Lymphocytes # (Auto) 2.07 K/uL (1.2-3.4) Monocytes # (Auto) 0.99 K/uL (0.11-0.59) Eosinophils # (Auto) 0.17 K/uL (0-0.5) Basophils # (Auto) 0.02 K/uL (0-0.2) RDW Standard Deviation 56.2 fL (36.4-46.3) RDW Coefficient of Variation 17.3 % (11.5-14.5) Immature Granulocyte % (Auto) 0.3 % Immature Granulocyte # (Auto) 0.02 K/uL (0.00-0.02) Prothrombin Time 39.5 SECONDS (9.0-12.0) Prothromb Time International Ratio 3.5 (0.9-1.1) Activated Partial Thromboplast Time 42.3 SECONDS (21.0-31.0) Partial Thromboplastin Ratio 1.6 Anion Gap 11.0 mmol/L (3-11) Est Creatinine Clear Calc Drug Dose 26.1 ml/min Estimated GFR () 29.4 Estimated GFR (Non- 25.3 BUN/Creatinine Ratio 23.4 (10-20) Calcium Level 9.6 mg/dl (8.5-10.1) Magnesium Level 2.5 mg/dl (1.8-2.4) Total Bilirubin 1.3 mg/dl (0.2-1) Direct Bilirubin 0.7 mg/dl (0-0.2) Aspartate Amino Transf (AST/SGOT) 24 U/L (15-37) Alanine Aminotransferase (ALT/SGPT) 11 U/L (12-78) Alkaline Phosphatase 135 U/L (45-117) Total Creatine Kinase 30 U/L (26-192) Creatine Kinase MB 0.9 ng/ml (0.5-3.6) Creatine Kinase MB Ratio 3.0 (0-3.0) Troponin I < 0.015 ng/ml (0-0.045) Total Protein 8.0 gm/dl (6.4-8.2) Albumin 2.9 gm/dl (3.4-5.0) Lipase 36 U/L (73-393) Thyroid Stimulating Hormone (TSH) 2.250 uIu/ml (0.300-4.500) Laboratory results as stated above per my review. ECG Indication: altered mental status, other (hypoxia) Rate (beats per minute): 73 Rhythm: other (atrial paced) Findings: T-wave inversion (Inferior), no acute ischemic change, no ectopy Comparison ECG Date: 04/08/17 Change: no significant change ED Course 0903: Previous medical records were reviewed. The patient was evaluated in room B10. A complete history and physical examination was performed. 1145: I reevaluated the patient and she is resting. I did a rectal exam at this time. See physical exam for further detail. I discussed all the exam findings with her and her family and I discussed the treatment plan. They verbalized complete understanding and agreement. The patient will be evaluated for further treatment. 1204: I discussed the patients case with Mac Luque PA-C. She is going to evaluate the patient for further treatment. 1215: Ordered Phytonadione 5 mg/Sodium Chloride 50.5 ml @101 mls/hr Protocol. Medical Decision Differentials include: Acute coronary syndrome, myocardial infarction, CVA, TIA , anemia, infection, pneumonia, UTI, pyelonephritis, poor nutrition, dehydration , electrolyte disturbance, and hypoglycemia. This is a 77-year-old female who presents to the ED with a chief complaint of weakness. The patient denies any specific complaints. She was sent here by embolus for evaluation. The patient's chronically on home oxygen at the halfway. Her exam was unremarkable with exception of gross blood on rectal exam. An EKG shows an atrial paced rhythm at a rate of 73. Her hemoglobin is 9.8, INR is 3.5. She is on Coumadin. BUN is 45 and creatinine is 1.9. Glucose is 176. Troponin is normal. Chest x-ray has been reviewed as above. The patient's hemoglobin was 14.8 about 6 weeks ago. The BUN was 19 and the creatinine is 1.3 at that time as well. The patient was treated IV vitamin K. She will be seen by the hospitalist service for inpatient evaluation for GI bleed. Medication Reconcilliation Current Medication List: was personally reviewed by me Blood Pressure Screening Patient's blood pressure: Normal blood pressure Blood pressure disposition: Did not require urgent referral Consults Time Called: 1152 Consulting Physician: Mac Luque PA-C Returned Call: 1204 I discussed the patients case with Mac Luque PA-C. She is going to evaluate the patient for further treatment. Impression Primary Impression: GI bleed Additional Impressions: Elevated INR Anemia Acute on chronic renal failure Scribe Attestation The scribe's documentation has been prepared under my direction and personally reviewed by me in its entirety. I confirm that the note above accurately reflects all work, treatment, procedures, and medical decision making performed by me. Departure Information Dispostion Being Evaluated By Hospitalist Referrals Gio Braun D.OVanessa (PCP) Problem Qualifiers
[2017-05-24] MEDS ORDERED: GLUCAGON FOR INJ 1 MG VIAL SQ PRN (13:30)
[2017-05-24] MEDS ORDERED: GLUCOSE 10 TABS/TUBE PO PRN (13:30)
[2017-05-24] MEDS ORDERED: GLUCOSE 40% GEL 15 GM TUBE PO PRN (13:30)
[2017-05-24] MEDS ORDERED: DEXTROSE 50% 50 ML SYR IV PRN (13:30)
[2017-05-24] MEDS ORDERED: CMD2 PO (13:45)
[2017-05-24] MEDS ORDERED: NITROGLYCERIN 0.4 MG SL PER TAB CHARGE UT PRN (13:45)
[2017-05-24] MEDS ORDERED: ALBUTEROL HFA 8 GM INHALER INH PRN (13:45)
[2017-05-24] MEDS: ONDANSETRON INJ 2 MG/ML 2 ML VIAL IV PRN (13:54)
--- NOTE | 2017-05-24 13:55 | Gastrointestinal Consultation ---
Gastrointestinal Consultation Date of Consultation: May 24, 2017 Attending Physician: Bhargavi Consulting Physician: Blas Reason for Consultation: anemia, rectal bleeding History of Present Illness Patient is a 77 year old female with below mentioned history seen in the ED accompanied w/ family from [facility] for evaluation of AMS and fatigue. Pt was noted to have acute anemia, and sachin blood on rectal exam. GI was consulted for management. Pt is alert, but is not providing an accurate history. No history of liver disease. Denies any upper abdominal complaints, specifically no epigastric pain or tenderness. She tells me she had some nausea and vomiting yesterday, emesis was clear. She is unsure how long she has been having rectal bleeding, but suggests since yesterday. Denies any rectal pain or abdominal pain. Unsure of how many stools she is having daily. No sick contacts. EGD 2007: gastroparesis, gastritis Colon 2004: diverticulosis Past Medical/Surgical History Medical Problems: (1) Acute on chronic renal failure Status: Acute (2) Altered mental status Status: Acute (3) Anemia Status: Acute (4) Cellulitis of right leg Status: Acute (5) Contusion of multiple sites Status: Acute (6) COPD exacerbation Status: Acute (7) Elevated INR Status: Acute (8) Elevated troponin Status: Acute (9) Facial contusion Status: Acute (10) Fall Status: Acute (11) GI bleed Status: Acute (12) Head injury Status: Acute (13) Hypoglycemia Status: Acute (14) PNA (pneumonia) Status: Acute (15) UTI (urinary tract infection) Status: Acute Past Medical History: CAD, aortic stenosis, CAD, afib, CHF, CKD, T2DM, GERD, dyslipidemia, hx CVA, hx falls, hx TIA, Heterozygous MTHFR mutation C677T, HTN, pulmonary fibrosis Past Surgical History: EGD, Colonoscopy, hip replacement, CABG, cardiac catheterization, hernia repair , total hysterectomy, excision of lamina of cervical vertebra for decompression of spinal cord, cholecystectomy Family History Cardiac disorder FATHER MOTHER Diabetes mellitus FATHER MOTHER BROTHER GRANDMOTHER FH: cancer Social History Smoking Status: Former Smoker Alcohol Use: none Drug Use: none Marital Status: Housing Status: lives with family Occupation Status: retired, other Allergies Coded Allergies: Codeine (Verified Allergy, Severe, HIVES / DIFICULTY BREATHING; TAKES PERCOCET W/O PROBLEM, 05/24/17) Penicillins (Verified Allergy, Intermediate, RASH, 05/24/17) SY Inhibitors (Verified Adverse Reaction, Unknown, HYPERKALEMIA, 05/24/17) Current Medications Home Meds and Scripts Medications Dose Route/Sig Max Daily Dose Days Date Category Dose Instructions Sotalol Hcl 80 Mg Tab 1 Tab PO BID 05/24/17 Reported Lantus (Insulin Glargine) 100 Unit/Ml Inj 5 SC QPM 05/24/17 Reported Lasix (Furosemide) 20 Mg Tab 60 Mg PO Q2D 05/24/17 Reported Lasix (Furosemide) 40 Mg Tab 40 Mg PO Q2D 05/24/17 Reported Floranex (Lactobacillus) 1 Tab Tab 4 Tabs PO TIDM 05/24/17 Reported Coumadin (Warfarin Sodium) 4 Mg Tab 4 Mg PO UD 05/24/17 Reported MONDAY/MONDAY Novolog (Insulin Aspart) 100 Units/Ml Inj 0 SQ TIDM 05/24/17 Reported Miralax (Polyethylene) 17 Gm Pow 17 Gm PO DAILY PRN 30 04/08/17 Rx Caltrate 600+D (Calcium Carbonate-Cholecalcife) 1 Tab Tab 1 Tab PO DAILY 04/04/17 Reported Santyl (Collagenase) 250 Unit/Gm Oin 1 Appln TOP DAILY 04/04/17 Reported RIGHT CALF WOUND Jantoven (Warfarin Sodium) 2 Mg Tab 2 Mg PO 5XWK 04/04/17 Reported MONDAY, MONDAY, MONDAY, MONDAY, MONDAY Hydrocerin (Multi-Ingredient Ointment) 360 Appln/120 Gm Cr 1 Appln EXT BID PRN 30 03/12/17 Rx Ricola (Menthol) 24 Maximus/1 Box Lozg 1 Maximus PO PRN PRN 03/12/17 Rx Boost (Nutritional Supplements) 1 Liq Liq 1 Can PO BIDM 30 03/12/17 Rx Ventolin Hfa (Albuterol) 200 Puffs/67644 Mcg Aers 2 Puff INH Q6 PRN 03/09/17 Reported Zofran (Ondansetron HCl) 4 Mg Tab 4 Mg PO Q6H PRN 11/24/16 Reported Magnesium (Magnesium Oxide) 400 Mg Tab 400 Mg PO BID 11/24/16 Reported Imdur Ext Rel (Isosorbide Mononitrate) 30 Mg Tabcr 30 Mg PO QAM 02/01/16 Reported Combivent Respimat (Ipratropium-Albuterol) 1 Aer Aer 1 Puffs INH QID 01/04/16 Reported Oxygen Gas 2 Liters NA HS 01/04/16 Reported HS and with any daytime sleeping Colace (Docusate Sodium) 100 Mg Cap 1 Cap PO BID 01/04/16 Reported Aspirin Chewable (Aspirin) 81 Mg Chew 81 Mg PO DAILY 07/17/15 Reported Levothyroxine Sodium 137 Mcg Tab 137 Mcg PO QAM 07/17/15 Reported Zantac (Ranitidine Hcl) 150 Mg Tab 150 Mg PO BID 06/07/13 Reported Nitrostat (Nitroglycerin) 0.4 Mg Tab 0.4 Mg UT UD PRN 06/07/[address] ONE TABLET UNDER THE TONGUE EVERY 5 MINUTES FOR UP TO 3 DOSES IF NEEDED FOR CHEST PAIN. Review of Systems Constitutional: No fever, No chills Respiratory: No cough, No shortness of breath Cardiac: No chest pain, No edema Abdomen: + GI bleeding, No pain, No nausea, No vomiting, No diarrhea Physical Exam Date Time Temp Pulse Resp B/P (MAP) Pulse Ox O2 Delivery O2 Flow Rate FiO2 05/24/17 13:20 80 18 05/24/17 13:15 75 17 05/24/17 13:10 74 14 05/24/17 13:06 94 Nasal Cannula 3.0 05/24/17 13:05 68 25 05/24/17 13:01 103/69 05/24/17 13:00 71 18 72 05/24/17 12:55 68 19 81 05/24/17 12:50 70 13 100 05/24/17 12:48 75 05/24/17 12:45 69 13 05/24/17 12:40 70 12 100 05/24/17 12:35 64 16 100 05/24/17 12:31 119/78 05/24/17 12:30 74 25 93 05/24/17 12:25 70 15 99 05/24/17 12:20 75 23 94 05/24/17 12:15 69 18 97 05/24/17 12:10 79 12 93 05/24/17 12:05 72 13 97 05/24/17 12:03 105/61 05/24/17 12:01 /58 05/24/17 12:00 74 13 93 05/24/17 11:35 77 15 94 05/24/17 11:32 99/61 05/24/17 11:05 70 15 96 05/24/17 11:03 72 18 114/65 98 Nasal Cannula 3.0 05/24/17 09:36 36.3 05/24/17 09:31 64 16 105/56 95 Nasal Cannula 3.0 05/24/17 08:55 36.3 69 20 104/50 88 Room Air 05/24/17 08:48 68 General Appearance: + mild distress (pt appears uncomfortable in bed) Eyes: PERRL Neck: supple Respiratory/Chest: + decreased breath sounds, + crackles Cardiovascular: regular rate, rhythm Abdomen: normal bowel sounds, non tender, soft, no organomegaly, no pulsatile mass Neurologic/Psych: alert, normal mood/affect, oriented x 3 Skin: normal color, no jaundice Laboratory Results Last 24 Hours Test 05/24/17 08:45 White Blood Count 7.26 K/uL Red Blood Count 3.47 M/uL Hemoglobin 9.8 g/dL Hematocrit 30.7 % Mean Corpuscular Volume 88.5 fL Mean Corpuscular Hemoglobin 28.2 pg Mean Corpuscular Hemoglobin Concent 31.9 g/dl Platelet Count 261 K/uL Mean Platelet Volume 9.3 fL Neutrophils (%) (Auto) 55.0 % Lymphocytes (%) (Auto) 28.5 % Monocytes (%) (Auto) 13.6 % Eosinophils (%) (Auto) 2.3 % Basophils (%) (Auto) 0.3 % Neutrophils # (Auto) 3.99 K/uL Lymphocytes # (Auto) 2.07 K/uL Monocytes # (Auto) 0.99 K/uL Eosinophils # (Auto) 0.17 K/uL Basophils # (Auto) 0.02 K/uL RDW Standard Deviation 56.2 fL RDW Coefficient of Variation 17.3 % Immature Granulocyte % (Auto) 0.3 % Immature Granulocyte # (Auto) 0.02 K/uL Prothrombin Time 39.5 SECONDS Prothromb Time International Ratio 3.5 Activated Partial Thromboplast Time 42.3 SECONDS Partial Thromboplastin Ratio 1.6 Sodium Level 132 mmol/L Potassium Level 4.5 mmol/L Chloride Level 97 mmol/L Carbon Dioxide Level 24 mmol/L Anion Gap 11.0 mmol/L Blood Urea Nitrogen 45 mg/dl Creatinine 1.90 mg/dl Est Creatinine Clear Calc Drug Dose 26.1 ml/min Estimated GFR () 29.4 Estimated GFR (Non- 25.3 BUN/Creatinine Ratio 23.4 Random Glucose 176 mg/dl Calcium Level 9.6 mg/dl Magnesium Level 2.5 mg/dl Total Bilirubin 1.3 mg/dl Direct Bilirubin 0.7 mg/dl Aspartate Amino Transf (AST/SGOT) 24 U/L Alanine Aminotransferase (ALT/SGPT) 11 U/L Alkaline Phosphatase 135 U/L Total Creatine Kinase 30 U/L Creatine Kinase MB 0.9 ng/ml Creatine Kinase MB Ratio 3.0 Troponin I < 0.015 ng/ml Total Protein 8.0 gm/dl Albumin 2.9 gm/dl Lipase 36 U/L Thyroid Stimulating Hormone (TSH) 2.250 uIu/ml Impression Patient is a 77 year old female with numerous above mentioned comorbidities on Coumadin seen in the ED for AMS and lethargy - GI consulted for sachin blood on rectal exam and symptomatic anemia in the setting of Coumadin toxicity with INR 3.5. Pt without any abdominal pain, etiology unclear. Will reverse INR, obtain stools for culture and infection, KUB of abdomen and plan for EGD/Colonoscopy tomorrow w/ Dr. Odonnell Plan Hold Coumadin Vitamin K per primary service Trend H&H Transfuse as needed Monitor stools IV Pepcid BID Clear liquids today NPO after midnight EGD/Colonoscopy tomorrow Prep with go-lytely Full work up for AMS per primary service, please consider head CT I saw and evaluated the patient. She is unable to give much of a history due to her mental status. We are consult at for significant drop in her hemoglobin and hematocrit associated hematochezia. Review of her outpatient medical record shows a significant In her hemoglobin and hematocrit over the past or to 6 weeks. Her last upper endoscopy colonoscopy were over 10 years ago. The family is interested in pursuing endoscopic evaluations. Physical examination Pallor of the skin noted No scleral icterus Impression: Patient presenting with a significant drop in her hemoglobin and hematocrit associated with hematochezia. I wonder if she may have an upper yesterday test bleeding would offer upper endoscopy. Given her significant comorbid conditions he may be reasonable to do a bowel prep and perform a colonoscopy if the upper endoscopy is negative. Recommendations EGD and colonoscopy tomorrow Please reverse INR Bowel preparation written Consider CT of the head given her mental status changes
--- NOTE | 2017-05-24 14:19 | History and Physical ---
History & Physical Date & Time of Service: May 24, 2017 at 13:48 Chief Complaint: Ams/Low Spo2 Primary Care Physician: Gio Braun D.O. History of Present Illness Source: patient, family, clinic records, fpc This is a 77yo F from [facility] with chronic systolic CHF, CAD (s/p CABG), A flutter (on coumadin), Tachy-kathya syndrome (s/p PM placement), COPD, HTN, DM II , CKD III and other comorbidities listed below who presents after being found to be hypoxic and lethargic at the fpc this morning. Per discussion with fpc, patient was found to have an O2 saturation of 68% on room air upon waking today. Patient has a history of chronic respiratory failure and requires 2L NC O2 at baseline. She reportedly removes O2 throughout the night. Once patient was put on 4L NC O2, saturation increased to 90%. Due to patient's lethargic state today (is alert at baseline with some dementia, per fpc ) as well as recent acute on chronic CHF, patient was sent via EMS for further evaluation. Patient lethargic on exam, although A&Ox3 with persistent prompting. Endorses lower back pain but denies confusion, headache, CP, SOB, orthopnea, abdominal pain, nausea/vomiting, weakness. Per chart review, patient was evaluated at [facility] last week for worsening CHF. Has gained 7 lbs and has not been compliant with fluid or salt restrictions. Lasix dose was increased from 40mg to 60mg of Lasix from 05/17-05/21 with minimal improvement. During ER evaluation, patient was found to have a hgb of 9.8 (decreased from 14.8 from last admission) and gross blood on rectal exam. Patient is unsure when asked questions about blood in bowel movements. Last colonoscopy in 2004 showed multiple diverticula in descending and sigmoid colon. No history of GI bleed. Past Medical/Surgical History Medical Problems: (1) Aortic stenosis Permanent Comment: severe per echo 03/2017 Status: Chronic (2) CAD (coronary artery disease) Permanent Comment: s/p CABG 12/2009 Status: Chronic (3) Chronic back pain Status: Chronic (4) CKD (chronic kidney disease) stage 3, GFR 30-59 ml/min Status: Chronic (5) Depression Status: Chronic (6) DM type 2 (diabetes mellitus, type 2) Status: Chronic (7) Dyslipidemia Status: Chronic (8) GERD (gastroesophageal reflux disease) Status: Chronic (9) H/O diabetes insipidus Status: Chronic (10) H/O vertigo Status: Chronic (11) Heterozygous MTHFR mutation [id number] Status: Chronic (12) History of CVA (cerebrovascular accident) Status: Chronic (13) History of DVT (deep vein thrombosis) Status: Chronic (14) History of hyperkalemia Permanent Comment: SY/ARB intolerance Status: Chronic (15) History of TIA (transient ischemic attack) Status: Chronic (16) HTN (hypertension) Status: Chronic (17) Hypothyroidism Status: Chronic (18) Idiopathic pulmonary fibrosis Status: Chronic (19) Malignant neoplasm of corpus uteri Status: Chronic (20) Migraine Status: Chronic (21) Moderate COPD (chronic obstructive pulmonary disease) Status: Chronic (22) Paroxysmal a-fib Status: Chronic (23) Systolic CHF Permanent Comment: EF 45-50% on echo 03/12/17 Status: Chronic (24) Tobacco abuse Status: Chronic (25) Valvular disease Permanent Comment: echo 07/21/15 Bicuspid aortic valve with moderate aortic stenosis and mild mitral regurg Status: Chronic Surgical Problems: (1) H/o bile tract procedure Status: Chronic (2) H/O cardiac catheterization Permanent Comment: July 2010- left subclavian stenosis with atretic ROMAN graft. The LAD however most significant lesion was less than 50%. The circumflex and right coronary arteries were severely diseased though there were widely patent grafts. Status: Chronic (3) H/O excision of lamina of cervical vertebra for decompression of spinal cord Status: Resolved (4) H/O hernia repair Status: Resolved (5) H/O total hysterectomy with bilateral salpingo-oophorectomy (BSO) Permanent Comment: 1967 secondary to malignancy Status: Resolved (6) History of cholecystectomy Permanent Comment: 1969 Status: Resolved (7) History of total hip replacement Permanent Comment: L Hip performed by Dr. Jaffe 2009 Status: Resolved (8) S/P CABG (coronary artery bypass graft) Permanent Comment: 12/2009 Status: Resolved Family History Cardiac disorder FATHER MOTHER Diabetes mellitus FATHER MOTHER BROTHER GRANDMOTHER FH: cancer Social History Smoking Status: Former Smoker Drug Use: none Marital Status: Housing status: fpc Occupational Status: retired, other Immunizations History of Influenza Vaccine: Unknown Influenza Vaccine Date: Jul 20, 2009 History of Tetanus Vaccine?: Unknown Tetanus Immunization Date: Sep 19, 2004 History of Pneumococcal: Unknown Pneumococcal Date: February 07, 2008 History of Hepatitis B Vaccine: Unknown Multi-Drug Resistant Organisms History of MDRO: No Allergies Coded Allergies: Codeine (Verified Allergy, Severe, HIVES / DIFICULTY BREATHING; TAKES PERCOCET W/O PROBLEM, 05/24/17) Penicillins (Verified Allergy, Intermediate, RASH, 05/24/17) SY Inhibitors (Verified Adverse Reaction, Unknown, HYPERKALEMIA, 05/24/17) Home Medications Scheduled Aspirin (Aspirin Chewable), 81 MG PO DAILY Calcium Carbonate-Cholecalcife (Caltrate 600+D), 1 TAB PO DAILY Collagenase (Santyl), 1 APPLN TOP DAILY Docusate Sodium (Colace), 1 CAP PO BID Furosemide (Lasix), 40 MG PO Q2D Furosemide (Lasix), 60 MG PO Q2D Home O2 Therapy (Oxygen), 2 LITERS NA HS Insulin Aspart (Novolog), 0 SQ TIDM Insulin Glargine (Lantus), 5 SC QPM Ipratropium-Albuterol (Combivent Respimat), 1 PUFFS INH QID Isosorbide Mononitrate Ext Rel (Imdur Ext Rel), 30 MG PO QAM Lactobacillus (Floranex), 4 TABS PO TIDM Levothyroxine Sodium (Levothyroxine Sodium), 137 MCG PO QAM Magnesium Oxide (Magnesium), 400 MG PO BID Nutritional Supplements (Boost), 1 CAN PO BIDM Ranitidine Hcl (Zantac), 150 MG PO BID Sotalol Hcl (Sotalol Hcl), 1 TAB PO BID Warfarin Sod (Jantoven), 2 MG PO 5XWK Warfarin Sodium (Coumadin), 4 MG PO UD Scheduled PRN Albuterol Hfa (Ventolin Hfa), 2 PUFF INH Q6 PRN for SOB/Wheezing Eucerin (Hydrocerin), 1 APPLN EXT BID PRN for nursing decison Menthol (Ricola), 1 FRANCES PO PRN PRN for SORE THROAT Nitroglycerin (Nitrostat), 0.4 MG UT UD PRN for Chest Pain Ondansetron Hcl (Zofran), 4 MG PO Q6H PRN for Nausea or Vomiting Polyethylene (Miralax), 17 GM PO DAILY PRN for Constipation Review of Systems Ten systems reviewed and negative except as noted in the HPI. Physical Exam Vital Signs Date Time Temp Pulse Resp B/P (MAP) Pulse Ox O2 Delivery O2 Flow Rate FiO2 05/24/17 13:20 80 18 05/24/17 13:15 75 17 05/24/17 13:10 74 14 05/24/17 13:06 94 Nasal Cannula 3.0 05/24/17 13:05 68 25 05/24/17 13:01 103/69 05/24/17 13:00 71 18 72 05/24/17 12:55 68 19 81 05/24/17 12:50 70 13 100 05/24/17 12:48 75 05/24/17 12:45 69 13 05/24/17 12:40 70 12 100 05/24/17 12:35 64 16 100 05/24/17 12:31 119/78 05/24/17 12:30 74 25 93 05/24/17 12:25 70 15 99 05/24/17 12:20 75 23 94 05/24/17 12:15 69 18 97 05/24/17 12:10 79 12 93 05/24/17 12:05 72 13 97 05/24/17 12:03 105/61 05/24/17 12:01 /58 05/24/17 12:00 74 13 93 05/24/17 11:35 77 15 94 05/24/17 11:32 99/61 05/24/17 11:05 70 15 96 05/24/17 11:03 72 18 114/65 98 Nasal Cannula 3.0 05/24/17 09:36 36.3 05/24/17 09:31 64 16 105/56 95 Nasal Cannula 3.0 05/24/17 08:55 36.3 69 20 104/50 88 Room Air 05/24/17 08:48 68 General Appearance: + moderate distress (Moaning intermittently, lethargic. Able to answer questions with frequent prompting. ) Head: normocephalic, atraumatic Eyes: normal inspection ENT: hearing grossly normal Neck: supple, no adenopathy, trachea midline Respiratory/Chest: chest non-tender, no respiratory distress (Saturation well on non-rebreather mask ), no accessory muscle use, + crackles Cardiovascular: regular rate, rhythm, + systolic murmur Abdomen/GI: normal bowel sounds, non tender, soft, no organomegaly Back: normal inspection Extremities/Musculoskelatal: no calf tenderness, + swelling (2+ bilateral LE edema ) Neurologic/Psych: no motor/sensory deficits, + pertinent finding (Lethargic but arousable. A&Ox3 with prompting. ) Skin: normal color, warm/dry Diagnostics Laboratory Results Results Past 24 Hours Test 05/24/17 08:45 Range/Units White Blood Count 7.26 4.8-10.8 K/uL Red Blood Count 3.47 4.2-5.4 M/uL Hemoglobin 9.8 12.0-16.0 g/dL Hematocrit 30.7 37-47 % Mean Corpuscular Volume 88.5 80-100 fL Mean Corpuscular Hemoglobin 28.2 25-34 pg Mean Corpuscular Hemoglobin Concent 31.9 32-36 g/dl Platelet Count 261 130-400 K/uL Mean Platelet Volume 9.3 7.4-10.4 fL Neutrophils (%) (Auto) 55.0 % Lymphocytes (%) (Auto) 28.5 % Monocytes (%) (Auto) 13.6 % Eosinophils (%) (Auto) 2.3 % Basophils (%) (Auto) 0.3 % Neutrophils # (Auto) 3.99 1.4-6.5 K/uL Lymphocytes # (Auto) 2.07 1.2-3.4 K/uL Monocytes # (Auto) 0.99 0.11-0.59 K/uL Eosinophils # (Auto) 0.17 0-0.5 K/uL Basophils # (Auto) 0.02 0-0.2 K/uL RDW Standard Deviation 56.2 36.4-46.3 fL RDW Coefficient of Variation 17.3 11.5-14.5 % Immature Granulocyte % (Auto) 0.3 % Immature Granulocyte # (Auto) 0.02 0.00-0.02 K/uL Prothrombin Time 39.5 9.0-12.0 SECONDS Prothromb Time International Ratio 3.5 0.9-1.1 Activated Partial Thromboplast Time 42.3 21.0-31.0 SECONDS Partial Thromboplastin Ratio 1.6 Sodium Level 132 136-145 mmol/L Potassium Level 4.5 3.5-5.1 mmol/L Chloride Level 97 98-107 mmol/L Carbon Dioxide Level 24 21-32 mmol/L Anion Gap 11.0 3-11 mmol/L Blood Urea Nitrogen 45 7-18 mg/dl Creatinine 1.90 0.60-1.20 mg/dl Est Creatinine Clear Calc Drug Dose 26.1 ml/min Estimated GFR () 29.4 Estimated GFR (Non- 25.3 BUN/Creatinine Ratio 23.4 10-20 Random Glucose 176 70-99 mg/dl Calcium Level 9.6 8.5-10.1 mg/dl Magnesium Level 2.5 1.8-2.4 mg/dl Total Bilirubin 1.3 0.2-1 mg/dl Direct Bilirubin 0.7 0-0.2 mg/dl Aspartate Amino Transf (AST/SGOT) 24 15-37 U/L Alanine Aminotransferase (ALT/SGPT) 11 12-78 U/L Alkaline Phosphatase 135 45-117 U/L Total Creatine Kinase 30 26-192 U/L Creatine Kinase MB 0.9 0.5-3.6 ng/ml Creatine Kinase MB Ratio 3.0 0-3.0 Troponin I < 0.015 0-0.045 ng/ml Total Protein 8.0 6.4-8.2 gm/dl Albumin 2.9 3.4-5.0 gm/dl Lipase 36 73-393 U/L Thyroid Stimulating Hormone (TSH) 2.250 0.300-4.500 uIu/ml Diagnostic Radiology CXR: IMPRESSION: Cardiomegaly and suspected interstitial edema superimposed on chronic lung disease. More focal airspace opacity at the base the right upper lobe. Clinical and radiographic follow-up is recommended. EKG Atrial-paced rhythm with prolonged AV conduction Rightward axis ST & T wave abnormality, consider inferior ischemia Prolonged QT Impression Assessment and Plan This is a 77yo F from [facility] with chronic systolic CHF, CAD (s/p CABG), A flutter (on coumadin), Tachy-kathya syndrome (s/p PM placement), COPD, HTN, DM II , CKD III and other comorbidities listed below who presents after being found to be hypoxic and lethargic at the [facility] this morning. Lower GI bleed: -Gross bright red blood on rectal exam -Decreased in hgb from 14.8 to 9.8; symptomatic -No abd pain; etiology unclear -INR supratherapeutic at 3.5. Held coumadin; gave Vit K in ER -Last colonoscopy in 2004 with multiple diverticula -GI consulted for further recs -obtain stool cx -C diff gene -IV pepcid -KUB of abdomen -Clear liquids today -Prep for EGD/colonoscopy tomorrow -NPO after midnight Acute blood loss anemia: -2/2 GI bleed. See above -Monitor H&H Q6H -Type & hold 2U of prbcs in case patient requires transfusion Altered mental status: -Fatigued/lethargic but arousable -Likely 2/2 acute blood loss anemia -Per family and fpc, patient usually very alert -CT head to rule out acute changes Acute on chronic systolic CHF: -Per [facility] records, patient seen for worsening CHF last week -Has gained 7 lbs, non-compliant with fluid/Na restrictions -Lasix increased from 40mg to 60mg PO from 05/17-05/21 with minimal improvement -Volume overloaded on exam -Held Lasix due to elevated Cr of 1.9 -Recent echo with EF: 45-50% with severe concentric LVH, severe COPD/Idiopathic pulmonary fibrosis: -Has chronic respiratory failure on 2L NC continuous at SNF; was hypoxic at SNF due to removing O2 -Once placed on 4L NC, saturation increased to 90s -Continue supplemental O2, home meds LAURIE on CKD stage III: -Cr elevated to 1.9 today; baseline of 1.3 -Likely 2/2 increased Lasix dose over the past week -Avoid nephrotoxic agents when possible -Low rate IVF DM II: -Recent hgb a1c of 7.6 (05/28) -Held home meds -5 U Lantus qHS and SSI while in-patient -BG checks AC HS H/o A flutter (on coumadin): -EKG with atrial-paced rhythm -Held coumadin due to supratherapeutic INR with GI bleed -Continue home dose of sotalol CAD (s/p CABG): -Denies chest pain -Trop negative -EKG with atrial-paced rhythm, RAD, ST an T wave abnormality suggestive of inferior ischemia -Likely demand ischemia in the setting of acute blood loss anemia -Continue aspirin, Imdur -Monitor on tele DVT Ppx: on warfarin Code status: Per discussion today with daughter Keyana (POA) and Martin at bedside PCP: Aparna Dispo: Discharge planning requested. To return to [facility] Attending Addendum: The patient was seen and examined in ER in presence of the Daughter and the Admitted with confusion and GIB Not in any distress but looks ill O/E Drowsy but not in any distress HEENT-unremarkable Chest-decreased breath sound bilaterally Heart-Regular Abdomen-benign,No masses,bowel sound present Labs and Imaging studies were reviewed Has significantly low Hb and Bright red Blood Per Rectum Agree with the assessment and plan. Dr Hakeem Burk Level of Care Telemetry Advanced Directives Existing Living Will: No Existing Power of Proposal Manager: No Resuscitation Status DO NOT RESUSCITATE VTE Prophylaxis VTE Risk Assessment Done? Y/N: Yes Risk Level: Moderate Given or contraindicated: Warfarin (Coumadin)
[2017-05-24] MEDS ORDERED: FAMOTIDINE IV INJ 20 MG in DEXTROSE 5% 100ML 100 ML IV ONE (15:00)
[2017-05-24] MEDS: INSULIN ASPART 100 UNITS/ML 3 ML PEN SC SCH ×2 (16:12→20:56)
[2017-05-24] MEDS: BOOST VANILLA PO SCH ×2 (16:13)
[2017-05-24] MEDS: SODIUM CHLORIDE 0.9% 1000ML 1,000 ML IV SCH (16:13)
--- NOTE | 2017-05-24 16:16 | DIAGNOSTIC IMAGING REPORT ---
HEAD CT NONCONTRAST CT DOSE: 788.63 mGycm HISTORY: Altered mental status TECHNIQUE: Multiaxial CT images of the head were performed without the use of intravenous contrast. Automated exposure control was utilized for this study. A dose lowering technique was utilized adhering to the principles of ALARA. Comparison: Head CT 04/04/2017. Findings: Fluid level within the left maxillary sinus which is new from the prior study. The mastoid air cells are clear. The calvarium and skull base are intact. There is no mass, hematoma, midline shift, acute infarct. White matter hypodensity is nonspecific but suggestive of microvascular ischemic change. The ventricles and sulci demonstrate mild age-related involutional changes. Mild motion artifact. Old lacunar infarcts within the left basal ganglia. Impression: Acute left maxillary sinusitis. No acute intracranial abnormality. Old infarcts are again noted. Electronically signed by: Lee Mckinnon M.D. 05/24/2017 4:15 PM Dictated Date/Time: 05/24/2017 4:09 PM
[2017-05-24] MEDS ORDERED: LAVAGE SOLUTION 4000ML PO SCH (19:00)
[2017-05-24 19:08] LABS: HEMATOCRIT 28.8 % (37-47)
--- NOTE | 2017-05-24 20:02 | DIAGNOSTIC IMAGING REPORT ---
KUB CLINICAL HISTORY: rectal bleeding bleeding COMPARISON STUDY: No previous studies for comparison. FINDINGS: Moderate fecal impaction. Nonobstructive bowel pattern. Degenerative and postoperative changes of the lumbar spine and left hip. IMPRESSION: Moderate fecal impaction. The above report was generated using voice recognition software. It may contain grammatical, syntax or spelling errors. Electronically signed by: See Yoo M.D. 05/24/2017 8:00 PM Dictated Date/Time: 05/24/2017 7:59 PM
[2017-05-24] MEDS: DOXYCYCLINE IV 100 MG in DEXTROSE 5% 100ML 100 ML IV SCH (20:57)
[2017-05-24] MEDS: INSULIN GLARGINE SOLOSTAR 100 UNITS/ML 3 ML PEN SC SCH (20:59)
[2017-05-24] MEDS ORDERED: RANITIDINE HCL 150 MG TAB PO SCH (21:00)
[2017-05-24] MEDS: SOTALOL HCL 80 MG TAB PO SCH (21:00)
[2017-05-24] MEDS: FAMOTIDINE IV INJ 20 MG in DEXTROSE 5% 100ML 100 ML IV SCH (22:21)
[2017-05-24 23:24] LABS: HEMATOCRIT 30.1 % (37-47)
[2017-05-25] VITALS (14 sets, daily range): BP systolic 82–116; BP diastolic 35–71; PULSE 61–72; TEMP 36.3–36.4; O2SAT 91–100
[2017-05-25] MEDS: LEVOTHYROXINE 137 MCG TAB PO SCH (05:17)
[2017-05-25] MEDS: INSULIN ASPART 100 UNITS/ML 3 ML PEN SC SCH ×4 (07:00→20:17)
[2017-05-25 07:36] LABS: HEMATOCRIT 30.5 % (37-47); MEAN CELL VOLUME 89.4 fL (80-100); MEAN CORPUSCULAR HEMOGLOBIN 27.3 pg (25-34); MEAN CORPUSCULAR HGB CONC 30.5 g/dl (32-36); MEAN PLATELET VOLUME 9.2 fL (7.4-10.4); PLATELET COUNT 237 K/uL (130-400); RED BLOOD COUNT 3.41 M/uL (4.2-5.4); WHITE BLOOD COUNT 6.53 K/uL (4.8-10.8)
[2017-05-25 07:46] LABS: INR 2.1 (0.9-1.1); PROTHROMBIN TIME (PATIENT) 23.4 SECONDS (9.0-12.0)
[2017-05-25 08:14] LABS: BUN/CREATININE RATIO 25.3 (10-20); CALCIUM 8.9 mg/dl (8.5-10.1); CREATININE 1.8 mg/dl (0.60-1.20); POTASSIUM 4.2 mmol/L (3.5-5.1)
--- NOTE | 2017-05-25 08:40 | Progress Note ---
Progress Note Date of Service May 25, 2017. (Amara Marie CRNP) Progress Note GI quick note: Pt is a 77 y/o female seen in consultation yesterday for hematochezia and anemia. Scheduled for EGD and colonoscopy eval today, though per RN report pt was very lethargic and wasn't able to drink Golytely prep. Her O2 sat was 85% on 3L NC, and now on 5L O2 mask. She had a BM this morning which RN described as large, brown, without signs of blood nor melanotic appearing. Hgb stable at 9. KUB yesterday showed fecal impaction. Wonder if hematochezia may be related to stercoral ulcer or fissure bleed? Discussed pt's case w Dr. Odonnell. Given increased O2 requirement, also stable blood ct, no sachin sign of GI bleeding, pt's AMS status, would cancel EGD. Attempted to contact pt's dght (Keyana) to discuss change of plans but no answer , message left. Would ask primary team to consider further eval and workup for AMS and also anemia, may consider obtaining CT abd/pelvis to r/o GI malignancy such as colon mass. (Amara Marie CRNP) I saw and evaluated the patient. At this time there does not appear to be any active GI bleeding as the patient does not have melena or hematochezia. Given her mental status changes and increasing oxygen requirement I would hold on endoscopic evaluation at this time. Furthermore, the patient is unable to take a bowel prep, the most likely etiology to her hematochezia was anorectal in etiology. Recommendations Management of mental status changes and oxygen requirement per internal medicine I would discuss goals of care with the patient's family Please call additional questions or concerns, will sign off this patient for the present time. (Brooklyn Odonnell, DO)
[2017-05-25] MEDS: SODIUM CHLORIDE 0.9% 1000ML 1,000 ML IV SCH ×2 (08:54→20:22)
[2017-05-25] MEDS: ISOSORBIDE MONONITRATE 30 MG TABCR PO SCH ×2 (09:00→10:25)
[2017-05-25] MEDS: IPRATROPIUM BROMIDE/ALBUTEROL respimat INH INH SCH ×4 (09:00→20:21)
[2017-05-25] MEDS: FAMOTIDINE IV INJ 20 MG in DEXTROSE 5% 100ML 100 ML IV SCH ×2 (09:12→21:42)
--- NOTE | 2017-05-25 09:20 | Clinical Documentation Query ---
CLINICAL DOCUMENTATION QUERY 77-y/o female presenting with lethargy/AMS, hypoxia, and hematochezia. Query #1/2 In your clinical opinion is this patient being managed for: ( + ) GI bleed (unknown source) exacerbated by Warfarin therapy evidenced by supratheraputic INR, anemia, and sachin blood by rectal exam. ( ) Not Agree ( ) Other explanation of clinical findings (Please Explain) ( ) Unable to determine (Please Define) ( ) Need to Discuss The medical record reflects the following clinical findings, treatment, and risk factors. Clinical Indicators: INR 3.5, Hgb 9.3, Hct 30.5, Hematochezia, Treatment: Warfarin held, IV Vitamin K, GI consult, EGD and colonoscopy pending Risk Factors: Age, Warfarin therapy, Query #2/2 In your clinical opinion is this patient being managed for: ( + ) Metabolic encephalopathy evidenced by AMS and lethargy treated with IVF's and Head CT evaluation. ( ) Not Agree ( ) Other explanation of clinical findings (Please Explain) ( ) Unable to determine (Please Define) ( ) Need to Discuss The medical record reflects the following clinical findings, treatment, and risk factors. Clinical Indicators: AMS, lethargy Treatment: CT scan of head, IVF's, Risk Factors: Age, acute blood loss anemia, LAURIE, and acute systolic CHF. Please clarify and document your clinical opinion in the progress notes and discharge summary. Terms such as "probable", "suspected", "likely", "questionable", "possible", or "still to be ruled out" are acceptable. IF IN AGREEMENT, YOU MUST DOCUMENT ABOVE DIAGNOSTIC STATEMENT IN DAILY PROGRESS NOTES AND DISCHARGE SUMMARY. This document is not part of the patient's record. Thank You, Keenan Lazar, RN [phone]
--- NOTE | 2017-05-25 10:06 | DIAGNOSTIC IMAGING REPORT ---
CT OF THE ABDOMEN AND PELVIS WITHOUT CONTRAST CLINICAL HISTORY: Abdominal pain. Evaluate for acute diverticulitis. COMPARISON STUDY: CT of the abdomen and pelvis July 21, 2010 and KUB May 24, 2017. TECHNIQUE: Axial images of the abdomen and pelvis were obtained without IV contrast. Images were reviewed in the axial, sagittal, and coronal planes. A dose lowering technique was utilized adhering to the principles of ALARA. FINDINGS: Visualized portions of the lower chest demonstrate small bilateral pleural effusions. Interlobular septal thickening is present. There are subpleural lucencies with reticulation which represents interstitial lung disease. The heart is moderately enlarged. Extensive mitral annular calcification is present. Pacer lead is noted. There is no pneumatosis, free air or portal venous gas. Evaluation of the abdomen and pelvis is suboptimal on this unenhanced exam. The liver is cirrhotic. There is anasarca with trace abdominal ascites. Unenhanced images of the spleen, adrenal glands and pancreas are unremarkable with exception of pancreatic glandular atrophy. Sensitivity for detection of hepatic lesions is diminished on this exam but none are identified. A bowel containing ventral hernia is noted. There is a bowel anastomosis. No bowel obstruction is present. This extensive sigmoid diverticulosis. Evaluation for acute diverticulitis is difficult given evidence for volume overload. There is mild infiltration adjacent to the proximal sigmoid colon. There is no significant colonic wall thickening. Mild rectal wall thickening is noted. There is a moderate amount of stool within the rectum. A left femoral internal fixation is noted. 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 Postoperative findings with the spine are noted. IMPRESSION: 1. Extensive sigmoid diverticulosis. Evaluation for acute diverticulitis is difficult given evidence for volume overload. Possible mild acute sigmoid diverticulitis. No free air or abscess. 2. Small bilateral pleural effusions with moderate pulmonary edema. Subpleural reticulation represents interstitial lung disease with possible early honeycombing within the right lung base. 3. Cirrhosis. Trace ascites. 4. Bowel containing ventral hernia without bowel obstruction. 5. Mild rectal wall thickening with mild to moderate amount of stool within the rectum. Electronically signed by: Dylon Cunningham M.D. 05/25/2017 10:05 AM Dictated Date/Time: 05/25/2017 9:50 AM
[2017-05-25] MEDS: BOOST VANILLA PO SCH ×2 (10:23)
[2017-05-25] MEDS: COLLAGENASE OINT 30 GM TUBE EXT SCH (10:23)
[2017-05-25] MEDS: DOXYCYCLINE IV 100 MG in DEXTROSE 5% 100ML 100 ML IV SCH (10:24)
[2017-05-25] MEDS: CALCIUM 600MG + VIT D 400 IU TAB PO SCH (10:25)
[2017-05-25] MEDS: SOTALOL HCL 80 MG TAB PO SCH ×2 (10:32→21:41)
[2017-05-25 11:11] LABS: URINE APPEARANCE CLOUDY (CLEAR); URINE BILIRUBIN NEG (NEG); URINE COLOR YELLOW; URINE NITRITE NEG (NEG); URINE SPECIFIC GRAVITY 1.019 (1.000-1.030); UROBILINOGEN NEG (NEG)
[2017-05-25 11:20] LABS: MANUAL MICROSCOPIC REQUIRED? NO; REVIEW REQ? YES
[2017-05-25] MEDS: ACETAMINOPHEN 325 MG TAB PO PRN (12:54)
[2017-05-25] MEDS ORDERED: CIPROFLOXACIN / D5W 200 MG in PREMIXED IN D5W 100 ML IV ONE (14:21)
--- NOTE | 2017-05-25 14:31 | Progress Note ---
Internal Med Progress Note Date of Service: May 25, 2017. Provider Documentation: SUBJECTIVE: The patient was seen and examined Much better today Remains drowsy Denies any pain OBJECTIVE: Vital Signs-as noted below Exam: General-Moderate distress at rest Drowsy Eyes-normal ENT-normal Neck-supple Lungs-decreased breath sound bilaterally Heart-Regular,no murmur Abdomen-Mildly distended,soft ,no tenderness Bowel sound present Extremities-No edema Neuro-AA Drowsy Generally weak Lab data as noted below. ASSESSMENT & PLAN: This is a 77yo F from [facility] with chronic systolic CHF, CAD (s/p CABG), A flutter (on coumadin), Tachy-kathya syndrome (s/p PM placement), COPD, HTN, DM II , CKD III and other comorbidities listed below who presents after being found to be hypoxic and lethargic at the senior care this morning. Lower GI bleed complicated by supratherapeutic INR -Gross bright red blood on rectal exam -Decreased in hgb from 14.8 to 9.8; symptomatic -No abd pain; etiology unclear -INR supratherapeutic at 3.5. Held Coumadin; gave Vit K in ER -Last colonoscopy in 2004 with multiple diverticula -GI consulted -appreciate input -Hb remains stable and no more Bloody stool -clears orally Metabolic Encephalopathy -Fatigued/lethargic but arousable -Likely 2/2 acute blood loss anemia -Per family and senior care, patient usually very alert -CT -no acute finding CT of the Abdomen and Pelvis-Extensive Diverticulosis Probable Diverticulitis Marcelo Acute Maxillary Sinusitis Got Doxy initially Will start on Cipro and Flagyl Acute blood loss anemia: -2/2 GI bleed. See above -Monitor H&H Q6H -Type & hold 2U of prbcs in case patient requires transfusion -h/h stable Acute on chronic systolic CHF: -Per [facility] records, patient seen for worsening CHF last week -Has gained 7 lbs, non-compliant with fluid/Na restrictions -Lasix increased from 40mg to 60mg PO from 05/17-05/21 with minimal improvement -Volume overloaded on exam -Held Lasix due to elevated Cr of 1.9 -Recent echo with EF: 45-50% with severe concentric LVH, severe -small amount of IVF COPD/Idiopathic pulmonary fibrosis: -Has chronic respiratory failure on 2L NC continuous at SNF; was hypoxic at SNF due to removing O2 -Once placed on 4L NC, saturation increased to 90s -Continue supplemental O2, home meds LAURIE on CKD stage III: -Cr elevated to 1.9 today; baseline of 1.3 -Likely 2/2 increased Lasix dose over the past week -Avoid nephrotoxic agents when possible -Low rate IVF -Creatinine is better DM II: -Recent hgb a1c of 7.6 (05/28) -Held home meds -5 U Lantus qHS and SSI while in-patient -BG checks AC HS H/o A flutter (on coumadin): -EKG with atrial-paced rhythm -Held coumadin due to supratherapeutic INR with GI bleed -Continue home dose of sotalol CAD (s/p CABG): -Denies chest pain -EKG with atrial-paced rhythm, RAD, ST an T wave abnormality suggestive of inferior ischemia -Likely demand ischemia in the setting of acute blood loss anemia -Continue aspirin, Imdur -Monitor on tele -no arrhythmia DVT Ppx: on warfarin Code status: Per discussion today with daughter Keyana (POA) and Martin at bedside PCP: Aparna Dispo: Discharge planning requested. To return to [facility] Discussed with the daughter Vital Signs: Date Time Temp Pulse Resp B/P (MAP) Pulse Ox O2 Delivery O2 Flow Rate FiO2 05/25/17 11:48 72 18 112/62 (79) 95 Oxymask 8.0 05/25/17 11:39 94 Oxymask 8.0 05/25/17 11:38 36.4 61 18 105/49 (67) 91 Nasal Cannula 5.0 05/25/17 11:37 36.3 05/25/17 09:05 72 99/58 (72) 96 Nasal Cannula 5.0 05/25/17 08:00 Oxymask 6.0 05/25/17 07:19 36.4 65 22 82/52 (62) 98 Oxymask 6.0 05/25/17 04:15 36.4 63 18 107/71 (83) 94 Oxymask 6.0 05/25/17 04:00 97 Oxymask 6.0 05/24/17 23:59 Oxymask 5.0 05/24/17 23:22 35.8 67 18 111/48 (69) 98 9/13/17 21:03 98/59 (72) 05/24/17 20:34 101/52 (68) 05/24/17 20:03 115/61 (79) 05/24/17 20:00 Oxymask 5.0 05/24/17 19:07 36.4 64 16 94/49 (64) 93 Oxymask 10.0 05/24/17 16:00 Oxymask 5.0 05/24/17 15:47 36.4 73 18 81/55 (64) 94 Oxymask 6.0 102/57 (72) 05/24/17 14:33 104/63 (77) 94 Oxymask 5.0 05/24/17 14:25 36.4 65 18 87/60 (69) 94 Oxymask 6.0 05/24/17 14:23 90 Mask 3.0 Lab Results: Results Past 24 Hours Test 05/24/17 16:11 05/24/17 18:42 05/24/17 20:09 05/24/17 23:03 Range/Units Bedside Glucose 146 131 70-90 mg/dl Hemoglobin 9.1 9.6 12.0-16.0 g/dL Hematocrit 28.8 30.1 37-47 % Test 05/25/17 06:30 05/25/17 07:16 05/25/17 10:56 05/25/17 11:00 Range/Units Bedside Glucose 115 164 70-90 mg/dl White Blood Count 6.53 4.8-10.8 K/uL Red Blood Count 3.41 4.2-5.4 M/uL Hemoglobin 9.3 12.0-16.0 g/dL Hematocrit 30.5 37-47 % Mean Corpuscular Volume 89.4 80-100 fL Mean Corpuscular Hemoglobin 27.3 25-34 pg Mean Corpuscular Hemoglobin Concent 30.5 32-36 g/dl RDW Standard Deviation 57.8 36.4-46.3 fL RDW Coefficient of Variation 17.4 11.5-14.5 % Platelet Count 237 130-400 K/uL Mean Platelet Volume 9.2 7.4-10.4 fL Prothrombin Time 23.4 9.0-12.0 SECONDS Prothromb Time International Ratio 2.1 0.9-1.1 Sodium Level 134 136-145 mmol/L Potassium Level 4.2 3.5-5.1 mmol/L Chloride Level 100 98-107 mmol/L Carbon Dioxide Level 27 21-32 mmol/L Anion Gap 7.0 3-11 mmol/L Blood Urea Nitrogen 46 7-18 mg/dl Creatinine 1.80 0.60-1.20 mg/dl Est Creatinine Clear Calc Drug Dose 26.5 ml/min Estimated GFR () 31.4 Estimated GFR (Non- 27.1 BUN/Creatinine Ratio 25.3 10-20 Random Glucose 102 70-99 mg/dl Calcium Level 8.9 8.5-10.1 mg/dl Urine Color YELLOW Urine Appearance CLOUDY CLEAR Urine pH 5.0 4.5-7.5 Urine Specific [place] 1.019 1.000-1.030 Urine Protein NEG NEG Urine Glucose (UA) NEG NEG Urine Ketones NEG NEG Urine Occult Blood NEG NEG Urine Nitrite NEG NEG Urine Bilirubin NEG NEG Urine Urobilinogen NEG NEG Urine Leukocyte Esterase MODERATE NEG Urine WBC (Auto) >30 0-5 /hpf Urine RBC (Auto) 0-4 0-4 /hpf Urine Hyaline Casts (Auto) 10-30 0-5 /lpf Urine Epithelial Cells (Auto) 10-20 0-5 /lpf Urine Bacteria (Auto) NEG NEG Urine Renal Epithelial Cells 0-5 0-5 /lpf Urine Pathogenic Casts 0 /lpf
[2017-05-25] MEDS ORDERED: METRONIDAZOLE / NSS 500 MG in PREMIXED NSS 100 ML IV ONE (14:45)
[2017-05-25] MEDS: CEFTRIAXONE SOD INJ 1000 MG in DEXTROSE 5% 50ML IV SCH (16:55)
[2017-05-25] MEDS: BOOST BREEZE NUTRITION DRINK 1 BOX PO SCH (16:58)
[2017-05-25] MEDS: INSULIN GLARGINE SOLOSTAR 100 UNITS/ML 3 ML PEN SC SCH (20:18)
[2017-05-25] MEDS ORDERED: CIPROFLOXACIN / D5W 200 MG in PREMIXED IN D5W 100 ML IV SCH (21:00)
[2017-05-25] MEDS: METRONIDAZOLE / NSS 500 MG in PREMIXED NSS 100 ML IV SCH (21:41)
[2017-05-25 22:57] LABS: BUN/CREATININE RATIO 24.8 (10-20); CALCIUM 8.8 mg/dl (8.5-10.1); CREATININE 1.7 mg/dl (0.60-1.20); POTASSIUM 3.6 mmol/L (3.5-5.1)
[2017-05-25] MEDS ORDERED: POTASSIUM CHLORIDE 10 MEQ TABCR PO STA (23:10)
[2017-05-26] VITALS (11 sets, daily range): BP systolic 73–104; BP diastolic 47–69; PULSE 60–72; TEMP 36.3–36.4; O2SAT 85–97
[2017-05-26] MEDS ORDERED: ALBUT/IPRATROP 3MG/0.5MG NEB 3 ML VIAL INH PRN
[2017-05-26] MEDS: ALBUMIN HUMAN 25% 12.5 GM/50 ML VIAL IV SCH ×2 (00:01→00:06)
[2017-05-26] MEDS ORDERED: ALBUT/IPRATROP 3MG/0.5MG NEB 3 ML VIAL INH STA (00:25)
[2017-05-26 00:56] LABS: ARTERIAL BLD GAS O2 SATURATION 81.1 % (90-95); ARTERIAL BLOOD GAS BASE EXCESS -1.3 mEq/L (-9-1.8); ARTERIAL BLOOD GAS HCO3 23 mmol/L (19-24); ARTERIAL BLOOD GAS PO2 48 mm/Hg (80-95); ARTERIAL BLOOD GAS pH 7.42 (7.35-7.45)
[2017-05-26 00:57] LABS: ALLEN TEST POS (POS)
[2017-05-26 01:08] LABS: O2 ADMINISTRATION 7 L
[2017-05-26] MEDS: METRONIDAZOLE / NSS 500 MG in PREMIXED NSS 100 ML IV SCH ×3 (05:16→21:30)
[2017-05-26] MEDS: LEVOTHYROXINE 137 MCG TAB PO SCH (05:16)
[2017-05-26] MEDS: ACETAMINOPHEN 325 MG TAB PO PRN (05:31)
[2017-05-26 06:24] LABS: HEMATOCRIT 31.3 % (37-47); MEAN CELL VOLUME 89.4 fL (80-100); MEAN CORPUSCULAR HGB CONC 31.3 g/dl (32-36); PLATELET COUNT 224 K/uL (130-400); WHITE BLOOD COUNT 7.19 K/uL (4.8-10.8)
[2017-05-26] MEDS: INSULIN ASPART 100 UNITS/ML 3 ML PEN SC SCH ×4 (07:00→21:00)
--- NOTE | 2017-05-26 07:10 | DIAGNOSTIC IMAGING REPORT ---
CHEST ONE VIEW PORTABLE HISTORY: Short of breath. crackles COMPARISON: Chest 05/24/2017. FINDINGS: No change in the pulmonary edema and small bilateral pleural effusions. Right midlung zone airspace opacity persists. This may represent fluid within the minor fissure. Post sternotomy changes. Left-sided pacemaker. The heart remains mildly enlarged. IMPRESSION: No significant change in the pulmonary edema and small bilateral pleural effusions. Hazy airspace opacity within the right midlung zone persists and may represent pleural fluid. Recommend follow-up to ensure resolution. Electronically signed by: Lee Mckinnon M.D. 05/26/2017 7:09 AM Dictated Date/Time: 05/26/2017 7:08 AM
[2017-05-26 07:20] LABS: BUN/CREATININE RATIO 26.1 (10-20); CALCIUM 8.4 mg/dl (8.5-10.1); CREATININE 1.6 mg/dl (0.60-1.20); MAGNESIUM 2.2 mg/dl (1.8-2.4); POTASSIUM 4.5 mmol/L (3.5-5.1)
[2017-05-26] MEDS: IPRATROPIUM BROMIDE/ALBUTEROL respimat INH INH SCH ×4 (07:47→21:30)
[2017-05-26] MEDS: CEFTRIAXONE SOD INJ 1000 MG in DEXTROSE 5% 50ML IV SCH (07:47)
[2017-05-26] MEDS: CALCIUM 600MG + VIT D 400 IU TAB PO SCH (07:48)
[2017-05-26] MEDS: ISOSORBIDE MONONITRATE 30 MG TABCR PO SCH (07:48)
[2017-05-26] MEDS: SOTALOL HCL 80 MG TAB PO SCH ×2 (07:48→21:29)
[2017-05-26] MEDS: BOOST BREEZE NUTRITION DRINK 1 BOX PO SCH ×2 (07:49→17:36)
[2017-05-26] MEDS: COLLAGENASE OINT 30 GM TUBE EXT SCH ×2 (08:00→13:12)
[2017-05-26] MEDS: FAMOTIDINE IV INJ 20 MG in DEXTROSE 5% 100ML 100 ML IV SCH ×2 (10:41→21:52)
--- NOTE | 2017-05-26 12:47 | Progress Note ---
Internal Med Progress Note Date of Service: May 26, 2017. Provider Documentation: SUBJECTIVE: The patient was seen and examined Much better today -OOB in a chair Drowsiness is improved Denies any pain OBJECTIVE: Vital Signs-as noted below Exam: General-Minimal distress at rest Drowsy Eyes-normal ENT-normal Neck-supple Lungs-decreased breath sound bilaterally Heart-Regular,no murmur Abdomen-Mildly distended,soft ,no tenderness Bowel sound present Extremities-No edema Neuro-AA Drowsy Generally weak Lab data as noted below. ASSESSMENT & PLAN: This is a 77yo F from [facility] with chronic systolic CHF, CAD (s/p CABG), A flutter (on coumadin), Tachy-kathya syndrome (s/p PM placement), COPD, HTN, DM II , CKD III and other comorbidities listed below who presents after being found to be hypoxic and lethargic at the [facility] this morning. Metabolic Encephalopathy -Fatigued/lethargic but arousable -Likely 2/2 acute blood loss anemia -Per family and fpc, patient usually very alert -CT -no acute finding CT of the Abdomen and Pelvis-Extensive Diverticulosis Probable Diverticulitis Marcelo Acute Maxillary Sinusitis Got Doxy initially -discontinued Started on Ceftriaxone and Flagyl Cipro can cause prolong QT and was avoided Clinically better Lower GI bleed complicated by Coumadin therapy with supratherapeutic INR -Gross bright red blood on rectal exam -Decreased in hgb from 14.8 to 9.8; symptomatic -No abd pain; etiology unclear -INR supratherapeutic at 3.5. Held Coumadin; gave Vit K in ER -Last colonoscopy in 2004 with multiple diverticula -GI consulted -appreciate input -Hb remains stable and no more Bloody stool -clears orallyand advance as tolerated -No more bleeding and HB remains stable >9 Acute blood loss anemia: -2/2 GI bleed. See above -Monitor H&H Q6H -Type & hold 2U of prbcs in case patient requires transfusion -h/h stable Acute on chronic systolic CHF: -Per [facility] records, patient seen for worsening CHF last week -Has gained 7 lbs, non-compliant with fluid/Na restrictions -Lasix increased from 40mg to 60mg PO from 05/17-05/21 with minimal improvement -Volume overloaded on exam -Held Lasix due to elevated Cr of 1.9 -Recent echo with EF: 45-50% with severe concentric LVH, severe -small amount of IVF-discontinued COPD/Idiopathic pulmonary fibrosis: -Has chronic respiratory failure on 2L NC continuous at SNF; was hypoxic at SNF due to removing O2 -Once placed on 4L NC, saturation increased to 90s -Continue supplemental O2, home meds LAURIE on CKD stage III: -Cr elevated to 1.9 today; baseline of 1.3 -Likely 2/2 increased Lasix dose over the past week -Avoid nephrotoxic agents when possible -Low rate IVF -Creatinine is better DM II: -Recent hgb a1c of 7.6 (05/28) -Held home meds -5 U Lantus qHS and SSI while in-patient -BG checks AC HS H/o A flutter (on coumadin): -EKG with atrial-paced rhythm -Held coumadin due to supratherapeutic INR with GI bleed -Continue home dose of sotalol CAD (s/p CABG): -Denies chest pain -EKG with atrial-paced rhythm, RAD, ST an T wave abnormality suggestive of inferior ischemia -Likely demand ischemia in the setting of acute blood loss anemia -Continue aspirin, Imdur -Monitor on tele -no arrhythmia DVT Ppx: on warfarin Code status: Per discussion today with daughter Keyana (SATURNINO) and Martin at bedside PCP: Aparna Dispo: Discharge planning requested. To return to [facility] Discussed with the daughter Vital Signs: Date Time Temp Pulse Resp B/P (MAP) Pulse Ox O2 Delivery O2 Flow Rate FiO2 05/26/17 12:27 36.4 60 18 82/69 (73) 93 Nasal Cannula 05/26/17 08:28 36.4 61 18 73/51 (58) 85 Nasal Cannula 5.0 05/26/17 08:00 104/62 (76) 05/26/17 08:00 Nasal Cannula 05/26/17 04:00 91 Oxymask 7.0 05/26/17 03:15 36.4 65 20 104/47 (66) 92 Oxymask 6.0 05/26/17 01:14 66 16 97 Mask 8.0 05/26/17 00:00 90 Oxymask 7.0 05/25/17 23:01 36.4 71 20 109/35 (59) 95 Oxymask 6.0 05/25/17 20:06 70 90/58 (69) 05/25/17 20:00 94 Oxymask 6.0 05/25/17 19:32 36.3 69 18 116/55 (75) 94 Oxymask 6.0 05/25/17 16:00 Oxymask 8.0 05/25/17 15:48 36.3 68 18 113/65 (81) 100 05/25/17 15:41 98 Oxymask 8.0 Lab Results: Results Past 24 Hours Test 05/25/17 15:59 05/25/17 20:01 05/25/17 21:57 05/26/17 00:29 Range/Units Bedside Glucose 195 236 70-90 mg/dl Sodium Level 133 136-145 mmol/L Potassium Level 3.6 3.5-5.1 mmol/L Chloride Level 99 98-107 mmol/L Carbon Dioxide Level 25 21-32 mmol/L Anion Gap 9.0 3-11 mmol/L Blood Urea Nitrogen 42 7-18 mg/dl Creatinine 1.70 0.60-1.20 mg/dl Est Creatinine Clear Calc Drug Dose 28.0 ml/min Estimated GFR () 33.6 Estimated GFR (Non- 29.0 BUN/Creatinine Ratio 24.8 10-20 Random Glucose 104 70-99 mg/dl Lactic Acid Level 2.8 0.4-2.0 mmol/L Calcium Level 8.8 8.5-10.1 mg/dl Magnesium Level 2.0 1.8-2.4 mg/dl Arterial Blood pH 7.42 7.35-7.45 Arterial Blood Partial Pressure CO2 36 35-46 mmHg Arterial Blood Partial Pressure O2 48 80-95 mm/Hg Arterial Blood HCO3 23 19-24 mmol/L Arterial Blood Oxygen Saturation 81.1 90-95 % Arterial Blood Base Excess -1.3 -9-1.8 mEq/L Arterial Blood Gas Delivery 7 L [place] Test POS POS Test 05/26/17 05:50 05/26/17 06:30 Range/Units White Blood Count 7.19 4.8-10.8 K/uL Red Blood Count 3.50 4.2-5.4 M/uL Hemoglobin 9.8 12.0-16.0 g/dL Hematocrit 31.3 37-47 % Mean Corpuscular Volume 89.4 80-100 fL Mean Corpuscular Hemoglobin 28.0 25-34 pg Mean Corpuscular Hemoglobin Concent 31.3 32-36 g/dl RDW Standard Deviation 57.6 36.4-46.3 fL RDW Coefficient of Variation 17.6 11.5-14.5 % Platelet Count 224 130-400 K/uL Mean Platelet Volume 9.0 7.4-10.4 fL Sodium Level 133 136-145 mmol/L Potassium Level 4.5 3.5-5.1 mmol/L Chloride Level 100 98-107 mmol/L Carbon Dioxide Level 24 21-32 mmol/L Anion Gap 9.0 3-11 mmol/L Blood Urea Nitrogen 42 7-18 mg/dl Creatinine 1.60 0.60-1.20 mg/dl Est Creatinine Clear Calc Drug Dose 29.5 ml/min Estimated GFR () 36.2 Estimated GFR (Non- 31.2 BUN/Creatinine Ratio 26.1 10-20 Random Glucose 69 70-99 mg/dl Calcium Level 8.4 8.5-10.1 mg/dl Magnesium Level 2.2 1.8-2.4 mg/dl Bedside Glucose 72 70-90 mg/dl
--- NOTE | 2017-05-26 14:46 | Progress Note ---
Progress Note Date of Service May 26, 2017. Progress Note I went to see the patient today. She still requires high flow oxygen to maintain her saturation. She was able to answer questions and discuss her medical care with me today. I did ask about if she would like a colonoscopy. The patient would not like any GI evaluation at the present time. Recommendations Please call with any questions or concerns The patient decided she would like endoscopic evaluations please reconsult our service
[2017-05-26] MEDS: ONDANSETRON INJ 2 MG/ML 2 ML VIAL IV PRN (17:36)
[2017-05-26] MEDS: INSULIN GLARGINE SOLOSTAR 100 UNITS/ML 3 ML PEN SC SCH (21:29)
[2017-05-27] MEDS: METRONIDAZOLE / NSS 500 MG in PREMIXED NSS 100 ML IV SCH ×3 (05:07→20:48)
[2017-05-27] MEDS: LEVOTHYROXINE 137 MCG TAB PO SCH (05:07)
[2017-05-27 06:18] LABS: HEMATOCRIT 29.9 % (37-47); MEAN CORPUSCULAR HGB CONC 31.4 g/dl (32-36); MEAN PLATELET VOLUME 9.9 fL (7.4-10.4); PLATELET COUNT 223 K/uL (130-400); RED BLOOD COUNT 3.36 M/uL (4.2-5.4); WHITE BLOOD COUNT 6.85 K/uL (4.8-10.8)
[2017-05-27 06:37] LABS: INR 2.2 (0.9-1.1); PROTHROMBIN TIME (PATIENT) 24.9 SECONDS (9.0-12.0)
[2017-05-27 06:52] LABS: BUN/CREATININE RATIO 27.1 (10-20); CREATININE 1.6 mg/dl (0.60-1.20); POTASSIUM 4.7 mmol/L (3.5-5.1)
[2017-05-27 07:41] VITALS: BP 94/59; PULSE 63; TEMP 36.5; O2SAT 93
[2017-05-27] MEDS: CALCIUM 600MG + VIT D 400 IU TAB PO SCH (09:17)
[2017-05-27] MEDS: ISOSORBIDE MONONITRATE 30 MG TABCR PO SCH (09:17)
[2017-05-27] MEDS: SOTALOL HCL 80 MG TAB PO SCH ×2 (09:17→20:58)
[2017-05-27] MEDS: INSULIN ASPART 100 UNITS/ML 3 ML PEN SC SCH ×4 (09:18→20:48)
[2017-05-27] MEDS: IPRATROPIUM BROMIDE/ALBUTEROL respimat INH INH SCH ×4 (09:18→20:47)
[2017-05-27] MEDS: BOOST BREEZE NUTRITION DRINK 1 BOX PO SCH ×2 (09:19→17:00)
[2017-05-27] MEDS: ACETAMINOPHEN 325 MG TAB PO PRN ×3 (09:22→22:29)
[2017-05-27] MEDS: FAMOTIDINE IV INJ 20 MG in DEXTROSE 5% 100ML 100 ML IV SCH ×2 (09:24→20:47)
[2017-05-27] MEDS: CEFTRIAXONE SOD INJ 1000 MG in DEXTROSE 5% 50ML IV SCH (10:25)
[2017-05-27 15:35] VITALS: BP 86/47; PULSE 62; TEMP 36.3; O2SAT 97
--- NOTE | 2017-05-27 16:32 | Progress Note ---
Medicine Progress Note Date & Time of Visit: May 27, 2017 at 16:13. Subjective Pt was seen and examined Lying in bed with no distress Pt does not want to keep the oxygen nasal canula on because The oxygen cause her nostrils to be dry She said that she does not have any SOB now, but developing SOB with minimal exertion Denies any chest pain and palpitation Objective Last 8 Hrs Date Time Temp Pulse Resp B/P (MAP) Pulse Ox O2 Delivery O2 Flow Rate FiO2 05/27/17 15:35 36.3 62 18 86/47 (60) 97 Room Air 05/27/17 08:30 Nasal Cannula 6.0 Physical Exam: General- No acute distress Head- atraumatic Eyes- PERRL, EOMI ENT- oropharynx clear Neck- supple Lungs- Poor air entry Heart- regular rhythm Abdomen- normal bowel sounds, nontender Extremities-no calf tenderness Neuro- alert, awake, PERRL, EOMI Skin- warm & dry Laboratory Results: Last 24 Hours Test 05/26/17 20:40 05/27/17 05:54 05/27/17 07:00 05/27/17 11:17 Bedside Glucose 109 mg/dl 87 mg/dl 150 mg/dl White Blood Count 6.85 K/uL Red Blood Count 3.36 M/uL Hemoglobin 9.4 g/dL Hematocrit 29.9 % Mean Corpuscular Volume 89.0 fL Mean Corpuscular Hemoglobin 28.0 pg Mean Corpuscular Hemoglobin Concent 31.4 g/dl RDW Standard Deviation 57.2 fL RDW Coefficient of Variation 17.6 % Platelet Count 223 K/uL Mean Platelet Volume 9.9 fL Prothrombin Time 24.9 SECONDS Prothromb Time International Ratio 2.2 Sodium Level 133 mmol/L Potassium Level 4.7 mmol/L Chloride Level 101 mmol/L Carbon Dioxide Level 24 mmol/L Anion Gap 8.0 mmol/L Blood Urea Nitrogen 43 mg/dl Creatinine 1.60 mg/dl Est Creatinine Clear Calc Drug Dose 29.5 ml/min Estimated GFR () 36.2 Estimated GFR (Non- 31.2 BUN/Creatinine Ratio 27.1 Random Glucose 93 mg/dl Calcium Level 9.0 mg/dl Assessment & Plan Metabolic Encephalopathy -possible related to acute blood loss anemia -CT showed no acute finding CT Abdomen/Pelvis showed extensive Diverticulosis -Probable Diverticulitis -Received Doxy initially -discontinued -Continue Ceftriaxone and Flagyl -Cipro can cause prolong QT and was avoided -Clinically better Lower GI bleed -Possible related to supratherapeutic INR -Gross bright red blood on rectal exam -INR on admission 3.5 -Hbg on admission 9.8, baseline in the 14 - Recieved Vit K in ER - Coumadin on hold - Last colonoscopy in 2004 with multiple diverticula - GI consulted, no GI intervention at this time - No more bleeding and HB remains stable >9 Acute blood loss anemia -Mostly related to GI bleed. -Continue monitor cbc -h/h stable Acute on chronic systolic CHF: -Per [facility] records, patient seen for worsening CHF last week -Has gained 7 lbs, non-compliant with fluid/Na restrictions -Lasix on hold due to elevated Cr of 1.9 -Recent echo with EF: 45-50% with severe concentric LVH, severe -Has been desat - Will repeat CXR today COPD/Idiopathic pulmonary fibrosis: -Has chronic respiratory failure on 2L NC continuous at [facility]; was hypoxic at [facility] due to removing O2 -Continue supplemental O2, home meds LAURIE on CKD stage III: -Cr elevated to 1.9 on admission; baseline of 1.3 -possible related to overdiuresis - Creaine today 1.6 -Avoid nephrotoxic agents when possible -Continue monitor DM II: -Recent hgb a1c of 7.6 (05/28) -Held oral home meds -5 U Lantus qHS and SSI while in-patient -BG checks AC HS H/o A flutter (on coumadin): -EKG with atrial-paced rhythm -Held coumadin due to supratherapeutic INR with GI bleed -Continue home dose of sotalol - INR 2.2 today CAD (s/p CABG): -Denies chest pain - Initial troponin negative -Continue aspirin, Imdur -Stable DVT Ppx: warfarin on hold INR 2.2 will do SCDs once INR sub therapeutic Code status: DNR PCP: Aparna Dispo: Discharge planning requested. To return to [facility] Current Inpatient Medications: Current Inpatient Medications Medications (Trade) Dose Ordered Sig/Mike Route Start Time Stop Time Status Last Admin Dose Admin Acetaminophen (Tylenol Tab) 650 mg Q4H PRN PO 05/24/17 13:30 06/23/17 13:29 05/27/17 09:22 650 MG Ondansetron HCl (Zofran Inj) 4 mg Q6H PRN IV 05/24/17 13:30 06/23/17 13:29 05/26/17 17:36 4 MG Insulin Glargine (Lantus Solostar Pen) 5 units HS SC 05/24/17 21:00 06/23/17 20:59 05/26/17 21:29 5 UNITS Insulin Aspart (novoLOG ASPART) SLIDING SCALE If C... ACHS SC 05/24/17 16:15 06/23/17 16:14 05/27/17 13:18 3 UNITS Glucose (Glucose 40% Gel) 15-30 GRAMS 15 GRAMS... UD PRN PO 05/24/17 13:30 06/23/17 13:29 Glucose (Glucose Chew Tab) 4-8 Tablets 4 Tabl... UD PRN PO 05/24/17 13:30 06/23/17 13:29 Dextrose (Dextrose 50% 50ML Syringe) 25-50ML OF 50% DW IV FOR... UD PRN IV 05/24/17 13:30 06/23/17 13:29 Glucagon (Glucagon Inj) 1 mg UD PRN SQ 05/24/17 13:30 06/23/17 13:29 Albuterol (Ventolin Hfa Inhaler) 1 puffs Q6 PRN INH 05/24/17 13:45 06/23/17 13:44 Collagenase (Santyl Oint) 1 appln DAILY EXT 05/25/17 09:00 06/24/17 08:59 05/25/17 10:23 1 APPLN Albuterol/ Ipratropium (Combivent Respimat Inh) 1 puffs QID INH 05/24/17 17:00 06/23/17 16:59 05/27/17 12:34 1 PUFFS Isosorbide Mononitrate (Imdur Ext Rel Tab) 30 mg QAM PO 05/25/17 09:00 06/24/17 08:59 05/27/17 09:17 30 MG Levothyroxine Sodium (Synthroid Tab) 137 mcg DAILYBB PO 05/25/17 06:00 06/24/17 06:59 05/27/17 05:07 137 MCG Nitroglycerin (Nitrostat Tab) 0.4 mg UD PRN UT 05/24/17 13:45 06/23/17 13:44 Sotalol HCl (Betapace Tab) 80 mg BID PO 05/24/17 21:00 06/23/17 20:59 Future hold 05/27/17 09:17 80 MG Calcium/Vitamin D (Caltrate Plus Tab) 1 tab QAM PO 05/25/17 09:00 06/24/17 08:59 05/27/17 09:17 1 TAB Famotidine 20 mg/ Dextrose 102 ml @ 200 mls/hr Q12H IV 05/24/17 22:00 06/23/17 21:59 05/27/17 09:24 200 MLS/HR Sodium Chloride 1,000 ml @ 75 mls/hr [id number] IV 05/24/17 15:15 06/23/17 15:14 Future Hold 05/25/17 20:22 75 MLS/HR Metronidazole 500 mg/Prmx 100 ml @ 100 mls/hr Q8H IV 05/25/17 22:00 06/04/17 21:59 05/27/17 13:16 100 MLS/HR Enteral Nutritional Formula (Boost Breeze Nutritional Drink) 1 box BIDM PO 05/25/17 16:45 06/24/17 16:44 05/27/17 09:19 1 BOX Ceftriaxone Sodium 1000 mg/ Dextrose 60 ml @ 120 mls/hr DAILY IV 05/25/17 16:00 06/04/17 15:59 05/27/17 10:25 120 MLS/HR Albuterol/ Ipratropium (Duoneb) 3 ml Q2H PRN INH 05/26/17 00:00 06/25/17 00:00
[2017-05-27 20:00] VITALS: O2SAT 97
--- NOTE | 2017-05-27 20:07 | DIAGNOSTIC IMAGING REPORT ---
CHEST ONE VIEW PORTABLE CLINICAL HISTORY: Altered mental status. Pulmonary edema. COMPARISON STUDY: 05/26/2017 FINDINGS: The heart remains enlarged. There are postsurgical changes of a midline sternotomy. There is a left subclavian dual-chamber central venous pacemaker. There is radiographic evidence of congestive failure and pulmonary edema similar to the preceding study. Small pleural effusions are suspected. The previously identified hazy right midlung zone opacity remains stable[ IMPRESSION: 1. No significant interval change. Persistent cardiomegaly, pulmonary edema, and small bilateral pleural effusions Electronically signed by: Kenton Geiger M.D. 05/27/2017 8:06 PM Dictated Date/Time: 05/27/2017 8:05 PM
[2017-05-27] MEDS: INSULIN GLARGINE SOLOSTAR 100 UNITS/ML 3 ML PEN SC SCH (20:50)
[2017-05-27 23:03] VITALS: BP 96/63; PULSE 58; TEMP 36.3; O2SAT 93
[2017-05-28] VITALS: O2SAT 97
[2017-05-28] MEDS: METRONIDAZOLE / NSS 500 MG in PREMIXED NSS 100 ML IV SCH ×3 (05:27→22:09)
[2017-05-28] MEDS: LEVOTHYROXINE 137 MCG TAB PO SCH (05:27)
[2017-05-28] MEDS ORDERED: NURSING VERBAL MED ORDER ONE (06:15)
[2017-05-28] MEDS ORDERED: SODIUM CHLORIDE 0.65% NA SOLN 45 ML (OCEAN) PRN (06:30)
[2017-05-28 07:11] LABS: HEMATOCRIT 29.5 % (37-47); MEAN CELL VOLUME 89.1 fL (80-100); MEAN CORPUSCULAR HEMOGLOBIN 28.4 pg (25-34); MEAN CORPUSCULAR HGB CONC 31.9 g/dl (32-36); MEAN PLATELET VOLUME 9.4 fL (7.4-10.4); PLATELET COUNT 206 K/uL (130-400); RED BLOOD COUNT 3.31 M/uL (4.2-5.4); WHITE BLOOD COUNT 6.21 K/uL (4.8-10.8)
[2017-05-28 07:19] LABS: INR 2.3 (0.9-1.1); PROTHROMBIN TIME (PATIENT) 25.6 SECONDS (9.0-12.0)
[2017-05-28 07:21] VITALS: BP_SYST 60; BP_SYST 82; BP_DIAS 40; BP_DIAS 46; PULSE 66; O2SAT 87
[2017-05-28] MEDS: SOTALOL HCL 80 MG TAB PO SCH ×2 (07:30→20:00)
[2017-05-28] MEDS: CEFTRIAXONE SOD INJ 1000 MG in DEXTROSE 5% 50ML IV SCH (07:30)
[2017-05-28] MEDS: ISOSORBIDE MONONITRATE 30 MG TABCR PO SCH (07:31)
[2017-05-28] MEDS: CALCIUM 600MG + VIT D 400 IU TAB PO SCH (07:31)
[2017-05-28] MEDS: BOOST BREEZE NUTRITION DRINK 1 BOX PO SCH ×2 (07:32→18:49)
[2017-05-28] MEDS: IPRATROPIUM BROMIDE/ALBUTEROL respimat INH INH SCH ×4 (07:34→20:34)
[2017-05-28] MEDS: COLLAGENASE OINT 30 GM TUBE EXT SCH (07:36)
[2017-05-28 07:39] LABS: BUN/CREATININE RATIO 24.2 (10-20); CALCIUM 8.5 mg/dl (8.5-10.1); CREATININE 1.8 mg/dl (0.60-1.20); POTASSIUM 4.2 mmol/L (3.5-5.1)
[2017-05-28] MEDS: INSULIN ASPART 100 UNITS/ML 3 ML PEN SC SCH ×4 (08:00→20:39)
[2017-05-28] MEDS: FAMOTIDINE IV INJ 20 MG in DEXTROSE 5% 100ML 100 ML IV SCH ×2 (10:21→22:15)
[2017-05-28] MEDS: ACETAMINOPHEN 325 MG TAB PO PRN ×2 (10:29→20:21)
[2017-05-28 14:38] VITALS: TEMP 36.3; O2SAT 91
[2017-05-28] MEDS ORDERED: TRAMADOL HCL 50 MG TAB ONE (15:46)
[2017-05-28 16:33] VITALS: BP 91/61; PULSE 72; O2SAT 96
[2017-05-28 16:34] VITALS: BP 91/61; PULSE 72; TEMP 36.3; O2SAT 96
[2017-05-28] MEDS ORDERED: TRAMADOL HCL 50 MG TAB PO ONE (17:00)
--- NOTE | 2017-05-28 17:10 | Progress Note ---
Medicine Progress Note Date & Time of Visit: May 28, 2017 at 16:53. Subjective Pt was seen and examined Lying in bed with no distress She removed the NC from her nostril because she cannot tolerated she said that her breathing seems to improve denies any chest pain, palpitation, dizziness Objective Last 8 Hrs Date Time Temp Pulse Resp B/P (MAP) Pulse Ox O2 Delivery O2 Flow Rate FiO2 05/28/17 16:34 36.3 72 16 91/61 (71) 96 Nasal Cannula 4.0 05/28/17 16:33 72 16 91/61 (71) 96 Nasal Cannula 4.0 05/28/17 14:38 36.3 91 Nasal Cannula 4.0 Physical Exam: General- No acute distress Head- atraumatic Eyes- PERRL, EOMI ENT- oropharynx clear Neck- supple Lungs- Poor air entry Heart- regular rhythm Abdomen- normal bowel sounds, nontender Extremities-no calf tenderness Neuro- alert, awake, PERRL, EOMI Skin- warm & dry Laboratory Results: Last 24 Hours Test 05/27/17 20:21 05/28/17 06:47 05/28/17 07:21 05/28/17 11:06 Bedside Glucose 176 mg/dl 84 mg/dl 109 mg/dl White Blood Count 6.21 K/uL Red Blood Count 3.31 M/uL Hemoglobin 9.4 g/dL Hematocrit 29.5 % Mean Corpuscular Volume 89.1 fL Mean Corpuscular Hemoglobin 28.4 pg Mean Corpuscular Hemoglobin Concent 31.9 g/dl RDW Standard Deviation 58.1 fL RDW Coefficient of Variation 17.8 % Platelet Count 206 K/uL Mean Platelet Volume 9.4 fL Nucleated RBC Absolute Count (auto) 0.04 K/uL Nucleated Red Blood Cells % 0.7 % Prothrombin Time 25.6 SECONDS Prothromb Time International Ratio 2.3 Sodium Level 134 mmol/L Potassium Level 4.2 mmol/L Chloride Level 101 mmol/L Carbon Dioxide Level 24 mmol/L Anion Gap 9.0 mmol/L Blood Urea Nitrogen 44 mg/dl Creatinine 1.80 mg/dl Est Creatinine Clear Calc Drug Dose 26.9 ml/min Estimated GFR () 31.4 Estimated GFR (Non- 27.1 BUN/Creatinine Ratio 24.2 Random Glucose 99 mg/dl Calcium Level 8.5 mg/dl Assessment & Plan Metabolic Encephalopathy -possible related to acute blood loss anemia -CT showed no acute finding CT Abdomen/Pelvis showed extensive Diverticulosis -Probable Diverticulitis -Received Doxy initially -discontinued -Continue Ceftriaxone and Flagyl -Cipro can cause prolong QT and was avoided -Clinically better - Stable Lower GI bleed -Possible related to supratherapeutic INR -Gross bright red blood on rectal exam -INR on admission 3.5 -Hbg on admission 9.8, baseline in the 14 - Recieved Vit K in ER - Last colonoscopy in 2004 with multiple diverticula - GI consulted, no GI intervention at this time - No more bleeding and HB remains stable (9.4 today) - continue monitor hgb - will resume Coumadin tomorrow if hgb stable Acute blood loss anemia -Mostly related to GI bleed. -Continue monitor cbc -h/h stable Acute on chronic systolic CHF: -Per [facility] records, patient seen for worsening CHF last week -Has gained 7 lbs, non-compliant with fluid/Na restrictions -Lasix on hold due to elevated Cr of 1.9 -Recent echo with EF: 45-50% with severe concentric LVH, severe - Repeat CXR yesterday showed no significant interval change. Persistent cardiomegaly, pulmonary edema, and small bilateral pleural effusions - Unable to give lasix because BP was in the low side -Once BP improves, will restart lasix COPD/Idiopathic pulmonary fibrosis: -Has chronic respiratory failure on 2L NC continuous at SNF; was hypoxic at SNF due to removing O2 -Continue supplemental O2, home meds - Encourage pt to keep oxygen on, goal to keep sat above 89% LAURIE on CKD stage III: -Cr elevated to 1.9 on admission; baseline of 1.3 -Possible related to overdiuresis -Creaine today 1.8 -Avoid nephrotoxic agents when possible -Continue monitor DM II: -Recent hgb a1c of 7.6 (05/28) -Held oral home meds -5 U Lantus qHS and SSI while in-patient -BG checks AC HS H/o A flutter (on coumadin): -EKG with atrial-paced rhythm -Held coumadin due to supratherapeutic INR with GI bleed -Rate control -On Sotalol and imdur -INR 2.3 today CAD (s/p CABG): -Denies chest pain - Initial troponin negative -Continue aspirin, Imdur -Stable DVT Ppx: warfarin on hold INR 2.3 will do SCDs once INR sub therapeutic Code status: DNR PCP: Aparna Dispo: Discharge planning requested. To return to [facility] Current Inpatient Medications: Current Inpatient Medications Medications (Trade) Dose Ordered Sig/Mike Route Start Time Stop Time Status Last Admin Dose Admin Acetaminophen (Tylenol Tab) 650 mg Q4H PRN PO 05/24/17 13:30 06/23/17 13:29 05/28/17 10:29 650 MG Ondansetron HCl (Zofran Inj) 4 mg Q6H PRN IV 05/24/17 13:30 06/23/17 13:29 05/26/17 17:36 4 MG Insulin Glargine (Lantus Solostar Pen) 5 units HS SC 05/24/17 21:00 06/23/17 20:59 05/27/17 20:50 5 UNITS Insulin Aspart (novoLOG ASPART) SLIDING SCALE If C... ACHS SC 05/24/17 16:15 06/23/17 16:14 05/27/17 18:17 3 UNITS Glucose (Glucose 40% Gel) 15-30 GRAMS 15 GRAMS... UD PRN PO 05/24/17 13:30 06/23/17 13:29 Glucose (Glucose Chew Tab) 4-8 Tablets 4 Tabl... UD PRN PO 05/24/17 13:30 06/23/17 13:29 Dextrose (Dextrose 50% 50ML Syringe) 25-50ML OF 50% DW IV FOR... UD PRN IV 05/24/17 13:30 06/23/17 13:29 Glucagon (Glucagon Inj) 1 mg UD PRN SQ 05/24/17 13:30 06/23/17 13:29 Albuterol (Ventolin Hfa Inhaler) 1 puffs Q6 PRN INH 05/24/17 13:45 06/23/17 13:44 Collagenase (Santyl Oint) 1 appln DAILY EXT 05/25/17 09:00 06/24/17 08:59 05/28/17 07:36 1 APPLN Albuterol/ Ipratropium (Combivent Respimat Inh) 1 puffs QID INH 05/24/17 17:00 10/13/17 16:59 05/28/17 11:35 1 PUFFS Isosorbide Mononitrate (Imdur Ext Rel Tab) 30 mg QAM PO 05/25/17 09:00 06/24/17 08:59 05/27/17 09:17 30 MG Levothyroxine Sodium (Synthroid Tab) 137 mcg DAILYBB PO 05/25/17 06:00 06/24/17 06:59 05/28/17 05:27 137 MCG Nitroglycerin (Nitrostat Tab) 0.4 mg UD PRN UT 05/24/17 13:45 06/23/17 13:44 Sotalol HCl (Betapace Tab) 80 mg BID PO 05/24/17 21:00 06/23/17 20:59 Future hold 05/27/17 20:58 80 MG Calcium/Vitamin D (Caltrate Plus Tab) 1 tab QAM PO 05/25/17 09:00 06/24/17 08:59 05/28/17 07:31 1 TAB Famotidine 20 mg/ Dextrose 102 ml @ 200 mls/hr Q12H IV 05/24/17 22:00 06/23/17 21:59 05/28/17 10:21 200 MLS/HR Sodium Chloride 1,000 ml @ 75 mls/hr [id number] IV 05/24/17 15:15 06/23/17 15:14 Future Hold 05/25/17 20:22 75 MLS/HR Metronidazole 500 mg/Prmx 100 ml @ 100 mls/hr Q8H IV 05/25/17 22:00 06/04/17 21:59 05/28/17 14:20 100 MLS/HR Enteral Nutritional Formula (Boost Breeze Nutritional Drink) 1 box BIDM PO 05/25/17 16:45 06/24/17 16:44 05/28/17 07:32 1 BOX Ceftriaxone Sodium 1000 mg/ Dextrose 60 ml @ 120 mls/hr DAILY IV 05/25/17 16:00 06/04/17 15:59 05/28/17 07:30 120 MLS/HR Albuterol/ Ipratropium (Duoneb) 3 ml Q2H PRN INH 05/26/17 00:00 06/25/17 00:00 Sodium Chloride ([place] Nasal [place]) 1 sprays PRN PRN NA 05/28/17 06:30 06/27/17 06:29 05/28/17 06:44 1 SPRAYS Tramadol HCl (Ultram Tab) 50 mg NOW ONCE PO 05/28/17 17:00 05/28/17 17:01
[2017-05-28] MEDS: ONDANSETRON INJ 2 MG/ML 2 ML VIAL IV PRN (20:21)
[2017-05-28] MEDS: INSULIN GLARGINE SOLOSTAR 100 UNITS/ML 3 ML PEN SC SCH (20:40)
[2017-05-29 00:17] VITALS: BP 106/72; PULSE 71; O2SAT 92
[2017-05-29] MEDS: METRONIDAZOLE / NSS 500 MG in PREMIXED NSS 100 ML IV SCH ×2 (05:53→12:53)
[2017-05-29] MEDS: LEVOTHYROXINE 137 MCG TAB PO SCH (05:53)
[2017-05-29 06:42] LABS: HEMATOCRIT 32.7 % (37-47); MEAN CELL VOLUME 89.3 fL (80-100); MEAN CORPUSCULAR HEMOGLOBIN 26.2 pg (25-34); MEAN CORPUSCULAR HGB CONC 29.4 g/dl (32-36); MEAN PLATELET VOLUME 9.4 fL (7.4-10.4); PLATELET COUNT 207 K/uL (130-400); RED BLOOD COUNT 3.66 M/uL (4.2-5.4)
[2017-05-29 06:50] LABS: INR 2.7 (0.9-1.1); PROTHROMBIN TIME (PATIENT) 30.6 SECONDS (9.0-12.0)
[2017-05-29 07:18] LABS: BUN/CREATININE RATIO 22.9 (10-20); CALCIUM 9.3 mg/dl (8.5-10.1); CREATININE 1.9 mg/dl (0.60-1.20); POTASSIUM 4.4 mmol/L (3.5-5.1)
[2017-05-29] MEDS: CALCIUM 600MG + VIT D 400 IU TAB PO SCH (07:45)
[2017-05-29] MEDS: IPRATROPIUM BROMIDE/ALBUTEROL respimat INH INH SCH ×4 (07:45→19:43)
[2017-05-29] MEDS: BOOST BREEZE NUTRITION DRINK 1 BOX PO SCH ×2 (07:46→17:00)
[2017-05-29] MEDS: CEFTRIAXONE SOD INJ 1000 MG in DEXTROSE 5% 50ML IV SCH (07:47)
[2017-05-29 07:49] VITALS: BP 84/52; PULSE 64; TEMP 36; O2SAT 93
[2017-05-29] MEDS: COLLAGENASE OINT 30 GM TUBE EXT SCH (07:51)
[2017-05-29] MEDS: ISOSORBIDE MONONITRATE 30 MG TABCR PO SCH (07:51)
[2017-05-29] MEDS: SOTALOL HCL 80 MG TAB PO SCH ×2 (07:51→19:42)
[2017-05-29 07:54] VITALS: BP 89/59; PULSE 62
[2017-05-29] MEDS: INSULIN ASPART 100 UNITS/ML 3 ML PEN SC SCH ×4 (08:22→20:04)
[2017-05-29] MEDS: FAMOTIDINE IV INJ 20 MG in DEXTROSE 5% 100ML 100 ML IV SCH (09:22)
[2017-05-29 15:17] VITALS: BP 90/60; PULSE 69; TEMP 36.5; O2SAT 90
--- NOTE | 2017-05-29 17:17 | Progress Note ---
Medicine Progress Note Date & Time of Visit: May 29, 2017 at 17:08. Subjective Pt was seen and examined Lying in bed with no distress she said that her breathing feels fine as long as she does not do any exertion Denies any chest pain, palpitation, dizziness Objective Last 8 Hrs Date Time Temp Pulse Resp B/P (MAP) Pulse Ox O2 Delivery O2 Flow Rate FiO2 05/29/17 15:17 36.5 69 20 90/60 (70) 90 5.0 Physical Exam: General- No acute distress Head- atraumatic Eyes- PERRL, EOMI ENT- oropharynx clear Neck- supple Lungs- Poor air entry Heart- regular rhythm Abdomen- normal bowel sounds, nontender Extremities-no calf tenderness Neuro- alert, awake, PERRL, EOMI Skin- warm & dry Laboratory Results: Last 24 Hours Test 05/28/17 17:25 05/28/17 20:08 05/29/17 06:31 05/29/17 07:40 Bedside Glucose 173 mg/dl 219 mg/dl 78 mg/dl White Blood Count 7.20 K/uL Red Blood Count 3.66 M/uL Hemoglobin 9.6 g/dL Hematocrit 32.7 % Mean Corpuscular Volume 89.3 fL Mean Corpuscular Hemoglobin 26.2 pg Mean Corpuscular Hemoglobin Concent 29.4 g/dl RDW Standard Deviation 58.9 fL RDW Coefficient of Variation 18.1 % Platelet Count 207 K/uL Mean Platelet Volume 9.4 fL Nucleated RBC Absolute Count (auto) 0.05 K/uL Nucleated Red Blood Cells % 0.7 % Prothrombin Time 30.6 SECONDS Prothromb Time International Ratio 2.7 Sodium Level 132 mmol/L Potassium Level 4.4 mmol/L Chloride Level 98 mmol/L Carbon Dioxide Level 23 mmol/L Anion Gap 11.0 mmol/L Blood Urea Nitrogen 44 mg/dl Creatinine 1.90 mg/dl Est Creatinine Clear Calc Drug Dose 25.7 ml/min Estimated GFR () 29.4 Estimated GFR (Non- 25.3 BUN/Creatinine Ratio 22.9 Random Glucose 94 mg/dl Calcium Level 9.3 mg/dl Test 05/29/17 11:39 05/29/17 16:56 Bedside Glucose 102 mg/dl 98 mg/dl Assessment & Plan Metabolic Encephalopathy -possible related to acute blood loss anemia -CT showed no acute finding CT Abdomen/Pelvis showed extensive Diverticulosis -Probable Diverticulitis -Received Doxy initially -discontinued -Continue Ceftriaxone and Flagyl -Cipro can cause prolong QT and was avoided -Clinically better - Stable Lower GI bleed -Possible related to supratherapeutic INR -Gross bright red blood on rectal exam -INR on admission 3.5 -Hbg on admission 9.8, baseline in the 14 - Recieved Vit K in ER - Last colonoscopy in 2004 with multiple diverticula - CT abd/pelvis showed possible mild acute sigmoid diverticulitis. - GI consulted, no GI intervention at this time - No more bleeding and HB remains stable (9.6 today) - continue monitor hgb - will resume Coumadin tomorrow if hgb stable Possible Mild Acute diverticulitis Seen on CT Continue ceftriaxone and flagyl Due to QTC prolong cipro was avoid Acute blood loss anemia -Mostly related to GI bleed. -Continue monitor cbc -h/h stable Acute on chronic systolic CHF: -Per [facility] records, patient seen for worsening CHF last week -Has gained 7 lbs, non-compliant with fluid/Na restrictions -Lasix on hold due to elevated Cr of 1.9 -Recent echo with EF: 45-50% with severe concentric LVH, severe - Repeat CXR yesterday showed no significant interval change. Persistent cardiomegaly, pulmonary edema, and small bilateral pleural effusions - Unable to give lasix because BP was in the low side -Once BP improves, will restart lasix COPD/Idiopathic pulmonary fibrosis: -Has chronic respiratory failure on 2L NC continuous at SNF; was hypoxic at SNF due to removing O2 -Continue supplemental O2, home meds - Encourage pt to keep oxygen on, goal to keep sat above 89% LAURIE on CKD stage III: -Cr elevated to 1.9 on admission; baseline of 1.3 -Possible related to overdiuresis -Creaine today 1.9 -Avoid nephrotoxic agents when possible -Continue monitor DM II: -Recent hgb a1c of 7.6 (05/28) -Held oral home meds -5 U Lantus qHS and SSI while in-patient -BG checks AC HS H/o A flutter (on coumadin): -EKG with atrial-paced rhythm -Held coumadin due to supratherapeutic INR with GI bleed -Rate control -On Sotalol and imdur -INR 2.7 today CAD (s/p CABG): -Denies chest pain - Initial troponin negative -Continue aspirin, Imdur -Stable DVT Ppx: warfarin on hold INR 2.7 will do SCDs once INR sub therapeutic Code status: DNR PCP: Aparna Dispo: Discharge planning requested. To return to [facility] Current Inpatient Medications: Current Inpatient Medications Medications (Trade) Dose Ordered Sig/Mike Route Start Time Stop Time Status Last Admin Dose Admin Acetaminophen (Tylenol Tab) 650 mg Q4H PRN PO 05/24/17 13:30 06/23/17 13:29 05/28/17 20:21 650 MG Ondansetron HCl (Zofran Inj) 4 mg Q6H PRN IV 05/24/17 13:30 06/23/17 13:29 05/28/17 20:21 4 MG Insulin Glargine (Lantus Solostar Pen) 5 units HS SC 05/24/17 21:00 06/23/17 20:59 05/28/17 20:40 5 UNITS Insulin Aspart (novoLOG ASPART) SLIDING SCALE If C... ACHS SC 05/24/17 16:15 06/23/17 16:14 05/28/17 20:39 2 UNITS Glucose (Glucose 40% Gel) 15-30 GRAMS 15 GRAMS... UD PRN PO 05/24/17 13:30 06/23/17 13:29 Glucose (Glucose Chew Tab) 4-8 Tablets 4 Tabl... UD PRN PO 05/24/17 13:30 06/23/17 13:29 Dextrose (Dextrose 50% 50ML Syringe) 25-50ML OF 50% DW IV FOR... UD PRN IV 05/24/17 13:30 06/23/17 13:29 Glucagon (Glucagon Inj) 1 mg UD PRN SQ 05/24/17 13:30 06/23/17 13:29 Albuterol (Ventolin Hfa Inhaler) 1 puffs Q6 PRN INH 05/24/17 13:45 06/23/17 13:44 Collagenase (Santyl Oint) 1 appln DAILY EXT 05/25/17 09:00 06/24/17 08:59 05/29/17 07:51 1 APPLN Albuterol/ Ipratropium (Combivent Respimat Inh) 1 puffs QID INH 05/24/17 17:00 06/23/17 16:59 05/29/17 12:51 1 PUFFS Isosorbide Mononitrate (Imdur Ext Rel Tab) 30 mg QAM PO 05/25/17 09:00 06/24/17 08:59 05/27/17 09:17 30 MG Levothyroxine Sodium (Synthroid Tab) 137 mcg DAILYBB PO 05/25/17 06:00 06/24/17 06:59 05/29/17 05:53 137 MCG Nitroglycerin (Nitrostat Tab) 0.4 mg UD PRN UT 05/24/17 13:45 06/23/17 13:44 Sotalol HCl (Betapace Tab) 80 mg BID PO 05/24/17 21:00 06/23/17 20:59 Future hold 05/27/17 20:58 80 MG Calcium/Vitamin D (Caltrate Plus Tab) 1 tab QAM PO 05/25/17 09:00 06/24/17 08:59 05/29/17 07:45 1 TAB Famotidine 20 mg/ Dextrose 102 ml @ 200 mls/hr Q12H IV 05/24/17 22:00 06/23/17 21:59 05/29/17 09:22 200 MLS/HR Sodium Chloride 1,000 ml @ 75 mls/hr [id number] IV 05/24/17 15:15 06/23/17 15:14 Future Hold 05/25/17 20:22 75 MLS/HR Metronidazole 500 mg/Prmx 100 ml @ 100 mls/hr Q8H IV 05/25/17 22:00 06/04/17 21:59 05/29/17 12:53 100 MLS/HR Enteral Nutritional Formula (Boost Breeze Nutritional Drink) 1 box BIDM PO 05/25/17 16:45 06/24/17 16:44 05/29/17 07:46 1 BOX Ceftriaxone Sodium 1000 mg/ Dextrose 60 ml @ 120 mls/hr DAILY IV 05/25/17 16:00 06/04/17 15:59 05/29/17 07:47 120 MLS/HR Albuterol/ Ipratropium (Duoneb) 3 ml Q2H PRN INH 05/26/17 00:00 06/25/17 00:00 Sodium Chloride ([place] Nasal [place]) 1 sprays PRN PRN NA 05/28/17 06:30 06/27/17 06:29 05/28/17 06:44 1 SPRAYS Tramadol HCl (Ultram Tab) not relieved by tylenol @ Q6H PRN PO 05/28/17 22:15 06/27/17 22:14 Hydromorphone HCl (Dilaudid Inj) 0.5 mg Q3H PRN IV 05/28/17 22:15 06/11/17 22:14
[2017-05-29] MEDS: FAMOTIDINE 20 MG TAB PO SCH (19:42)
[2017-05-29] MEDS: METRONIDAZOLE 500 MG TAB PO SCH (19:42)
[2017-05-29] MEDS: INSULIN GLARGINE SOLOSTAR 100 UNITS/ML 3 ML PEN SC SCH (20:04)
[2017-05-30] VITALS (7 sets, daily range): BP systolic 79–91; BP diastolic 56–61; PULSE 55–90; TEMP 33.6–36.8; O2SAT 90–100; BMI 33.2
[2017-05-30 06:16] LABS: HEMATOCRIT 33.9 % (37-47); MEAN CELL VOLUME 89.2 fL (80-100); MEAN CORPUSCULAR HEMOGLOBIN 26.6 pg (25-34); MEAN CORPUSCULAR HGB CONC 29.8 g/dl (32-36); MEAN PLATELET VOLUME 9.5 fL (7.4-10.4); PLATELET COUNT 196 K/uL (130-400)
[2017-05-30 06:27] LABS: PROTHROMBIN TIME (PATIENT) 33.7 SECONDS (9.0-12.0)
[2017-05-30 06:53] LABS: BUN/CREATININE RATIO 23.9 (10-20); CALCIUM 9.5 mg/dl (8.5-10.1); POTASSIUM 4.7 mmol/L (3.5-5.1)
[2017-05-30] MEDS: SOTALOL HCL 80 MG TAB PO SCH ×3 (08:00→21:23)
[2017-05-30] MEDS: ISOSORBIDE MONONITRATE 30 MG TABCR PO SCH (08:00)
[2017-05-30] MEDS: FAMOTIDINE 20 MG TAB PO SCH ×3 (08:07→21:24)
[2017-05-30] MEDS: CALCIUM 600MG + VIT D 400 IU TAB PO SCH (08:07)
[2017-05-30] MEDS: CEFTRIAXONE SOD INJ 1000 MG in DEXTROSE 5% 50ML IV SCH (08:08)
[2017-05-30] MEDS: COLLAGENASE OINT 30 GM TUBE EXT SCH (08:08)
[2017-05-30] MEDS: LEVOTHYROXINE 137 MCG TAB PO SCH (08:08)
[2017-05-30] MEDS: IPRATROPIUM BROMIDE/ALBUTEROL respimat INH INH SCH ×4 (08:08→21:22)
[2017-05-30] MEDS: METRONIDAZOLE 500 MG TAB PO SCH ×4 (08:09→21:22)
[2017-05-30] MEDS: BOOST BREEZE NUTRITION DRINK 1 BOX PO SCH ×2 (08:43→17:30)
[2017-05-30] MEDS: TRAMADOL HCL 50 MG TAB PO PRN ×2 (09:32→15:49)
[2017-05-30] MEDS: INSULIN ASPART 100 UNITS/ML 3 ML PEN SC SCH ×4 (10:11→21:00)
--- NOTE | 2017-05-30 11:09 | DIAGNOSTIC IMAGING REPORT ---
CHEST ONE VIEW PORTABLE CLINICAL HISTORY: 77 years-old Female presenting with sob. TECHNIQUE: Portable upright AP view of the chest was obtained. COMPARISON: 05/27/2017. FINDINGS: Left-sided pacer with leads to the right atrium and right ventricular apex. Median sternotomy wires. Persistent prominence of the cardiac silhouette. Interval decrease in perihilar and mid and basilar opacities bilaterally. Moderate right pleural effusion unchanged. Small left pleural effusion unchanged. No pneumothorax. Osseous structures normal. Upper abdomen normal. IMPRESSION: 1. Persistent although decreased pulmonary edema with stable moderate right and small left pleural effusions. 2. Cardiomegaly. Electronically signed by: Sp Reynoso M.D. 05/30/2017 11:08 AM Dictated Date/Time: 05/30/2017 11:07 AM
[2017-05-30] MEDS: FUROSEMIDE 40 MG TAB PO SCH (11:18)
--- NOTE | 2017-05-30 17:49 | NEPHROLOGY CONSULTATION ---
DATE OF CONSULTATION: 05/30/2017 ATTENDING OF RECORD: Dr. Dover. REASON FOR CONSULTATION: LAURIE. HISTORY OF PRESENT ILLNESS: This is a 77-year-old female last seen in my clinic in 2014. At that time, the patient had a stable CKD stage III with creatinine in the low one's. The patient presented during this admission with low hemoglobin of 9.8 with gross blood on rectal exam and GI was consulted and attempted scope; however, the patient did not tolerate the procedure. The patient did not require any blood transfusions and hemoglobin levels have been stable in the 9 range with no more rectal bleeding. There was a CT scan without contrast which shows some possible mild acute sigmoid diverticulitis as well as small bilateral pleural effusions, signs of cirrhosis with trace ascites as well as a ventral hernia. The patient has been on ceftriaxone and Flagyl for the diverticulitis and patient's abdominal pain is gone, patient is comfortable on a clear liquid diet and advancing as tolerated. No more rectal bleeding. The patient's creatinine on admission was 1.9, trended down to 1.6 and is now trending back up and is back up to 2, this morning. The patient did have signs of hypoxia and requiring 5 liters nasal cannula. The patient's Lasix was not given secondary to elevated creatinine. PAST MEDICAL HISTORY: Severe aortic stenosis, and coronary artery disease with underlying bypass surgery, CKD stage III with baseline creatinine in the low 1s, type 2 diabetes, hyperlipidemia, GERD, history of diabetes insipidus, hypertension, hypothyroidism, pulmonary fibrosis, uterine cancer, COPD, paroxysmal aFib, and severe aortic stenosis. PAST SURGICAL HISTORY: Laminectomy, cholecystectomy, hysterectomy, hip replacement and bypass surgery. FAMILY HISTORY: Significant for heart disease and diabetes. SOCIAL HISTORY: Former smoker. No drugs, no alcohol, is and lives in shelter. CURRENT MEDICATIONS: Albuterol inhalers, Caltrate 1 tab daily, ceftriaxone 1 gram IV daily, Boost p.o. b.i.d., Lantus 5 units at night, sliding scale insulin, Imdur 30 mg daily, levothyroxine 137 mcg daily, Flagyl 500 mg p.o. t.i.d. and sotalol 80 mg p.o. b.i.d. REVIEW OF SYSTEMS: Positive appetite and no abdominal pain. Denies shortness of breath, although requiring oxygen. No chest pain. Positive lethargy. Positive weakness. No rash or itching. No headaches. Positive rectal bleeding which has improved. All other review of systems otherwise negative. PHYSICAL EXAMINATION: VITAL SIGNS: Temperature 36, pulse 64, respiratory rate is 20, blood pressure 84/52. Satting 93% on 4 liters. GENERAL: Awake, alert, oriented x3, lethargic. EYES: No scleral icterus. ENT: Moist mucous membranes. NECK: Supple. PULMONARY: Positive expiratory wheeze. Positive rales at the bases. CARDIAC: A 2/6 systolic murmur. ABDOMEN: Bowel sounds positive, soft, nontender. EXTREMITIES: +1 edema. NEUROLOGICALLY: Lethargic, lacks energy; however, follows commands. DERMATOLOGIC: No rash or ulcers noted. LABORATORY DATA: Sodium was 133, potassium 4.7, chloride is 100, bicarbonate is 22, BUN is 48, creatinine is 2, glucose 86, calcium is 9.5. White count 8.1, H&H 10 and 33, platelet count is 196. INR is 3. Blood gas from the showed a pH 7.42, pCO2 of 36, pO2 of 48 and bicarbonate of 23. ASSESSMENT AND PLAN: 1. Acute kidney injury on chronic kidney disease stage III in the setting of aortic stenosis, rectal bleeding and multiple comorbidities. Hemoglobin levels have remained stable. Blood pressure is chronically low but asymptomatic, tolerating clear liquid diet and abdominal exam is benign at this time. Advancing diet as tolerated. The patient does have some rales and wheezing at the bases. Repeat a chest x-ray. Does have some underlying pulmonary fibrosis and in the setting of aortic stenosis careful not to over diurese the patient; however, will go ahead and start oral diuretics and follow the creatinine trend. Difficult situation given the patient's multiple comorbidities in the setting of worsening kidney function, perhaps this may be her new baseline and will try to optimize her as best as possible and follow up with her as an outpatient to see if creatinine eventually improves back down to baseline. Overall, poor prognosis. MTDD
[2017-05-30] MEDS: HYDROmorphone INJ 0.5 MG/0.5 ML SYR IV PRN (18:22)
--- NOTE | 2017-05-30 20:44 | Progress Note ---
Medicine Progress Note Date & Time of Visit: May 30, 2017 at 10:43. Subjective Pt was seen and examined Lying in bed with no distress Oxygen Saturation improved denies any chest pain, palpitation, dizziness Objective Last 8 Hrs Date Time Temp Pulse Resp B/P (MAP) Pulse Ox O2 Delivery O2 Flow Rate FiO2 05/30/17 16:00 Nasal Cannula 4.0 05/30/17 15:35 36.3 55 20 79/56 (64) 97 Physical Exam: General- No acute distress Head- atraumatic Eyes- PERRL, EOMI ENT- oropharynx clear Neck- supple Lungs- coarse breath sound Heart- regular rhythm Abdomen- normal bowel sounds, nontender Extremities-no calf tenderness Neuro- alert, awake, PERRL, EOMI Skin- warm & dry Laboratory Results: Last 24 Hours Test 05/30/17 05:27 05/30/17 07:22 05/30/17 11:50 05/30/17 16:23 White Blood Count 8.10 K/uL Red Blood Count 3.80 M/uL Hemoglobin 10.1 g/dL Hematocrit 33.9 % Mean Corpuscular Volume 89.2 fL Mean Corpuscular Hemoglobin 26.6 pg Mean Corpuscular Hemoglobin Concent 29.8 g/dl RDW Standard Deviation 59.0 fL RDW Coefficient of Variation 18.2 % Platelet Count 196 K/uL Mean Platelet Volume 9.5 fL Nucleated RBC Absolute Count (auto) 0.08 K/uL Nucleated Red Blood Cells % 1.0 % Prothrombin Time 33.7 SECONDS Prothromb Time International Ratio 3.0 Sodium Level 133 mmol/L Potassium Level 4.7 mmol/L Chloride Level 100 mmol/L Carbon Dioxide Level 22 mmol/L Anion Gap 11.0 mmol/L Blood Urea Nitrogen 48 mg/dl Creatinine 2.00 mg/dl Est Creatinine Clear Calc Drug Dose 24.2 ml/min Estimated GFR () 27.6 Estimated GFR (Non- 23.8 BUN/Creatinine Ratio 23.9 Random Glucose 86 mg/dl Calcium Level 9.5 mg/dl Bedside Glucose 69 mg/dl 223 mg/dl 174 mg/dl Assessment & Plan Metabolic Encephalopathy -possible related to acute blood loss anemia -CT showed no acute finding CT Abdomen/Pelvis showed extensive Diverticulosis -Probable Diverticulitis -Received Doxy initially -discontinued -Continue Ceftriaxone and Flagyl -Cipro can cause prolong QT and was avoided -Clinically better - Stable Lower GI bleed -Possible related to supratherapeutic INR -Gross bright red blood on rectal exam -INR on admission 3.5 -Hbg on admission 9.8, baseline in the 14 - Recieved Vit K in ER - Last colonoscopy in 2004 with multiple diverticula - CT abd/pelvis showed possible mild acute sigmoid diverticulitis. - GI consulted, no GI intervention at this time - No more bleeding and HB remains stable (10.1 today) - continue monitor hgb - Coumadin on hold Possible Mild Acute diverticulitis Seen on CT Continue ceftriaxone and flagyl Due to QTC prolong cipro was avoid Acute blood loss anemia -Mostly related to GI bleed. -Continue monitor cbc -h/h stable Acute on chronic systolic CHF: -Per [facility] records, patient seen for worsening CHF last week -Has gained 7 lbs, non-compliant with fluid/Na restrictions -Lasix on hold due to elevated Cr of 1.9 -Recent echo with EF: 45-50% with severe concentric LVH, severe - Repeat CXR yesterday showed no significant interval change. Persistent cardiomegaly, pulmonary edema, and small bilateral pleural effusions - Unable to give lasix because BP was in the low side -Lasix 40mg given today - Repeat cxr showed Persistent although decreased pulmonary edema with stable moderate right and small left pleural effusions. - COPD/Idiopathic pulmonary fibrosis: -Has chronic respiratory failure on 2L NC continuous at SNF; was hypoxic at SNF due to removing O2 -Continue supplemental O2, home meds - Encourage pt to keep oxygen on, goal to keep sat above 89% Moderate Right Pleural effusion Repeat CXR done today showed no change Lasix was given Will repeat cxr tomorrow around 11 after the morning dose of lasix If pleural effusion shows no change on repeat cxr tomorrow, will consult pulmonary LAURIE on CKD stage III: -Cr elevated to 1.9 on admission; baseline of 1.3 -Possible related to overdiuresis -Creatine worsening to 2 today -Avoid nephrotoxic agents when possible -Nephrology on board DM II: -Recent hgb a1c of 7.6 (05/28) -Held oral home meds -5 U Lantus qHS and SSI while in-patient -BG checks AC HS H/o A flutter (on coumadin): -EKG with atrial-paced rhythm -Held coumadin due to supratherapeutic INR with GI bleed -Rate control -On Sotalol and imdur -INR 3 today -Coumadin has been on hold ( Despite INR continue to increase) CAD (s/p CABG): -Denies chest pain - Initial troponin negative -Continue aspirin, Imdur -Stable DVT Ppx: warfarin on hold INR 3 will do SCDs once INR sub therapeutic Code status: DNR PCP: Aparna Dispo: Discharge planning requested. To return to [facility] Consultants: Nephrology Current Inpatient Medications: Current Inpatient Medications Medications (Trade) Dose Ordered Sig/Mike Route Start Time Stop Time Status Last Admin Dose Admin Acetaminophen (Tylenol Tab) 650 mg Q4H PRN PO 05/24/17 13:30 06/23/17 13:29 05/28/17 20:21 650 MG Ondansetron HCl (Zofran Inj) 4 mg Q6H PRN IV 05/24/17 13:30 06/23/17 13:29 05/28/17 20:21 4 MG Insulin Glargine (Lantus Solostar Pen) 5 units HS SC 05/24/17 21:00 06/23/17 20:59 05/29/17 20:04 5 UNITS Insulin Aspart (novoLOG ASPART) SLIDING SCALE If C... ACHS SC 05/24/17 16:15 06/23/17 16:14 05/30/17 14:23 7 UNITS Glucose (Glucose 40% Gel) 15-30 GRAMS 15 GRAMS... UD PRN PO 05/24/17 13:30 06/23/17 13:29 Glucose (Glucose Chew Tab) 4-8 Tablets 4 Tabl... UD PRN PO 05/24/17 13:30 06/23/17 13:29 Dextrose (Dextrose 50% 50ML Syringe) 25-50ML OF 50% DW IV FOR... UD PRN IV 05/24/17 13:30 06/23/17 13:29 Glucagon (Glucagon Inj) 1 mg UD PRN SQ 05/24/17 13:30 06/23/17 13:29 Albuterol (Ventolin Hfa Inhaler) 1 puffs Q6 PRN INH 05/24/17 13:45 06/23/17 13:44 Collagenase (Santyl Oint) 1 appln DAILY EXT 05/25/17 09:00 06/24/17 08:59 05/30/17 08:08 1 APPLN Albuterol/ Ipratropium (Combivent Respimat Inh) 1 puffs QID INH 05/24/17 17:00 06/23/17 16:59 05/30/17 17:29 1 PUFFS Isosorbide Mononitrate (Imdur Ext Rel Tab) 30 mg QAM PO 05/25/17 09:00 06/24/17 08:59 05/27/17 09:17 30 MG Levothyroxine Sodium (Synthroid Tab) 137 mcg DAILYBB PO 05/25/17 06:00 06/24/17 06:59 05/30/17 08:08 137 MCG Nitroglycerin (Nitrostat Tab) 0.4 mg UD PRN UT 05/24/17 13:45 06/23/17 13:44 Sotalol HCl (Betapace Tab) 80 mg BID PO 05/24/17 21:00 06/23/17 20:59 Future hold 05/29/17 19:42 80 MG Calcium/Vitamin D (Caltrate Plus Tab) 1 tab QAM PO 05/25/17 09:00 06/24/17 08:59 05/30/17 08:07 1 TAB Sodium Chloride 1,000 ml @ 75 mls/hr [id number] IV 05/24/17 15:15 06/23/17 15:14 Future Hold 05/25/17 20:22 75 MLS/HR Enteral Nutritional Formula (Boost Breeze Nutritional Drink) 1 box BIDM PO 05/25/17 16:45 06/24/17 16:44 05/30/17 17:30 1 BOX Ceftriaxone Sodium 1000 mg/ Dextrose 60 ml @ 120 mls/hr DAILY IV 05/25/17 16:00 06/04/17 15:59 05/30/17 08:08 120 MLS/HR Albuterol/ Ipratropium (Duoneb) 3 ml Q2H PRN INH 05/26/17 00:00 06/25/17 00:00 Sodium Chloride ([place] Nasal [place]) 1 sprays PRN PRN NA 05/28/17 06:30 06/27/17 06:29 05/28/17 06:44 1 SPRAYS Tramadol HCl (Ultram Tab) not relieved by tylenol @ Q6H PRN PO 05/28/17 22:15 06/27/17 22:14 05/30/17 15:49 50 MG Hydromorphone HCl (Dilaudid Inj) 0.5 mg Q3H PRN IV 05/28/17 22:15 06/11/17 22:14 05/30/17 18:22 0.5 MG Metronidazole (Flagyl Tab) 500 mg TID PO 05/29/17 20:00 06/04/17 19:59 05/30/17 13:38 500 MG Famotidine (Pepcid Tab) 20 mg BID PO 05/29/17 20:00 06/28/17 19:59 05/30/17 08:07 20 MG Furosemide (Lasix Tab) 40 mg QAM PO 05/30/17 10:00 06/29/17 09:59 05/30/17 11:18 40 MG
[2017-05-30] MEDS: INSULIN GLARGINE SOLOSTAR 100 UNITS/ML 3 ML PEN SC SCH (21:28)
[2017-05-31] MEDS: HYDROmorphone INJ 0.5 MG/0.5 ML SYR IV PRN (03:00)
[2017-05-31 05:45] LABS: HEMATOCRIT 30.8 % (37-47); MEAN CORPUSCULAR HEMOGLOBIN 28.3 pg (25-34); MEAN CORPUSCULAR HGB CONC 32.1 g/dl (32-36); MEAN PLATELET VOLUME 9.6 fL (7.4-10.4); PLATELET COUNT 162 K/uL (130-400); WHITE BLOOD COUNT 7.44 K/uL (4.8-10.8)
[2017-05-31 05:55] LABS: PROTHROMBIN TIME (PATIENT) 34.1 SECONDS (9.0-12.0)
[2017-05-31] MEDS: LEVOTHYROXINE 137 MCG TAB PO SCH (06:04)
[2017-05-31 06:17] LABS: BUN/CREATININE RATIO 26.8 (10-20); CALCIUM 9.3 mg/dl (8.5-10.1); POTASSIUM 4.8 mmol/L (3.5-5.1)
[2017-05-31] MEDS: INSULIN ASPART 100 UNITS/ML 3 ML PEN SC SCH ×4 (06:30→21:00)
[2017-05-31] MEDS: BOOST BREEZE NUTRITION DRINK 1 BOX PO SCH ×2 (08:00→16:53)
[2017-05-31] MEDS: SOTALOL HCL 80 MG TAB PO SCH ×2 (08:00→19:45)
[2017-05-31 08:16] VITALS: BP 100/69; PULSE 59; TEMP 36.2; O2SAT 92
[2017-05-31] MEDS: CEFTRIAXONE SOD INJ 1000 MG in DEXTROSE 5% 50ML IV SCH (08:54)
[2017-05-31] MEDS: CALCIUM 600MG + VIT D 400 IU TAB PO SCH (08:55)
[2017-05-31] MEDS: METRONIDAZOLE 500 MG TAB PO SCH ×3 (08:55→19:44)
[2017-05-31] MEDS: FUROSEMIDE 40 MG TAB PO SCH (08:56)
[2017-05-31] MEDS: ISOSORBIDE MONONITRATE 30 MG TABCR PO SCH (08:56)
[2017-05-31] MEDS: FAMOTIDINE 20 MG TAB PO SCH ×2 (08:57→19:44)
[2017-05-31] MEDS: IPRATROPIUM BROMIDE/ALBUTEROL respimat INH INH SCH ×4 (08:57→19:43)
[2017-05-31] MEDS: COLLAGENASE OINT 30 GM TUBE EXT SCH (08:57)
--- NOTE | 2017-05-31 12:49 | DIAGNOSTIC IMAGING REPORT ---
SINGLE VIEW CHEST CLINICAL HISTORY: Follow-up pleural effusion. FINDINGS: An AP, portable, upright chest radiograph is compared to study dated 05/28/2017. Correlation is made with chest CT dated 09/23/2009. The examination is degraded by portable technique and patient rotation. The patient is status post midline sternotomy. A 2-lead cardiac pacemaker is unchanged in position and partially obscures the left mid chest. The heart is enlarged and there is atherosclerotic calcification of the thoracic aorta. There is pulmonary vascular congestion and interstitial edema. Asymmetric airspace opacities are present in the right midlung. Airspace opacities are also present the lung bases. Chronic interstitial lung disease is again noted. Pleural effusions are again noted, right larger than left. No pneumothorax is seen. The skeletal structures are osteopenic. The bony thorax is grossly intact. IMPRESSION: 1. Cardiomegaly and cardiac pacemaker with evidence of congestive failure an interstitial edema. 2. Asymmetric airspace opacities are seen in the right midlung. This could represent asymmetric edema, superimposed pneumonia, or possibly fluid within the fissure. This is similar to previous. 3. Right larger than left pleural effusions. Electronically signed by: Galdino Navarrete M.D. 05/31/2017 12:47 PM Dictated Date/Time: 05/31/2017 12:45 PM
[2017-05-31 13:51] VITALS: BP 96/65; PULSE 61; TEMP 36; O2SAT 90
[2017-05-31 15:31] VITALS: O2SAT 90
[2017-05-31 15:56] VITALS: Ht 157.5 cm; Wt 80.1 kg
--- NOTE | 2017-05-31 17:35 | Progress Note ---
Medicine Progress Note Date & Time of Visit: May 31, 2017 at 17:28. Subjective Pt was seen and examined Lying in bed with no distress Denies any chest pain, palpitation, dizziness and SOB Objective Last 8 Hrs Date Time Temp Pulse Resp B/P (MAP) Pulse Ox O2 Delivery O2 Flow Rate FiO2 05/31/17 15:31 90 Nasal Cannula 05/31/17 13:51 36.0 61 18 96/65 (75) 90 Nasal Cannula 3.0 Physical Exam: General- No acute distress Head- atraumatic Eyes- PERRL, EOMI ENT- oropharynx clear Neck- supple Lungs- decrease bs Heart- regular rhythm Abdomen- normal bowel sounds, nontender Extremities-no calf tenderness Neuro- alert, awake, PERRL, EOMI Skin- warm & dry Laboratory Results: Last 24 Hours Test 05/30/17 20:29 05/31/17 05:19 05/31/17 07:48 05/31/17 08:05 Bedside Glucose 96 mg/dl 57 mg/dl 66 mg/dl White Blood Count 7.44 K/uL Red Blood Count 3.50 M/uL Hemoglobin 9.9 g/dL Hematocrit 30.8 % Mean Corpuscular Volume 88.0 fL Mean Corpuscular Hemoglobin 28.3 pg Mean Corpuscular Hemoglobin Concent 32.1 g/dl RDW Standard Deviation 58.5 fL RDW Coefficient of Variation 18.3 % Platelet Count 162 K/uL Mean Platelet Volume 9.6 fL Nucleated RBC Absolute Count (auto) 0.11 K/uL Nucleated Red Blood Cells % 1.5 % Prothrombin Time 34.1 SECONDS Prothromb Time International Ratio 3.0 Sodium Level 135 mmol/L Potassium Level 4.8 mmol/L Chloride Level 102 mmol/L Carbon Dioxide Level 27 mmol/L Anion Gap 6.0 mmol/L Blood Urea Nitrogen 54 mg/dl Creatinine 2.00 mg/dl Est Creatinine Clear Calc Drug Dose 24.2 ml/min Estimated GFR () 27.6 Estimated GFR (Non- 23.8 BUN/Creatinine Ratio 26.8 Random Glucose 79 mg/dl Calcium Level 9.3 mg/dl Test 05/31/17 08:53 05/31/17 11:36 Bedside Glucose 73 mg/dl 86 mg/dl Assessment & Plan Metabolic Encephalopathy -possible related to acute blood loss anemia -CT showed no acute finding CT Abdomen/Pelvis showed extensive Diverticulosis -Probable Diverticulitis -Received Doxy initially -discontinued -Continue Ceftriaxone and Flagyl -Cipro can cause prolong QT and was avoided -Clinically better - Stable Lower GI bleed -Possible related to supratherapeutic INR -Gross bright red blood on rectal exam -INR on admission 3.5 -Hbg on admission 9.8, baseline in the 14 - Recieved Vit K in ER - Last colonoscopy in 2004 with multiple diverticula - CT abd/pelvis showed possible mild acute sigmoid diverticulitis. - GI consulted, no GI intervention at this time - No more bleeding and HB remains stable (9.9 today) - continue monitor hgb - Coumadin on hold Possible Mild Acute diverticulitis Seen on CT Continue ceftriaxone and flagyl Due to QTC prolong cipro was avoid Acute blood loss anemia -Mostly related to GI bleed. -Continue monitor cbc -h/h stable Acute on chronic systolic CHF: -Per [facility] records, patient seen for worsening CHF last week -Has gained 7 lbs, non-compliant with fluid/Na restrictions -Lasix on hold due to elevated Cr of 1.9 -Recent echo with EF: 45-50% with severe concentric LVH, severe - Repeat CXR yesterday showed no significant interval change. Persistent cardiomegaly, pulmonary edema, and small bilateral pleural effusions - Unable to give lasix because BP was in the low side - Repeat cxr showed Persistent although decreased pulmonary edema with stable moderate right and small left pleural effusions. 05/31 Continue lasix Repeat CXR today showed no change stable COPD/Idiopathic pulmonary fibrosis: -Has chronic respiratory failure on 2L NC continuous at [facility]; was hypoxic at SNF due to removing O2 -Continue supplemental O2, home meds - Encourage pt to keep oxygen on, goal to keep sat above 89% Moderate Right Pleural effusion Repeat CXR done today showed no change Lasix was given Will repeat cxr tomorrow around 11 after the morning dose of lasix If pleural effusion shows no change on repeat cxr tomorrow, will consult pulmonary 05/31 Repeat CXR today showed no change from the right pleural effusion will discuss case with pulmonary to see if pt can get a thoracentesis tomoro LAURIE on CKD stage III: -Cr elevated to 1.9 on admission; baseline of 1.3 -Possible related to overdiuresis -Creatine worsening to 2 today -Avoid nephrotoxic agents when possible -Nephrology on board continue monitor BMP DM II: -Recent hgb a1c of 7.6 (05/28) -Held oral home meds -5 U Lantus qHS and SSI while in-patient -BG checks AC HS H/o A flutter (on coumadin): -EKG with atrial-paced rhythm -Held coumadin due to supratherapeutic INR with GI bleed -Rate control -On Sotalol and imdur -INR 3 today -Coumadin has been on hold ( Despite INR continue to increase) CAD (s/p CABG): -Denies chest pain - Initial troponin negative -Continue aspirin, Imdur -Stable DVT Ppx: warfarin on hold INR 3 will do SCDs once INR sub therapeutic Code status: DNR PCP: Aparna Dispo: Discharge planning requested. To return to [facility] Consultants: Nephrology Current Inpatient Medications: Current Inpatient Medications Medications (Trade) Dose Ordered Sig/Mike Route Start Time Stop Time Status Last Admin Dose Admin Acetaminophen (Tylenol Tab) 650 mg Q4H PRN PO 05/24/17 13:30 06/23/17 13:29 05/28/17 20:21 650 MG Ondansetron HCl (Zofran Inj) 4 mg Q6H PRN IV 05/24/17 13:30 06/23/17 13:29 05/28/17 20:21 4 MG Insulin Glargine (Lantus Solostar Pen) 5 units HS SC 05/24/17 21:00 06/23/17 20:59 05/30/17 21:28 5 UNITS Insulin Aspart (novoLOG ASPART) SLIDING SCALE If C... ACHS SC 05/24/17 16:15 06/23/17 16:14 05/30/17 14:23 7 UNITS Glucose (Glucose 40% Gel) 15-30 GRAMS 15 GRAMS... UD PRN PO 05/24/17 13:30 06/23/17 13:29 Glucose (Glucose Chew Tab) 4-8 Tablets 4 Tabl... UD PRN PO 05/24/17 13:30 06/23/17 13:29 Dextrose (Dextrose 50% 50ML Syringe) 25-50ML OF 50% DW IV FOR... UD PRN IV 05/24/17 13:30 06/23/17 13:29 Glucagon (Glucagon Inj) 1 mg UD PRN SQ 05/24/17 13:30 06/23/17 13:29 Albuterol (Ventolin Hfa Inhaler) 1 puffs Q6 PRN INH 05/24/17 13:45 06/23/17 13:44 Collagenase (Santyl Oint) 1 appln DAILY EXT 05/25/17 09:00 06/24/17 08:59 05/31/17 08:57 1 APPLN Albuterol/ Ipratropium (Combivent Respimat Inh) 1 puffs QID INH 05/24/17 17:00 06/23/17 16:59 05/31/17 08:57 1 PUFFS Isosorbide Mononitrate (Imdur Ext Rel Tab) 30 mg QAM PO 05/25/17 09:00 06/24/17 08:59 05/31/17 08:56 30 MG Levothyroxine Sodium (Synthroid Tab) 137 mcg DAILYBB PO 05/25/17 06:00 06/24/17 06:59 05/30/17 08:08 137 MCG Nitroglycerin (Nitrostat Tab) 0.4 mg UD PRN UT 05/24/17 13:45 06/23/17 13:44 Sotalol HCl (Betapace Tab) 80 mg BID PO 05/24/17 21:00 06/23/17 20:59 Future hold 05/29/17 19:42 80 MG Calcium/Vitamin D (Caltrate Plus Tab) 1 tab QAM PO 05/25/17 09:00 06/24/17 08:59 05/31/17 08:55 1 TAB Sodium Chloride 1,000 ml @ 75 mls/hr [id number] IV 05/24/17 15:15 06/23/17 15:14 Future Hold 05/25/17 20:22 75 MLS/HR Enteral Nutritional Formula (Boost Breeze Nutritional Drink) 1 box BIDM PO 05/25/17 16:45 06/24/17 16:44 05/30/17 17:30 1 BOX Ceftriaxone Sodium 1000 mg/ Dextrose 60 ml @ 120 mls/hr DAILY IV 05/25/17 16:00 06/04/17 15:59 05/31/17 08:54 120 MLS/HR Albuterol/ Ipratropium (Duoneb) 3 ml Q2H PRN INH 05/26/17 00:00 06/25/17 00:00 Sodium Chloride ([place] Nasal [place]) 1 sprays PRN PRN NA 05/28/17 06:30 06/27/17 06:29 05/28/17 06:44 1 SPRAYS Tramadol HCl (Ultram Tab) not relieved by tylenol @ Q6H PRN PO 05/28/17 22:15 06/27/17 22:14 05/30/17 15:49 50 MG Hydromorphone HCl (Dilaudid Inj) 0.5 mg Q3H PRN IV 05/28/17 22:15 06/11/17 22:14 05/31/17 03:00 0.5 MG Metronidazole (Flagyl Tab) 500 mg TID PO 05/29/17 20:00 06/04/17 19:59 05/31/17 14:03 500 MG Famotidine (Pepcid Tab) 20 mg BID PO 05/29/17 20:00 06/28/17 19:59 05/31/17 08:57 20 MG Furosemide (Lasix Tab) 40 mg QAM PO 05/30/17 10:00 06/29/17 09:59 05/31/17 08:56 40 MG
[2017-05-31 19:52] VITALS: BP 93/56; PULSE 59
[2017-05-31] MEDS: INSULIN GLARGINE SOLOSTAR 100 UNITS/ML 3 ML PEN SC SCH (21:17)
[2017-06-01] VITALS (8 sets, daily range): BP systolic 92–126; BP diastolic 61–75; PULSE 61–82; TEMP 36.3–36.6; O2SAT 89–96
[2017-06-01] MEDS: HYDROmorphone INJ 0.5 MG/0.5 ML SYR IV PRN (00:42)
[2017-06-01] MEDS: LEVOTHYROXINE 137 MCG TAB PO SCH (05:52)
[2017-06-01 07:03] LABS: INR 3.1 (0.9-1.1); PROTHROMBIN TIME (PATIENT) 34.8 SECONDS (9.0-12.0)
[2017-06-01 07:26] LABS: BUN/CREATININE RATIO 27.9 (10-20); CALCIUM 9.4 mg/dl (8.5-10.1); CREATININE 2.1 mg/dl (0.60-1.20)
[2017-06-01] MEDS: CALCIUM 600MG + VIT D 400 IU TAB PO SCH (07:27)
[2017-06-01] MEDS: METRONIDAZOLE 500 MG TAB PO SCH ×3 (07:27→21:31)
[2017-06-01] MEDS: ACETAMINOPHEN 325 MG TAB PO PRN (07:27)
[2017-06-01] MEDS: FAMOTIDINE 20 MG TAB PO SCH ×2 (07:28→21:31)
[2017-06-01] MEDS: BOOST BREEZE NUTRITION DRINK 1 BOX PO SCH ×2 (07:28→17:00)
[2017-06-01] MEDS: SOTALOL HCL 80 MG TAB PO SCH ×2 (07:28→21:32)
[2017-06-01] MEDS: FUROSEMIDE 40 MG TAB PO SCH (07:28)
[2017-06-01] MEDS: ISOSORBIDE MONONITRATE 30 MG TABCR PO SCH (07:28)
[2017-06-01] MEDS: IPRATROPIUM BROMIDE/ALBUTEROL respimat INH INH SCH ×4 (07:29→21:32)
[2017-06-01] MEDS: COLLAGENASE OINT 30 GM TUBE EXT SCH (07:29)
[2017-06-01] MEDS: CEFTRIAXONE SOD INJ 1000 MG in DEXTROSE 5% 50ML IV SCH (08:23)
[2017-06-01] MEDS: INSULIN ASPART 100 UNITS/ML 3 ML PEN SC SCH ×4 (09:08→21:31)
--- NOTE | 2017-06-01 16:35 | Progress Note ---
Internal Med Progress Note Date of Service: Jun 01, 2017. Provider Documentation: SUBJECTIVE: The patient was seen and examined Remains drowsy and confused Denies any pain Not mily participating in PT/OT OBJECTIVE: Vital Signs-as noted below Exam: General-No distress at rest Drowsy Eyes-normal ENT-normal Neck-supple Lungs-decreased breath sound bilaterally Heart-Regular,no murmur Abdomen-Mildly distended,soft ,no tenderness Bowel sound present Extremities-No edema Neuro-AA Drowsy and pleasantly confused Generally weak Lab data as noted below. ASSESSMENT & PLAN: This is a 77yo F from [facility] with chronic systolic CHF, CAD (s/p CABG), A flutter (on coumadin), Tachy-kathya syndrome (s/p PM placement), COPD, HTN, DM II , CKD III and other comorbidities listed below who presents after being found to be hypoxic and lethargic at the intermediate this morning. Metabolic Encephalopathy -Remains Fatigued and lethargic -Multifactorial-Blood loss,renal impairment,multiple comorbid conditions and Infection -Per family and intermediate, patient usually very alert -CT -no acute finding ,CT of the Abdomen and Pelvis-Extensive Diverticulosis -Probable Diverticulitis -Marcelo Acute Maxillary Sinusitis Got Doxy initially -discontinued Started on Ceftriaxone and Flagyl and continuing Lower GI bleed complicated by Coumadin therapy with supratherapeutic INR -Gross bright red blood on rectal exam -Decreased in hgb from 14.8 to 9.8; symptomatic -No abd pain; etiology unclear -INR supratherapeutic at 3.5. Held Coumadin; gave Vit K in ER -Last colonoscopy in 2004 with multiple diverticula -GI consulted -appreciate input -Hb remains stable and no more Bloody stool -clears orallyand advance as tolerated -No more bleeding and HB remains stable >9 Acute blood loss anemia: -2/2 GI bleed. See above -Monitor H&H Q6H -Type & hold 2U of prbcs in case patient requires transfusion -h/h stable>9 Acute on chronic systolic CHF: -Per [facility] records, patient seen for worsening CHF last week -Has gained 7 lbs, non-compliant with fluid/Na restrictions -Lasix increased from 40mg to 60mg PO from 05/17-05/21 with minimal improvement -Volume overloaded on exam -Held Lasix due to elevated Cr of 1.9 -Recent echo with EF: 45-50% with severe concentric LVH, severe -small amount of IVF-discontinued -Will get CT of the Chest COPD/Idiopathic pulmonary fibrosis: -Has chronic respiratory failure on 2L NC continuous at SNF; was hypoxic at SNF due to removing O2 -Once placed on 4L NC, saturation increased to 90s -Continue supplemental O2, home meds LAURIE on CKD stage III: -Cr elevated to 1.9 today; baseline of 1.3 -Likely 2/2 increased Lasix dose over the past week -Avoid nephrotoxic agents when possible -Renal function is getting worse -nephrology consulted DM II: -Recent hgb a1c of 7.6 (05/28) -Held home meds -5 U Lantus qHS and SSI while in-patient -BG checks AC HS H/o A flutter (on coumadin): -EKG with atrial-paced rhythm -Held coumadin due to supratherapeutic INR with GI bleed -Continue home dose of sotalol -INR remains therapeutic CAD (s/p CABG): -Denies chest pain -EKG with atrial-paced rhythm, RAD, ST an T wave abnormality suggestive of inferior ischemia -Likely demand ischemia in the setting of acute blood loss anemia -Continue aspirin, Imdur -Monitor on tele -no arrhythmia DVT Ppx: on warfarin Code status: Per discussion today with daughter Keyana (SATURNINO) and Martin at bedside PCP: Aparna Dispo: Discharge planning requested. To return to [facility] Discussed with the daughter Vital Signs: Date Time Temp Pulse Resp B/P (MAP) Pulse Ox O2 Delivery O2 Flow Rate FiO2 06/01/17 15:04 36.3 63 20 92/62 (72) 96 Nasal Cannula 4.0 06/01/17 11:12 36.3 61 14 93/61 (72) 96 Nasal Cannula 2.0 06/01/17 09:38 91 Nasal Cannula 3.0 06/01/17 08:00 Nasal Cannula 3.0 06/01/17 07:19 36.3 82 12 126/75 (92) 89 Nasal Cannula 2.0 06/01/17 01:06 36.4 73 20 101/65 (77) 91 Nasal Cannula 3.0 06/01/17 00:00 Nasal Cannula 2.0 05/31/17 20:00 Nasal Cannula 2.0 05/31/17 19:52 59 93/56 (68) 05/31/17 17:57 Nasal Cannula 4.0 Humidified Oxygen Lab Results: Results Past 24 Hours Test 05/31/17 16:33 06/01/17 06:11 06/01/17 07:13 06/01/17 11:32 Range/Units Bedside Glucose 95 95 230 70-90 mg/dl Prothrombin Time 34.8 9.0-12.0 SECONDS Prothromb Time International Ratio 3.1 0.9-1.1 Sodium Level 134 136-145 mmol/L Potassium Level 5.0 3.5-5.1 mmol/L Chloride Level 101 98-107 mmol/L Carbon Dioxide Level 22 21-32 mmol/L Anion Gap 11.0 3-11 mmol/L Blood Urea Nitrogen 59 7-18 mg/dl Creatinine 2.10 0.60-1.20 mg/dl Est Creatinine Clear Calc Drug Dose 23.0 ml/min Estimated GFR () 26.0 Estimated GFR (Non- 22.5 BUN/Creatinine Ratio 27.9 1020 Random Glucose 107 70-99 mg/dl Calcium Level 9.4 8.5-10.1 mg/dl Test 06/01/17 11:44 Range/Units Bedside Glucose 125 70-90 mg/dl
[2017-06-01] MEDS: INSULIN GLARGINE SOLOSTAR 100 UNITS/ML 3 ML PEN SC SCH (21:37)
--- NOTE | 2017-06-01 22:05 | DIAGNOSTIC IMAGING REPORT ---
(CHEST) THORAX WITHOUT CLINICAL HISTORY: 77 years-old Female presenting with R/O Infiltration with Effusion. TECHNIQUE: Multidetector CT imaging of the chest was performed without the use of intravenous contrast. IV contrast: None. A dose lowering technique was used consistent with the principles of ALARA (as low as reasonably achievable). COMPARISON: Chest x-ray from 05/31/[address] from 09/23/2009. CT DOSE (mGy.cm): The estimated cumulative dose is 844.72 mGy.cm. FINDINGS: Quarter Backer topogram: Median sternotomy wires, left-sided pacer, cardiomegaly, and mitral annular calcification noted. On soft tissue windows, left-sided pacer with leads to the right atrium and right ventricular apex noted. Median sternotomy wires with postsurgical changes of coronary artery bypass grafting. Multiple prone mediastinal lymph nodes, the largest measuring 10 mm in the short axis in the prevascular region. These are slightly more prominent on the current exam in comparison to 2009 Evaluation of the thaddeus limited without intravenous contrast. Atherosclerosis of the aorta. Mild ectasia of the ascending aorta, which measures 4.3 cm in transverse dimension. Enlargement of the main pulmonary artery, which measures 3.9 cm in transverse dimension, suggesting pulmonary hypertension. Aortic valve, coronary artery, mitral annular calcification. Multichamber enlargement of the heart. No pericardial effusion. Small bilateral pleural effusions. Loculated fluid noted in the right major fissure. Borderline hepatic steatosis. Hepatic arterial and splenic calcifications. On lung windows, extensive dependent changes. Prominent smooth interlobular septal thickening and subpleural reticulation. Multiple nodular opacities in the periphery of the right upper lobe. Airways patent. On bone windows, degenerative changes of the spine. IMPRESSION: 1. Interlobular septal thickening with scattered groundglass opacity in the setting of cardiomegaly and bilateral small pleural effusions, most characteristic of pulmonary edema. 2. Nodular opacities in the left upper lobe raises concern for a superimposed infectious etiology. 3. Prominent subpleural reticulation and dependent consolidation could be a consequence of pulmonary edema and passive atelectasis, although underlying chronic lung disease cannot be excluded. This could be reevaluated after resolution of acute intrathoracic pathology. 4. Ectasia of the ascending aorta. Electronically signed by: Sp Reynoso M.D. 06/01/2017 10:04 PM Dictated Date/Time: 06/01/2017 9:53 PM
[2017-06-02] MEDS: HYDROmorphone INJ 0.5 MG/0.5 ML SYR IV PRN ×2 (01:03→23:30)
[2017-06-02] MEDS: INSULIN ASPART 100 UNITS/ML 3 ML PEN SC SCH ×4 (06:30→20:50)
[2017-06-02] MEDS: LEVOTHYROXINE 137 MCG TAB PO SCH (06:39)
[2017-06-02 07:28] VITALS: BP 88/58; PULSE 62; TEMP 36.2; O2SAT 97
[2017-06-02] MEDS: FAMOTIDINE 20 MG TAB PO SCH ×2 (07:37→20:45)
[2017-06-02] MEDS: METRONIDAZOLE 500 MG TAB PO SCH ×3 (07:37→20:45)
[2017-06-02] MEDS: SOTALOL HCL 80 MG TAB PO SCH ×2 (07:37→20:45)
[2017-06-02] MEDS: CALCIUM 600MG + VIT D 400 IU TAB PO SCH (07:37)
[2017-06-02] MEDS: BOOST BREEZE NUTRITION DRINK 1 BOX PO SCH ×2 (07:37→17:00)
[2017-06-02] MEDS: FUROSEMIDE 40 MG TAB PO SCH (07:38)
[2017-06-02] MEDS: CEFTRIAXONE SOD INJ 1000 MG in DEXTROSE 5% 50ML IV SCH (07:38)
[2017-06-02] MEDS: ISOSORBIDE MONONITRATE 30 MG TABCR PO SCH (07:38)
[2017-06-02] MEDS: IPRATROPIUM BROMIDE/ALBUTEROL respimat INH INH SCH ×4 (07:39→20:45)
[2017-06-02] MEDS: COLLAGENASE OINT 30 GM TUBE EXT SCH (07:39)
--- NOTE | 2017-06-02 09:03 | DIAGNOSTIC IMAGING REPORT ---
CT HEAD WITHOUT CONTRAST (CT) CLINICAL HISTORY: Acute change in mental status COMPARISON STUDY: 05/24/2017 TECHNIQUE: Axial CT of the brain is performed from the vertex to the skull base. IV contrast was not administered for this examination. A dose lowering technique was utilized adhering to the principles of ALARA. CT DOSE: 1305.31 mGy.cm FINDINGS: No intra or extra-axial mass lesions are visualized. There is no CT evidence of acute cortical infarction. There is no evidence of midline shift. There is no acute hemorrhage. No calvarial fractures are visualized. There are patchy white matter hypodensities likely on a small vessel basis. There is an old right cerebellar infarct. There is an old lacunar infarct within the left caudate. There is no evidence of pathologic ventricular dilatation. There is a small amount of fluid within the left maxilla sinus. This was present on the preceding study. IMPRESSION: No acute intracranial findings Electronically signed by: Kenton Geiger M.D. 06/02/2017 9:02 AM Dictated Date/Time: 06/02/2017 9:01 AM
[2017-06-02 12:15] VITALS: BP 90/60; PULSE 85; TEMP 36.5; O2SAT 97
--- NOTE | 2017-06-02 15:35 | Progress Note ---
Internal Med Progress Note Date of Service: Jun 02, 2017. Provider Documentation: SUBJECTIVE: The patient was seen and examined Remains drowsy and confused Does not want to do much Active occasionally OBJECTIVE: Vital Signs-as noted below Exam: General-No distress at rest Drowsy Eyes-normal ENT-normal Neck-supple Lungs-decreased breath sound bilaterally Minimal crackles at the bases Heart-Regular,no murmur Abdomen-Mildly distended,soft ,no tenderness Bowel sound present Extremities-No edema Neuro-AA Drowsy and pleasantly confused Generally weak Lab data as noted below. ASSESSMENT & PLAN: This is a 77yo F from [facility] with chronic systolic CHF, CAD (s/p CABG), A flutter (on coumadin), Tachy-kathya syndrome (s/p PM placement), COPD, HTN, DM II , CKD III and other comorbidities listed below who presents after being found to be hypoxic and lethargic at the [facility] this morning. Metabolic Encephalopathy -Remains Fatigued and lethargic -Multifactorial-Blood loss,renal impairment,multiple comorbid conditions and Infection -Per family and [facility], patient usually very alert -CT -no acute finding ,CT of the Abdomen and Pelvis-Extensive Diverticulosis -Probable Diverticulitis -Marcelo Acute Maxillary Sinusitis Got Doxy initially -discontinued Started on Ceftriaxone and Flagyl and continuing Condition stable Repeat CT of the Head-unremarkable CT of the Chest::1. Interlobular septal thickening with scattered groundglass opacity in the setting of cardiomegaly and bilateral small pleural effusions, most characteristic of pulmonary edema. 2. Nodular opacities in the left upper lobe raises concern for a superimposed infectious etiology. 3. Prominent subpleural reticulation and dependent consolidation could be a consequence of pulmonary edema and passive atelectasis, although underlying chronic lung disease cannot be excluded. This could be reevaluated after resolution of acute intrathoracic pathology. 4. Ectasia of the ascending aorta. Will try small dose of Lasix Lower GI bleed complicated by Coumadin therapy with supratherapeutic INR -Gross bright red blood on rectal exam -Decreased in hgb from 14.8 to 9.8; symptomatic -No abd pain; etiology unclear -INR supratherapeutic at 3.5. Held Coumadin; gave Vit K in ER -Last colonoscopy in 2004 with multiple diverticula -GI consulted -appreciate input -Hb remains stable and no more Bloody stool -clears orallyand advance as tolerated -No more bleeding and HB remains stable >9 Acute blood loss anemia: -2/2 GI bleed. See above -Monitor H&H Q6H -Type & hold 2U of prbcs in case patient requires transfusion -h/h stable>9 Acute on chronic systolic CHF: -Per [facility] records, patient seen for worsening CHF last week -Has gained 7 lbs, non-compliant with fluid/Na restrictions -Lasix increased from 40mg to 60mg PO from 05/17-05/21 with minimal improvement -Volume overloaded on exam -Held Lasix due to elevated Cr of 1.9 -Recent echo with EF: 45-50% with severe concentric LVH, severe -small amount of IVF-discontinued -Will get CT of the Chest-Asabove Will try a small dose of Lasix COPD/Idiopathic pulmonary fibrosis: -Has chronic respiratory failure on 2L NC continuous at [facility]; was hypoxic at [facility] due to removing O2 -Once placed on 4L NC, saturation increased to 90s -Continue supplemental O2, home meds LAURIE on CKD stage III: -Cr elevated to 1.9 today; baseline of 1.3 -Likely 2/2 increased Lasix dose over the past week -Avoid nephrotoxic agents when possible -Renal function is getting worse -nephrology consulted DM II: -Recent hgb a1c of 7.6 (05/28) -Held home meds -5 U Lantus qHS and SSI while in-patient -BG checks AC HS H/o A flutter (on coumadin): -EKG with atrial-paced rhythm -Held coumadin due to supratherapeutic INR with GI bleed -Continue home dose of sotalol -INR remains therapeutic CAD (s/p CABG): -Denies chest pain -EKG with atrial-paced rhythm, RAD, ST an T wave abnormality suggestive of inferior ischemia -Likely demand ischemia in the setting of acute blood loss anemia -Continue aspirin, Imdur -Monitor on tele -no arrhythmia DVT Ppx: on warfarin Code status: Per discussion today with daughter Keyana (SATURNINO) and Martin at bedside PCP: Aparna Dispo: Discharge planning requested. To return to [facility] Discussed with the daughter Will discuss with the Daughter -likely back to [facility] on Monday Vital Signs: Date Time Temp Pulse Resp B/P (MAP) Pulse Ox O2 Delivery O2 Flow Rate FiO2 06/02/17 12:15 36.5 85 18 90/60 (70) 97 Room Air 06/02/17 08:00 Nasal Cannula 4.0 06/02/17 07:28 36.2 62 18 88/58 (68) 97 Nasal Cannula 4.0 06/02/17 00:00 Nasal Cannula 4.0 Humidified Oxygen 06/01/17 23:03 36.3 62 22 95 Nasal Cannula 3.0 06/01/17 23:00 64 20 102/70 (81) 94 Nasal Cannula 3.0 06/01/17 20:00 Nasal Cannula 4.0 Humidified Oxygen 06/01/17 19:36 36.6 63 20 93/63 (73) 95 Nasal Cannula 4.0 Humidified Oxygen 06/01/17 16:00 Nasal Cannula 3.0 Lab Results: Results Past 24 Hours Test 06/01/17 16:21 06/01/17 20:37 06/02/17 07:35 06/02/17 11:24 Range/Units Bedside Glucose 129 123 120 135 70-90 mg/dl
[2017-06-02 15:39] VITALS: BP 82/55; PULSE 63; TEMP 36.2; O2SAT 94
[2017-06-02] MEDS: FUROSEMIDE INJ 40 MG in SYRINGE 0 ML IV ONE ×2 (15:47→15:59)
[2017-06-02 15:48] VITALS: BP 89/58; PULSE 71
[2017-06-02] MEDS ORDERED: LACTULOSE SYRUP 30 GM/45 ML UDP PO ONE (17:45)
[2017-06-02] MEDS: INSULIN GLARGINE SOLOSTAR 100 UNITS/ML 3 ML PEN SC SCH (20:53)
[2017-06-02 23:15] VITALS: BP 105/64; PULSE 66; TEMP 36.2; O2SAT 90
[2017-06-03] MEDS: LEVOTHYROXINE 137 MCG TAB PO SCH (06:01)
[2017-06-03] MEDS: CEFTRIAXONE SOD INJ 1000 MG in DEXTROSE 5% 50ML IV SCH (07:45)
[2017-06-03] MEDS: COLLAGENASE OINT 30 GM TUBE EXT SCH (07:45)
[2017-06-03] MEDS: BOOST BREEZE NUTRITION DRINK 1 BOX PO SCH ×2 (07:46→17:00)
[2017-06-03] MEDS: FAMOTIDINE 20 MG TAB PO SCH ×2 (07:46→20:45)
[2017-06-03] MEDS: CALCIUM 600MG + VIT D 400 IU TAB PO SCH (07:46)
[2017-06-03] MEDS: METRONIDAZOLE 500 MG TAB PO SCH ×3 (07:47→20:46)
[2017-06-03] MEDS: IPRATROPIUM BROMIDE/ALBUTEROL respimat INH INH SCH ×4 (07:48→20:41)
[2017-06-03] MEDS: ISOSORBIDE MONONITRATE 30 MG TABCR PO SCH (08:00)
[2017-06-03] MEDS: SOTALOL HCL 80 MG TAB PO SCH ×2 (08:00→20:45)
[2017-06-03] MEDS: FUROSEMIDE 40 MG TAB PO SCH (08:05)
[2017-06-03] MEDS: LACTULOSE SYRUP 30 GM/45 ML UDP PO PRN (08:05)
[2017-06-03] MEDS: INSULIN ASPART 100 UNITS/ML 3 ML PEN SC SCH ×4 (08:10→20:46)
[2017-06-03 08:11] LABS: HEMATOCRIT 30.8 % (37-47); MEAN CORPUSCULAR HEMOGLOBIN 27.1 pg (25-34); MEAN CORPUSCULAR HGB CONC 31.5 g/dl (32-36); MEAN PLATELET VOLUME 10.3 fL (7.4-10.4); PLATELET COUNT 116 K/uL (130-400); RED BLOOD COUNT 3.58 M/uL (4.2-5.4); WHITE BLOOD COUNT 6.17 K/uL (4.8-10.8)
[2017-06-03 08:19] LABS: INR 2.3 (0.9-1.1); PROTHROMBIN TIME (PATIENT) 25.7 SECONDS (9.0-12.0)
[2017-06-03 08:43] LABS: BUN/CREATININE RATIO 32.8 (10-20); CALCIUM 9.4 mg/dl (8.5-10.1); CREATININE 1.7 mg/dl (0.60-1.20); MAGNESIUM 1.8 mg/dl (1.8-2.4); PHOSPHORUS 2.3 mg/dl (2.5-4.9); POTASSIUM 4.1 mmol/L (3.5-5.1)
[2017-06-03 08:52] VITALS: BP 94/62; PULSE 69; TEMP 36.3; O2SAT 95
--- NOTE | 2017-06-03 16:07 | Progress Note ---
Internal Med Progress Note Date of Service: Jun 03, 2017. Provider Documentation: SUBJECTIVE: The patient was seen and examined Remains drowsy and confused Does not want to do much Confused and weak OBJECTIVE: Vital Signs-as noted below Exam: General-No distress at rest Drowsy but no SOB Eyes-normal ENT-normal Neck-supple Lungs-decreased breath sound bilaterally Minimal crackles at the bases Heart-Regular,no murmur Abdomen-Mildly distended,soft ,no tenderness Bowel sound present Extremities-No edema Neuro-AA Drowsy and pleasantly confused Generally weak Lab data as noted below. ASSESSMENT & PLAN: This is a 77yo F from [facility] with chronic systolic CHF, CAD (s/p CABG), A flutter (on coumadin), Tachy-kathya syndrome (s/p PM placement), COPD, HTN, DM II , CKD III and other comorbidities listed below who presents after being found to be hypoxic and lethargic at the group home this morning. Metabolic Encephalopathy -Remains Fatigued and lethargic -Multifactorial-Blood loss,renal impairment,multiple comorbid conditions and Infection -Per family and group home, patient usually very alert -CT -no acute finding ,CT of the Abdomen and Pelvis-Extensive Diverticulosis -Probable Diverticulitis -Marcelo Acute Maxillary Sinusitis Got Doxy initially -discontinued Started on Ceftriaxone and Flagyl and continuing Condition stable Repeat CT of the Head-unremarkable CT of the Chest::1. Interlobular septal thickening with scattered groundglass opacity in the setting of cardiomegaly and bilateral small pleural effusions, most characteristic of pulmonary edema. 2. Nodular opacities in the left upper lobe raises concern for a superimposed infectious etiology. 3. Prominent subpleural reticulation and dependent consolidation could be a consequence of pulmonary edema and passive atelectasis, although underlying chronic lung disease cannot be excluded. This could be reevaluated after resolution of acute intrathoracic pathology. 4. Ectasia of the ascending aorta. Worse today -very drowsy and not been participating in PT Lower GI bleed complicated by Coumadin therapy with supratherapeutic INR -Gross bright red blood on rectal exam -Decreased in hgb from 14.8 to 9.8; symptomatic -No abd pain; etiology unclear -INR supratherapeutic at 3.5. Held Coumadin; gave Vit K in ER -Last colonoscopy in 2004 with multiple diverticula -GI consulted -appreciate input -Hb remains stable and no more Bloody stool -clears orallyand advance as tolerated -No more bleeding and HB remains stable >9 Acute blood loss anemia: -2/2 GI bleed. See above -Monitor H&H Q6H -Type & hold 2U of prbcs in case patient requires transfusion -h/h stable>9 Acute on chronic systolic CHF: -Per [facility] records, patient seen for worsening CHF last week -Has gained 7 lbs, non-compliant with fluid/Na restrictions -Lasix increased from 40mg to 60mg PO from 05/17-05/21 with minimal improvement -Volume overloaded on exam -Held Lasix due to elevated Cr of 1.9 -Recent echo with EF: 45-50% with severe concentric LVH, severe -small amount of IVF-discontinued -Will get CT of the Chest-Asabove Will try a small dose of Lasix -No signs of Pulmonary edema COPD/Idiopathic pulmonary fibrosis: -Has chronic respiratory failure on 2L NC continuous at [facility]; was hypoxic at [facility] due to removing O2 -Once placed on 4L NC, saturation increased to 90s -Continue supplemental O2, home meds -No acute issue LAURIE on CKD stage III: -Cr elevated to 1.9 today; baseline of 1.3 -Likely 2/2 increased Lasix dose over the past week -Avoid nephrotoxic agents when possible -Renal function is getting worse -nephrology consulted -Renal function is improving DM II: -Recent hgb a1c of 7.6 (05/28) -Held home meds -5 U Lantus qHS and SSI while in-patient -BG checks AC HS H/o A flutter (on coumadin): -EKG with atrial-paced rhythm -Held coumadin due to supratherapeutic INR with GI bleed -Continue home dose of sotalol -INR remains therapeutic CAD (s/p CABG): -Denies chest pain -EKG with atrial-paced rhythm, RAD, ST an T wave abnormality suggestive of inferior ischemia -Likely demand ischemia in the setting of acute blood loss anemia -Continue aspirin, Imdur -Monitor on tele -no arrhythmia DVT Ppx: on warfarin Code status: Per discussion today with daughter Keyana (POA) and Martin at bedside PCP: Aparna Dispo: Discharge planning requested. To return to [facility] Discussed with the daughter Will discuss with the Daughter -likely back to [facility] on Monday Vital Signs: Date Time Temp Pulse Resp B/P (MAP) Pulse Ox O2 Delivery O2 Flow Rate FiO2 06/03/17 15:07 Nasal Cannula 4.0 Humidified Oxygen 06/03/17 08:52 36.3 69 20 94/62 (73) 95 4.0 06/03/17 07:50 Nasal Cannula 4.0 Humidified Oxygen 06/03/17 00:38 Nasal Cannula 4.0 06/02/17 23:15 36.2 66 20 105/64 (78) 90 Room Air 06/02/17 21:35 Nasal Cannula 4.0 Lab Results: Results Past 24 Hours Test 06/02/17 17:16 06/02/17 20:50 06/03/17 07:24 06/03/17 07:31 Range/Units Bedside Glucose 145 157 135 70-90 mg/dl White Blood Count 6.17 4.8-10.8 K/uL Red Blood Count 3.58 4.2-5.4 M/uL Hemoglobin 9.7 12.0-16.0 g/dL Hematocrit 30.8 37-47 % Mean Corpuscular Volume 86.0 80-100 fL Mean Corpuscular Hemoglobin 27.1 25-34 pg Mean Corpuscular Hemoglobin Concent 31.5 32-36 g/dl RDW Standard Deviation 57.6 36.4-46.3 fL RDW Coefficient of Variation 18.5 11.5-14.5 % Platelet Count 116 130-400 K/uL Mean Platelet Volume 10.3 7.4-10.4 fL Nucleated RBC Absolute Count (auto) 0.12 0-0 K/uL Nucleated Red Blood Cells % 2.0 % Prothrombin Time 25.7 9.0-12.0 SECONDS Prothromb Time International Ratio 2.3 0.9-1.1 Sodium Level 136 136-145 mmol/L Potassium Level 4.1 3.5-5.1 mmol/L Chloride Level 102 98-107 mmol/L Carbon Dioxide Level 24 21-32 mmol/L Anion Gap 10.0 3-11 mmol/L Blood Urea Nitrogen 56 7-18 mg/dl Creatinine 1.70 0.60-1.20 mg/dl Est Creatinine Clear Calc Drug Dose 27.9 ml/min Estimated GFR () 33.6 Estimated GFR (Non- 29.0 BUN/Creatinine Ratio 32.8 10-20 Random Glucose 137 70-99 mg/dl Calcium Level 9.4 8.5-10.1 mg/dl Phosphorus Level 2.3 2.5-4.9 mg/dl Magnesium Level 1.8 1.8-2.4 mg/dl Test 06/03/17 11:18 Range/Units Bedside Glucose 212 70-90 mg/dl
[2017-06-03 16:14] VITALS: PULSE 73; O2SAT 95
[2017-06-03 20:44] VITALS: BP 131/89; PULSE 83
[2017-06-03] MEDS: INSULIN GLARGINE SOLOSTAR 100 UNITS/ML 3 ML PEN SC SCH (20:54)
[2017-06-03 23:10] VITALS: BP 94/70; PULSE 86; TEMP 36.4; O2SAT 97
[2017-06-04] MEDS: HYDROmorphone INJ 0.5 MG/0.5 ML SYR IV PRN (01:05)
[2017-06-04] MEDS: LEVOTHYROXINE 137 MCG TAB PO SCH (05:22)
[2017-06-04] MEDS: TRAMADOL HCL 50 MG TAB PO PRN ×2 (07:24→20:12)
[2017-06-04] MEDS: FAMOTIDINE 20 MG TAB PO SCH ×2 (07:26→20:11)
[2017-06-04] MEDS: IPRATROPIUM BROMIDE/ALBUTEROL respimat INH INH SCH ×4 (07:26→20:11)
[2017-06-04] MEDS: METRONIDAZOLE 500 MG TAB PO SCH (07:27)
[2017-06-04] MEDS: CALCIUM 600MG + VIT D 400 IU TAB PO SCH (07:27)
[2017-06-04 07:28] VITALS: BP 84/56; PULSE 64; TEMP 36.4; O2SAT 100
[2017-06-04] MEDS: SOTALOL HCL 80 MG TAB PO SCH ×2 (07:28→20:00)
[2017-06-04] MEDS: BOOST BREEZE NUTRITION DRINK 1 BOX PO SCH ×2 (07:28→16:54)
[2017-06-04] MEDS: ISOSORBIDE MONONITRATE 30 MG TABCR PO SCH (07:28)
[2017-06-04] MEDS: FUROSEMIDE 40 MG TAB PO SCH (07:33)
[2017-06-04] MEDS: COLLAGENASE OINT 30 GM TUBE EXT SCH (07:34)
[2017-06-04] MEDS: INSULIN ASPART 100 UNITS/ML 3 ML PEN SC SCH ×4 (08:44→20:18)
--- NOTE | 2017-06-04 15:12 | Progress Note ---
Internal Med Progress Note Date of Service: Jun 04, 2017. Provider Documentation: SUBJECTIVE: The patient was seen and examined Remains drowsy and confused Does not want to do much Confused and weak at times No9 new symptoms OBJECTIVE: Vital Signs-as noted below Exam: General-No distress at rest Drowsy but no SOB Eyes-normal ENT-normal Neck-supple Lungs-decreased breath sound bilaterally Minimal crackles at the bases Heart-Regular,no murmur Abdomen-Mildly distended,soft ,no tenderness Bowel sound present Extremities-No edema Neuro-AA Drowsy and pleasantly confused Generally weak Lab data as noted below. ASSESSMENT & PLAN: This is a 77yo F from [facility] with chronic systolic CHF, CAD (s/p CABG), A flutter (on coumadin), Tachy-kathya syndrome (s/p PM placement), COPD, HTN, DM II , CKD III and other comorbidities listed below who presents after being [facility]. Metabolic Encephalopathy -Remains Fatigued and lethargic -Multifactorial-Blood loss,renal impairment,multiple comorbid conditions and Infection -Per family and [facility], patient usually very alert -CT -no acute finding ,CT of the Abdomen and Pelvis-Extensive Diverticulosis -Probable Diverticulitis-finished the course of antibiotics -Marcelo Acute Maxillary Sinusitis Got Doxy initially -discontinued Started on Ceftriaxone and Flagyl and continuing Repeat CT of the Head-unremarkable CT of the Chest::1. Interlobular septal thickening with scattered groundglass opacity in the setting of cardiomegaly and bilateral small pleural effusions, most characteristic of pulmonary edema. 2. Nodular opacities in the left upper lobe raises concern for a superimposed infectious etiology. 3. Prominent subpleural reticulation and dependent consolidation could be a consequence of pulmonary edema and passive atelectasis, although underlying chronic lung disease cannot be excluded. This could be reevaluated after resolution of acute intrathoracic pathology. 4. Ectasia of the ascending aorta. Worse today -very drowsy and not been participating in PT Deconditioning -no motivation to do anything Critical but stable Likely to discharge on Monday Lower GI bleed complicated by Coumadin therapy with supratherapeutic INR -Gross bright red blood on rectal exam -Decreased in hgb from 14.8 to 9.8; symptomatic -No abd pain; etiology unclear -INR supratherapeutic at 3.5. Held Coumadin; gave Vit K in ER -Last colonoscopy in 2004 with multiple diverticula -GI consulted -appreciate input -Hb remains stable and no more Bloody stool -clears orallyand advance as tolerated -No more bleeding and HB remains stable >9 Acute blood loss anemia: -2/2 GI bleed. See above -Monitor H&H Q6H -Type & hold 2U of prbcs in case patient requires transfusion -h/h stable>9 Acute on chronic systolic CHF: -Per [facility] records, patient seen for worsening CHF last week -Has gained 7 lbs, non-compliant with fluid/Na restrictions -Lasix increased from 40mg to 60mg PO from 05/17-05/21 with minimal improvement -Volume overloaded on exam -Held Lasix due to elevated Cr of 1.9 -Recent echo with EF: 45-50% with severe concentric LVH, severe -small amount of IVF-discontinued -Will get CT of the Chest-Asabove Will try a small dose of Lasix -No signs of Pulmonary edema COPD/Idiopathic pulmonary fibrosis: -Has chronic respiratory failure on 2L NC continuous at [facility]; was hypoxic at [facility] due to removing O2 -Once placed on 4L NC, saturation increased to 90s -Continue supplemental O2, home meds -No acute issue LAURIE on CKD stage III: -Cr elevated to 1.9 today; baseline of 1.3 -Likely 2/2 increased Lasix dose over the past week -Avoid nephrotoxic agents when possible -Renal function is getting worse -nephrology consulted -Renal function is improving DM II: -Recent hgb a1c of 7.6 (05/28) -Held home meds -5 U Lantus qHS and SSI while in-patient -BG checks AC HS H/o A flutter (on coumadin): -EKG with atrial-paced rhythm -Held coumadin due to supratherapeutic INR with GI bleed -Continue home dose of sotalol -INR remains therapeutic -will check INR tomorrow CAD (s/p CABG): -Denies chest pain -EKG with atrial-paced rhythm, RAD, ST an T wave abnormality suggestive of inferior ischemia -Likely demand ischemia in the setting of acute blood loss anemia -Continue aspirin, Imdur -Monitor on tele -no arrhythmia DVT Ppx: on warfarin Code status: Per discussion today with daughter Keyana (POA) and Martin at bedside PCP: Aparna Dispo: Discharge planning requested. To return to [facility] Discussed with the daughter Will discuss with the Daughter -likely back to [facility] on Monday Vital Signs: Date Time Temp Pulse Resp B/P (MAP) Pulse Ox O2 Delivery O2 Flow Rate FiO2 06/04/17 07:40 Nasal Cannula 4.0 Humidified Oxygen 06/04/17 07:28 36.4 64 22 84/56 (65) 100 Nasal Cannula 4.0 06/04/17 00:50 Nasal Cannula 4.0 Humidified Oxygen 06/03/17 23:10 36.4 86 20 94/70 (78) 97 Nasal Cannula 3.5 06/03/17 22:20 Nasal Cannula 4.0 Humidified Oxygen 06/03/17 20:44 83 131/89 (103) 06/03/17 16:14 73 20 95 Nasal Cannula 4.0 Lab Results: Results Past 24 Hours Test 06/03/17 17:02 06/03/17 20:09 06/04/17 07:34 06/04/17 11:31 Range/Units Bedside Glucose 224 150 119 115 70-90 mg/dl
[2017-06-04 15:43] VITALS: BP 118/61; PULSE 68; TEMP 36.4; O2SAT 95
[2017-06-04 20:05] VITALS: BP 95/63; PULSE 71
[2017-06-04] MEDS: INSULIN GLARGINE SOLOSTAR 100 UNITS/ML 3 ML PEN SC SCH (20:19)
[2017-06-04 22:57] VITALS: BP 94/60; PULSE 70; TEMP 36.5; O2SAT 94
[2017-06-05] VITALS: O2SAT 94
[2017-06-05 06:25] LABS: HEMATOCRIT 32.4 % (37-47); MEAN CELL VOLUME 86.6 fL (80-100); MEAN CORPUSCULAR HEMOGLOBIN 27.5 pg (25-34); MEAN CORPUSCULAR HGB CONC 31.8 g/dl (32-36); MEAN PLATELET VOLUME 10.6 fL (7.4-10.4); PLATELET COUNT 102 K/uL (130-400); RED BLOOD COUNT 3.74 M/uL (4.2-5.4); WHITE BLOOD COUNT 7.94 K/uL (4.8-10.8)
[2017-06-05] MEDS: LEVOTHYROXINE 137 MCG TAB PO SCH (06:30)
[2017-06-05 06:33] LABS: INR 2.1 (0.9-1.1); PROTHROMBIN TIME (PATIENT) 22.7 SECONDS (9.0-12.0)
[2017-06-05 06:53] LABS: BUN/CREATININE RATIO 27.8 (10-20); CALCIUM 9.2 mg/dl (8.5-10.1); CREATININE 1.5 mg/dl (0.60-1.20); MAGNESIUM 1.5 mg/dl (1.8-2.4); POTASSIUM 3.9 mmol/L (3.5-5.1)
[2017-06-05 07:35] VITALS: BP 90/60; PULSE 62; TEMP 36.7; O2SAT 91
[2017-06-05] MEDS: SOTALOL HCL 80 MG TAB PO SCH ×2 (07:58→19:47)
[2017-06-05] MEDS: BOOST BREEZE NUTRITION DRINK 1 BOX PO SCH ×2 (07:59→18:03)
[2017-06-05] MEDS: IPRATROPIUM BROMIDE/ALBUTEROL respimat INH INH SCH ×4 (07:59→19:47)
[2017-06-05] MEDS: ISOSORBIDE MONONITRATE 30 MG TABCR PO SCH (08:00)
[2017-06-05] MEDS: FUROSEMIDE 40 MG TAB PO SCH (08:00)
[2017-06-05] MEDS: CALCIUM 600MG + VIT D 400 IU TAB PO SCH (08:00)
[2017-06-05] MEDS: COLLAGENASE OINT 30 GM TUBE EXT SCH (08:00)
[2017-06-05] MEDS: FAMOTIDINE 20 MG TAB PO SCH ×2 (08:00→19:47)
[2017-06-05] MEDS: INSULIN ASPART 100 UNITS/ML 3 ML PEN SC SCH ×4 (08:38→21:15)
[2017-06-05 15:12] VITALS: BP 88/62; PULSE 71; TEMP 36.3; O2SAT 95
[2017-06-05] MEDS ORDERED: INFLUENZA VACCINE HIGH DOSE 65+ 0.5 ML SYR IM. ONE (15:15)
[2017-06-05] MEDS ORDERED: INFLUENZA ADMINISTRATION CHARGE ONE (15:15)
--- NOTE | 2017-06-05 16:02 | Progress Note ---
Internal Med Progress Note Date of Service: Jun 05, 2017. Provider Documentation: SUBJECTIVE: The patient was seen and examined Remains drowsy and confused Fluctuating alertness Denies any acute distress OBJECTIVE: Vital Signs-as noted below Exam: General-No distress at rest Drowsy but no SOB or in any pain Eyes-normal ENT-normal Neck-supple Lungs-decreased breath sound bilaterally Minimal crackles at the bases Heart-Regular,no murmur Abdomen-Mildly distended,soft ,no tenderness Bowel sound present Extremities-No edema Neuro-AA Drowsy and pleasantly confused Generally weak Lab data as noted below. ASSESSMENT & PLAN: This is a 77yo F from [facility] with chronic systolic CHF, CAD (s/p CABG), A flutter (on coumadin), Tachy-kathya syndrome (s/p PM placement), COPD, HTN, DM II , CKD III and other comorbidities listed below who presents after being found to be hypoxic and lethargic at the detention this morning. Metabolic Encephalopathy -Remains Fatigued and lethargic -Multifactorial-Blood loss,renal impairment,multiple comorbid conditions and Infection -Per family and detention, patient usually very alert -CT -no acute finding ,CT of the Abdomen and Pelvis-Extensive Diverticulosis -Probable Diverticulitis-finished the course of antibiotics -Marcelo Acute Maxillary Sinusitis Got Doxy initially -discontinued Started on Ceftriaxone and Flagyl and continuing Repeat CT of the Head-unremarkable CT of the Chest::1. Interlobular septal thickening with scattered groundglass opacity in the setting of cardiomegaly and bilateral small pleural effusions, most characteristic of pulmonary edema. 2. Nodular opacities in the left upper lobe raises concern for a superimposed infectious etiology. 3. Prominent subpleural reticulation and dependent consolidation could be a consequence of pulmonary edema and passive atelectasis, although underlying chronic lung disease cannot be excluded. This could be reevaluated after resolution of acute intrathoracic pathology. 4. Ectasia of the ascending aorta. Worse today -very drowsy and not been participating in PT Deconditioning -no motivation to do anything Will discuss with the Daughter again today and plan for discharge tomorrow Lower GI bleed complicated by Coumadin therapy with supratherapeutic INR -Gross bright red blood on rectal exam -Decreased in hgb from 14.8 to 9.8; symptomatic -No abd pain; etiology unclear -INR supratherapeutic at 3.5. Held Coumadin; gave Vit K in ER -Last colonoscopy in 2004 with multiple diverticula -GI consulted -appreciate input -Hb remains stable and no more Bloody stool -tolerating diet Acute blood loss anemia: -2/2 GI bleed. See above -Monitor H&H Q6H -Type & hold 2U of prbcs in case patient requires transfusion -h/h stable>9 Acute on chronic systolic CHF: -Per [facility] records, patient seen for worsening CHF last week -Has gained 7 lbs, non-compliant with fluid/Na restrictions -Lasix increased from 40mg to 60mg PO from 05/17-05/21 with minimal improvement -Volume overloaded on exam -Held Lasix due to elevated Cr of 1.9 -Recent echo with EF: 45-50% with severe concentric LVH, severe -small amount of IVF-discontinued -Will get CT of the Chest-Asabove Will try a small dose of Lasix -No signs of Pulmonary edema COPD/Idiopathic pulmonary fibrosis: -Has chronic respiratory failure on 2L NC continuous at [facility]; was hypoxic at [facility] due to removing O2 -Once placed on 4L NC, saturation increased to 90s -Continue supplemental O2, home meds -No acute issue LAURIE on CKD stage III: -Cr elevated to 1.9 today; baseline of 1.3 -Likely 2/2 increased Lasix dose over the past week -Avoid nephrotoxic agents when possible -Renal function is getting worse -nephrology consulted -Renal function is improving DM II: -Recent hgb a1c of 7.6 (05/28) -Held home meds -5 U Lantus qHS and SSI while in-patient -BG checks AC HS H/o A flutter (on Coumadin): -EKG with atrial-paced rhythm -Held coumadin due to supratherapeutic INR with GI bleed -Continue home dose of sotalol -INR remains therapeutic -will check INR tomorrow CAD (s/p CABG): -Denies chest pain -EKG with atrial-paced rhythm, RAD, ST an T wave abnormality suggestive of inferior ischemia -Likely demand ischemia in the setting of acute blood loss anemia -Continue aspirin, Imdur -Monitor on tele -no arrhythmia DVT Ppx: on warfarin On Hold now INR still therapeutic Likely to hold duet to GIB Code status: Per discussion today with daughter Keyana (POA) and Martin at bedside PCP: Aparna Dispo: Discharge planning requested. To return to [facility] SN[facility] Discussed with the daughter Will discuss with the Daughter -likely back to [facility] on Monday Vital Signs: Date Time Temp Pulse Resp B/P (MAP) Pulse Ox O2 Delivery O2 Flow Rate FiO2 06/05/17 15:12 36.3 71 20 88/62 (71) 95 3.0 06/05/17 09:19 Nasal Cannula 3.0 06/05/17 07:35 36.7 62 16 90/60 (70) 91 Room Air 06/05/17 00:00 94 Nasal Cannula 3.0 06/04/17 22:57 36.5 70 18 94/60 (71) 94 Nasal Cannula 3.0 06/04/17 20:05 71 95/63 (74) 06/04/17 20:00 Nasal Cannula 3.0 Lab Results: Results Past 24 Hours Test 06/04/17 16:49 06/04/17 20:15 06/05/17 06:09 06/05/17 07:57 Range/Units Bedside Glucose 163 222 148 70-90 mg/dl White Blood Count 7.94 4.8-10.8 K/uL Red Blood Count 3.74 4.2-5.4 M/uL Hemoglobin 10.3 12.0-16.0 g/dL Hematocrit 32.4 37-47 % Mean Corpuscular Volume 86.6 80-100 fL Mean Corpuscular Hemoglobin 27.5 25-34 pg Mean Corpuscular Hemoglobin Concent 31.8 32-36 g/dl RDW Standard Deviation 58.1 36.4-46.3 fL RDW Coefficient of Variation 18.7 11.5-14.5 % Platelet Count 102 130-400 K/uL Mean Platelet Volume 10.6 7.4-10.4 fL Nucleated RBC Absolute Count (auto) 0.12 0-0 K/uL Nucleated Red Blood Cells % 1.5 % Prothrombin Time 22.7 9.0-12.0 SECONDS Prothromb Time International Ratio 2.1 0.9-1.1 Sodium Level 136 136-145 mmol/L Potassium Level 3.9 3.5-5.1 mmol/L Chloride Level 101 98-107 mmol/L Carbon Dioxide Level 25 21-32 mmol/L Anion Gap 10.0 3-11 mmol/L Blood Urea Nitrogen 42 7-18 mg/dl Creatinine 1.50 0.60-1.20 mg/dl Est Creatinine Clear Calc Drug Dose 31.6 ml/min Estimated GFR () 39.1 Estimated GFR (Non- 33.7 BUN/Creatinine Ratio 27.8 10-20 Random Glucose 169 70-99 mg/dl Calcium Level 9.2 8.5-10.1 mg/dl Magnesium Level 1.5 1.8-2.4 mg/dl Test 06/05/17 11:48 Range/Units Bedside Glucose 195 70-90 mg/dl
[2017-06-05] MEDS: INSULIN GLARGINE SOLOSTAR 100 UNITS/ML 3 ML PEN SC SCH (21:16)
[2017-06-06] VITALS: BP 92/51; PULSE 61; TEMP 36.4; O2SAT 93
[2017-06-06] MEDS: LEVOTHYROXINE 137 MCG TAB PO SCH (06:10)
[2017-06-06 07:06] VITALS: BP 129/65; PULSE 73; TEMP 36.3; O2SAT 98
[2017-06-06 08:03] VITALS: O2SAT 98
[2017-06-06] MEDS: INSULIN ASPART 100 UNITS/ML 3 ML PEN SC SCH ×2 (09:01→12:41)
[2017-06-06] MEDS: SOTALOL HCL 80 MG TAB PO SCH (09:06)
[2017-06-06] MEDS: CALCIUM 600MG + VIT D 400 IU TAB PO SCH (09:06)
[2017-06-06] MEDS: IPRATROPIUM BROMIDE/ALBUTEROL respimat INH INH SCH ×2 (09:06→12:34)
[2017-06-06] MEDS: ISOSORBIDE MONONITRATE 30 MG TABCR PO SCH (09:06)
[2017-06-06] MEDS: ACETAMINOPHEN 325 MG TAB PO PRN (09:07)
[2017-06-06] MEDS: FAMOTIDINE 20 MG TAB PO SCH (09:07)
[2017-06-06] MEDS: FUROSEMIDE 40 MG TAB PO SCH (09:07)
[2017-06-06] MEDS: LACTULOSE SYRUP 30 GM/45 ML UDP PO PRN (09:08)
[2017-06-06] MEDS: COLLAGENASE OINT 30 GM TUBE EXT SCH (09:16)
[2017-06-06] MEDS: BOOST BREEZE NUTRITION DRINK 1 BOX PO SCH (09:16)
--- NOTE | 2017-06-06 11:48 | Progress Note ---
Internal Med Progress Note Date of Service: Jun 06, 2017. Provider Documentation: SUBJECTIVE: The patient was seen and examined Remains drowsy and confused Fluctuating alertness Denies any acute distress Has had almost full breakfast today Does not have any other issue OBJECTIVE: Vital Signs-as noted below Exam: General-No distress at rest Drowsy but no SOB or in any pain Eyes-normal ENT-normal Neck-supple Lungs-decreased breath sound bilaterally Minimal crackles at the bases Heart-Regular,no murmur Abdomen-Mildly distended,soft ,no tenderness Bowel sound present Extremities-Trace edema Neuro-AA Drowsy and pleasantly confused Generally weak and Letahrgic Lab data as noted below. ASSESSMENT & PLAN: This is a 77yo F from [facility] with chronic systolic CHF, CAD (s/p CABG), A flutter (on coumadin), Tachy-kathya syndrome (s/p PM placement), COPD, HTN, DM II , CKD III and other comorbidities listed below who presents after being [facility] to [facility] the [facility] this [facility]. Metabolic Encephalopathy -Remains Fatigued and lethargic -Multifactorial-Blood loss,renal impairment,multiple comorbid conditions and Infection -Per family and [facility]dc, patient usually very alert -CT -no acute finding ,CT of the Abdomen and Pelvis-Extensive Diverticulosis -Probable Diverticulitis-finished the course of antibiotics -Marcelo Acute Maxillary Sinusitis Got Doxy initially -discontinued Started on Ceftriaxone and Flagyl and continuing Repeat CT of the Head-unremarkable CT of the Chest::1. Interlobular septal thickening with scattered groundglass opacity in the setting of cardiomegaly and bilateral small pleural effusions, most characteristic of pulmonary edema. 2. Nodular opacities in the left upper lobe raises concern for a superimposed infectious etiology. 3. Prominent subpleural reticulation and dependent consolidation could be a consequence of pulmonary edema and passive atelectasis, although underlying chronic lung disease cannot be excluded. This could be reevaluated after resolution of acute intrathoracic pathology. 4. Ectasia of the ascending aorta. Worse today -very drowsy and not been participating in PT Deconditioning -no motivation to do anything Will discuss with the Daughter again today and plan for discharge tomorrow Fluctuating alertness More alert in the evening time Lower GI bleed complicated by Coumadin therapy with supratherapeutic INR -Gross bright red blood on rectal exam -Decreased in hgb from 14.8 to 9.8; symptomatic -No abd pain; etiology unclear -INR supratherapeutic at 3.5. Held Coumadin; gave Vit K in ER -Last colonoscopy in 2004 with multiple diverticula -GI consulted -appreciate input -Hb remains stable and no more Bloody stool -tolerating diet Acute blood loss anemia: -2/2 GI bleed. See above -Monitor H&H Q6H -Type & hold 2U of prbcs in case patient requires transfusion -h/h stable >10 on 06/06/17 Acute on chronic systolic CHF: -Per [facility] records, patient seen for worsening CHF last week -Has gained 7 lbs, non-compliant with fluid/Na restrictions -Lasix increased from 40mg to 60mg PO from 05/17-05/21 with minimal improvement -Volume overloaded on exam -Held Lasix due to elevated Cr of 1.9 -Recent echo with EF: 45-50% with severe concentric LVH, severe -small amount of IVF-discontinued -Will get CT of the Chest-Asabove Will try a small dose of Lasix -No signs of Pulmonary edema COPD/Idiopathic pulmonary fibrosis: -Has chronic respiratory failure on 2L NC continuous at [facility]; was hypoxic at SNF due to removing O2 -Once placed on 4L NC, saturation increased to 90s -Continue supplemental O2, home meds -No acute issue LAURIE on CKD stage III: -Cr elevated to 1.9 today; baseline of 1.3 -Likely 2/2 increased Lasix dose over the past week -Avoid nephrotoxic agents when possible -Renal function is getting worse -nephrology consulted -Renal function is improving DM II: -Recent hgb a1c of 7.6 (05/28) -Held home meds -5 U Lantus qHS and SSI while in-patient -BG checks AC HS H/o A flutter (on Coumadin): -EKG with atrial-paced rhythm -Held Coumadin due to supra therapeutic INR with GI bleed -Continue home dose of sotalol -INR remains therapeutic even not taking any Coumadin CAD (s/p CABG): -Denies chest pain -EKG with atrial-paced rhythm, RAD, ST an T wave abnormality suggestive of inferior ischemia -Likely demand ischemia in the setting of acute blood loss anemia -Continue aspirin, Imdur -Monitor on tele -no arrhythmia DVT Ppx: on warfarin On Hold now INR still therapeutic Likely to hold duet to GIB Code status: Per discussion today with daughter Keyana (SATURNINO) and Martin at bedside PCP: Aparan Dispo: Discharge planning requested. To return to [facility] SN[facility] Discussed with the daughter Will discuss with the Daughter -likely back to [facility] on Monday Vital Signs: Date Time Temp Pulse Resp B/P (MAP) Pulse Ox O2 Delivery O2 Flow Rate FiO2 06/06/17 08:03 98 Nasal Cannula 3.0 06/06/17 07:06 36.3 73 16 129/65 (86) 98 Nasal Cannula 3.0 06/06/17 00:01 Nasal Cannula 3.0 06/06/17 00:00 36.4 61 18 92/51 (65) 93 06/05/17 20:00 Nasal Cannula 3.0 06/05/17 16:00 Nasal Cannula 3.0 06/05/17 15:12 36.3 71 20 88/62 (71) 95 3.0 Lab Results: Results Past 24 Hours Test 06/05/17 11:48 06/05/17 16:22 06/05/17 20:25 06/06/17 07:13 Range/Units Bedside Glucose 195 188 214 152 70-90 mg/dl Test 06/06/17 11:17 Range/Units Bedside Glucose 234 70-90 mg/dl
[2017-06-06 16:17] VITALS: BP 119/54; PULSE 67; TEMP 36.6; O2SAT 95
[2017-06-06 16:21] VITALS: BP 87/58; PULSE 62; TEMP 36.6; O2SAT 94
--- NOTE | 2017-06-06 16:55 | Discharge Instructions ---
Discharge Instructions Date of Service Jun 06, 2017. Admission Reason for Admission: Altered Mental Status, Sob Discharge Discharge Diagnosis / Problem: Metabolic Encephalopathy with fluctuating symptoms,GI bleed,CHF,ARF,COPD Discharge Goals Goal(s): Prevent Disease Progression Activity Recommendations Activity Level: Assistance Required Therapies: Physical Therapy, Occupational Therapy . Additional Information Patient informed of condition: Yes Advance Directives: No DNR: Yes Level of Care: Skilled Communicable Disease: No Prognosis: Stable Oxygen at (LPM): 2-3 liters/min via NC Valentino Catheter: No Instructions / Follow-Up Instructions / Follow-Up As per Charo Flores provider Current Hospital Diet Patient's current hospital diet: Diabetes Type 2 Diet Discharge Diet Recommended Diet: Diabetes Type 2 Diet Fluid Restriction: 1500 ml (6 cups) Pending Studies Studies pending at discharge: no Physician Orders On Transfer POLST Discussion: Not Applicable Laboratory Results Hemoglobin A1c Test 03/09/17 18:28 Range/Units Estimated Average Glucose 183 mg/dl Hemoglobin A1c 8.0 H 4.5-5.6 % Medical Emergencies . Who to Call and When: Medical Emergencies: If at any time you feel your situation is an emergency, please call 911 immediately. . Non-Emergent Contact Non-Emergency issues call your: Primary Care Provider . . "Provider Documentation" section prepared by Raisa Burk. . Core Measure Problem Core Measures: None
[2017-06-06 17:31] VITALS: BP 105/70
--- NOTE | 2017-06-07 09:29 | Discharge Summary ---
Discharge Summary Date of Service Jun 07, 2017. Discharge Summary Admission Date: May 24, 2017 at 13:02 Discharge Date: Jun 06, 2017 Discharge Disposition: senior care facility Principal Diagnosis: Metabolic Encephalopathy with fluctuating symptoms,GI bleed,CHF,ARF,COPD Secondary Diagnoses/Problems: Please see H&P and Hospital Progress note Consultations: Nephrology Medication Reconciliation Continued Medications: Albuterol Hfa (Ventolin Hfa) 200 Puffs/16495 Mcg Aers 2 PUFF INH Q6 PRN for SOB/Wheezing Aspirin (Aspirin Chewable) 81 Mg Chew 81 MG PO DAILY, TAB Calcium Carbonate-Cholecalcife (Caltrate 600+D) 1 Tab Tab 1 TAB PO DAILY Collagenase (Santyl) 250 Unit/Gm Oin 1 APPLN TOP DAILY RIGHT CALF WOUND Docusate Sodium (Colace) 100 Mg Cap 1 CAP PO BID Eucerin (Hydrocerin) 360 Appln/120 Gm Cr 1 APPLN EXT BID PRN for nursing decison for 30 Days, #30 Furosemide (Lasix) 40 Mg Tab 40 MG PO DAILY Home O2 Therapy (Oxygen) Gas 2 LITERS NA HS HS and with any daytime sleeping Insulin Aspart (Novolog) 100 Units/Ml Inj 0 SQ TIDM Insulin Glargine (Lantus) 100 Unit/Ml Inj 5 SC QPM Ipratropium-Albuterol (Combivent Respimat) 1 Aer Aer 1 PUFFS INH QID Isosorbide Mononitrate Ext Rel (Imdur Ext Rel) 30 Mg Tabcr 30 MG PO QAM, #30 Lactobacillus (Floranex) 1 Tab Tab 2 TABS PO BID Levothyroxine Sodium (Levothyroxine Sodium) 137 Mcg Tab 137 MCG PO QAM Magnesium Oxide (Magnesium) 400 Mg Tab 400 MG PO BID Menthol (Ricola) 24 Maximus/1 Box Lozg 1 MAXIMUS PO PRN PRN for SORE THROAT, #30 Nitroglycerin (Nitrostat) 0.4 Mg Tab 0.4 MG UT UD PRN for Chest Pain, BTL PLACE ONE TABLET UNDER THE TONGUE EVERY 5 MINUTES FOR UP TO 3 DOSES IF NEEDED FOR CHEST PAIN. Nutritional Supplements (Boost) 1 Liq Liq 1 CAN PO BIDM for 30 Days Ondansetron Hcl (Zofran) 4 Mg Tab 4 MG PO Q6H PRN for Nausea or Vomiting, TAB Polyethylene (Miralax) 17 Gm Pow 17 GM PO DAILY PRN for Constipation for 30 Days Ranitidine Hcl (Zantac) 150 Mg Tab 150 MG PO BID Sotalol Hcl (Sotalol Hcl) 80 Mg Tab 1 TAB PO BID Discontinued Medications: Furosemide (Lasix) 20 Mg Tab 60 MG PO Q2D Warfarin Sod (Jantoven) 2 Mg Tab 2 MG PO 5XWK, TAB MONDAY, MONDAY, MONDAY, MONDAY, MONDAY Warfarin Sodium (Coumadin) 4 Mg Tab 4 MG PO UD MONDAY/MONDAY Admission Information HPI (per Admitting provider): This is a 77yo F from [facility] with chronic systolic CHF, CAD (s/p CABG), A flutter (on coumadin), Tachy-kathya syndrome (s/p PM placement), COPD, HTN, DM II , CKD III and other comorbidities listed below who presents after being found to be hypoxic and lethargic at the residential this morning. Per discussion with residential, patient was found to have an O2 saturation of 68% on room air upon waking today. Patient has a history of chronic respiratory failure and requires 2L NC O2 at baseline. She reportedly removes O2 throughout the night. Once patient was put on 4L NC O2, saturation increased to 90%. Due to patient's lethargic state today (is alert at baseline with some dementia, per residential ) as well as recent acute on chronic CHF, patient was sent via EMS for further evaluation. Patient lethargic on exam, although A&Ox3 with persistent prompting. Endorses lower back pain but denies confusion, headache, CP, SOB, orthopnea, abdominal pain, nausea/vomiting, weakness. Per chart review, patient was evaluated at [facility] last week for worsening CHF. Has gained 7 lbs and has not been compliant with fluid or salt restrictions. Lasix dose was increased from 40mg to 60mg of Lasix from 05/17-05/21 with minimal improvement. During ER evaluation, patient was found to have a hgb of 9.8 (decreased from 14.8 from last admission) and gross blood on rectal exam. Patient is unsure when asked questions about blood in bowel movements. Last colonoscopy in 2004 showed multiple diverticula in descending and sigmoid colon. No history of GI bleed. Past Medical/Surgical History Medical Problems: (1) Aortic stenosis Permanent Comment: severe per echo 03/2017 Status: Chronic (2) CAD (coronary artery disease) Permanent Comment: s/p CABG 12/2009 Status: Chronic (3) Chronic back pain Status: Chronic (4) CKD (chronic kidney disease) stage 3, GFR 30-59 ml/min Status: Chronic (5) Depression Status: Chronic (6) DM type 2 (diabetes mellitus, type 2) Status: Chronic (7) Dyslipidemia Status: Chronic (8) GERD (gastroesophageal reflux disease) Status: Chronic (9) H/O diabetes insipidus Status: Chronic (10) H/O vertigo Status: Chronic (11) Heterozygous MTHFR mutation [id number] Status: Chronic (12) History of CVA (cerebrovascular accident) Status: Chronic (13) History of DVT (deep vein thrombosis) Status: Chronic (14) History of hyperkalemia Permanent Comment: SY/ARB intolerance Status: Chronic (15) History of TIA (transient ischemic attack) Status: Chronic (16) HTN (hypertension) Status: Chronic (17) Hypothyroidism Status: Chronic (18) Idiopathic pulmonary fibrosis Status: Chronic (19) Malignant neoplasm of corpus uteri Status: Chronic (20) Migraine Status: Chronic (21) Moderate COPD (chronic obstructive pulmonary disease) Status: Chronic (22) Paroxysmal a-fib Status: Chronic (23) Systolic CHF Permanent Comment: EF 45-50% on echo 03/12/17 Status: Chronic (24) Tobacco abuse Status: Chronic (25) Valvular disease Permanent Comment: echo 07/21/15 Bicuspid aortic valve with moderate aortic stenosis and mild mitral regurg Status: Chronic Surgical Problems: (1) H/o bile tract procedure Status: Chronic (2) H/O cardiac catheterization Permanent Comment: July 2010- left subclavian stenosis with atretic ROMAN graft. The LAD however most significant lesion was less than 50%. The circumflex and right coronary arteries were severely diseased though there were widely patent grafts. Status: Chronic (3) H/O excision of lamina of cervical vertebra for decompression of spinal cord Status: Resolved (4) H/O hernia repair Status: Resolved (5) H/O total hysterectomy with bilateral salpingo-oophorectomy (BSO) Permanent Comment: 1967 secondary to malignancy Status: Resolved (6) History of cholecystectomy Permanent Comment: 1969 Status: Resolved (7) History of total hip replacement Permanent Comment: L Hip performed by Dr. Jaffe 2009 Status: Resolved (8) S/P CABG (coronary artery bypass graft) Permanent Comment: 12/2009 Status: Resolved Family History Cardiac disorder FATHER MOTHER Diabetes mellitus FATHER MOTHER BROTHER GRANDMOTHER FH: cancer Social History Smoking Status: Former Smoker Drug Use: none Marital Status: Housing status: residential Occupational Status: retired, other Immunizations History of Influenza Vaccine: Unknown Influenza Vaccine Date: Jul 20, 2009 History of Tetanus Vaccine?: Unknown Tetanus Immunization Date: Sep 19, 2004 History of Pneumococcal: Unknown Pneumococcal Date: February 07, 2008 History of Hepatitis B Vaccine: Unknown Multi-Drug Resistant Organisms History of MDRO: No Allergies Coded Allergies: Codeine (Verified Allergy, Severe, HIVES / DIFICULTY BREATHING; TAKES PERCOCET W/O PROBLEM, 05/24/17) Penicillins (Verified Allergy, Intermediate, RASH, 05/24/17) SY Inhibitors (Verified Adverse Reaction, Unknown, HYPERKALEMIA, 05/24/17) Home Medications Scheduled Aspirin (Aspirin Chewable), 81 MG PO DAILY Calcium Carbonate-Cholecalcife (Caltrate 600+D), 1 TAB PO DAILY Collagenase (Santyl), 1 APPLN TOP DAILY Docusate Sodium (Colace), 1 CAP PO BID Furosemide (Lasix), 40 MG PO Q2D Furosemide (Lasix), 60 MG PO Q2D Home O2 Therapy (Oxygen), 2 LITERS NA HS Insulin Aspart (Novolog), 0 SQ TIDM Insulin Glargine (Lantus), 5 SC QPM Ipratropium-Albuterol (Combivent Respimat), 1 PUFFS INH QID Isosorbide Mononitrate Ext Rel (Imdur Ext Rel), 30 MG PO QAM Lactobacillus (Floranex), 4 TABS PO TIDM Levothyroxine Sodium (Levothyroxine Sodium), 137 MCG PO QAM Magnesium Oxide (Magnesium), 400 MG PO BID Nutritional Supplements (Boost), 1 CAN PO BIDM Ranitidine Hcl (Zantac), 150 MG PO BID Sotalol Hcl (Sotalol Hcl), 1 TAB PO BID Warfarin Sod (Jantoven), 2 MG PO 5XWK Warfarin Sodium (Coumadin), 4 MG PO UD Scheduled PRN Albuterol Hfa (Ventolin Hfa), 2 PUFF INH Q6 PRN for SOB/Wheezing Eucerin (Hydrocerin), 1 APPLN EXT BID PRN for nursing decison Menthol (Ricola), 1 MAXIMUS PO PRN PRN for SORE THROAT Nitroglycerin (Nitrostat), 0.4 MG UT UD PRN for Chest Pain Ondansetron Hcl (Zofran), 4 MG PO Q6H PRN for Nausea or Vomiting Polyethylene (Miralax), 17 GM PO DAILY PRN for Constipation Review of Systems Ten systems reviewed and negative except as noted in the HPI. Physical Ex - H&P Physical Exam Vital Signs Date Time Temp Pulse Resp B/P (MAP) Pulse Ox O2 Delivery O2 Flow Rate FiO2 05/24/17 13:20 80 18 05/24/17 13:15 75 17 05/24/17 13:10 74 14 05/24/17 13:06 94 Nasal Cannula 3.0 05/24/17 13:05 68 25 05/24/17 13:01 103/69 05/24/17 13:00 71 18 72 05/24/17 12:55 68 19 81 05/24/17 12:50 70 13 100 05/24/17 12:48 75 05/24/17 12:45 69 13 05/24/17 12:40 70 12 100 05/24/17 12:35 64 16 100 05/24/17 12:31 119/78 05/24/17 12:30 74 25 93 05/24/17 12:25 70 15 99 05/24/17 12:20 75 23 94 05/24/17 12:15 69 18 97 05/24/17 12:10 79 12 93 05/24/17 12:05 72 13 97 05/24/17 12:03 105/61 05/24/17 12:01 /58 05/24/17 12:00 74 13 93 05/24/17 11:35 77 15 94 05/24/17 11:32 99/61 05/24/17 11:05 70 15 96 05/24/17 11:03 72 18 114/65 98 Nasal Cannula 3.0 05/24/17 09:36 36.3 05/24/17 09:31 64 16 105/56 95 Nasal Cannula 3.0 05/24/17 08:55 36.3 69 20 104/50 88 Room Air 05/24/17 08:48 68 General Appearance: + moderate distress (Moaning intermittently, lethargic. Able to answer questions with frequent prompting. ) Head: normocephalic, atraumatic Eyes: normal inspection ENT: hearing grossly normal Neck: supple, no adenopathy, trachea midline Respiratory/Chest: chest non-tender, no respiratory distress (Saturation well on non-rebreather mask ), no accessory muscle use, + crackles Cardiovascular: regular rate, rhythm, + systolic murmur Abdomen/GI: normal bowel sounds, non tender, soft, no organomegaly Back: normal inspection Extremities/Musculoskelatal: no calf tenderness, + swelling (2+ bilateral LE edema ) Neurologic/Psych: no motor/sensory deficits, + pertinent finding (Lethargic but arousable. A&Ox3 with prompting. ) Skin: normal color, warm/dry Diagnostics - H&P Diagnostics Laboratory Results Results Past 24 Hours Test 05/24/17 08:45 Range/Units White Blood Count 7.26 4.8-10.8 K/uL Red Blood Count 3.47 4.2-5.4 M/uL Hemoglobin 9.8 12.0-16.0 g/dL Hematocrit 30.7 37-47 % Mean Corpuscular Volume 88.5 80-100 fL Mean Corpuscular Hemoglobin 28.2 25-34 pg Mean Corpuscular Hemoglobin Concent 31.9 32-36 g/dl Platelet Count 261 130-400 K/uL Mean Platelet Volume 9.3 7.4-10.4 fL Neutrophils (%) (Auto) 55.0 % Lymphocytes (%) (Auto) 28.5 % Monocytes (%) (Auto) 13.6 % Eosinophils (%) (Auto) 2.3 % Basophils (%) (Auto) 0.3 % Neutrophils # (Auto) 3.99 1.4-6.5 K/uL Lymphocytes # (Auto) 2.07 1.2-3.4 K/uL Monocytes # (Auto) 0.99 0.11-0.59 K/uL Eosinophils # (Auto) 0.17 0-0.5 K/uL Basophils # (Auto) 0.02 0-0.2 K/uL RDW Standard Deviation 56.2 36.4-46.3 fL RDW Coefficient of Variation 17.3 11.5-14.5 % Immature Granulocyte % (Auto) 0.3 % Immature Granulocyte # (Auto) 0.02 0.00-0.02 K/uL Prothrombin Time 39.5 9.0-12.0 SECONDS Prothromb Time International Ratio 3.5 0.9-1.1 Activated Partial Thromboplast Time 42.3 21.0-31.0 SECONDS Partial Thromboplastin Ratio 1.6 Sodium Level 132 136-145 mmol/L Potassium Level 4.5 3.5-5.1 mmol/L Chloride Level 97 98-107 mmol/L Carbon Dioxide Level 24 21-32 mmol/L Anion Gap 11.0 3-11 mmol/L Blood Urea Nitrogen 45 7-18 mg/dl Creatinine 1.90 0.60-1.20 mg/dl Est Creatinine Clear Calc Drug Dose 26.1 ml/min Estimated GFR () 29.4 Estimated GFR (Non- 25.3 BUN/Creatinine Ratio 23.4 10-20 Random Glucose 176 70-99 mg/dl Calcium Level 9.6 8.5-10.1 mg/dl Magnesium Level 2.5 1.8-2.4 mg/dl Total Bilirubin 1.3 0.2-1 mg/dl Direct Bilirubin 0.7 0-0.2 mg/dl Aspartate Amino Transf (AST/SGOT) 24 15-37 U/L Alanine Aminotransferase (ALT/SGPT) 11 12-78 U/L Alkaline Phosphatase 135 45-117 U/L Total Creatine Kinase 30 26-192 U/L Creatine Kinase MB 0.9 0.5-3.6 ng/ml Creatine Kinase MB Ratio 3.0 0-3.0 Troponin I < 0.015 0-0.045 ng/ml Total Protein 8.0 6.4-8.2 gm/dl Albumin 2.9 3.4-5.0 gm/dl Lipase 36 73-393 U/L Thyroid Stimulating Hormone (TSH) 2.250 0.300-4.500 uIu/ml Diagnostic Radiology CXR: IMPRESSION: Cardiomegaly and suspected interstitial edema superimposed on chronic lung disease. More focal airspace opacity at the base the right upper lobe. Clinical and radiographic follow-up is recommended. EKG Atrial-paced rhythm with prolonged AV conduction Rightward axis ST & T wave abnormality, consider inferior ischemia Prolonged QT Impression - H&P Impression Assessment and Plan This is a 77yo F from [facility] with chronic systolic CHF, CAD (s/p CABG), A flutter (on coumadin), Tachy-kathya syndrome (s/p PM placement), COPD, HTN, DM II , CKD III and other comorbidities listed below who presents after being found to be hypoxic and lethargic at the residential this morning. Lower GI bleed: -Gross bright red blood on rectal exam -Decreased in hgb from 14.8 to 9.8; symptomatic -No abd pain; etiology unclear -INR supratherapeutic at 3.5. Held coumadin; gave Vit K in ER -Last colonoscopy in 2004 with multiple diverticula -GI consulted for further recs -obtain stool cx -C diff gene -IV pepcid -KUB of abdomen -Clear liquids today -Prep for EGD/colonoscopy tomorrow -NPO after midnight Acute blood loss anemia: -2/2 GI bleed. See above -Monitor H&H Q6H -Type & hold 2U of prbcs in case patient requires transfusion Altered mental status: -Fatigued/lethargic but arousable -Likely 2/2 acute blood loss anemia -Per family and residential, patient usually very alert -CT head to rule out acute changes Acute on chronic systolic CHF: -Per [facility] records, patient seen for worsening CHF last week -Has gained 7 lbs, non-compliant with fluid/Na restrictions -Lasix increased from 40mg to 60mg PO from 05/17-05/21 with minimal improvement -Volume overloaded on exam -Held Lasix due to elevated Cr of 1.9 -Recent echo with EF: 45-50% with severe concentric LVH, severe COPD/Idiopathic pulmonary fibrosis: -Has chronic respiratory failure on 2L NC continuous at [facility]; was hypoxic at SNF due to removing O2 -Once placed on 4L NC, saturation increased to 90s -Continue supplemental O2, home meds LAURIE on CKD stage III: -Cr elevated to 1.9 today; baseline of 1.3 -Likely 2/2 increased Lasix dose over the past week -Avoid nephrotoxic agents when possible -Low rate IVF DM II: -Recent hgb a1c of 7.6 (05/28) -Held home meds -5 U Lantus qHS and SSI while in-patient -BG checks AC HS H/o A flutter (on coumadin): -EKG with atrial-paced rhythm -Held coumadin due to supratherapeutic INR with GI bleed -Continue home dose of sotalol CAD (s/p CABG): -Denies chest pain -Trop negative -EKG with atrial-paced rhythm, RAD, ST an T wave abnormality suggestive of inferior ischemia -Likely demand ischemia in the setting of acute blood loss anemia -Continue aspirin, Imdur -Monitor on tele DVT Ppx: on warfarin Code status: Per discussion today with daughter Keyana (SATURNINO) and Martin at bedside PCP: Aparna Dispo: Discharge planning requested. To return to [facility] Attending Addendum: The patient was seen and examined in ER in presence of the Daughter and the Admitted with confusion and GIB Not in any distress but looks ill O/E Drowsy but not in any distress HEENT-unremarkable Chest-decreased breath sound bilaterally Heart-Regular Abdomen-benign,No masses,bowel sound present Labs and Imaging studies were reviewed Has significantly low Hb and Bright red Blood Per Rectum Agree with the assessment and plan. Dr Hakeem Burk Level of Care Telemetry Advanced Directives Existing Living Will: No Existing Power of Manager Payroll: No Resuscitation Status DO NOT RESUSCITATE VTE Prophylaxis VTE Risk Assessment Done? Y/N: Yes Risk Level: Moderate Given or contraindicated: Warfarin (Coumadin) Physical Exam (per Admitting): General Appearance: + moderate distress (Moaning intermittently, lethargic. Able to answer questions with frequent prompting. ) Head: normocephalic, atraumatic Eyes: normal inspection ENT: hearing grossly normal Neck: supple, no adenopathy, trachea midline Respiratory/Chest: chest non-tender, no respiratory distress (Saturation well on non-rebreather mask ), no accessory muscle use, + crackles Cardiovascular: regular rate, rhythm, + systolic murmur Abdomen/GI: normal bowel sounds, non tender, soft, no organomegaly Back: normal inspection Extremities/Musculoskelatal: no calf tenderness, + swelling (2+ bilateral LE edema ) Neurologic/Psych: no motor/sensory deficits, + pertinent finding (Lethargic but arousable. A&Ox3 with prompting. ) Skin: normal color, warm/dry Hospital Course This is a 77yo F from [facility] with chronic systolic CHF, CAD (s/p CABG), A flutter (on coumadin), Tachy-kathya syndrome (s/p PM placement), COPD, HTN, DM II , CKD III and other comorbidities listed below who presents after being found to be hypoxic and lethargic at the residential this morning. Metabolic Encephalopathy -Remains Fatigued and lethargic -Multifactorial-Blood loss,renal impairment,multiple comorbid conditions and Infection -Per family and residential, patient usually very alert -CT -no acute finding ,CT of the Abdomen and Pelvis-Extensive Diverticulosis -Probable Diverticulitis-finished the course of antibiotics -Marcelo Acute Maxillary Sinusitis Got Doxy initially -discontinued Started on Ceftriaxone and Flagyl and continuing Repeat CT of the Head-unremarkable CT of the Chest::1. Interlobular septal thickening with scattered groundglass opacity in the setting of cardiomegaly and bilateral small pleural effusions, most characteristic of pulmonary edema. 2. Nodular opacities in the left upper lobe raises concern for a superimposed infectious etiology. 3. Prominent subpleural reticulation and dependent consolidation could be a consequence of pulmonary edema and passive atelectasis, although underlying chronic lung disease cannot be excluded. This could be reevaluated after resolution of acute intrathoracic pathology. 4. Ectasia of the ascending aorta. Worse today -very drowsy and not been participating in PT Deconditioning -no motivation to do anything Will discuss with the Daughter again today and plan for discharge tomorrow Fluctuating alertness More alert in the evening time Lower GI bleed complicated by Coumadin therapy with supratherapeutic INR -Gross bright red blood on rectal exam -Decreased in hgb from 14.8 to 9.8; symptomatic -No abd pain; etiology unclear -INR supratherapeutic at 3.5. Held Coumadin; gave Vit K in ER -Last colonoscopy in 2004 with multiple diverticula -GI consulted -appreciate input -Hb remains stable and no more Bloody stool -tolerating diet Acute blood loss anemia: -2/2 GI bleed. See above -Monitor H&H Q6H -Type & hold 2U of prbcs in case patient requires transfusion -h/h stable >10 on 06/06/17 Acute on chronic systolic CHF: -Per [facility], patient seen for worsening CHF last week -Has gained 7 lbs, non-compliant with fluid/Na restrictions -Lasix increased from 40mg to 60mg PO from 05/17-05/21 with minimal improvement -Volume overloaded on exam -Held Lasix due to elevated Cr of 1.9 -Recent echo with EF: 45-50% with severe concentric LVH, severe -small amount of IVF-discontinued -Will get CT of the Chest-Asabove Will try a small dose of Lasix -No signs of Pulmonary edema COPD/Idiopathic pulmonary fibrosis: -Has chronic respiratory failure on 2L NC continuous at SNF; was hypoxic at SNF due to removing O2 -Once placed on 4L NC, saturation increased to 90s -Continue supplemental O2, home meds -No acute issue LAURIE on CKD stage III: -Cr elevated to 1.9 today; baseline of 1.3 -Likely 2/2 increased Lasix dose over the past week -Avoid nephrotoxic agents when possible -Renal function is getting worse -nephrology consulted -Renal function is improving DM II: -Recent hgb a1c of 7.6 (05/28) -Held home meds -5 U Lantus qHS and SSI while in-patient -BG checks AC HS H/o A flutter (on Coumadin): -EKG with atrial-paced rhythm -Held Coumadin due to supra therapeutic INR with GI bleed -Continue home dose of sotalol -INR remains therapeutic even not taking any Coumadin CAD (s/p CABG): -Denies chest pain -EKG with atrial-paced rhythm, RAD, ST an T wave abnormality suggestive of inferior ischemia -Likely demand ischemia in the setting of acute blood loss anemia -Continue aspirin, Imdur -Monitor on tele -no arrhythmia DVT Ppx: on warfarin On Hold now INR still therapeutic Likely to hold duet to GIB Code status: Per discussion today with daughter Keyana (POMicky) and Martin at bedside PCP: Aparna Dispo: Discharge planning requested. To return to [facility] Discussed with the daughter Will discuss with the Daughter -likely back to [facility] on Monday Total time spent on discharge = 35 minutes This includes examination of the patient, discharge planning, medication reconciliation, and communication with other providers. Discharge Instructions Date of Service Jun 06, 2017. Admission Reason for Admission: Altered Mental Status, Sob Discharge Discharge Diagnosis / Problem: Metabolic Encephalopathy with fluctuating symptoms,GI bleed,CHF,ARF,COPD Discharge Goals Goal(s): Prevent Disease Progression Activity Recommendations Activity Level: Assistance Required Therapies: Physical Therapy, Occupational Therapy . Additional Information Patient informed of condition: Yes Advance Directives: No DNR: Yes Level of Care: Skilled Communicable Disease: No Prognosis: Stable Oxygen at (LPM): 2-3 liters/min via NC Valentino Catheter: No Instructions / Follow-Up Instructions / Follow-Up As per [facility] provider Current Hospital Diet Patient's current hospital diet: Diabetes Type 2 Diet Discharge Diet Recommended Diet: Diabetes Type 2 Diet Fluid Restriction: 1500 ml (6 cups) Pending Studies Studies pending at discharge: no Physician Orders On Transfer POLST Discussion: Not Applicable Laboratory Results Hemoglobin A1c Test 03/09/17 18:28 Range/Units Estimated Average Glucose 183 mg/dl Hemoglobin A1c 8.0 H 4.5-5.6 % Medical Emergencies . Who to Call and When: Medical Emergencies: If at any time you feel your situation is an emergency, please call 911 immediately. . Non-Emergent Contact Non-Emergency issues call your: Primary Care Provider . . "Provider Documentation" section prepared by Raisa Burk. . Core Measure Problem Core Measures: None <Electronically signed by Raisa Burk M.D.> Signed: 06/06/17 9729 Additional Copies To Gio Braun D.O.
== END 2017-06-06 17:40 | DRG 813 ==
LOC: EDBD 08:37 → C.EDB 08:38 → C.2E 13:02 → ENRESERV 13:46 → C.4E 05-26 14:15
PROVIDERS: ADMIT Internal Medicine; ATTEND Internal Medicine
DX: D68.32 Hemorrhagic disorder due to extrinsic circulating anticoagulants (principal); N17.9 Acute kidney failure, unspecified; D62 Acute posthemorrhagic anemia; I13.0 Hypertensive heart and chronic kidney disease with heart failure and stage 1 through stage 4 chronic kidney disease, or unspecified chronic kidney disease; I50.23 Acute on chronic systolic (congestive) heart failure; Z66 Do not resuscitate; G93.41 Metabolic encephalopathy; I12.9 Hypertensive chronic kidney disease with stage 1 through stage 4 chronic kidney disease, or unspecified chronic kidney disease; I25.10 Atherosclerotic heart disease of native coronary artery without angina pectoris; M54.9 Dorsalgia, unspecified; G89.29 Other chronic pain; N18.3 Chronic kidney disease, stage 3 (moderate); K21.9 Gastro-esophageal reflux disease without esophagitis; F32.9 Major depressive disorder, single episode, unspecified; E78.5 Hyperlipidemia, unspecified; E11.9 Type 2 diabetes mellitus without complications; E03.9 Hypothyroidism, unspecified; I48.0 Paroxysmal atrial fibrillation; Z79.82 Long term (current) use of aspirin; Z86.73 Personal history of transient ischemic attack (TIA), and cerebral infarction without residual deficits

== ENCOUNTER 2017-06-11 10:52 | Inpatient (IN) | payer OTHER ==
[~2017-06-11] VITALS: Ht 157.5 cm; Wt 84.0 kg
[2017-06-11] VITALS (10 sets, daily range): BP systolic 85–127; BP diastolic 44–96; PULSE 63–75; TEMP 36.3; O2SAT 85–96; Ht 157.5 cm; Wt 84.0 kg
[~2017-06-11 10:52] MED LIST changes: -BTP80 PO; +FRS/40 PO; -FURO-85 PO; +INSDGI SC; -INSDGIPEN SC; +LACT1TAB4 PO; -LCTX PO; +NVLG SQ; -SERT50TA PO; +SOTA80TA PO; -WARF1TAB6 PO; -WARF2TAB8 PO
--- NOTE | 2017-06-11 11:17 | EMERGENCY ROOM VISIT NOTE ---
History Report prepared by Violeta: Evangelina Villarreal Under the Supervision of: Denver PantojaO. First contact with patient: 10:57 Stated Complaint: ILLNESS History of Present Illness The patient is a 77 year old female who presents to the Emergency Room with complaints of an illness today. The patient states that she came from [facility]. She states that her whole body hurts. She reports that her oxygen was low today. Per nursing staff, the patient wears 2L of oxygen at night, and the EMS had her on 6L of Oxygen. The patient reports that she used to smoke. Limited HPI secondary to poor historian. Per [facility] records, the patient was sent in for AMS, increased lower extremity edema, and back pain last night. Her blood pressure there was 84/54. Review of EMR: Patient admitted May 24. H and P reviewed. EF 45 -50% on echo from March 2017. Patient with bicuspid aortic valve and moderate to severe . metabolic encephalopathy also noted and also pt noncompliance. Source of History: patient, nursing staff History Limited By: other (confusion ) Onset: today Position: other (global) Review of Systems Limited ROS secondary to confusion. 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 (16) History of CVA (cerebrovascular accident) (17) History of DVT (deep vein thrombosis) (18) History of hyperkalemia (19) History of TIA (transient ischemic attack) (20) HTN (hypertension) (21) Hypothyroidism (22) Idiopathic pulmonary fibrosis (23) Malignant neoplasm of corpus uteri (24) Migraine (25) Moderate COPD (chronic obstructive pulmonary disease) (26) Paroxysmal a-fib (27) Sepsis (28) Systolic CHF (29) Tobacco abuse (30) Valvular disease Surgical Problems: (1) H/o bile tract procedure (2) H/O cardiac catheterization (3) H/O excision of lamina of cervical vertebra for decompression of spinal cord (4) H/O hernia repair (5) H/O total hysterectomy with bilateral salpingo-oophorectomy (BSO) (6) History of cholecystectomy (7) History of total hip replacement (8) S/P CABG (coronary artery bypass graft) Family History Cardiac disorder FATHER MOTHER Diabetes mellitus FATHER MOTHER BROTHER GRANDMOTHER FH: cancer Social History Smoking Status: Former Smoker Alcohol Use: none Drug Use: none Marital Status: Housing Status: lives with family Occupation Status: retired, other Current/Historical Medications Scheduled Aspirin (Aspirin Chewable), 81 MG PO DAILY Calcium Carbonate-Cholecalcife (Caltrate 600+D), 1 TAB PO DAILY Docusate Sodium (Colace), 1 CAP PO BID Furosemide (Lasix), 40 MG PO DAILY Home O2 Therapy (Oxygen), 2 LITERS NA HS Insulin Aspart (Novolog), 6 UNITS SQ TIDM Insulin Glargine (Lantus), 5 SC QPM Ipratropium-Albuterol (Combivent Respimat), 1 PUFFS INH QID Isosorbide Mononitrate Ext Rel (Imdur Ext Rel), 30 MG PO QAM Lactobacillus (Floranex), 2 TABS PO BID Levothyroxine Sodium (Levothyroxine Sodium), 137 MCG PO QAM Magnesium Oxide (Magnesium), 400 MG PO BID Ranitidine Hcl (Zantac), 150 MG PO BID Sotalol Hcl (Sotalol Hcl), 1 TAB PO BID Scheduled PRN Albuterol Hfa (Ventolin Hfa), 2 PUFF INH Q6 PRN for SOB/Wheezing Nitroglycerin (Nitrostat), 0.4 MG UT UD PRN for Chest Pain Ondansetron Hcl (Zofran), 4 MG PO Q6H PRN for Nausea or Vomiting Polyethylene (Miralax), 17 GM PO DAILY PRN for Constipation Allergies Coded Allergies: Codeine (Verified Allergy, Severe, HIVES / DIFICULTY BREATHING; TAKES PERCOCET W/O PROBLEM, 06/11/17) HAS ALSO TOLERATED MORPHINE MULTIPLE TIMES Penicillins (Verified Allergy, Intermediate, RASH, 05/24/17) SY Inhibitors (Verified Adverse Reaction, Unknown, HYPERKALEMIA, 05/24/17) Physical Exam Vital Signs Date Time Temp Pulse Resp B/P (MAP) Pulse Ox O2 Delivery O2 Flow Rate FiO2 06/11/17 17:24 64 19 82/75 93 Nasal Cannula 5.0 Humidified Oxygen 06/11/17 16:30 60 22 97/55 90 Nasal Cannula 5.0 Humidified Oxygen 06/11/17 16:08 67 27 78/54 92 Nasal Cannula 5.0 Humidified Oxygen 06/11/17 15:46 60 06/11/17 15:30 60 19 80/53 94 Nasal Cannula 5.0 Humidified Oxygen 06/11/17 15:30 67 24 80/53 95 Nasal Cannula 5.0 Humidified Oxygen 06/11/17 15:00 63 15 79/51 94 Nasal Cannula Humidified Oxygen 06/11/17 14:30 61 15 83/49 91 Nasal Cannula 5.0 Humidified Oxygen 06/11/17 14:00 71 21 100/70 96 Nasal Cannula 5.0 Humidified Oxygen 06/11/17 13:30 60 16 86/53 96 Nasal Cannula 5.0 Humidified Oxygen 06/11/17 13:00 66 13 98/60 97 Nasal Cannula 5.0 Humidified Oxygen 06/11/17 12:31 71 18 88/48 91 Nasal Cannula 4.0 Humidified Oxygen 06/11/17 11:41 73 18 104/81 100 Nasal Cannula 6.0 Humidified Oxygen 06/11/17 11:00 65 06/11/17 10:52 94 Nasal Cannula 6.0 06/11/17 10:52 94 Nasal Cannula 6.0 06/11/17 10:52 36.5 64 13 89/52 94 Nasal Cannula 6.0 Humidified Oxygen Physical Exam GENERAL: alert, well appearing, well nourished, no distress, non-toxic EYE EXAM: normal conjunctiva, PERRL and EOM's grossly intact OROPHARYNX: no exudate, no erythema, lips, buccal mucosa, and tongue normal and mucous membranes are dry NECK: supple, no nuchal rigidity, no adenopathy, non-tender LUNGS: Diminished breath sounds bilaterally. No wheezes, rhonchi, or rales. Normal chest wall mechanics HEART: no murmurs, S1 normal and S2 normal, TRACY ABDOMEN: abdomen soft, non-tender, normo-active bowel sounds, no masses, no rebound or guarding. BACK: Back is symmetrical on inspection and there is no deformity, no midline tenderness, no CVA tenderness. SKIN: no rashes and no bruising UPPER EXTREMITIES: upper extremities are grossly normal. Several areas of ecchymosis noted from recent IV started while on coumadin. Nml ROM. LOWER EXTREMITIES: 2+ bilateral edema. FROM, nml pulses. NEURO EXAM: Normal sensorium, cranial nerves II-XII grossly intact, normal speech, no gross weakness of arms, no gross weakness of legs. No drift. Gross sensation intact. Slightly confused to recent events, but could answer questions to orientation and give general details of her medical history. Medical Decision & Procedures ER Provider Diagnostic Interpretation: Radiology results have been interpreted by the radiologist and reviewed by me. CHEST ONE VIEW PORTABLE HISTORY: 77 years-old Female sob acute shortness of breath. COMPARISON: Chest radiograph 05/31/2017 TECHNIQUE: Portable upright AP view of the chest FINDINGS: Cardiac silhouette is moderately enlarged. Dual-lead left pectoral pacer is again noted with leads intact. Prior median sternotomy. There is no pneumothorax. Small bilateral pleural effusions. Unchanged. Pulmonary vascular congestion with background interstitial coarsening and patchy bilateral alveolar opacities are again seen within a perihilar and bibasilar predominant distribution. Focal asymmetric opacity of the right midlung is unchanged. Degenerative changes are seen about the shoulders and spine. IMPRESSION: 1. Stable exam with cardiomegaly and persistent pulmonary edema pattern. 2. Small bilateral pleural effusions. 3. Persistent focal opacity of the right midlung suggests fluid within the minor fissure. Focal atelectasis or pneumonia could have a similar appearance. The above report was generated using voice recognition software. It may contain grammatical, syntax or spelling errors. Electronically signed by: Dionte Ramirez M.D. 06/11/2017 12:02 PM Dictated Date/Time: 06/11/2017 12:00 PM HEAD WITHOUT CONTRAST (CT) CLINICAL HISTORY: 77 years-old Female with confusion. Acute confusion. Initial exam. TECHNIQUE: Multiple axial CT images of the head were obtained without contrast. A dose lowering technique was utilized adhering to the principles of ALARA. CT DOSE: 1074.96 mGy.cm COMPARISON: CT head 06/02/2017. FINDINGS: No acute intracranial hemorrhage, midline shift, mass, large territorial ischemia or abnormal extra-axial collection. There is moderate atrophy with ex vacuo ventriculomegaly. The exam is moderately limited secondary to patient motion. Severe chronic background microvascular ischemic changes are noted. There is a remote appearing lacunar infarction of the left caudate nucleus, also unchanged. The calvarium is intact. The mastoid air cells, and middle ear cavities are clear. Chronic mucoperiosteal thickening of the maxillary sinus is noted. IMPRESSION: 1. No acute intracranial abnormality. 2. Atrophy with background chronic microvascular ischemic changes and remote left caudate nucleus lacunar infarction. The above report was generated using voice recognition software. It may contain grammatical, syntax or spelling errors. Electronically signed by: Dionte Ramirez M.D. 06/11/2017 12:21 PM Dictated Date/Time: 06/11/2017 12:17 PM Laboratory Results Test 06/11/17 10:50 06/11/17 11:41 06/11/17 11:52 06/11/17 16:49 Nucleated RBC Absolute Count (auto) 0.02 K/uL (0-0) Nucleated Red Blood Cells % 0.4 % Polychromasia 1+ Urine Color DK YELLOW Urine Appearance CLEAR (CLEAR) Urine pH 5.0 (4.5-7.5) Urine Specific Irwin 1.019 (1.000-1.030) Urine Protein NEG (NEG) Urine Glucose (UA) NEG (NEG) Urine Ketones NEG (NEG) Urine Occult Blood NEG (NEG) Urine Nitrite NEG (NEG) Urine Bilirubin NEG (NEG) Urine Urobilinogen NEG (NEG) Urine Leukocyte Esterase TRACE (NEG) Urine WBC (Auto) 1-5 /hpf (0-5) Urine RBC (Auto) 0-4 /hpf (0-4) Urine Hyaline Casts (Auto) >30 /lpf (0-5) Urine Epithelial Cells (Auto) 5-10 /lpf (0-5) Urine Bacteria (Auto) NEG (NEG) Urine Pathogenic Casts 0-3 GRANULAR CASTS /lpf (0) Total Bilirubin 2.0 mg/dl (0.2-1) Aspartate Amino Transf (AST/SGOT) 28 U/L (15-37) Alanine Aminotransferase (ALT/SGPT) 33 U/L (12-78) Alkaline Phosphatase 173 U/L (45-117) Ammonia < 10.0 umol/L (11-32) Troponin I < 0.015 ng/ml (0-0.045) Total Protein 7.5 gm/dl (6.4-8.2) Albumin 2.4 gm/dl (3.4-5.0) Globulin 5.1 gm/dl (2.5-4.0) Albumin/Globulin Ratio 0.5 (0.9-2) Procalcitonin 0.15 ng/ml (0-0.5) Thyroxine (T4) 5.6 mcg/dl (4.5-10.9) Free Triiodothyronine 1.25 pg/ml (2.30-4.20) Total Triiodothyronine 0.29 ng/ml (0.60-1.81) Random Cortisol 14.79 mcg/dl Laboratory results per my review. Medications Administered Medications (Trade) Dose Ordered Sig/Mike Route Start Time Stop Time Status Last Admin Dose Admin Sodium Chloride 250 ml @ 999 mls/hr Q16M STAT IV 06/11/17 11:57 06/11/17 12:12 DC 06/11/17 12:26 999 MLS/HR Sodium Chloride 500 ml @ 999 mls/hr Q31M STAT IV 06/11/17 13:57 06/11/17 14:27 DC 06/11/17 14:13 999 MLS/HR Albuterol/ Ipratropium (Duoneb) 3 ml NOW STAT INH 06/11/17 14:04 06/11/17 14:05 DC 06/11/17 14:13 3 ML Sodium Chloride 1,000 ml @ 125 mls/hr Q8H STAT IV 06/11/17 14:48 06/12/17 17:23 DC 06/11/17 15:09 125 MLS/HR Albumin Human (Albumin 25%) 25 gm NOW STAT IV 06/11/17 16:35 06/11/17 16:39 DC 06/11/17 16:57 25 GM ECG Indication: altered mental status Rate (beats per minute): 63 Rhythm: other (paced rhythm) Findings: no acute ischemic change Change: no significant change (from May 26, 2017) ED Course 1109: The patient was evaluated in room C5. A complete history and physical exam was performed. 1157: Ordered Sodium Chloride 250 ml @ 999 mls/hr IV. 1357: Ordered Sodium Chloride 500 ml @ 999 mls/hr IV. 1404: Ordered Duoneb 3 ml INH. 1448: Ordered Sodium Chloride 1,000 ml @ 125 mls/hr IV. 1450: The patient is feeling better, and her blood pressure is better. 1511: Upon reevaluation, the patient is resting. I discussed the findings and the treatment plan with the patient. She expresses agreement and understanding. [facility] She will be evaluated for further management. 1612: Dr. Hurtado would like a repeat lactid and for the patient to follow the medical aide after discussion. 1635: I spoke to Dr. Torres. He would like a random cortisol, a procalcitonin , and albumin added. 1635: Ordered Albumin 25% 25 gm IV. 1650: I updated the patient and her family on the plan. 1705: Dr. Torres at bedside. Medical Decision Differential diagnosis: Etiologies such as metabolic, infection, hypoglycemia, electrolyte abnormalities , cardiac sources, intracerebral event, toxicologic, neurologic, as well as others were entertained. Pt with multiple chronic and declining comorbidities, recently admitted with similar presentation. Pt appearing dehydrated yet volume overloaded. No worsening pulmonary edema compared to prior, however [facility] records increased LE edema and 3 lb weight gain. Pt hypotensive here, likely from increased lasix and fluid restriction in diet since last DC. Pt's BP will respond to IVF once bolus running, then drifts back down once finished. Pt not given large bolus due to hx of CHF and apparent component of CHF currently. Discussed with hospitalist possibly due to low albumin. Doubt sepsis despite recent admission and history. Case discussed with medical aide. Would like zosyn added and additional labs. Repeat lactate improved following IVF here. Procal not suggestive of sepsis. Doubt new vascular etiology. Ct a/p added. H/H stable, doubt additional Gi bleed. INR subtherapeutic, but doubt PE. Given recent Gi bleed, deferred additional anticoagulation to hospitalist. Pt to be placed in ICU as a precaution, albumin added after discussion with medical aide. Pt oxygen dependent and hx of COPD likely contributing to sob/hypoxia, also question noncompliance as twice I personally walked in the room and pt had her NC pushed up onto her forehead and her sats were in the 80's. Pt reported feeling improved here with careful IVF and duoneb. Pt oriented and mentating well despite being a poor historian. Hx of metabolic encephalopathy noted prior. Possible episode of confusion related to hypoxia. No additional details present on [facility] records regarding this. Medication Reconcilliation Current Medication List: was personally reviewed by me Blood Pressure Screening Patient's blood pressure: Low blood pressure Consults Time Called: 1500 Consulting Physician: Dr. Jocelyne Boo Returned Call: 1511 I reviewed the patient's case with Dr. Wallace. He will evaluate the patient for further management. Additional Consults: Time Called: 1610 Consulted Physician: Dr. Shereen Boo Returned Call: 1612 Additional Comments: Dr. Hurtado would like a repeat lactid and for the patient to follow the medical aide. Time Called: 1625 Consulted Physician: Dr. Torres Returned Call: 1630 Additional Comments: D/W Dr Torres. Impression Primary Impression: Confusion Additional Impressions: Dehydration Hypotension Anemia Moderate COPD (chronic obstructive pulmonary disease) CKD (chronic kidney disease) stage 3, GFR 30-59 ml/min Hypoalbuminemia CHF (congestive heart failure) Aortic stenosis Pleural effusion Critical Care I have personally spent 45 minutes of critical care time in the direct management of this patient. This includes bedside care, interpretation of diagnostic studies, and testing, discussion with consultants, patient, and family members, and other required patient management activities. This 45 minutes is in excess of all separately billable procedures. Scribe Attestation The scribe's documentation has been prepared under my direction and personally reviewed by me in its entirety. I confirm that the note above accurately reflects all work, treatment, procedures, and medical decision making performed by me. Departure Information Dispostion Being Evaluated By Hospitalist Referrals Gio Braun D.O. (PCP) Problem Qualifiers Additional Impressions: Hypotension Hypotension type: unspecified hypotension type Qualified Codes: I95.9 - Hypotension, unspecified Anemia Anemia type: unspecified type Qualified Codes: D64.9 - Anemia, unspecified CHF (congestive heart failure) Congestive heart failure type: combined Congestive heart failure chronicity: acute on chronic Qualified Codes: I50.43 - Acute on chronic combined systolic (congestive) and diastolic (congestive) heart failure Aortic stenosis Cardiac valve disease etiology: etiology unspecified Qualified Codes: I35.0 - Nonrheumatic aortic (valve) stenosis
[2017-06-11 11:36] LABS: BASO % 0.5 %; BASO ABS # 0.03 K/uL (0-0.2); HEMATOCRIT 30.2 % (37-47); IG% 0.2 %; LYMPH ABS # 1.74 K/uL (1.2-3.4); MEAN CELL VOLUME 88.3 fL (80-100); MEAN CORPUSCULAR HEMOGLOBIN 27.8 pg (25-34); MEAN CORPUSCULAR HGB CONC 31.5 g/dl (32-36); MEAN PLATELET VOLUME 10.3 fL (7.4-10.4); NEUT % 57.3 %; PLATELET COUNT 149 K/uL (130-400); RED BLOOD COUNT 3.42 M/uL (4.2-5.4); WHITE BLOOD COUNT 5.99 K/uL (4.8-10.8)
[2017-06-11] MEDS ORDERED: SODIUM CHLORIDE 0.9% 250ML 250 ML IV STA (11:57)
[2017-06-11 12:00] LABS: URINE APPEARANCE CLEAR (CLEAR); URINE BILIRUBIN NEG (NEG); URINE COLOR DK YELLOW; URINE NITRITE NEG (NEG); URINE SPECIFIC GRAVITY 1.019 (1.000-1.030); UROBILINOGEN NEG (NEG)
--- NOTE | 2017-06-11 12:03 | DIAGNOSTIC IMAGING REPORT ---
CHEST ONE VIEW PORTABLE HISTORY: 77 years-old Female sob acute shortness of breath. COMPARISON: Chest radiograph 05/31/2017 TECHNIQUE: Portable upright AP view of the chest FINDINGS: Cardiac silhouette is moderately enlarged. Dual-lead left pectoral pacer is again noted with leads intact. Prior median sternotomy. There is no pneumothorax. Small bilateral pleural effusions. Unchanged. Pulmonary vascular congestion with background interstitial coarsening and patchy bilateral alveolar opacities are again seen within a perihilar and bibasilar predominant distribution. Focal asymmetric opacity of the right midlung is unchanged. Degenerative changes are seen about the shoulders and spine. IMPRESSION: 1. Stable exam with cardiomegaly and persistent pulmonary edema pattern. 2. Small bilateral pleural effusions. 3. Persistent focal opacity of the right midlung suggests fluid within the minor fissure. Focal atelectasis or pneumonia could have a similar appearance. The above report was generated using voice recognition software. It may contain grammatical, syntax or spelling errors. Electronically signed by: Dionte Ramirez M.D. 06/11/2017 12:02 PM Dictated Date/Time: 06/11/2017 12:00 PM
[2017-06-11 12:09] LABS: ANISOCYTOSIS PRESENT; COMPLETE YES; HYPOCHROMIA PRESENT; LARGE PLATELETS 1+; POLYCHROMASIA 1+
[2017-06-11 12:10] LABS: MANUAL MICROSCOPIC REQUIRED? NO; REVIEW REQ? YES
--- NOTE | 2017-06-11 12:22 | DIAGNOSTIC IMAGING REPORT ---
HEAD WITHOUT CONTRAST (CT) CLINICAL HISTORY: 77 years-old Female with confusion. Acute confusion. Initial exam. TECHNIQUE: Multiple axial CT images of the head were obtained without contrast. A dose lowering technique was utilized adhering to the principles of ALARA. CT DOSE: 1074.96 mGy.cm COMPARISON: CT head 06/02/2017. FINDINGS: No acute intracranial hemorrhage, midline shift, mass, large territorial ischemia or abnormal extra-axial collection. There is moderate atrophy with ex vacuo ventriculomegaly. The exam is moderately limited secondary to patient motion. Severe chronic background microvascular ischemic changes are noted. There is a remote appearing lacunar infarction of the left caudate nucleus, also unchanged. The calvarium is intact. The mastoid air cells, and middle ear cavities are clear. Chronic mucoperiosteal thickening of the maxillary sinus is noted. IMPRESSION: 1. No acute intracranial abnormality. 2. Atrophy with background chronic microvascular ischemic changes and remote left caudate nucleus lacunar infarction. The above report was generated using voice recognition software. It may contain grammatical, syntax or spelling errors. Electronically signed by: Dionte Ramirez M.D. 06/11/2017 12:21 PM Dictated Date/Time: 06/11/2017 12:17 PM
[2017-06-11 12:25] LABS: ALT/SGPT 33 U/L (12-78); BLOOD UREA NITROGEN 38 mg/dl (7-18); BUN/CREATININE RATIO 22.4 (10-20); CALCIUM 8.9 mg/dl (8.5-10.1); CARBON DIOXIDE 27 mmol/L (21-32); CHLORIDE 97 mmol/L (98-107); GLUCOSE 172 mg/dl (70-99); MAGNESIUM 2.4 mg/dl (1.8-2.4); POTASSIUM 4.5 mmol/L (3.5-5.1); SODIUM 131 mmol/L (136-145)
[2017-06-11 12:31] LABS: INR 1.6 (0.9-1.1); PROTHROMBIN TIME (PATIENT) 16.9 SECONDS (9.0-12.0)
[2017-06-11 12:36] LABS: ALB/GLOB RATIO 0.5 (0.9-2); ALKALINE PHOSPHATASE 173 U/L (45-117); AST/SGOT 28 U/L (15-37)
[2017-06-11 12:52] LABS: URINE PATH CASTS 0-3 GRANULAR CASTS /lpf (0)
[2017-06-11] MEDS ORDERED: SODIUM CHLORIDE 0.9% 500ML 500 ML IV STA (13:57)
[2017-06-11] MEDS ORDERED: ALBUT/IPRATROP 3MG/0.5MG NEB 3 ML VIAL INH STA (14:04)
[2017-06-11] MEDS ORDERED: SODIUM CHLORIDE 0.9% 1000ML 1,000 ML IV STA (14:48)
[2017-06-11] MEDS ORDERED: ALBUMIN HUMAN 25% 12.5 GM/50 ML VIAL IV STA (16:35)
[2017-06-11] MEDS ORDERED: PROMETHAZINE HCL INJ 12.5 MG in SODIUM CHLORIDE 0.9% 50ML 50 ML IV PRN (17:45)
[2017-06-11] MEDS ORDERED: ACETAMINOPHEN 325 MG TAB PO PRN (17:45)
[2017-06-11] MEDS ORDERED: ALBUT/IPRATROP 3MG/0.5MG NEB 3 ML VIAL INH PRN (17:45)
--- NOTE | 2017-06-11 17:59 | Critical Care Consultation ---
Critical Care Consultation Date of Consultation: Jun 11, 2017. Attending Physician: Garrett Reason for Consultation: Hypotension History of Present Illness History of present is obtained from the patient, supplemental history obtained from the ED physician, and patient's , and patient's daughter. Patient is a 77-year-old female with a complex past medical history who presented today from [facility] for reported acute hypoxia. Normally she wears about 2 L of oxygen EMS and they had to increase rash level to 6 L. She also is reporting diffuse body pain. During that time from transport from [facility] to the emergency department they were able to decrease her oxygen to requirement to 2 L at baseline. She currently feels at her state of health, when questioned what bothering her "everything". Currently she denies chest pain, shortness of breath, abdominal pain, she does admit to diffuse arthralgias. No fevers no chills no diarrhea, easy bruisability secondary to Coumadin use. Past Medical/Surgical History Past medical history includes aortic stenosis, atrial flutter with rapid ventricular response, cardiac disease, cellulitis, CHF, chronic kidney disease stage III, type 2 diabetes, history of DVT, history of CVA, idiopathic pulmonary fibrosis, prior episode of sepsis. In discussing CODE STATUS patient desires to be a DO NOT RESUSCITATE in event of cardiac arrest, this is also consistent with prior notes. We discussed the possibility of advanced central venous access over concern for possible need for vasoactive medications. In discussing the risks and benefits patient and her felt it was not best to undergo central venous access. If the patient does require long-term administration of vasoactive's we would proceed with a peripherally inserted central catheter or a midline. Family History Cardiac disorder FATHER MOTHER Diabetes mellitus FATHER MOTHER BROTHER GRANDMOTHER FH: cancer Social History Smoking Status: Former Smoker Drug Use: none Marital Status: Housing Status: lives with family Occupation Status: retired, other Allergies Coded Allergies: Codeine (Verified Allergy, Severe, HIVES / DIFICULTY BREATHING; TAKES PERCOCET W/O PROBLEM, 05/24/17) Penicillins (Verified Allergy, Intermediate, RASH, 05/24/17) SY Inhibitors (Verified Adverse Reaction, Unknown, HYPERKALEMIA, 05/24/17) Home Medications Scheduled Aspirin (Aspirin Chewable), 81 MG PO DAILY Calcium Carbonate-Cholecalcife (Caltrate 600+D), 1 TAB PO DAILY Docusate Sodium (Colace), 1 CAP PO BID Furosemide (Lasix), 40 MG PO DAILY Home O2 Therapy (Oxygen), 2 LITERS NA HS Insulin Aspart (Novolog), 6 UNITS SQ TIDM Insulin Glargine (Lantus), 5 SC QPM Ipratropium-Albuterol (Combivent Respimat), 1 PUFFS INH QID Isosorbide Mononitrate Ext Rel (Imdur Ext Rel), 30 MG PO QAM Lactobacillus (Floranex), 2 TABS PO BID Levothyroxine Sodium (Levothyroxine Sodium), 137 MCG PO QAM Magnesium Oxide (Magnesium), 400 MG PO BID Ranitidine Hcl (Zantac), 150 MG PO BID Sotalol Hcl (Sotalol Hcl), 1 TAB PO BID Scheduled PRN Albuterol Hfa (Ventolin Hfa), 2 PUFF INH Q6 PRN for SOB/Wheezing Nitroglycerin (Nitrostat), 0.4 MG UT UD PRN for Chest Pain Ondansetron Hcl (Zofran), 4 MG PO Q6H PRN for Nausea or Vomiting Polyethylene (Miralax), 17 GM PO DAILY PRN for Constipation Current Inpatient Medications Current Inpatient Medications Medications (Trade) Dose Ordered Sig/Mike Route Start Time Stop Time Status Last Admin Dose Admin Sodium Chloride 1,000 ml @ 125 mls/hr Q8H STAT IV 06/11/17 14:48 06/11/17 22:47 06/11/17 15:09 125 MLS/HR Review of Systems See above for pertinent positives & negatives. A total of 10 systems reviewed and were otherwise negative. Constitutional: + fatigue (generalized), No fever, No chills, No sweats, No weight loss Eyes: No worsening of vision Respiratory: + shortness of breath (chronic), + dyspnea on exertion, No cough, No sputum, No wheezing Cardiovascular: + edema (chronic), No chest pain, No orthopnea Abdomen: + nausea (4 the past 3 days), + vomiting (with eating) Endocrine: + fatigue (chronic), + excessive thirst (chronic) Hematologic / Lymphatic: + abnormal bleeding/bruising (secondary to blood thinners), + clotting problems (history of venous thromboembolism) Physical Exam Date Time Temp Pulse Resp B/P (MAP) Pulse Ox O2 Delivery O2 Flow Rate FiO2 06/11/17 17:24 64 19 82/75 93 Nasal Cannula 5.0 Humidified Oxygen 06/11/17 16:30 60 22 97/55 90 Nasal Cannula 5.0 Humidified Oxygen 06/11/17 16:08 67 27 78/54 92 Nasal Cannula 5.0 Humidified Oxygen 06/11/17 15:46 60 06/11/17 15:30 60 19 80/53 94 Nasal Cannula 5.0 Humidified Oxygen 06/11/17 15:30 67 24 80/53 95 Nasal Cannula 5.0 Humidified Oxygen 06/11/17 15:00 63 15 79/51 94 Nasal Cannula Humidified Oxygen 06/11/17 14:30 61 15 83/49 91 Nasal Cannula 5.0 Humidified Oxygen 06/11/17 14:00 71 21 100/70 96 Nasal Cannula 5.0 Humidified Oxygen 06/11/17 13:30 60 16 86/53 96 Nasal Cannula 5.0 Humidified Oxygen 06/11/17 13:00 66 13 98/60 97 Nasal Cannula 5.0 Humidified Oxygen 06/11/17 12:31 71 18 88/48 91 Nasal Cannula 4.0 Humidified Oxygen 06/11/17 11:41 73 18 104/81 100 Nasal Cannula 6.0 Humidified Oxygen 06/11/17 11:00 65 06/11/17 10:52 94 Nasal Cannula 6.0 06/11/17 10:52 94 Nasal Cannula 6.0 06/11/17 10:52 36.5 64 13 89/52 94 Nasal Cannula 6.0 Humidified Oxygen General Appearance: no apparent distress Head: normocephalic, atraumatic Eyes: PERRLA Neck: normal range of motion, trachea midline, no stridor, supple, no thyromegaly Respiratory: rhonchi (scattered bilaterally) Abdomen: normal bowel sounds, no rebound, no masses, no guarding, no organomegaly, epigastric TTP (mild only with deep palpation) Back: normal inspection Lower Extremities: edema (up to mid thigh) Edema: Bilateral LE (3+) Pulses: radial (R) (2+), radial (L) (2+) Neuro: alert, oriented x 3 (oriented to place) Laboratory Results Last 24 Hours Test 06/11/17 10:50 06/11/17 11:41 06/11/17 11:52 10/1/17 16:41 White Blood Count 5.99 K/uL Red Blood Count 3.42 M/uL Hemoglobin 9.5 g/dL Hematocrit 30.2 % Mean Corpuscular Volume 88.3 fL Mean Corpuscular Hemoglobin 27.8 pg Mean Corpuscular Hemoglobin Concent 31.5 g/dl Platelet Count 149 K/uL Mean Platelet Volume 10.3 fL Neutrophils (%) (Auto) 57.3 % Lymphocytes (%) (Auto) 29.0 % Monocytes (%) (Auto) 10.0 % Eosinophils (%) (Auto) 3.0 % Basophils (%) (Auto) 0.5 % Neutrophils # (Auto) 3.43 K/uL Lymphocytes # (Auto) 1.74 K/uL Monocytes # (Auto) 0.60 K/uL Eosinophils # (Auto) 0.18 K/uL Basophils # (Auto) 0.03 K/uL RDW Standard Deviation 63.2 fL RDW Coefficient of Variation 20.3 % Immature Granulocyte % (Auto) 0.2 % Immature Granulocyte # (Auto) 0.01 K/uL Nucleated RBC Absolute Count (auto) 0.02 K/uL Nucleated Red Blood Cells % 0.4 % Large Platelets 1+ Polychromasia 1+ Hypochromasia PRESENT Anisocytosis PRESENT Urine Color DK YELLOW Urine Appearance CLEAR Urine pH 5.0 Urine Specific [place] 1.019 Urine Protein NEG Urine Glucose (UA) NEG Urine Ketones NEG Urine Occult Blood NEG Urine Nitrite NEG Urine Bilirubin NEG Urine Urobilinogen NEG Urine Leukocyte Esterase TRACE Urine WBC (Auto) 1-5 /hpf Urine RBC (Auto) 0-4 /hpf Urine Hyaline Casts (Auto) >30 /lpf Urine Epithelial Cells (Auto) 5-10 /lpf Urine Bacteria (Auto) NEG Urine Pathogenic Casts 0-3 GRANULAR CASTS /lpf Prothrombin Time 16.9 SECONDS Prothromb Time International Ratio 1.6 Sodium Level 131 mmol/L Potassium Level 4.5 mmol/L Chloride Level 97 mmol/L Carbon Dioxide Level 27 mmol/L Anion Gap 7.0 mmol/L Blood Urea Nitrogen 38 mg/dl Creatinine 1.70 mg/dl Estimated GFR () 33.6 Estimated GFR (Non- 29.0 BUN/Creatinine Ratio 22.4 Random Glucose 172 mg/dl Lactic Acid Level 3.0 mmol/L 2.5 mmol/L Calcium Level 8.9 mg/dl Magnesium Level 2.4 mg/dl Total Bilirubin 2.0 mg/dl Aspartate Amino Transf (AST/SGOT) 28 U/L Alanine Aminotransferase (ALT/SGPT) 33 U/L Alkaline Phosphatase 173 U/L Ammonia < 10.0 umol/L Troponin I < 0.015 ng/ml Pro-B-Type Natriuretic Peptide 57978 pg/ml Total Protein 7.5 gm/dl Albumin 2.4 gm/dl Globulin 5.1 gm/dl Albumin/Globulin Ratio 0.5 Thyroid Stimulating Hormone (TSH) 6.540 uIu/ml Test 06/11/17 16:49 Diagnostic Results HEAD WITHOUT CONTRAST (CT) CLINICAL HISTORY: 77 years-old Female with confusion. Acute confusion. Initial exam. TECHNIQUE: Multiple axial CT images of the head were obtained without contrast. A dose lowering technique was utilized adhering to the principles of ALARA. CT DOSE: 1074.96 mGy.cm COMPARISON: CT head 06/02/2017. FINDINGS: No acute intracranial hemorrhage, midline shift, mass, large territorial ischemia or abnormal extra-axial collection. There is moderate atrophy with ex vacuo ventriculomegaly. The exam is moderately limited secondary to patient motion. Severe chronic background microvascular ischemic changes are noted. There is a remote appearing lacunar infarction of the left caudate nucleus, also unchanged. The calvarium is intact. The mastoid air cells, and middle ear cavities are clear. Chronic mucoperiosteal thickening of the maxillary sinus is noted. IMPRESSION: 1. No acute intracranial abnormality. 2. Atrophy with background chronic microvascular ischemic changes and remote left caudate nucleus lacunar infarction. The above report was generated using voice recognition software. It may contain grammatical, syntax or spelling errors. Electronically signed by: Dionte Ramirez M.D. 06/11/2017 12:21 PM CHEST ONE VIEW PORTABLE HISTORY: 77 years-old Female sob acute shortness of breath. COMPARISON: Chest radiograph 05/31/2017 TECHNIQUE: Portable upright AP view of the chest FINDINGS: Cardiac silhouette is moderately enlarged. Dual-lead left pectoral pacer is again noted with leads intact. Prior median sternotomy. There is no pneumothorax. Small bilateral pleural effusions. Unchanged. Pulmonary vascular congestion with background interstitial coarsening and patchy bilateral alveolar opacities are again seen within a perihilar and bibasilar predominant distribution. Focal asymmetric opacity of the right midlung is unchanged. Degenerative changes are seen about the shoulders and spine. IMPRESSION: 1. Stable exam with cardiomegaly and persistent pulmonary edema pattern. 2. Small bilateral pleural effusions. 3. Persistent focal opacity of the right midlung suggests fluid within the minor fissure. Focal atelectasis or pneumonia could have a similar appearance. The above report was generated using voice recognition software. It may contain grammatical, syntax or spelling errors. Electronically signed by: Dionte Ramirez M.D. 06/11/2017 12:02 PM Dictated Date/Time: 06/11/2017 12:00 PM Assessment & Plan Reason Critically Ill: Patient critically ill due to hypotension and lactic acidosis PLAN: Neuro: Mental status changes History of metabolic encephalopathy * Monitor for acute delirium History of CVA * Continue current anticoagulation Resp: Acute hypoxic respiratory failure * Patient is a DNR/DNI in event of severe respiratory failure * Pneumonia considered, procalcitonin pending * Empiric coverage with Levaquin for possible diverticulosis will also cover pulmonary pathogens * History of venous thromboembolism * Continue current anticoagulation * Subtherapeutic INR, otherwise could consider PE, however patient would not be candidate for systemic thrombolysis, BNP is mildly elevated, however there is no troponin leak CV: Acute arterial hypotension * History of congestive heart failure * Consider intravascular volume depletion * Did respond to fluid boluses * Repeat echo * History of aortic stenosis * Avoid tachycardia if requires pressors would use phenylephrine * Intravascular volume depletion could be secondary to chronic malnutrition versus sepsis associated capillary leak Fluids/Renal: Stage III chronic kidney disease * Has responded to fluid boluses * Will give additional albumin as needed Hyponatremia * Considered hypovolemic hyponatremia * Patient has already received albumin and normal saline which would confuse picture of checking serum osmolality at this time ID: Lactic acidosis * Not meeting SIRS criteria * Procalcitonin pending at this time * History of concern for diverticulitis for which she finished a course of antibiotics for * Empiric coverage given the elevated lactate with Levaquin and Flagyl * Last MRSA swab negative, no gram-positive coverage at this point * No evidence of cellulitis or other concern for gram-positive bacteremia GI/Nutrition: Nausea and vomiting * Considered mesenteric ischemia, however highly unlikely, very minimal pain with deep palpation * Considered in setting of history of atrial flutter and subtherapeutic INR * Will obtain nonconscious CT scan, contrast risks and contrast-induced nephropathy outweigh benefit of clinical exam which was not consistent with mesenteric ischemia Hypoalbuminemia * Dietary consult and morning, evaluation for malnutrition Heme: Chronic anemia * Would be willing to undergo blood transfusion if required * Discussed risks benefits if needed with , patient, daughter History of venous thromboembolism per records Subtherapeutic INR * Continue Coumadin for anticoagulation Endocrine: Hyperglycemia * History of type 2 diabetes * Insulin sliding scale versus drip if needed Random cortisol pending * Given empiric stress dose of 100 mg hydrocortisone Hypothyroidism * TSH 6.5 * Check T3-T4 CODE STATUS: DO NOT RESUSCITATE I have personally spent 60 minutes of critical care time in the direct management of this patient. This is a life/limb threatening event. This includes time spent evaluating patient, direct bedside care, chart review, placing orders, interpretation of diagnostic studies, discussion with consultants, patient, and family members, as well as other required patient management activities. This time is exclusive of all separately billable procedures, and teaching time and separate from and in addition to any other critical care service time.
[2017-06-11] MEDS ORDERED: POLYETHYLENE (MIRALAX) 17 GM PACK PO PRN (18:00)
[2017-06-11] MEDS ORDERED: INSULIN ASPART 100 UNITS/ML 3 ML PEN SQ SCH (18:00)
[2017-06-11] MEDS ORDERED: GLUCOSE 10 TABS/TUBE PO PRN (18:00)
[2017-06-11] MEDS ORDERED: GLUCOSE 40% GEL 15 GM TUBE PO PRN (18:00)
[2017-06-11] MEDS ORDERED: DEXTROSE 50% 50 ML SYR IV PRN (18:00)
[2017-06-11] MEDS ORDERED: GLUCAGON FOR INJ 1 MG VIAL SQ PRN (18:00)
[2017-06-11] MEDS ORDERED: NITROGLYCERIN 0.4 MG SL PER TAB CHARGE UT PRN (18:00)
[2017-06-11] MEDS ORDERED: ALBUTEROL HFA 8 GM INHALER INH PRN (18:00)
[2017-06-11 18:26] LABS: T3 TOTAL 0.29 ng/ml (0.60-1.81); THYROXINE (T4) 5.6 mcg/dl (4.5-10.9)
[2017-06-11 18:36] LABS: VEN BLD GAS O2 SATURATION < 60.0 %; VENOUS BLOOD GAS PCO2 46 mmHg (38.0-50.0); VENOUS BLOOD GAS PO2 21 mmHg
--- NOTE | 2017-06-11 18:45 | History and Physical ---
History & Physical Date & Time of Service: Jun 11, 2017 at 18:08 Chief Complaint: Illness Primary Care Physician: Gio Braun D.O. History of Present Illness Source: patient, family Patient is a 77 Yr female with Multiple comorbidities and complex history who was recently discharged from [facility] after being treated for metabolic encephalopathy, GI bleed, CHF, ARF and COPD presents from [facility] after being found to have william ein mental status and hypoxia requiring 6L of oxygen to maintain sats for further evaluation. History id limited as patient is a poor historian. Most of the information is obtained from patient's family ( , daughter), ED staff and old records. Patient was found to be Hypotensive with SBP in 70s per patient's daughter and she has poor appetite since 3 days secondary to nausea. Patient was also complaining for generalized body pain. While in ED, patient was found to be hypotensive and received IV fluids, Albumin and currently saturating 93% on 5L. She is alert, awake and oriented. On further discussion patient and her family expressed no aggressive management including CPR, intubation, HD and central line placements. She currently denies any chest pain, SOB, wheezing, headache, dizziness, abd pain, fevers, chills, diarrhea, urinary symptoms. No other relevant history could be obtained. Past Medical/Surgical History Medical Problems: (1) Aortic stenosis Permanent Comment: severe per echo 03/2017 Status: Chronic (2) CAD (coronary artery disease) Permanent Comment: s/p CABG 12/2009 Status: Chronic (3) Chronic back pain Status: Chronic (4) CKD (chronic kidney disease) stage 3, GFR 30-59 ml/min Status: Chronic (5) Depression Status: Chronic (6) DM type 2 (diabetes mellitus, type 2) Status: Chronic (7) Dyslipidemia Status: Chronic (8) GERD (gastroesophageal reflux disease) Status: Chronic (9) H/O diabetes insipidus Status: Chronic (10) H/O vertigo Status: Chronic (11) Heterozygous MTHFR mutation [id number] Status: Chronic (12) History of CVA (cerebrovascular accident) Status: Chronic (13) History of DVT (deep vein thrombosis) Status: Chronic (14) History of hyperkalemia Permanent Comment: SY/ARB intolerance Status: Chronic (15) History of TIA (transient ischemic attack) Status: Chronic (16) HTN (hypertension) Status: Chronic (17) Hypothyroidism Status: Chronic (18) Idiopathic pulmonary fibrosis Status: Chronic (19) Malignant neoplasm of corpus uteri Status: Chronic (20) Migraine Status: Chronic (21) Moderate COPD (chronic obstructive pulmonary disease) Status: Chronic (22) Paroxysmal a-fib Status: Chronic (23) Systolic CHF Permanent Comment: EF 45-50% on echo 03/12/17 Status: Chronic (24) Tobacco abuse Status: Chronic (25) Valvular disease Permanent Comment: echo 07/21/15 Bicuspid aortic valve with moderate aortic stenosis and mild mitral regurg Status: Chronic Surgical Problems: (1) H/o bile tract procedure Status: Chronic (2) H/O cardiac catheterization Permanent Comment: July 2010- left subclavian stenosis with atretic ROMAN graft. The LAD however most significant lesion was less than 50%. The circumflex and right coronary arteries were severely diseased though there were widely patent grafts. Status: Chronic (3) H/O excision of lamina of cervical vertebra for decompression of spinal cord Status: Resolved (4) H/O hernia repair Status: Resolved (5) H/O total hysterectomy with bilateral salpingo-oophorectomy (BSO) Permanent Comment: 1967 secondary to malignancy Status: Resolved (6) History of cholecystectomy Permanent Comment: 1969 Status: Resolved (7) History of total hip replacement Permanent Comment: L Hip performed by Dr. Jaffe 2009 Status: Resolved (8) S/P CABG (coronary artery bypass graft) Permanent Comment: 12/2009 Status: Resolved Family History Cardiac disorder FATHER MOTHER Diabetes mellitus FATHER MOTHER BROTHER GRANDMOTHER FH: cancer Reviewed,Not relevant Social History Smoking Status: Former Smoker Drug Use: none Marital Status: Housing status: [facility] Occupational Status: retired, other Immunizations History of Influenza Vaccine: Unknown Influenza Vaccine Date: Jul 20, 2009 History of Tetanus Vaccine?: Unknown Tetanus Immunization Date: Sep 19, 2004 History of Pneumococcal: Unknown Pneumococcal Date: February 07, 2008 History of Hepatitis B Vaccine: Unknown Multi-Drug Resistant Organisms History of MDRO: No Allergies Coded Allergies: Codeine (Verified Allergy, Severe, HIVES / DIFICULTY BREATHING; TAKES PERCOCET W/O PROBLEM, 05/24/17) Penicillins (Verified Allergy, Intermediate, RASH, 05/24/17) SY Inhibitors (Verified Adverse Reaction, Unknown, HYPERKALEMIA, 05/24/17) Home Medications Scheduled Aspirin (Aspirin Chewable), 81 MG PO DAILY Calcium Carbonate-Cholecalcife (Caltrate 600+D), 1 TAB PO DAILY Docusate Sodium (Colace), 1 CAP PO BID Furosemide (Lasix), 40 MG PO DAILY Home O2 Therapy (Oxygen), 2 LITERS NA HS Insulin Aspart (Novolog), 6 UNITS SQ TIDM Insulin Glargine (Lantus), 5 SC QPM Ipratropium-Albuterol (Combivent Respimat), 1 PUFFS INH QID Isosorbide Mononitrate Ext Rel (Imdur Ext Rel), 30 MG PO QAM Lactobacillus (Floranex), 2 TABS PO BID Levothyroxine Sodium (Levothyroxine Sodium), 137 MCG PO QAM Magnesium Oxide (Magnesium), 400 MG PO BID Ranitidine Hcl (Zantac), 150 MG PO BID Sotalol Hcl (Sotalol Hcl), 1 TAB PO BID Scheduled PRN Albuterol Hfa (Ventolin Hfa), 2 PUFF INH Q6 PRN for SOB/Wheezing Nitroglycerin (Nitrostat), 0.4 MG UT UD PRN for Chest Pain Ondansetron Hcl (Zofran), 4 MG PO Q6H PRN for Nausea or Vomiting Polyethylene (Miralax), 17 GM PO DAILY PRN for Constipation Review of Systems See HPI for pertinent positives & negatives. A total of 10 systems reviewed and were otherwise negative. Physical Exam Vital Signs Date Time Temp Pulse Resp B/P (MAP) Pulse Ox O2 Delivery O2 Flow Rate FiO2 06/11/17 17:24 64 19 82/75 93 Nasal Cannula 5.0 Humidified Oxygen 06/11/17 16:30 60 22 97/55 90 Nasal Cannula 5.0 Humidified Oxygen 06/11/17 16:08 67 27 78/54 92 Nasal Cannula 5.0 Humidified Oxygen 06/11/17 15:46 60 06/11/17 15:30 60 19 80/53 94 Nasal Cannula 5.0 Humidified Oxygen 06/11/17 15:30 67 24 80/53 95 Nasal Cannula 5.0 Humidified Oxygen 06/11/17 15:00 63 15 79/51 94 Nasal Cannula Humidified Oxygen 06/11/17 14:30 61 15 83/49 91 Nasal Cannula 5.0 Humidified Oxygen 06/11/17 14:00 71 21 100/70 96 Nasal Cannula 5.0 Humidified Oxygen 06/11/17 13:30 60 16 86/53 96 Nasal Cannula 5.0 Humidified Oxygen 06/11/17 13:00 66 13 98/60 97 Nasal Cannula 5.0 Humidified Oxygen 06/11/17 12:31 71 18 88/48 91 Nasal Cannula 4.0 Humidified Oxygen 06/11/17 11:41 73 18 104/81 100 Nasal Cannula 6.0 Humidified Oxygen 06/11/17 11:00 65 06/11/17 10:52 94 Nasal Cannula 6.0 06/11/17 10:52 94 Nasal Cannula 6.0 06/11/17 10:52 36.5 64 13 89/52 94 Nasal Cannula 6.0 Humidified Oxygen General Appearance: no apparent distress, + pertinent finding (Chronicalli ill appearing) Head: normocephalic, atraumatic Eyes: normal inspection, PERRL, EOMI, sclerae normal ENT: normal ENT inspection, hearing grossly normal Neck: supple, trachea midline Respiratory/Chest: chest non-tender, no accessory muscle use, + decreased breath sounds, + crackles (Scattered) Cardiovascular: regular rate, rhythm, + systolic murmur, + pertinent finding (3 + b/l LE edema) Abdomen/GI: normal bowel sounds, soft, + tenderness (epigastric) Back: normal inspection Extremities/Musculoskelatal: normal inspection, + pedal edema (3+ B/L LE ) Neurologic/Psych: alert, normal mood/affect, oriented x 3, + pertinent finding (Grossly no focal deficits) Skin: normal color, warm/dry Diagnostics Laboratory Results Results Past 24 Hours Test 06/11/17 10:50 06/11/17 11:41 06/11/17 11:52 06/11/17 16:41 Range/Units White Blood Count 5.99 4.8-10.8 K/uL Red Blood Count 3.42 4.2-5.4 M/uL Hemoglobin 9.5 12.0-16.0 g/dL Hematocrit 30.2 37-47 % Mean Corpuscular Volume 88.3 80-100 fL Mean Corpuscular Hemoglobin 27.8 25-34 pg Mean Corpuscular Hemoglobin Concent 31.5 32-36 g/dl Platelet Count 149 130-400 K/uL Mean Platelet Volume 10.3 7.4-10.4 fL Neutrophils (%) (Auto) 57.3 % Lymphocytes (%) (Auto) 29.0 % Monocytes (%) (Auto) 10.0 % Eosinophils (%) (Auto) 3.0 % Basophils (%) (Auto) 0.5 % Neutrophils # (Auto) 3.43 1.4-6.5 K/uL Lymphocytes # (Auto) 1.74 1.2-3.4 K/uL Monocytes # (Auto) 0.60 0.11-0.59 K/uL Eosinophils # (Auto) 0.18 0-0.5 K/uL Basophils # (Auto) 0.03 0-0.2 K/uL RDW Standard Deviation 63.2 36.4-46.3 fL RDW Coefficient of Variation 20.3 11.5-14.5 % Immature Granulocyte % (Auto) 0.2 % Immature Granulocyte # (Auto) 0.01 0.00-0.02 K/uL Nucleated RBC Absolute Count (auto) 0.02 0-0 K/uL Nucleated Red Blood Cells % 0.4 % Large Platelets 1+ Polychromasia 1+ Hypochromasia PRESENT Anisocytosis PRESENT Urine Color DK YELLOW Urine Appearance CLEAR CLEAR Urine pH 5.0 4.5-7.5 Urine Specific [place] 1.019 1.000-1.030 Urine Protein NEG NEG Urine Glucose (UA) NEG NEG Urine Ketones NEG NEG Urine Occult Blood NEG NEG Urine Nitrite NEG NEG Urine Bilirubin NEG NEG Urine Urobilinogen NEG NEG Urine Leukocyte Esterase TRACE NEG Urine WBC (Auto) 1-5 0-5 /hpf Urine RBC (Auto) 0-4 0-4 /hpf Urine Hyaline Casts (Auto) >30 0-5 /lpf Urine Epithelial Cells (Auto) 5-10 0-5 /lpf Urine Bacteria (Auto) NEG NEG Urine Pathogenic Casts 0-3 GRANULAR CASTS 0 /lpf Prothrombin Time 16.9 9.0-12.0 SECONDS Prothromb Time International Ratio 1.6 0.9-1.1 Sodium Level 131 136-145 mmol/L Potassium Level 4.5 3.5-5.1 mmol/L Chloride Level 97 98-107 mmol/L Carbon Dioxide Level 27 21-32 mmol/L Anion Gap 7.0 3-11 mmol/L Blood Urea Nitrogen 38 7-18 mg/dl Creatinine 1.70 0.60-1.20 mg/dl Estimated GFR () 33.6 Estimated GFR (Non- 29.0 BUN/Creatinine Ratio 22.4 10-20 Random Glucose 172 70-99 mg/dl Lactic Acid Level 3.0 2.5 0.4-2.0 mmol/L Calcium Level 8.9 8.5-10.1 mg/dl Magnesium Level 2.4 1.8-2.4 mg/dl Total Bilirubin 2.0 0.2-1 mg/dl Aspartate Amino Transf (AST/SGOT) 28 15-37 U/L Alanine Aminotransferase (ALT/SGPT) 33 12-78 U/L Alkaline Phosphatase 173 45-117 U/L Ammonia < 10.0 11-32 umol/L Troponin I < 0.015 0-0.045 ng/ml Pro-B-Type Natriuretic Peptide 19628 0-900 pg/ml Total Protein 7.5 6.4-8.2 gm/dl Albumin 2.4 3.4-5.0 gm/dl Globulin 5.1 2.5-4.0 gm/dl Albumin/Globulin Ratio 0.5 0.9-2 Thyroid Stimulating Hormone (TSH) 6.540 0.300-4.500 uIu/ml Test 06/11/17 16:49 06/11/17 17:45 Range/Units Procalcitonin 0.15 0-0.5 ng/ml Microbiology Results 06/11/17 Blood Culture, Received Pending 06/11/17 Blood Culture, Received Pending Diagnostic Radiology CT Head: 1. No acute intracranial abnormality. 2. Atrophy with background chronic microvascular ischemic changes and remote left caudate nucleus lacunar infarction. CXR: 1. Stable exam with cardiomegaly and persistent pulmonary edema pattern. 2. Small bilateral pleural effusions. 3. Persistent focal opacity of the right midlung suggests fluid within the minor fissure. Focal atelectasis or pneumonia could have a similar appearance. EKG EKG:Atrial-paced rhythm with prolonged AV conduction, prolonged QTC Impression Assessment and Plan Metabolic Encephalopathy Possible Sepsis/Lactic acidosis Volume overload with Intravascular depletion/Hypotension Admit in ICU CT head: no acute pathology S/P IV fluids, showed some response but BP labile May need pressors Patient and family prefers no aggressive measure including Central line placement, hemodialysis, CPR, Intubation OK with blood transfusions/Mid or PICC line S/P IV albumin. Continue PRN Given 100mg Hydrocortisone Random cortisol pending Repeat lactate levels, procalcitonin Empirically start on Levaquin and Flagyl Blood cultures ordered UA: normal check CT ABD for abdominal tenderness Acute on chronic Hypoxic respiratory failure: Multifactorial H/O COPD, IPF, CHF Check VBG DuoNeb Oxygen support CXR:cardiomegaly, persistent pulmonary edema, small b/l pleural effusions, Persistent focal opacity of R midlung On Levaquin empirically Chronic Hyponatremia Sodium levels:131 Monitor levels CAD S/P CABG Aortic Stenosis Chronic Systolic CHF P.afib Chronic anemia: Subtherapeutic INR No angina symptoms Hold Lasix secondary to hypotension Monitor for hemodynamic changes restart coumadin Monitor INR: 1.6 Continue home meds Update ECHO H/O coumadin induced GI bleed Hb stable CKD III: Cr at baseline Monitor renal function DM II: ISS, Lantus, accu checks Prolonged QTC: Avoid QT prolonging meds GERD: continue home meds Hypothyroidism: continue Levothyroxine Check Free T4 H/O CVA, DVT: continue home meds Former Tobacco use DVT Px: On coumadin Code Status: DNI/DNR: on discussion with patient, family (Daughter, ) VTE Prophylaxis VTE Risk Assessment Done? Y/N: Yes Risk Level: Moderate
[2017-06-11] MEDS ORDERED: PHARMACY GLYCEMIC MGMT CONSULT PRN (19:11)
--- NOTE | 2017-06-11 19:27 | DIAGNOSTIC IMAGING REPORT ---
ABD/PELVIS NO IV OR ORAL CONT HISTORY: 77 years-old Female abd pain acute generalized abdominal pain. History of colonic diverticulosis COMPARISON: CT abdomen and pelvis 05/25/2017. TECHNIQUE: Multiple axial CT images of the abdomen and pelvis were obtained without contrast. A dose lowering technique was used consistent with the principals of INES. FINDINGS: Small bilateral pleural effusions persist with areas of bibasilar intralobular septal thickening, mild traction bronchiectasis and diffuse subpleural reticulation. Findings appear unchanged from prior. Mild background pulmonary edema. The cardiac chambers are enlarged. Dense mitral valve calcifications are noted. Pacer wire leads the right ventricle. No pneumoperitoneum identified. Cirrhotic morphology of the liver is noted with trace intra-abdominal and intrapelvic ascites. Spleen and adrenal glands are within normal limits. The gallbladder appears surgically absent. There is moderate diffuse pancreatic atrophy. Vascular calcifications of the kidneys are seen bilaterally with multifocal renal cortical thinning. No hydronephrosis. Urinary bladder is unremarkable. Prior hysterectomy. Extensive vascular calcifications are noted. No aortic aneurysm. No bulky retroperitoneal adenopathy identified. Anasarca noted with diffuse body wall and mesenteric edema redemonstrated. This limits the dilation for any sort of possible mesenteric inflammatory changes. No focal bowel wall thickening or bowel obstruction. There is a large stool ball in the rectal vault, 7.0 cm with moderate stool burden of the sigmoid. Extensive colonic diverticulosis redemonstrated with possible stranding again seen within the region of the descending sigmoid junction. No associated abscess or perforation. There is moderate soft tissue prominence within the region of the inferior rectum seen on image 396 of series 3. Bowel containing ventral abdominal wall hernia is unchanged. Fusion hardware of the lower lumbar spine extending from L2-S1. No evidence of hardware complication. Severe multilevel changes of the spine. IMPRESSION: 1. Extensive sigmoid diverticulosis redemonstrated with possible inflammatory changes seen within the distribution of the descending sigmoid junction. Evaluation for mesenteric inflammatory changes however is very limited secondary to diffuse mesenteric edema with volume overload. 2. Moderate to extensive stool burden as above suggests constipation with large stool ball in the rectal vault noted. Moderate soft tissue prominence within the region of the inferior rectum as above may reflect associated stercoral proctitis. Correlate with digital rectal exam to exclude underlying mass. 3. Cirrhotic liver disease with trace intra-abdominal ascites. Anasarca. 4. Small bilateral pleural effusions with evidence of interstitial lung disease and traction bronchiectasis. There is likely mild superimposed pulmonary edema. The above report was generated using voice recognition software. It may contain grammatical, syntax or spelling errors. Electronically signed by: Dionte Ramirez M.D. 06/11/2017 7:26 PM Dictated Date/Time: 06/11/2017 7:17 PM
[2017-06-11] MEDS ORDERED: WARFARIN SOD 2 MG TAB PO ONE (20:00)
[2017-06-11] MEDS ORDERED: METRONIDAZOLE / NSS 500 MG in PREMIXED NSS 100 ML IV SCH (20:00)
[2017-06-11] MEDS ORDERED: INFLUENZA VACCINE HIGH DOSE 65+ 0.5 ML SYR IM. ONE (20:00)
[2017-06-11] MEDS ORDERED: HYDROCORTISONE IV 100 MG in SYRINGE 0 ML IV ONE (20:00)
[2017-06-11] MEDS ORDERED: INFLUENZA ADMINISTRATION CHARGE ONE (20:00)
[2017-06-11] MEDS: ALBUT/IPRATROP 3MG/0.5MG NEB 3 ML VIAL INH SCH (20:16)
[2017-06-11] MEDS: DOCUSATE SODIUM 100 MG CAP PO SCH (20:38)
[2017-06-11] MEDS: RANITIDINE HCL 150 MG TAB PO SCH (20:39)
[2017-06-11] MEDS: LACTOBACILLUS ACIDOPHILUS (FLORANEX) TAB PO SCH (20:40)
[2017-06-11] MEDS: IPRATROPIUM BROMIDE/ALBUTEROL respimat INH INH SCH (20:42)
[2017-06-11] MEDS ORDERED: MAGNESIUM OXIDE 400 MG TAB PO SCH (21:00)
[2017-06-11] MEDS ORDERED: RANITIDINE HCL 150 MG TAB PO SCH (21:00)
[2017-06-11] MEDS ORDERED: INSULIN GLARGINE SOLOSTAR 100 UNITS/ML 3 ML PEN SC SCH ×2 (21:00)
[2017-06-11] MEDS ORDERED: LEVOFLOXACIN / D5W 500 MG in PREMIXED IN D5W 100 ML IV SCH (21:00)
[2017-06-11] MEDS ORDERED: DOCUSATE SODIUM 100 MG CAP PO SCH (21:00)
[2017-06-11] MEDS ORDERED: SOTALOL HCL 80 MG TAB PO SCH ×2 (21:00)
[2017-06-11] MEDS: INSULIN ASPART 100 UNITS/ML 3 ML PEN SC SCH (21:05)
[2017-06-11] MEDS ORDERED: MoRPHine SULFATE 2 MG/ML CARP IV STA (23:07)
[2017-06-12] VITALS (18 sets, daily range): BP systolic 79–117; BP diastolic 31–70; PULSE 60–84; TEMP 35.7–36.3; O2SAT 95–100
[2017-06-12] MEDS: INSULIN ASPART 100 UNITS/ML 3 ML PEN SC SCH ×4 (00:06→13:52)
[2017-06-12] MEDS ORDERED: MoRPHine SULFATE 2 MG/ML CARP IM PRN (02:00)
[2017-06-12] MEDS: HYDROCORTISONE IV SCH ×3 (02:32→13:56)
[2017-06-12] MEDS ORDERED: MoRPHine SULFATE 2 MG/ML CARP IV PRN (02:45)
[2017-06-12 05:11] LABS: HEMATOCRIT 29.5 % (37-47); IG% 0.2 %; LYMPH % 17.7 %; LYMPH ABS # 0.81 K/uL (1.2-3.4); MEAN CELL VOLUME 88.9 fL (80-100); MEAN CORPUSCULAR HGB CONC 31.5 g/dl (32-36); MEAN PLATELET VOLUME 10.5 fL (7.4-10.4); MONO % 2.6 %; NEUT % 79.5 %; PLATELET COUNT 133 K/uL (130-400); RED BLOOD COUNT 3.32 M/uL (4.2-5.4); WHITE BLOOD COUNT 4.58 K/uL (4.8-10.8)
[2017-06-12 05:14] LABS: VEN BLD GAS O2 SATURATION < 60.0 %; VEN BLOOD GAS BASE EXCESS 1.1 mEq/L; VENOUS BLOOD GAS PCO2 51 mmHg (38.0-50.0); VENOUS BLOOD GAS PO2 29 mmHg
[2017-06-12 05:23] LABS: INR 1.6 (0.9-1.1); PROTHROMBIN TIME (PATIENT) 17.5 SECONDS (9.0-12.0)
[2017-06-12 05:35] LABS: ANISOCYTOSIS PRESENT; COMPLETE YES; HYPOCHROMIA PRESENT; LARGE PLATELETS 1+; TARGET CELLS 1+
[2017-06-12] MEDS ORDERED: LEVOTHYROXINE 137 MCG TAB PO SCH ×2 (06:00→09:00)
[2017-06-12 06:02] LABS: BUN/CREATININE RATIO 22.7 (10-20); CALCIUM 8.9 mg/dl (8.5-10.1); CREATININE 1.8 mg/dl (0.60-1.20); MAGNESIUM 2.6 mg/dl (1.8-2.4)
[2017-06-12 06:12] LABS: PHOSPHORUS 4.1 mg/dl (2.5-4.9); THYROID STIMULATING HORMONE 4.49 uIu/ml (0.300-4.500)
[2017-06-12] MEDS ORDERED: LEVOTHYROXINE SODIUM 20 MCG/1 ML IV SCH (06:30)
[2017-06-12] MEDS: ALBUT/IPRATROP 3MG/0.5MG NEB 3 ML VIAL INH SCH ×3 (07:27→15:28)
[2017-06-12] MEDS: IPRATROPIUM BROMIDE/ALBUTEROL respimat INH INH SCH ×2 (08:20→13:49)
[2017-06-12] MEDS: LACTOBACILLUS ACIDOPHILUS (FLORANEX) TAB PO SCH (08:20)
[2017-06-12] MEDS: ISOSORBIDE MONONITRATE 30 MG TABCR PO SCH ×2 (08:22→08:50)
[2017-06-12] MEDS: RANITIDINE HCL 150 MG TAB PO SCH (08:22)
[2017-06-12] MEDS: DOCUSATE SODIUM 100 MG CAP PO SCH (08:22)
[2017-06-12] MEDS ORDERED: SOD PHOSPHATE/SOD BIPHOSPHATE ENEMA 132 ML BTL ONE (08:52)
[2017-06-12] MEDS ORDERED: LEVOTHYROXINE SODIUM INJ 100 MCG in SYRINGE 0 ML IV SCH (09:00)
[2017-06-12] MEDS ORDERED: ASPIRIN 81 MG CHEW PO SCH ×2 (09:00)
[2017-06-12] MEDS ORDERED: SOD PHOSPHATE/SOD BIPHOSPHATE ENEMA 132 ML BTL PR PRN (09:00)
[2017-06-12] MEDS ORDERED: CALCIUM 600MG + VIT D 400 IU TAB PO SCH (09:00)
--- NOTE | 2017-06-12 09:12 | Progress Note ---
Internal Med Progress Note Date of Service: Jun 12, 2017. Provider Documentation: SUBJECTIVE: Seen and examined at bedside More lethargic today Had a coughing spell after breakfast Currently saturating on 6L NC Will get speech and swallow eval Denies chest pain No family at bedside Poor historian Very poor prognosis Planned for fleet enema today to help with constipation Palliative care consulted to identify goals of care OBJECTIVE: Vital Signs-as noted below General Appearance: no apparent distress, + pertinent finding (Chronically ill appearing), Anasarca Head: normocephalic, atraumatic Eyes: normal inspection, PERRL, EOMI, sclerae normal ENT: normal ENT inspection, hearing grossly normal Neck: supple, trachea midline Respiratory/Chest: chest non-tender, no accessory muscle use, + decreased breath sounds, + crackles (Scattered) Cardiovascular: regular rate, rhythm, + systolic murmur, + pertinent finding (3 + b/l LE edema) Abdomen/GI: normal bowel sounds, soft, + tenderness (epigastric) Back: normal inspection Extremities/Musculoskelatal: normal inspection, + pedal edema (3+ B/L LE ) Neurologic/Psych: alert, normal mood/affect, oriented x 3, + pertinent finding (Grossly no focal deficits) Skin: normal color, warm/dry Lab data as noted below. ASSESSMENT & PLAN: Metabolic Encephalopathy Possible Sepsis/Lactic acidosis Volume overload with Intravascular depletion/Hypotension Anasarca CT head: no acute pathology S/P IV fluids, showed some response but BP labile May need pressors Patient and family prefers no aggressive measure including Central line placement, hemodialysis, CPR, Intubation OK with blood transfusions/Mid or PICC line S/P IV albumin. Continue PRN On Hydrocortisone per ICU team Random cortisol:14.9 Repeat lactate levels:.25 procalcitonin:normal Discontinued empiric Levaquin and Flagyl MRSA screen negative Blood cultures:pending UA: normal CT ABD: as below Palliative care consulted to identify goals of care Enema given to help with constipation Will not tolerate IV diuretics secondary to labile BP Acute on chronic Hypoxic respiratory failure: Multifactorial H/O COPD, IPF, CHF DuoNeb Oxygen support CXR:cardiomegaly, persistent pulmonary edema, small b/l pleural effusions, Persistent focal opacity of R midlung Will not tolerate IV diuretics secondary to labile BP Chronic Hyponatremia Sodium levels:131>>.135 Monitor levels CAD S/P CABG Aortic Stenosis Chronic Systolic CHF P.afib Chronic anemia: Subtherapeutic INR No angina symptoms Hold Lasix secondary to hypotension Monitor for hemodynamic changes Coumadin discontinued last admission secondary to GI bleed INR: 1.6 Continue home meds ECHO pending H/O Coumadin induced GI bleed Hb stable CKD III: Cr at baseline Monitor renal function DM II: ISS, Lantus, accu checks Prolonged QTC: Avoid QT prolonging meds GERD: continue home meds Hypothyroidism: continue Levothyroxine TSH, Free T4:normal H/O CVA, DVT: continue home meds Former Tobacco use DVT Px: Heparin SQ Code Status: DNI/DNR: on discussion with patient, family (Daughter, ) Very poor prognosis Palliative care involved to identify goals of care PROCEDURES: CT ABD 1. Extensive sigmoid diverticulosis redemonstrated with possible inflammatory changes seen within the distribution of the descending sigmoid junction. Evaluation for mesenteric inflammatory changes however is very limited secondary to diffuse mesenteric edema with volume overload. 2. Moderate to extensive stool burden as above suggests constipation with large stool ball in the rectal vault noted. Moderate soft tissue prominence within the region of the inferior rectum as above may reflect associated stercoral proctitis. Correlate with digital rectal exam to exclude underlying mass. 3. Cirrhotic liver disease with trace intra-abdominal ascites. Anasarca. 4. Small bilateral pleural effusions with evidence of interstitial lung disease and traction bronchiectasis. There is likely mild superimposed pulmonary edema. Vital Signs: Date Time Temp Pulse Resp B/P (MAP) Pulse Ox O2 Delivery O2 Flow Rate FiO2 06/12/17 07:28 64 97 50 06/12/17 07:27 64 16 97 BiPAP/CPAP 06/12/17 05:26 35.9 76 14 100/56 (71) 96 06/12/17 05:01 75 11 88/53 (65) 96 06/12/17 04:01 35.7 74 11 80/44 (56) 100 06/12/17 04:00 BiPAP 100 06/12/17 03:29 84 14 87/31 (49) 95 06/12/17 03:01 72 11 79/47 (58) 100 06/12/17 02:04 78 17 117/44 (68) 96 BiPAP 50 06/12/17 01:01 36.0 71 15 104/57 (73) 98 BiPAP 100 06/12/17 00:00 75 19 102/70 (81) 97 06/11/17 23:59 BiPAP 100 06/11/17 23:31 74 13 98/64 (75) 96 06/11/17 23:26 75 13 85/52 (63) 93 06/11/17 23:02 68 21 127/96 (106) 06/11/17 22:49 72 20 99/44 (62) 93 06/11/17 22:45 63 93 100 06/11/17 22:01 67 20 86/51 (63) 85 Oxymask 12.0 06/11/17 21:59 70 26 110/47 (68) 85 Nasal Cannula 06/11/17 20:18 72 16 94 Nasal Cannula 5.0 06/11/17 20:00 Nasal Cannula 5.0 91 06/11/17 20:00 36.3 63 20 90/52 (65) 90 Nasal Cannula 5.0 06/11/17 19:54 65 26 79/37 92 06/11/17 19:13 65 26 79/37 92 Nasal Cannula 5.0 Humidified Oxygen 06/11/17 17:45 93 Nasal Cannula 5.0 06/11/17 17:24 64 19 82/75 93 Nasal Cannula 5.0 Humidified Oxygen 06/11/17 16:30 60 22 97/55 90 Nasal Cannula 5.0 Humidified Oxygen 06/11/17 16:08 67 27 78/54 92 Nasal Cannula 5.0 Humidified Oxygen 06/11/17 15:46 60 06/11/17 15:30 60 19 80/53 94 Nasal Cannula 5.0 Humidified Oxygen 06/11/17 15:30 67 24 80/53 95 Nasal Cannula 5.0 Humidified Oxygen 06/11/17 15:00 63 15 79/51 94 Nasal Cannula Humidified Oxygen 06/11/17 14:30 61 15 83/49 91 Nasal Cannula 5.0 Humidified Oxygen 06/11/17 14:00 71 21 100/70 96 Nasal Cannula 5.0 Humidified Oxygen 06/11/17 13:30 60 16 86/53 96 Nasal Cannula 5.0 Humidified Oxygen 06/11/17 13:00 66 13 98/60 97 Nasal Cannula 5.0 Humidified Oxygen 06/11/17 12:31 71 18 88/48 91 Nasal Cannula 4.0 Humidified Oxygen 06/11/17 11:41 73 18 104/81 100 Nasal Cannula 6.0 Humidified Oxygen 06/11/17 11:00 65 06/11/17 10:52 94 Nasal Cannula 6.0 06/11/17 10:52 94 Nasal Cannula 6.0 06/11/17 10:52 36.5 64 13 89/52 94 Nasal Cannula 6.0 Humidified Oxygen Lab Results: Results Past 24 Hours Test 06/11/17 10:50 06/11/17 11:41 06/11/17 11:52 06/11/17 16:41 Range/Units White Blood Count 5.99 4.8-10.8 K/uL Red Blood Count 3.42 4.2-5.4 M/uL Hemoglobin 9.5 12.0-16.0 g/dL Hematocrit 30.2 37-47 % Mean Corpuscular Volume 88.3 80-100 fL Mean Corpuscular Hemoglobin 27.8 25-34 pg Mean Corpuscular Hemoglobin Concent 31.5 32-36 g/dl Platelet Count 149 130-400 K/uL Mean Platelet Volume 10.3 7.4-10.4 fL Neutrophils (%) (Auto) 57.3 % Lymphocytes (%) (Auto) 29.0 % Monocytes (%) (Auto) 10.0 % Eosinophils (%) (Auto) 3.0 % Basophils (%) (Auto) 0.5 % Neutrophils # (Auto) 3.43 1.4-6.5 K/uL Lymphocytes # (Auto) 1.74 1.2-3.4 K/uL Monocytes # (Auto) 0.60 0.11-0.59 K/uL Eosinophils # (Auto) 0.18 0-0.5 K/uL Basophils # (Auto) 0.03 0-0.2 K/uL RDW Standard Deviation 63.2 36.4-46.3 fL RDW Coefficient of Variation 20.3 11.5-14.5 % Immature Granulocyte % (Auto) 0.2 % Immature Granulocyte # (Auto) 0.01 0.00-0.02 K/uL Nucleated RBC Absolute Count (auto) 0.02 0-0 K/uL Nucleated Red Blood Cells % 0.4 % Large Platelets 1+ Polychromasia 1+ Hypochromasia PRESENT Anisocytosis PRESENT Urine Color DK YELLOW Urine Appearance CLEAR CLEAR Urine pH 5.0 4.5-7.5 Urine Specific [place] 1.019 1.000-1.030 Urine Protein NEG NEG Urine Glucose (UA) NEG NEG Urine Ketones NEG NEG Urine Occult Blood NEG NEG Urine Nitrite NEG NEG Urine Bilirubin NEG NEG Urine Urobilinogen NEG NEG Urine Leukocyte Esterase TRACE NEG Urine WBC (Auto) 1-5 0-5 /hpf Urine RBC (Auto) 0-4 0-4 /hpf Urine Hyaline Casts (Auto) >30 0-5 /lpf Urine Epithelial Cells (Auto) 5-10 0-5 /lpf Urine Bacteria (Auto) NEG NEG Urine Pathogenic Casts 0-3 GRANULAR CASTS 0 /lpf Prothrombin Time 16.9 9.0-12.0 SECONDS Prothromb Time International Ratio 1.6 0.9-1.1 Sodium Level 131 136-145 mmol/L Potassium Level 4.5 3.5-5.1 mmol/L Chloride Level 97 98-107 mmol/L Carbon Dioxide Level 27 21-32 mmol/L Anion Gap 7.0 3-11 mmol/L Blood Urea Nitrogen 38 7-18 mg/dl Creatinine 1.70 0.60-1.20 mg/dl Estimated GFR () 33.6 Estimated GFR (Non- 29.0 BUN/Creatinine Ratio 22.4 10-20 Random Glucose 172 70-99 mg/dl Lactic Acid Level 3.0 2.5 0.4-2.0 mmol/L Calcium Level 8.9 8.5-10.1 mg/dl Magnesium Level 2.4 1.8-2.4 mg/dl Total Bilirubin 2.0 0.2-1 mg/dl Aspartate Amino Transf (AST/SGOT) 28 15-37 U/L Alanine Aminotransferase (ALT/SGPT) 33 12-78 U/L Alkaline Phosphatase 173 45-117 U/L Ammonia < 10.0 11-32 umol/L Troponin I < 0.015 0-0.045 ng/ml Pro-B-Type Natriuretic Peptide 18247 0-900 pg/ml Total Protein 7.5 6.4-8.2 gm/dl Albumin 2.4 3.4-5.0 gm/dl Globulin 5.1 2.5-4.0 gm/dl Albumin/Globulin Ratio 0.5 0.9-2 Thyroid Stimulating Hormone (TSH) 6.540 0.300-4.500 uIu/ml Test 06/11/17 16:49 06/11/17 18:25 06/11/17 20:04 06/11/17 20:49 Range/Units Procalcitonin 0.15 0-0.5 ng/ml Thyroxine (T4) 5.6 4.5-10.9 mcg/dl Free Triiodothyronine 1.25 2.30-4.20 pg/ml Total Triiodothyronine 0.29 0.60-1.81 ng/ml Random Cortisol 14.79 mcg/dl Venous Blood pH 7.39 7.36-7.41 Venous Blood Partial Pressure CO2 46 38.0-50.0 mmHg Venous Blood Partial Pressure O2 21 mmHg Venous Blood HCO3 27 mmol/L Venous Blood Oxygen Saturation < 60.0 % Venous Blood Base Excess 2.0 mEq/L Lactic Acid Level 2.8 0.4-2.0 mmol/L Bedside Glucose 168 70-90 mg/dl Test 06/12/17 00:03 06/12/17 04:58 06/12/17 05:00 Range/Units Bedside Glucose 162 191 70-90 mg/dl White Blood Count 4.58 4.8-10.8 K/uL Red Blood Count 3.32 4.2-5.4 M/uL Hemoglobin 9.3 12.0-16.0 g/dL Hematocrit 29.5 37-47 % Mean Corpuscular Volume 88.9 80-100 fL Mean Corpuscular Hemoglobin 28.0 25-34 pg Mean Corpuscular Hemoglobin Concent 31.5 32-36 g/dl Platelet Count 133 130-400 K/uL Mean Platelet Volume 10.5 7.4-10.4 fL Neutrophils (%) (Auto) 79.5 % Lymphocytes (%) (Auto) 17.7 % Monocytes (%) (Auto) 2.6 % Eosinophils (%) (Auto) 0.0 % Basophils (%) (Auto) 0.0 % Neutrophils # (Auto) 3.64 1.4-6.5 K/uL Lymphocytes # (Auto) 0.81 1.2-3.4 K/uL Monocytes # (Auto) 0.12 0.11-0.59 K/uL Eosinophils # (Auto) 0.00 0-0.5 K/uL Basophils # (Auto) 0.00 0-0.2 K/uL RDW Standard Deviation 63.7 36.4-46.3 fL RDW Coefficient of Variation 20.3 11.5-14.5 % Immature Granulocyte % (Auto) 0.2 % Immature Granulocyte # (Auto) 0.01 0.00-0.02 K/uL Large Platelets 1+ Hypochromasia PRESENT Anisocytosis PRESENT Target Cells 1+ Prothrombin Time 17.5 9.0-12.0 SECONDS Prothromb Time International Ratio 1.6 0.9-1.1 Venous Blood pH 7.35 7.36-7.41 Venous Blood Partial Pressure CO2 51 38.0-50.0 mmHg Venous Blood Partial Pressure O2 29 mmHg Venous Blood HCO3 27 mmol/L Venous Blood Oxygen Saturation < 60.0 % Venous Blood Base Excess 1.1 mEq/L Sodium Level 135 136-145 mmol/L Potassium Level 5.0 3.5-5.1 mmol/L Chloride Level 99 98-107 mmol/L Carbon Dioxide Level 28 21-32 mmol/L Anion Gap 8.0 3-11 mmol/L Blood Urea Nitrogen 41 7-18 mg/dl Creatinine 1.80 0.60-1.20 mg/dl Est Creatinine Clear Calc Drug Dose 27.1 ml/min Estimated GFR () 31.4 Estimated GFR (Non- 27.1 BUN/Creatinine Ratio 22.7 10-20 Random Glucose 194 70-99 mg/dl Lactic Acid Level 2.5 0.4-2.0 mmol/L Calcium Level 8.9 8.5-10.1 mg/dl Phosphorus Level 4.1 2.5-4.9 mg/dl Magnesium Level 2.6 1.8-2.4 mg/dl Pro-B-Type Natriuretic Peptide 65453 0-900 pg/ml Thyroid Stimulating Hormone (TSH) 4.490 0.300-4.500 uIu/ml Free Thyroxine 1.52 0.80-1.60 ng/dl Microbiology Results 06/11/17 Blood Culture, Received Pending 06/11/17 Blood Culture, Received Pending 06/11/17 MRSA DNA Surveillance Screen - Final, Complete Specimen Negative for MRSA by DNA Probe
--- NOTE | 2017-06-12 09:21 | ECHOCARDIOGRAM REPORT ---
*NOTICE TO RECEIVING [employer] This information is strictly Confidential and protected under [place] law. [place] law prohibits you from making any further disclosure of this information unless further disclosure is expressly permitted by the written consent of the person to whom it pertains or is authorized by law. A general authorization for the release of medical or other information is not sufficient for this purpose. Hospital accepts no responsibility if the information is made available to any other person, INCLUDING THE PATIENT. Interpretation Summary * Name: DAVID ESTEVES Study Date: 06/12/2017 06:40 AM BP: 100/56 mmHg * Patient Location: .MSICU\S\E107\S\1 HR: 62 * : 1940 (M/d/yyyy) Gender: Female Height: 62 in * Age: 77 yrs Ethnicity: [place] Weight: 184 lb * Ordering Physician: James Hurtado * Referring Physician: Self, Referred * Performed By: Romana Nicole RCS * * Reason For Study: CHF * BSA: 1.8 m2 * -- Conclusions -- * The left ventricle is normal in size. * There is normal left ventricular wall thickness. * No regional wall motion abnormalities noted. * Apical wall motion abnormality may reflect pacemaker activation. * Ejection Fraction = 50-55%. * The right ventricle is mildly dilated. * The right ventricular systolic function is moderately reduced. * There is severe calcification of the aortic valve leaflets * Borderline severe aortic stenosis. * There is mild to moderate mitral regurgitation. * There is moderate tricuspid regurgitation. * Right ventricular systolic pressure is elevated at 40-50mmHg. Procedure Details * A complete two-dimensional transthoracic echocardiogram was performed (2D, M-mode, Doppler and color flow Doppler). * There were technical limitations due to patient'sPoor acoustic windows secondary to severe lung disease. * Patient on C-PAP at time of imagining Left Ventricle * The left ventricle is normal in size. * There is normal left ventricular wall thickness. * Ejection Fraction = 50-55%. * Left ventricular systolic function is normal. * No regional wall motion abnormalities noted. * Apical wall motion abnormality may reflect pacemaker activation. Right Ventricle * The right ventricle is mildly dilated. * There is a pacemaker lead in the right ventricle. * The right ventricular systolic function is moderately reduced. Atria * The left atrium is moderately dilated. * The right atrium is moderate to severely dilated. * No ASD detected; PFO is not assessed. Mitral Valve * There is moderate mitral annular calcification. * There is no mitral valve stenosis. * There is mild to moderate mitral regurgitation. Tricuspid Valve * The tricuspid valve anatomy is normal. * There is no tricuspid stenosis. * There is moderate tricuspid regurgitation. * Right ventricular systolic pressure is elevated at 40-50mmHg. Aortic Valve * There is severe calcification of the aortic valve leaflets * Borderline severe aortic stenosis. * No aortic regurgitation is present. Pulmonic Valve * The pulmonic valve is not well visualized. Great Vessels * The aortic root is normal size. Pericardium/Pleural * There is no pericardial effusion. Great Vessels * Normal inferior vena cava diameter and respiratory variation suggests normal central venous pressure. MMode 2D Measurements and Calculations IVSd 1.1 cm IVSs 1.4 cm LVIDd 5.1 cm LVIDs 3.8 cm LVPWd 1.2 cm LVPWs 1.5 cm IVS/LVPW 0.96 FS 26.1 % EDV(Teich) 124.3 ml ESV(Teich) 60.9 ml EF(Teich) 51.0 % EDV(cubed) 133.4 ml ESV(cubed) 53.7 ml EF(cubed) 59.7 % % IVS thick 29.4 % % LVPW thick 25.5 % LV mass(C)d 224.8 grams LV mass(C)dI 121.8 grams/m\S\2 LV mass(C)s 203.2 grams LV mass(C)sI 110.1 grams/m\S\2 SV(Teich) 63.4 ml SI(Teich) 34.4 ml/m\S\2 SV(cubed) 79.6 ml SI(cubed) 43.1 ml/m\S\2 Ao root diam 3.8 cm Ao root area 11.1 cm\S\2 LA dimension 4.5 cm asc Aorta Diam 3.6 cm LA/Ao 1.2 Doppler Measurements and Calculations MV E max yasmin 99.2 cm/sec MV A max yasmin 52.3 cm/sec MV E/A 1.9 MV P1/2t max yasmin 120.4 cm/sec MV P1/2t 54.5 msec MVA(P1/2t) 4.0 cm\S\2 MV dec slope 646.4 cm/sec\S\2 MV dec time 0.18 sec Ao V2 max 164.4 cm/sec Ao max PG 10.8 mmHg Ao max PG (full) 9.7 mmHg LV V1 max PG 1.1 mmHg LV V1 max 53.6 cm/sec PA V2 max 56.5 cm/sec PA max PG 1.3 mmHg PI max yasmin 219.0 cm/sec PI max PG 19.2 mmHg PI dec slope 436.2 cm/sec\S\2 PI P1/2t 147.0 msec TR max yasmin 316.0 cm/sec
[2017-06-12] MEDS ORDERED: HEPARIN SOD 5000 UNIT/0.5 ML CARP SC SCH (09:30)
[2017-06-12] MEDS ORDERED: FENTANYL CITRATE INJ 50 MCG/1 ML 2 ML VIAL ONE (11:10)
[2017-06-12] MEDS ORDERED: LORAZEPAM 2 MG/ML 1 ML VIAL ONE ×2 (11:30→11:45)
--- NOTE | 2017-06-12 13:46 | Critical Care Progress Note ---
Critical Care Progress Note Date of Service Jun 12, 2017. Attending Dr. Edwards Subjective Patient was seen at the bedside. Per night team patient was confused over night and try to pull off the trevizo. This morning when I examined the patient, she was sedated and wouldn't woke up upon calling her name. Was not able to perform full ROS. Objective Vital signs were reviewed GENERAL - Patient was sedated and lying down on bed HEAD - NC/AT EYES - PERRL with EOMI bilaterally. Sclera anicteric. EARS - No deformities of external structures noted on gross examination bilaterally. NECK - Supple LUNGS - scattered crackles was noted CARDIAC - RRR, normal S1/S2, + systolic murmur ABDOMEN - Soft, non-tender, NBS, no masses, no rebound or guarding. EXTREMITIES - 3+ edema b/l LE NEUROLOGIC - patient was sedative, she was confused and tried to pull off the trevizo Assessment & Plan This is 77 y/o male with multiple complex medical hx admitted to the ICU for hypotension and lactic acidosis. Palliative care is consulted given patient's multiple complex medical history. I spoke with daughter and she will be in the hospital later in the afternoon. Dr. Seaman is informed and she will talk to the family. Neuro - * CAM ICU: unable to perform * RASS: -4 * Acetaminophen 650mg q4h prn Cardiac - * Acute arterial hypotension * Patient BP is labile * s/p IVF, responded well * Most likely multifactorial given patient has hx of CHF, severe and CKD stage III. Need to be cautious about giving further fluid to avoid fluid overload. * Echo in 06/12/2017 showed normal LV with EF 50-55%, no regional wall abnormalities, the RV systolic function is moderately reduced, severe calcification of the aortic valve, and borderline severe , mild to moderate MR , and moderate TR. * History of Aortic Stegnosis * Repeated echo showed borderline severe . * Will hold Sotalol for now given CKD state III * Cardiology is consulted and will await for their recommendations Respiratory - * Acute hypoxic respiratory failure * Multifactorial - hx of COPD and CHF * Currently on BiPAP FiO2 50% * Continue DuoNeb and albuterol prn * Monitor pulse oximetry * CXR showed b/l pulmonary edema, continue to hold Lasix given low BP * Hx of venous thromboembolism * Will hold her home dose of Coumadin to avoid risk of bleeding. * Start on heparin 5000unit q12 GI - * Diet : regular diet * CT abd/pelvics showed extensive sigmoid diverticulosis, moderate to extensive stool burden (large stool ball in the rectal vault noted), cirrhotic liver disease with trace intr-abdominal ascitics. * d/michelle morphine which would worsen the constipation * Fleet enema for constipation prn * Hypoalbuminemia * Patient has chronic hypoalbuminemia, last albumin is 2.4 * Patient received albumin RENAL/LYTES - * CKD stage III * responded well to IVF * Currently not on dialysis * Hyponatremia * Most likely hypovolemic hyponatremia * Improved this morning (135) * Received albumin and IVF (albumin 2.4) - * Trevizo ENDO - * Hypothyroidism * TSH 6.5, T4 1.52 * PO home dose of thyroxine * DMII * Lantus 10 unit * ISS per protocol HEME - * Chronic anemia * Patient willing to go for blood transfusion if required * Hx of venous thromboembolism * will hold Coumadin for now (INR 1.6) * Heparin 5000unit q12 ID - * Lactic acid * Not meeting the criteria for SIRS * Normal procalcitonin * Patient was recently tx for diverticulitis and completed full course of abx. Received one dose of Flagyl and Levaquin * No evidence of cellulitis or other concern for gram-positive bacteremia, Nasal swab negative for MRSA LINES/IV ACCESS - * PIVs intact DVT PROPHYLAXIS - * Heparin 5000unit q12 Code Status - * DNR Resident Physician Supervision Note: I was present with Dr. Federico Canada during the history and exam. I discussed the case with the resident and agree with the findings and plan as documented in the note. In summary, the patient is a 77-year-old female with multiple medical problems including bicuspid aortic valve with worsening ejection fraction down to 45-50%, worsening aortic stenosis with valve area decreasing down to 1.2 cm was admitted yesterday with acute respiratory failure , hypotension, acute kidney injury and confusion. Physical examination and laboratory findings were not consistent with infection. Suspect hemodynamic decompensation in the setting of worsening aortic stenosis. Patient was treated with BiPAP for acute respiratory failure. Chest x-ray was consistent with pulmonary vascular congestion with element of possible aspiration. Patient remained hypotensive. She was treated with gentle hydration and volume expansion. Acute kidney injury likely related to diminished forward cardiac output. I had an extensive conversation with internal medicine and cardiology colleagues. Palliative care consultation was obtained. Family was called. We had a conversation with patient when she appeared to be mentally alert and appropriate. Patient stated she did not want to be treated in the hospital especially she did not want to wear the BiPAP. Her CODE STATUS was already DO NOT RESUSCITATE/DO NOT INTUBATE. Decision was made to change her CODE STATUS to comfort measures only. Bypap was discontinued, small dose of morphine for comfort was initiated. Patient peacefully. I spent totally 32 minutes of critical care time evaluating and managing this patient, also discussing goals of care and end-of-life issues with cardiology and palliative care colleagues, patient's daughter and at the bedside. Documented By: Delbert Edwards CHENEGA II Score Date Score Was Generated: Jun 13, 2017 Consults & Procedures Consultants: Cariology Procedures: none Data Medications: Current Inpatient Medications Medications (Trade) Dose Ordered Sig/Mike Route Start Time Stop Time Status Last Admin Dose Admin Acetaminophen (Tylenol Tab) 650 mg Q4H PRN PO 06/11/17 17:45 07/11/17 17:44 Albuterol/ Ipratropium (Duoneb) 3 ml Q4H PRN INH 06/11/17 17:45 07/11/17 17:44 Promethazine HCl 12.5 mg/Sodium Chloride 50.5 ml @ 204 mls/hr Q6H PRN IV 06/11/17 17:45 07/11/17 17:44 06/11/17 21:04 204 MLS/HR Albuterol/ Ipratropium (Duoneb) 3 ml QIDR INH 06/11/17 20:00 07/11/17 19:59 06/12/17 07:27 3 ML Insulin Aspart (novoLOG ASPART) SLIDING SCALE If C... ACHS SC 06/11/17 21:00 07/11/17 20:59 06/12/17 08:55 2 UNITS Glucose (Glucose 40% Gel) 15-30 GRAMS 15 GRAMS... UD PRN PO 06/11/17 18:00 07/11/17 17:59 Glucose (Glucose Chew Tab) 4-8 Tablets 4 Tabl... UD PRN PO 06/11/17 18:00 07/11/17 17:59 Dextrose (Dextrose 50% 50ML Syringe) 25-50ML OF 50% DW IV FOR... UD PRN IV 06/11/17 18:00 07/11/17 17:59 Glucagon (Glucagon Inj) 1 mg UD PRN SQ 06/11/17 18:00 07/11/17 17:59 Miscellaneous Information (Consult Glycemic Management Pharmacy) 1 ea UD PRN N/A 06/11/17 19:11 07/11/17 19:10 Isosorbide Mononitrate (Imdur Ext Rel Tab) 30 mg QAM PO 06/12/17 09:00 07/12/17 08:59 Lactobacillus Acidophilus (Floranex Tab) 2 tab BIDM PO 06/11/17 21:00 07/11/17 20:59 06/12/17 08:20 2 TAB Nitroglycerin (Nitrostat Tab) 0.4 mg UD PRN UT 06/11/17 18:00 07/11/17 17:59 Polyethylene (Miralax Powder Packet) 17 gm DAILY PRN PO 06/11/17 18:00 07/11/17 17:59 Calcium/Vitamin D (Caltrate Plus Tab) 1 tab DAILY PO 06/12/17 09:00 07/12/17 08:59 Albuterol (Ventolin Hfa Inhaler) 4 puffs Q6 PRN INH 06/11/17 18:00 07/11/17 17:59 Aspirin (Aspirin Chew) 81 mg DAILY PO 06/12/17 09:00 07/12/17 08:59 06/12/17 08:21 81 MG Docusate Sodium (coLACE CAP) 100 mg BID PO 06/11/17 21:00 07/11/17 20:59 06/12/17 08:22 100 MG Insulin Glargine (Lantus Solostar Pen) 10 units QPM SC 06/11/17 21:00 07/11/17 20:59 06/11/17 21:06 10 UNITS Albuterol/ Ipratropium (Combivent Respimat Inh) 1 puffs QID INH 06/11/17 21:00 07/11/17 20:59 06/12/17 08:20 1 PUFFS Levothyroxine Sodium (Synthroid Tab) 137 mcg DAILYBB PO 06/12/17 06:00 07/12/17 05:59 Future hold Ranitidine HCl (zANTac TAB) 150 mg BID PO 06/11/17 21:00 07/11/17 20:59 06/12/17 08:22 150 MG Sotalol HCl (Betapace Tab) 80 mg BID PO 06/11/17 21:00 07/11/17 20:59 Future Hold 06/11/17 20:41 80 MG Hydrocortisone Sodium Succinate 60 mg/Syringe 1.2 ml @ 4 mls/min Q6H IV 06/12/17 02:00 07/12/17 01:59 06/12/17 08:21 4 MLS/MIN Heparin Sodium (Porcine) (Heparin Sq 5000 Unit/0.5ml) 5,000 unit Q12 SC 06/12/17 09:30 07/12/17 09:29 Enteral Nutritional Formula (Boost Glucose Control) 1 can BIDM PO 06/12/17 16:30 07/12/17 16:29 Sodium Biphosphate/ Sodium Phosphate (Fleet Enema) 132 ml DAILY PRN [place] 06/12/17 09:00 07/12/17 08:59 Vital Signs: Date Time Temp Pulse Resp B/P (MAP) Pulse Ox O2 Delivery O2 Flow Rate FiO2 06/12/17 08:00 36.3 64 20 82/53 (63) 95 BiPAP 50 06/12/17 08:00 95 BiPAP 50 06/12/17 07:28 64 97 50 06/12/17 07:27 64 16 97 BiPAP/CPAP 06/12/17 05:26 35.9 76 14 100/56 (71) 96 06/12/17 05:01 75 11 88/53 (65) 96 06/12/17 04:01 35.7 74 11 80/44 (56) 100 06/12/17 04:00 BiPAP 100 06/12/17 03:29 84 14 87/31 (49) 95 06/12/17 03:01 72 11 79/47 (58) 100 06/12/17 02:04 78 17 117/44 (68) 96 BiPAP 50 06/12/17 01:01 36.0 71 15 104/57 (73) 98 BiPAP 100 06/12/17 00:00 75 19 102/70 (81) 97 06/11/17 23:59 BiPAP 100 06/11/17 23:31 74 13 98/64 (75) 96 06/11/17 23:26 75 13 85/52 (63) 93 06/11/17 23:02 68 21 127/96 (106) 06/11/17 22:49 72 20 99/44 (62) 93 06/11/17 22:45 63 93 100 06/11/17 22:01 67 20 86/51 (63) 85 Oxymask 12.0 06/11/17 21:59 70 26 110/47 (68) 85 Nasal Cannula 06/11/17 20:18 72 16 94 Nasal Cannula 5.0 06/11/17 20:00 Nasal Cannula 5.0 91 06/11/17 20:00 36.3 63 20 90/52 (65) 90 Nasal Cannula 5.0 06/11/17 19:54 65 26 79/37 92 06/11/17 19:13 65 26 79/37 92 Nasal Cannula 5.0 Humidified Oxygen 06/11/17 17:45 93 Nasal Cannula 5.0 06/11/17 17:24 64 19 82/75 93 Nasal Cannula 5.0 Humidified Oxygen 06/11/17 16:30 60 22 97/55 90 Nasal Cannula 5.0 Humidified Oxygen 06/11/17 16:08 67 27 78/54 92 Nasal Cannula 5.0 Humidified Oxygen 06/11/17 15:46 60 06/11/17 15:30 60 19 80/53 94 Nasal Cannula 5.0 Humidified Oxygen 06/11/17 15:30 67 24 80/53 95 Nasal Cannula 5.0 Humidified Oxygen 06/11/17 15:00 63 15 79/51 94 Nasal Cannula Humidified Oxygen 06/11/17 14:30 61 15 83/49 91 Nasal Cannula 5.0 Humidified Oxygen 06/11/17 14:00 71 21 100/70 96 Nasal Cannula 5.0 Humidified Oxygen 06/11/17 13:30 60 16 86/53 96 Nasal Cannula 5.0 Humidified Oxygen 06/11/17 13:00 66 13 98/60 97 Nasal Cannula 5.0 Humidified Oxygen 06/11/17 12:31 71 18 88/48 91 Nasal Cannula 4.0 Humidified Oxygen 06/11/17 11:41 73 18 104/81 100 Nasal Cannula 6.0 Humidified Oxygen 06/11/17 11:00 65 06/11/17 10:52 94 Nasal Cannula 6.0 06/11/17 10:52 94 Nasal Cannula 6.0 06/11/17 10:52 36.5 64 13 89/52 94 Nasal Cannula 6.0 Humidified Oxygen Laboratory Results: Last 24 Hours Test 06/11/17 10:50 06/11/17 11:41 06/11/17 11:52 06/11/17 16:41 White Blood Count 5.99 K/uL Red Blood Count 3.42 M/uL Hemoglobin 9.5 g/dL Hematocrit 30.2 % Mean Corpuscular Volume 88.3 fL Mean Corpuscular Hemoglobin 27.8 pg Mean Corpuscular Hemoglobin Concent 31.5 g/dl Platelet Count 149 K/uL Mean Platelet Volume 10.3 fL Neutrophils (%) (Auto) 57.3 % Lymphocytes (%) (Auto) 29.0 % Monocytes (%) (Auto) 10.0 % Eosinophils (%) (Auto) 3.0 % Basophils (%) (Auto) 0.5 % Neutrophils # (Auto) 3.43 K/uL Lymphocytes # (Auto) 1.74 K/uL Monocytes # (Auto) 0.60 K/uL Eosinophils # (Auto) 0.18 K/uL Basophils # (Auto) 0.03 K/uL RDW Standard Deviation 63.2 fL RDW Coefficient of Variation 20.3 % Immature Granulocyte % (Auto) 0.2 % Immature Granulocyte # (Auto) 0.01 K/uL Nucleated RBC Absolute Count (auto) 0.02 K/uL Nucleated Red Blood Cells % 0.4 % Large Platelets 1+ Polychromasia 1+ Hypochromasia PRESENT Anisocytosis PRESENT Urine Color DK YELLOW Urine Appearance CLEAR Urine pH 5.0 Urine Specific Keno 1.019 Urine Protein NEG Urine Glucose (UA) NEG Urine Ketones NEG Urine Occult Blood NEG Urine Nitrite NEG Urine Bilirubin NEG Urine Urobilinogen NEG Urine Leukocyte Esterase TRACE Urine WBC (Auto) 1-5 /hpf Urine RBC (Auto) 0-4 /hpf Urine Hyaline Casts (Auto) >30 /lpf Urine Epithelial Cells (Auto) 5-10 /lpf Urine Bacteria (Auto) NEG Urine Pathogenic Casts 0-3 GRANULAR CASTS /lpf Prothrombin Time 16.9 SECONDS Prothromb Time International Ratio 1.6 Sodium Level 131 mmol/L Potassium Level 4.5 mmol/L Chloride Level 97 mmol/L Carbon Dioxide Level 27 mmol/L Anion Gap 7.0 mmol/L Blood Urea Nitrogen 38 mg/dl Creatinine 1.70 mg/dl Estimated GFR () 33.6 Estimated GFR (Non- 29.0 BUN/Creatinine Ratio 22.4 Random Glucose 172 mg/dl Lactic Acid Level 3.0 mmol/L 2.5 mmol/L Calcium Level 8.9 mg/dl Magnesium Level 2.4 mg/dl Total Bilirubin 2.0 mg/dl Aspartate Amino Transf (AST/SGOT) 28 U/L Alanine Aminotransferase (ALT/SGPT) 33 U/L Alkaline Phosphatase 173 U/L Ammonia < 10.0 umol/L Troponin I < 0.015 ng/ml Pro-B-Type Natriuretic Peptide 09907 pg/ml Total Protein 7.5 gm/dl Albumin 2.4 gm/dl Globulin 5.1 gm/dl Albumin/Globulin Ratio 0.5 Thyroid Stimulating Hormone (TSH) 6.540 uIu/ml Test 06/11/17 16:49 06/11/17 18:25 06/11/17 20:04 06/11/17 20:49 Procalcitonin 0.15 ng/ml Thyroxine (T4) 5.6 mcg/dl Free Triiodothyronine 1.25 pg/ml Total Triiodothyronine 0.29 ng/ml Random Cortisol 14.79 mcg/dl Venous Blood pH 7.39 Venous Blood Partial Pressure CO2 46 mmHg Venous Blood Partial Pressure O2 21 mmHg Venous Blood HCO3 27 mmol/L Venous Blood Oxygen Saturation < 60.0 % Venous Blood Base Excess 2.0 mEq/L Lactic Acid Level 2.8 mmol/L Bedside Glucose 168 mg/dl Test 06/12/17 00:03 06/12/17 04:58 06/12/17 05:00 Bedside Glucose 162 mg/dl 191 mg/dl White Blood Count 4.58 K/uL Red Blood Count 3.32 M/uL Hemoglobin 9.3 g/dL Hematocrit 29.5 % Mean Corpuscular Volume 88.9 fL Mean Corpuscular Hemoglobin 28.0 pg Mean Corpuscular Hemoglobin Concent 31.5 g/dl Platelet Count 133 K/uL Mean Platelet Volume 10.5 fL Neutrophils (%) (Auto) 79.5 % Lymphocytes (%) (Auto) 17.7 % Monocytes (%) (Auto) 2.6 % Eosinophils (%) (Auto) 0.0 % Basophils (%) (Auto) 0.0 % Neutrophils # (Auto) 3.64 K/uL Lymphocytes # (Auto) 0.81 K/uL Monocytes # (Auto) 0.12 K/uL Eosinophils # (Auto) 0.00 K/uL Basophils # (Auto) 0.00 K/uL RDW Standard Deviation 63.7 fL RDW Coefficient of Variation 20.3 % Immature Granulocyte % (Auto) 0.2 % Immature Granulocyte # (Auto) 0.01 K/uL Large Platelets 1+ Hypochromasia PRESENT Anisocytosis PRESENT Target Cells 1+ Prothrombin Time 17.5 SECONDS Prothromb Time International Ratio 1.6 Venous Blood pH 7.35 Venous Blood Partial Pressure CO2 51 mmHg Venous Blood Partial Pressure O2 29 mmHg Venous Blood HCO3 27 mmol/L Venous Blood Oxygen Saturation < 60.0 % Venous Blood Base Excess 1.1 mEq/L Sodium Level 135 mmol/L Potassium Level 5.0 mmol/L Chloride Level 99 mmol/L Carbon Dioxide Level 28 mmol/L Anion Gap 8.0 mmol/L Blood Urea Nitrogen 41 mg/dl Creatinine 1.80 mg/dl Est Creatinine Clear Calc Drug Dose 27.1 ml/min Estimated GFR () 31.4 Estimated GFR (Non- 27.1 BUN/Creatinine Ratio 22.7 Random Glucose 194 mg/dl Lactic Acid Level 2.5 mmol/L Calcium Level 8.9 mg/dl Phosphorus Level 4.1 mg/dl Magnesium Level 2.6 mg/dl Pro-B-Type Natriuretic Peptide 01501 pg/ml Thyroid Stimulating Hormone (TSH) 4.490 uIu/ml Free Thyroxine 1.52 ng/dl
[2017-06-12] MEDS ORDERED: MINERAL OIL ENEMA 133 ML BTL PR PRN (15:00)
[2017-06-12] MEDS ORDERED: SODIUM CHLORIDE 0.9% 1000ML 1,000 ML IV SCH ×2 (15:15→16:15)
--- NOTE | 2017-06-12 15:44 | DIAGNOSTIC IMAGING REPORT ---
SINGLE VIEW CHEST CLINICAL HISTORY: Hypoxia. FINDINGS: An AP, portable, upright chest radiograph is compared to study dated 06/11/2017. Correlation is made with chest CT dated 09/23/2009. The examination is degraded by portable technique and patient rotation. The patient is status post midline sternotomy. A 2-lead cardiac pacemaker is unchanged in position. The heart is enlarged and there is atherosclerotic calcification of the thoracic aorta. There is pulmonary vascular congestion and interstitial edema. Asymmetric airspace opacities are present in the right midlung. Airspace opacities are also present at the lung bases. Chronic interstitial lung disease is again noted. Pleural effusions are again seen, right larger than left. No pneumothorax is identified. The skeletal structures are osteopenic. The bony thorax is grossly intact. IMPRESSION: 1. Cardiomegaly and cardiac pacemaker with evidence of congestive failure an interstitial edema. This is similar in appearance to yesterday. 2. Asymmetric airspace opacities in the right midlung are unchanged. 3. Right larger than left pleural effusions. Electronically signed by: Galdino Navarrete M.D. 06/12/2017 3:43 PM Dictated Date/Time: 06/12/2017 3:41 PM
[2017-06-12] MEDS ORDERED: WARFARIN SOD 2 MG TAB PO SCH (16:00)
[2017-06-12] MEDS ORDERED: BOOST GLUCOSE CONTROL PO SCH (16:30)
--- NOTE | 2017-06-12 17:58 | Palliative Care Consultation ---
Consultation Date of Consultation: Jun 12, 2017. Requesting Physician: Dr Edwards Attending Physician: Dr Hurtado Reason for Consultation: Determine goals of care History of Present Illness Pt is a 77 yo female with an extensive medical history including multiple hospitalizations and SNF stays for SOB, CHF, COPD exacerbations. Pt presented to the ER on 06/11 from [facility] for AMS with hypoxia. Pt had been c/o nausea with vomiting X 3 days. Pt was also found to be hypotensive with bp 84/ 54. Pt on 2 L NC , but required O2 up to 6L NC and then required BIPAP to keep sats above 90%. Pt wanting to remove BiPAP mask and even will pull off her NC. Other PMH includes : severe ( was moderate on ECHO on 07/2015), CAD, s/p CABG , CKD stage III, DM, HLD, HTN, A fib, h/o CVA/TIA's, hypothyroid, h/o uterine cancer in 1967, cirrhosis on CT scan, pulmonary fibrosis, L subclavian stenosis and prolonged QT interval. Pt is also s/p pacemaker. Met with and daughter along with Loly Edwards and Nancie and updated family on pt's status. Family understands her prognosis and would like to honor her wishes and remove BiPAP /O2 and keep her comfortable. Saw pt with her at bedside - pt awake, alert and was able to communicate that she knows she will not survive very long of the BiPAP and wishes to have it removed. Daughter reports that her children ( pt's grandchildren ) are coming in to see pt. Daughter requested I explain condition to her brother ( pt's son ) by phone. Son was then able to speak to pt by phone. Family and pt in agreement for comfort measures, will remove BiPAP when pt and family ready. Past Medical/Surgical History Medical History: Severe , moderate decreased RV function, mild to mod MR, mod TR, CAD, CKD, DM , CHF, HTN, HLD, A fib, hypothyroid, pulmonary fibrosis, prolonged QT, h/o depression. Surgical History: CABG 2009, MIR/BSO , L hip pinned - 2009, Lumbar spine surg, cholecystectomy, hernia repair, pacemaker Family History + for heart disease, DM, cancer Social History Smoking Status: Former Smoker History of Alcohol Use: No Drug Use: none Marital Status: Housing Status: half-way Occupation Status: retired, other Review of Systems Constitutional: + fatigue, No fever Eyes: No discharge Respiratory: + cough, + shortness of breath, + dyspnea at rest Cardiac: + orthopnea, + edema Abdomen: + nausea Female : + dysuria Neurologic: + weakness Skin: + problem reported (eccymoses) Allergies Coded Allergies: Codeine (Verified Allergy, Severe, HIVES / DIFICULTY BREATHING; TAKES PERCOCET W/O PROBLEM, 06/11/17) HAS ALSO TOLERATED MORPHINE MULTIPLE TIMES Penicillins (Verified Allergy, Intermediate, RASH, 05/24/17) SY Inhibitors (Verified Adverse Reaction, Unknown, HYPERKALEMIA, 05/24/17) Medications Current Inpatient Medications Medications (Trade) Dose Ordered Sig/Mike Route Start Time Stop Time Status Last Admin Dose Admin Acetaminophen (Tylenol Tab) 650 mg Q4H PRN PO 06/11/17 17:45 07/11/17 17:44 Albuterol/ Ipratropium (Duoneb) 3 ml Q4H PRN INH 06/11/17 17:45 07/11/17 17:44 Promethazine HCl 12.5 mg/Sodium Chloride 50.5 ml @ 204 mls/hr Q6H PRN IV 06/11/17 17:45 07/11/17 17:44 06/11/17 21:04 204 MLS/HR Albuterol/ Ipratropium (Duoneb) 3 ml QIDR INH 06/11/17 20:00 07/11/17 19:59 06/12/17 15:28 3 ML Insulin Aspart (novoLOG ASPART) SLIDING SCALE If C... ACHS SC 06/11/17 21:00 07/11/17 20:59 06/12/17 13:52 1 UNITS Glucose (Glucose 40% Gel) 15-30 GRAMS 15 GRAMS... UD PRN PO 06/11/17 18:00 07/11/17 17:59 Glucose (Glucose Chew Tab) 4-8 Tablets 4 Tabl... UD PRN PO 06/11/17 18:00 07/11/17 17:59 Dextrose (Dextrose 50% 50ML Syringe) 25-50ML OF 50% DW IV FOR... UD PRN IV 06/11/17 18:00 07/11/17 17:59 Glucagon (Glucagon Inj) 1 mg UD PRN SQ 06/11/17 18:00 07/11/17 17:59 Miscellaneous Information (Consult Glycemic Management Pharmacy) 1 ea UD PRN N/A 06/11/17 19:11 07/11/17 19:10 Isosorbide Mononitrate (Imdur Ext Rel Tab) 30 mg QAM PO 06/12/17 09:00 07/12/17 08:59 Lactobacillus Acidophilus (Floranex Tab) 2 tab BIDM PO 06/11/17 21:00 07/11/17 20:59 06/12/17 08:20 2 TAB Nitroglycerin (Nitrostat Tab) 0.4 mg UD PRN UT 06/11/17 18:00 07/11/17 17:59 Polyethylene (Miralax Powder Packet) 17 gm DAILY PRN PO 06/11/17 18:00 07/11/17 17:59 Calcium/Vitamin D (Caltrate Plus Tab) 1 tab DAILY PO 06/12/17 09:00 07/12/17 08:59 Albuterol (Ventolin Hfa Inhaler) 4 puffs Q6 PRN INH 06/11/17 18:00 07/11/17 17:59 Aspirin (Aspirin Chew) 81 mg DAILY PO 06/12/17 09:00 07/12/17 08:59 06/12/17 08:21 81 MG Docusate Sodium (coLACE CAP) 100 mg BID PO 06/11/17 21:00 07/11/17 20:59 06/12/17 08:22 100 MG Insulin Glargine (Lantus Solostar Pen) 10 units QPM SC 06/11/17 21:00 07/11/17 20:59 06/11/17 21:06 10 UNITS Albuterol/ Ipratropium (Combivent Respimat Inh) 1 puffs QID INH 06/11/17 21:00 07/11/17 20:59 06/12/17 13:49 1 PUFFS Levothyroxine Sodium (Synthroid Tab) 137 mcg DAILYBB PO 06/12/17 06:00 07/12/17 05:59 Future hold 06/12/17 08:15 137 MCG Ranitidine HCl (zANTac TAB) 150 mg BID PO 06/11/17 21:00 07/11/17 20:59 06/12/17 08:22 150 MG Sotalol HCl (Betapace Tab) 80 mg BID PO 06/11/17 21:00 07/11/17 20:59 Future Hold 06/11/17 20:41 80 MG Hydrocortisone Sodium Succinate 60 mg/Syringe 1.2 ml @ 4 mls/min Q6H IV 06/12/17 02:00 07/12/17 01:59 06/12/17 13:56 4 MLS/MIN Heparin Sodium (Porcine) (Heparin Sq 5000 Unit/0.5ml) 5,000 unit Q12 SC 06/12/17 09:30 07/12/17 09:29 06/12/17 09:46 5,000 UNIT Enteral Nutritional Formula (Boost Glucose Control) 1 can BIDM PO 06/12/17 16:30 07/12/17 16:29 Mineral Oil (Fleet Oil Enema) 133 ml DAILY PRN MD 06/12/17 15:00 07/12/17 14:59 Sodium Chloride 1,000 ml @ 50 mls/hr Q20H IV 06/12/17 16:15 06/13/17 12:14 Physical Exam Date Time Temp Pulse Resp B/P (MAP) Pulse Ox O2 Delivery O2 Flow Rate FiO2 06/12/17 16:00 66 16 86/50 (62) 98 BiPAP 66 06/12/17 16:00 95 BiPAP 06/12/17 15:28 73 17 98 BiPAP/CPAP 06/12/17 15:28 73 98 40 06/12/17 14:16 36.0 60 20 89/48 (62) 98 BiPAP 50 06/12/17 11:46 72 97 40 06/12/17 11:45 72 17 97 BiPAP/CPAP 06/12/17 11:36 35.9 74 20 82/47 (59) 100 BiPAP 50 06/12/17 11:30 100 BiPAP 50 06/12/17 08:00 36.3 64 20 82/53 (63) 95 BiPAP 50 06/12/17 08:00 95 BiPAP 50 06/12/17 08:00 Oxymask 06/12/17 07:28 64 97 50 06/12/17 07:27 64 16 97 BiPAP/CPAP 06/12/17 05:26 35.9 76 14 100/56 (71) 96 06/12/17 05:01 75 11 88/53 (65) 96 06/12/17 04:01 35.7 74 11 80/44 (56) 100 06/12/17 04:00 BiPAP 100 06/12/17 03:29 84 14 87/31 (49) 95 06/12/17 03:01 72 11 79/47 (58) 100 06/12/17 02:04 78 17 117/44 (68) 96 BiPAP 50 06/12/17 01:01 36.0 71 15 104/57 (73) 98 BiPAP 100 06/12/17 00:00 75 19 102/70 (81) 97 06/11/17 23:59 BiPAP 100 06/11/17 23:31 74 13 98/64 (75) 96 06/11/17 23:26 75 13 85/52 (63) 93 06/11/17 23:02 68 21 127/96 (106) 06/11/17 22:49 72 20 99/44 (62) 93 06/11/17 22:45 63 93 100 06/11/17 22:01 67 20 86/51 (63) 85 Oxymask 12.0 06/11/17 21:59 70 26 110/47 (68) 85 Nasal Cannula 06/11/17 20:18 72 16 94 Nasal Cannula 5.0 06/11/17 20:00 Nasal Cannula 5.0 91 06/11/17 20:00 36.3 63 20 90/52 (65) 90 Nasal Cannula 5.0 06/11/17 19:54 65 26 79/37 92 06/11/17 19:13 65 26 79/37 92 Nasal Cannula 5.0 Humidified Oxygen 06/11/17 17:45 93 Nasal Cannula 5.0 06/11/17 17:24 64 19 82/75 93 Nasal Cannula 5.0 Humidified Oxygen General Appearance: + pertinent finding (pt wanting to remove BiPAP, off briefly to speak to son on phone) Eyes: EOMI ENT: + pertinent finding (slight CIRCLE) Neck: supple Respiratory: + decreased breath sounds, + crackles Cardiovascular: regular rate, rhythm, + systolic murmur, + pertinent finding (3 + edema) Abdomen: non tender, soft Musculoskeletal: abnormal strength Neurologic/Psychiatric: alert, + pertinent finding (able to indicate that she knows that she will likely not survive off BiPAP/O2) Skin: warm/dry Laboratory Results Last 24 Hours Test 06/11/17 18:25 06/11/17 20:04 06/11/17 20:49 06/12/17 00:03 Venous Blood pH 7.39 Venous Blood Partial Pressure CO2 46 mmHg Venous Blood Partial Pressure O2 21 mmHg Venous Blood HCO3 27 mmol/L Venous Blood Oxygen Saturation < 60.0 % Venous Blood Base Excess 2.0 mEq/L Lactic Acid Level 2.8 mmol/L Bedside Glucose 168 mg/dl 162 mg/dl Test 06/12/17 04:58 06/12/17 05:00 06/12/17 11:08 Bedside Glucose 191 mg/dl 171 mg/dl White Blood Count 4.58 K/uL Red Blood Count 3.32 M/uL Hemoglobin 9.3 g/dL Hematocrit 29.5 % Mean Corpuscular Volume 88.9 fL Mean Corpuscular Hemoglobin 28.0 pg Mean Corpuscular Hemoglobin Concent 31.5 g/dl Platelet Count 133 K/uL Mean Platelet Volume 10.5 fL Neutrophils (%) (Auto) 79.5 % Lymphocytes (%) (Auto) 17.7 % Monocytes (%) (Auto) 2.6 % Eosinophils (%) (Auto) 0.0 % Basophils (%) (Auto) 0.0 % Neutrophils # (Auto) 3.64 K/uL Lymphocytes # (Auto) 0.81 K/uL Monocytes # (Auto) 0.12 K/uL Eosinophils # (Auto) 0.00 K/uL Basophils # (Auto) 0.00 K/uL RDW Standard Deviation 63.7 fL RDW Coefficient of Variation 20.3 % Immature Granulocyte % (Auto) 0.2 % Immature Granulocyte # (Auto) 0.01 K/uL Large Platelets 1+ Hypochromasia PRESENT Anisocytosis PRESENT Target Cells 1+ Prothrombin Time 17.5 SECONDS Prothromb Time International Ratio 1.6 Venous Blood pH 7.35 Venous Blood Partial Pressure CO2 51 mmHg Venous Blood Partial Pressure O2 29 mmHg Venous Blood HCO3 27 mmol/L Venous Blood Oxygen Saturation < 60.0 % Venous Blood Base Excess 1.1 mEq/L Sodium Level 135 mmol/L Potassium Level 5.0 mmol/L Chloride Level 99 mmol/L Carbon Dioxide Level 28 mmol/L Anion Gap 8.0 mmol/L Blood Urea Nitrogen 41 mg/dl Creatinine 1.80 mg/dl Est Creatinine Clear Calc Drug Dose 27.1 ml/min Estimated GFR () 31.4 Estimated GFR (Non- 27.1 BUN/Creatinine Ratio 22.7 Random Glucose 194 mg/dl Lactic Acid Level 2.5 mmol/L Calcium Level 8.9 mg/dl Phosphorus Level 4.1 mg/dl Magnesium Level 2.6 mg/dl Pro-B-Type Natriuretic Peptide 25800 pg/ml Thyroid Stimulating Hormone (TSH) 4.490 uIu/ml Free Thyroxine 1.52 ng/dl Assessment & Plan Palliative Performance Scale: 30 % (1) SOB (shortness of breath) Status: Acute Assessment & Plan: Acute on chronic - plan to remove BiPAP, comfort care (2) Hypotension Status: Acute Assessment & Plan: Cannot diurese due to low BP, cannot give fluids to increase BP due to renal failure, CHF, with crackles and edema on exam (3) Valvular disease Status: Chronic Assessment & Plan: Increase in valvular HD - no further interventions (4) CHF exacerbation Status: Acute Assessment & Plan: Acute on chronic - unable to diurese due to hypotension Discussed POC with pt and family - they are in agreement, Discussed with ICU attending Total time 90 min with >50% of time spent with pt and family discussing prognosis and POC
--- NOTE | 2017-06-12 21:34 | Progress Note ---
Internal Med Progress Note Date of Service: Jun 12, 2017. Provider Documentation: SUBJECTIVE: called to eval px for probable OBJECTIVE: Vital Signs-as noted below Exam: General-unresponsive to pain, no spont respiration HEENT- dilated pupils not reactive to light Heart-no heartbeat Lungs- no spont respiration Patient pronounced at 940PM. Dr. Hurtado to accomplish discharge summary. Vital Signs: Date Time Temp Pulse Resp B/P (MAP) Pulse Ox O2 Delivery O2 Flow Rate FiO2 06/12/17 16:00 66 16 86/50 (62) 98 BiPAP 66 06/12/17 16:00 95 BiPAP 06/12/17 15:28 73 17 98 BiPAP/CPAP 06/12/17 15:28 73 98 40 06/12/17 14:16 36.0 60 20 89/48 (62) 98 BiPAP 50 06/12/17 11:46 72 97 40 06/12/17 11:45 72 17 97 BiPAP/CPAP 06/12/17 11:36 35.9 74 20 82/47 (59) 100 BiPAP 50 06/12/17 11:30 100 BiPAP 50 06/12/17 08:00 36.3 64 20 82/53 (63) 95 BiPAP 50 06/12/17 08:00 95 BiPAP 50 06/12/17 08:00 Oxymask 06/12/17 07:28 64 97 50 06/12/17 07:27 64 16 97 BiPAP/CPAP Lab Results: Results Past 24 Hours Test 06/12/17 11:08 Range/Units Bedside Glucose 171 70-90 mg/dl
--- NOTE | 2017-06-12 23:40 | CARDIOLOGY CONSULTATION ---
DATE OF CONSULTATION: 06/12/2017 REFERRING: Dr. Hurtado INDICATIONS: Mental status changes, complex cardiac history. HISTORY OF PRESENT ILLNESS: 1. The patient is a 77-year-old female whose past cardiac history is notable for atherosclerotic ischemic heart disease, status post coronary bypass grafting December 2009, receiving ROMAN graft to LAD, saphenous vein graft to the obtuse marginal, saphenous vein graft to the posterior descending artery with followup cardiac catheterization in July 2010 demonstrating atretic ROMAN graft with a patent left anterior descending and widely patent vein grafts. 2. Calcific aortic valve disease with borderline severe aortic stenosis. 3. Paroxysmal atrial fibrillation and history of tachybrady syndrome status post dual-chamber pacemaker insertion in January 2016. 4. Hypertension. 5. Hyperlipidemia. 6. Chronic diabetic nephropathy, stage III. 7. History of past TIA/stroke. 8. Gradually progressive mental status changes. The patient presents this admission with notable recent hospitalizations in March and subsequently in May, most recent admission in association with altered mental status and hypoxia. She re-presents once again, from an extended care facility, with confusion, lethargy and hypoxia. The patient is unable to offer additional information. She is currently on BiPAP, does not recognize me despite prior past multiple visits. She is confused and disoriented, attempting to remove apparatuses and IVs. Additional information is obtained from hospital records, patient unable to offer any additional information personally. Records do not reflect any signs or symptoms of acute febrile illness or arrhythmias. Per records, she had had declining poor oral intake for several days prior to hospitalization. ALLERGIES: SY INHIBITORS, CODEINE AND PENICILLIN. MEDICATIONS: Prior to hospitalization were reviewed. Patient uses home oxygen 2 liters at bedtime. Cardiac medications are 80 mg 1 tablet b.i.d. PAST SURGICAL HISTORY: Notable for coronary bypass grafting, as described, prior hysterectomy and cholecystectomy as well as cervical spine surgery. PAST MEDICAL HISTORY: As per HPI. Includes, in addition, atherosclerotic vascular disease with prior left subclavian stenosis. FAMILY HISTORY: Positive for heart disease and diabetes in mother. Father, history of coronary artery disease. SOCIAL HISTORY: The patient is currently a resident of [facility]. She is a reformed smoker, uses no alcohol. PHYSICAL EXAMINATION: GENERAL: As described, the patient is disoriented, but alert. VITAL SIGNS: Heart rate 60, blood pressure is 89/48. Rhythm reveals atrial pace with a prolonged AV conduction. Patient's O2 saturation is 98% on BiPAP supplementation. HEENT: Normocephalic, atraumatic. Nares without discharge. Throat was unable to be visualized. NECK: Thin. There is no distinct jugular venous distention. There is a carotid delay present. LUNGS: Reveal diminished breath sounds diffusely. CARDIOVASCULAR: Regular. Pacemaker site is without erythema. There is a harsh grade 3/6 systolic murmur. There is no diastolic murmur. ABDOMEN: Soft, nontender. EXTREMITIES: Reveal 1 to 2+ lower extremity edema. LABORATORY DATA: White cell count on presentation was 5.9, hemoglobin at 9.5. Sodium is 135, potassium is 5.0, chloride is 99, bicarbonate is 28, BUN is 41, creatinine is 1.8, lactic acid was 2.5. BNP is elevated at 15,000. Chest x-ray reveals a plethoric lung vasculature and small bilateral pleural effusions. Additional laboratory studies, troponins since admission have been negative for infarct at less than 0.015. INR is 1.6. Blood gas revealed a pH of 735, pCO2 of 51, pO2 of 29 on venous blood gas testing. Echocardiogram demonstrates an ejection fraction of 50%-55%, borderline severe calcific aortic stenosis present. There is moderate mitral and tricuspid insufficiency. The right ventricle is dilated with evidence of, at least, moderate elevation in pulmonary pressures by indirect measurement. IMPRESSION: Complex 77-year-old female, whose history is notable for coronary disease, status post coronary bypass grafting, past history of pulmonary disease with elevated pulmonary pressures, borderline severe aortic stenosis with recent clinical decline, including hospitalizations in February, March and May. Now three hospitalizations with hypertension, hypoxia and confusion and elevated lactate levels. Microbiology includes pending blood cultures. Exam reveals no evidence of acute clinical decline and echocardiogram reflects no acute changes. From prior studies of March, she remains in sinus rhythm with appropriately functioning pacemaker. She had been, in the past, on renally dosed sotalol. In the course of multiple admissions, she has had it increased to b.i.d. dosing on this, though without profound QT prolongation. Given now decline in renal function with EGFR less than 40, we will discontinue sotalol, add low dose beta-timur. At this point in time, would recommend gradual gentle hydration, despite elevated BNP. We would withhold unnecessary medications and sedation. We will follow up patient in the hospital. Overall prognosis is limited, given multiple morbidities and declining mental status. Review of records reveals prior evaluation for hypoxia with past exclusion of deep venous thrombosis though, in February of 2017. As noted above, sotalol discontinued. We will likely add low dose Toprol in lieu of this, unless renal function improves dramatically.
--- NOTE | 2017-06-13 09:24 | Discharge Summary ---
Discharge Summary Date of Service Jun 13, 2017. Discharge Summary Admission Date: Jun 11, 2017 at 17:44 Discharge Disposition: Principal Diagnosis: Metabolic Encephalopathy, Anasarca, Acute Hypoxic respiratory failure, Idiopathic Pulmonary Fibrosis, COPD, CHF Procedures: CT head; 1. No acute intracranial abnormality. 2. Atrophy with background chronic microvascular ischemic changes and remote left caudate nucleus lacunar infarction. CT ABD: 1. Extensive sigmoid diverticulosis redemonstrated with possible inflammatory changes seen within the distribution of the descending sigmoid junction. Evaluation for mesenteric inflammatory changes however is very limited secondary to diffuse mesenteric edema with volume overload. 2. Moderate to extensive stool burden as above suggests constipation with large stool ball in the rectal vault noted. Moderate soft tissue prominence within the region of the inferior rectum as above may reflect associated stercoral proctitis. Correlate with digital rectal exam to exclude underlying mass. 3. Cirrhotic liver disease with trace intra-abdominal ascites. Anasarca. 4. Small bilateral pleural effusions with evidence of interstitial lung disease and traction bronchiectasis. There is likely mild superimposed pulmonary edema. ECHO: * The left ventricle is normal in size. * There is normal left ventricular wall thickness. * No regional wall motion abnormalities noted. * Apical wall motion abnormality may reflect pacemaker activation. * Ejection Fraction = 50-55%. * The right ventricle is mildly dilated. * The right ventricular systolic function is moderately reduced. * There is severe calcification of the aortic valve leaflets * Borderline severe aortic stenosis. * There is mild to moderate mitral regurgitation. * There is moderate tricuspid regurgitation. * Right ventricular systolic pressure is elevated at 40-50mmHg. Consultations: Critical Care, Cardiology Pending Studies/Follow-Up: Patient Admission Information HPI (per Admitting provider): Patient is a 77 Yr female with Multiple comorbidities and complex history who was recently discharged from [facility] after being treated for metabolic encephalopathy, GI bleed, CHF, ARF and COPD presents from [facility] after being found to have william ein mental status and hypoxia requiring 6L of oxygen to maintain sats for further evaluation. History id limited as patient is a poor historian. Most of the information is obtained from patient's family ( , daughter), ED staff and old records. Patient was found to be Hypotensive with SBP in 70s per patient's daughter and she has poor appetite since 3 days secondary to nausea. Patient was also complaining for generalized body pain. While in ED, patient was found to be hypotensive and received IV fluids, Albumin and currently saturating 93% on 5L. She is alert, awake and oriented. On further discussion patient and her family expressed no aggressive management including CPR, intubation, HD and central line placements. She currently denies any chest pain, SOB, wheezing, headache, dizziness, abd pain, fevers, chills, diarrhea, urinary symptoms. No other relevant history could be obtained. Physical Exam (per Admitting): General Appearance: no apparent distress, + pertinent finding (Chronicalli ill appearing) Head: normocephalic, atraumatic Eyes: normal inspection, PERRL, EOMI, sclerae normal ENT: normal ENT inspection, hearing grossly normal Neck: supple, trachea midline Respiratory/Chest: chest non-tender, no accessory muscle use, + decreased breath sounds, + crackles (Scattered) Cardiovascular: regular rate, rhythm, + systolic murmur, + pertinent finding (3+ b/l LE edema) Abdomen/GI: normal bowel sounds, soft, + tenderness (epigastric) Back: normal inspection Extremities/Musculoskelatal: normal inspection, + pedal edema (3+ B/L LE ) Neurologic/Psych: alert, normal mood/affect, oriented x 3, + pertinent finding (Grossly no focal deficits) Skin: normal color, warm/dry Hospital Course Metabolic Encephalopathy Possible Sepsis/Lactic acidosis Volume overload with Intravascular depletion/Hypotension Anasarca CT head: no acute pathology S/P IV fluids, showed some response but BP labile May need pressors Patient and family prefers no aggressive measure including Central line placement, hemodialysis, CPR, Intubation OK with blood transfusions/Mid or PICC line S/P IV albumin. Continue PRN On Hydrocortisone per ICU team Random cortisol:14.9 Repeat lactate levels:.25 procalcitonin:normal Discontinued empiric Levaquin and Flagyl MRSA screen negative Blood cultures:pending UA: normal CT ABD: as below Palliative care consulted to identify goals of care Enema given to help with constipation Will not tolerate IV diuretics secondary to labile BP Acute on chronic Hypoxic respiratory failure: Multifactorial H/O COPD, IPF, CHF DuoNeb Oxygen support CXR:cardiomegaly, persistent pulmonary edema, small b/l pleural effusions, Persistent focal opacity of R midlung Will not tolerate IV diuretics secondary to labile BP Chronic Hyponatremia Sodium levels:131>>.135 Monitor levels CAD S/P CABG Aortic Stenosis Chronic Systolic CHF P.afib Chronic anemia: Subtherapeutic INR No angina symptoms Hold Lasix secondary to hypotension Monitor for hemodynamic changes Coumadin discontinued last admission secondary to GI bleed INR: 1.6 Continue home meds ECHO: * The left ventricle is normal in size. * There is normal left ventricular wall thickness. * No regional wall motion abnormalities noted. * Apical wall motion abnormality may reflect pacemaker activation. * Ejection Fraction = 50-55%. * The right ventricle is mildly dilated. * The right ventricular systolic function is moderately reduced. * There is severe calcification of the aortic valve leaflets * Borderline severe aortic stenosis. * There is mild to moderate mitral regurgitation. * There is moderate tricuspid regurgitation. Right ventricular systolic pressure is elevated at 40-50mmHg H/O Coumadin induced GI bleed Hb stable CKD III: Cr at baseline Monitor renal function DM II: ISS, Lantus, accu checks Prolonged QTC: Avoid QT prolonging meds GERD: continue home meds Hypothyroidism: continue Levothyroxine TSH, Free T4:normal H/O CVA, DVT: continue home meds Former Tobacco use DVT Px: Heparin SQ Code Status: DNI/DNR: on discussion with patient, family (Daughter, ) Very poor prognosis Palliative care involved to identify goals of care Patient deteriorated clinically and . Patient was pronounced by the [employer]. PROCEDURES: CT ABD 1. Extensive sigmoid diverticulosis redemonstrated with possible inflammatory changes seen within the distribution of the descending sigmoid junction. Evaluation for mesenteric inflammatory changes however is very limited secondary to diffuse mesenteric edema with volume overload. 2. Moderate to extensive stool burden as above suggests constipation with large stool ball in the rectal vault noted. Moderate soft tissue prominence within the region of the inferior rectum as above may reflect associated stercoral proctitis. Correlate with digital rectal exam to exclude underlying mass. 3. Cirrhotic liver disease with trace intra-abdominal ascites. Anasarca. 4. Small bilateral pleural effusions with evidence of interstitial lung disease and traction bronchiectasis. There is likely mild superimposed pulmonary edema. Total time spent on discharge = This includes examination of the patient, discharge planning, medication reconciliation, and communication with other providers. Discharge Instructions Patient
== END 2017-06-12 22:00 | disposition expired | DRG 871 ==
LOC: EDUNIT# 10:52 → C.EDC 10:55 → C.MSICU 17:44 → ENRESERV 18:40
PROVIDERS: ADMIT Internal Medicine; ATTEND Internal Medicine
DX: A41.9 Sepsis, unspecified organism (principal); J96.21 Acute and chronic respiratory failure with hypoxia; I35.0 Nonrheumatic aortic (valve) stenosis; G93.41 Metabolic encephalopathy; I48.92 Unspecified atrial flutter; E72.12 Methylenetetrahydrofolate reductase deficiency; I50.22 Chronic systolic (congestive) heart failure; I13.0 Hypertensive heart and chronic kidney disease with heart failure and stage 1 through stage 4 chronic kidney disease, or unspecified chronic kidney disease; E87.1 Hypo-osmolality and hyponatremia; E87.2 Acidosis; R65.20 Severe sepsis without septic shock; Z87.891 Personal history of nicotine dependence; N18.3 Chronic kidney disease, stage 3 (moderate); E11.21 Type 2 diabetes mellitus with diabetic nephropathy; K21.9 Gastro-esophageal reflux disease without esophagitis; Z86.73 Personal history of transient ischemic attack (TIA), and cerebral infarction without residual deficits; Z86.718 Personal history of other venous thrombosis and embolism; J84.112 Idiopathic pulmonary fibrosis; E03.9 Hypothyroidism, unspecified; Z85.42 Personal history of malignant neoplasm of other parts of uterus; E86.0 Dehydration; Z79.3 Long term (current) use of hormonal contraceptives; I25.10 Atherosclerotic heart disease of native coronary artery without angina pectoris; Z95.1 Presence of aortocoronary bypass graft